=== PATIENT | male | born 1955 | race Caucasian/White ===

== ENCOUNTER 2023-03-29 07:45 | Outpatient (OUT) | payer OTHER, SELFPAY ==
--- NOTE | 2023-03-29 07:59 | XR_ITS ---
The [address] [address] Patient Name: RACHID MANNING MRN: [id number] date: 1955 Sex: M Assigned Patient Location: [facility] Current Patient Location: Accession/Order Number: [id number] Exam Date: 03/29/2023 08:00 Report Date: 03/30/2023 15:00 At the request of: BC BASSETT Procedure: XR pelvis 1-2V PELVIS; 03/29/2023 8:00 AM EST Clinical History:Closed Fracture Of Right Inferior Pubic Ramus S32.591A Comparison: Unfortunately, no prior study for comparison. . Bilateral THRs. Various aspects appear reasonably well seated and aligned with respect to each other as examined in single frontal plane only Neurosurgical hardware at L5 and S1. There is a hairline nondisplaced fracture of the right inferior pubic ramus. No apparent callus formation. At plain film, no distinct evidence of a second fracture of the pelvic ring. There is linear lucency extending through and osteophyte/heterotopic bone in the region of the left greater trochanter. The alignment at the symphysis unremarkable. The width of the symphysis is preserved. SI joints are patent and symmetric. Minimal degenerative irregularities on the left. XR/XR pelvis 1-2V IMPRESSION: 1. Hairline fracture right inferior pubic ramus. 2. Lucency extending through osteophyte/heterotopic bone in the region of left greater trochanter. Clinical correlation is needed. Is pain referrable to this region? Is there point tenderness in this region? Electronically authenticated by: FRANKIE VARGAS Date: 03/30/2023 15:00
== END 2023-03-29 07:46 | disposition home or self-care (01) ==
LOC: RAD 07:45
PROVIDERS: Visit Provider Orthopaedic Surgery
DX: S32.591A Other specified fracture of right pubis, initial encounter for closed fracture (principal)
CPT/HCPCS: 72170

== ENCOUNTER 2023-04-26 09:40 | Outpatient (OUT) | payer OTHER, SELFPAY ==
--- NOTE | 2023-04-26 | XR_ITS ---
The [address] [address] Patient Name: RACHID MANNING MRN: [id number] date: 1955 Sex: M Assigned Patient Location: [facility] Current Patient Location: [facility] Accession/Order Number: [id number] Exam Date: 04/26/2023 09:58 Report Date: 04/26/2023 14:48 At the request of: BC BASSETT Procedure: XR pelvis min 3V 3 frontal views of the pelvis INDICATION: Pain COMPARISON: None XR/XR pelvis min 3V IMPRESSION: No overt acute displaced pelvic bone fracture or dislocation identified on limited frontal views. Bilateral hip arthroplasties noted without overt complications. Mild to moderate degenerative changes of the pubis symphysis, bilateral sacroiliac joints and partially visualized lower lumbar spine. Soft tissues are grossly unremarkable. Electronically authenticated by: LENORE MATHIAS Date: 04/26/2023 14:48
--- OUTSIDE RECORDS SUMMARY | 2023-04-26 09:57 | XMS_ITS | CCD ---
Author Name Unknown Address [address] [place] [address] [address] [place] [address] Organization [facility] Care Team Providers Care Asset Coordinator Name Role Phone PRIYANK, DR RENAY Beal Attending Unavailable PRIYANK, DR RENAY Beal Admitting Unavailable PRIYANK, DR RENAY Beal Primary Care Unavailable PRIYANK, DR RENAY Beal Consulting Unavailable PRIYANK, DR RENAY Beal Admitting Unavailable PRIYANK, DR RENAY Beal Primary Care Unavailable PRIYANK, DR RENAY Beal Consulting Unavailable PRIYANK, DR RENAY Beal Attending Unavailable MD Renay Yost Primary Care Provider [phone] MD Cam Rea Attending Provider [phone] Cam Rea Attending Unavailable Cam Rea Admitting Unavailable Renay Yost Primary Care Unavailable MD Maxwell Ontiveros Attending Unavailable Lauri HDZ Attending Unavailable Lauri HDZ Attending Unavailable MD Maxwell Ontiveros Attending Unavailable MD Maxwell Ontiveros Admitting Unavailable MD Maxwell Ontiveros Attending Unavailable MD Maxwell Ontiveros Admitting Unavailable Brain Pack Attending Unavailable MD Maxwell Ontiveros Attending Unavailable MD Maxwell Ontiveros Attending Unavailable Allergies Allergy Classification Reported Allergen(s) Allergy Type Date of Onset Reaction(s) Facility (1 source) Sulfonamides (Antibiotic) Drug allergy (disorder) 0 [facility] Repository (2 sources) Sulfonamides (Antibiotic); Translations: [Sulfa (Sulfonamide Antibiotics)] Allergy to substance 2 [facility] (1 source) Sulfamethoxazole; Translations: [sulfamethoxazole ] Drug Allergy [facility] Repository Medications Current Medications Medication Drug Class(es) Dates Sig (Normalized) Sig (Original) aspirin 81 mg oral tablet (1 source) Platelet Aggregation Inhibitor, Nonsteroidal Anti-inflammatory Drug Start: 02-18-2022 take 81 mg by mouth once daily Aspirin Active 81 MG PO Daily February 18, 2022 12:00am atorvastatin 20 mg oral tablet (1 source) HMG-CoA Reductase Inhibitor Start: 02-18-2022 take 20 mg by mouth at bedtime Atorvastatin Active 20 MG PO Bedtime February 18, 2022 12:00am losartan potassium 100 mg oral tablet (1 source) Angiotensin 2 Receptor Diamond Start: 02-18-2022 take 100 mg by mouth once daily Losartan Active 100 MG PO Daily February 18, 2022 12:00am metFORMIN hydrochloride 500 mg oral tablet (1 source) Biguanide Start: 02-18-2022 take 500 mg by mouth twice daily Metformin Active 500 MG PO Twice daily February 18, 2022 12:00am omeprazole 20 mg delayed release oral capsule (1 source) Proton Pump Inhibitor Start: 02-18-2022 take 20 mg by mouth once daily Omeprazole Active 20 MG PO Daily February 18, 2022 12:00am SITagliptin 100 mg oral tablet (1 source) Dipeptidyl Peptidase 4 Inhibitor Start: 02-18-2022 take 1 tablet by mouth once daily Sitagliptin Phosphate (Januvia) 100 mg tablet Active 100 MG PO Daily February 18, 2022 12:00am terbinafine 250 mg oral tablet (1 source) Allylamine Antifungal Start: 02-18-2022 take 250 mg by mouth twice daily Terbinafine Hcl Active 250 MG PO Twice daily February 18, 2022 12:00am as dircted venlafaxine 25 mg oral tablet (1 source) Serotonin and Norepinephrine Reuptake Inhibitor Start: 02-18-2022 take 25 mg by mouth once daily Venlafaxine Active 25 MG PO Daily February 18, 2022 12:00am Problems Problem Classification Problem Date Documented Da te Episodic/Chronic Other screening for suspected conditions (not mental disorders or infectious disease) (1 source) Encounter for screening for malignant neoplasm of prostate; Translations: [ENC SCREEN MALIG NEOPLASM PROSTATE] Onset: 10-28-2021 Episodic Unclassified (1 source) Encounter for screening for malignant neoplasm of colon; Translations: [Encounter for screening for malignant neoplasm of colon] Onset: 02-20-2022 Results Test Name Value Interpretation Reference Range Facil ity Family Medicine Office/Clini c Noteon 03-31-2023 Family Medicine Office/Clinic Note HPI Staff Rachid is a 67 year old male presenting for full PE Health Maintenance: Colonoscopy: PSA: PSA Scrn Tot.: 0.2 ng/mL (12/30/22 16:13:00) Last Labs: 12/30/22 Last A1C: Hgb A1C %: 6.9 % High (12/28/22 17:49:00) Flu: UTD questions/concerns: can he get the terbenaifine back, you wanted to wait on his liver tests before refilling it History of Present Illness Rachid Mcnair is a 67-year-old male who presents today for a physical exam. The patient underwent a colonoscopy at [facility] in 02/2022. A single polyp was identified during the procedure. The patient was advised to schedule a follow-up in five years. He has a history of smoking, which began in 1975 and ended in 1991, totaling 16 years of smoking. However, the patient has been smoke-free since 1991. He has been fully vaccinated against shingles, having received both doses of the vaccine. He was previously prescribed terbinafine by Dr. Huntley for a condition affecting his toes. The patient has not taken the medication since his last visit and reports no deterioration in his nail health. The patient also mentions that he has not used Penlac.. Review of Systems PHQ Score Initial Depression Screen Score: 1 SCORE Physical Exam Vitals & Measurements T: 36.8 ?C(Oral) HR: 76(Peripheral) RR: 16 BP: 136/82 SpO2: 99% HT: 71 in HT: 180 cm WT: 78.2 kg WT: 172.04 lb BMI: 24.14 General: alert, no acute distress Cardiovascular: regular rate and rhythm, normal peripheral perfusion Respiratory: Lungs CTA, respirations non labored Extremities: no deformity, no trauma Neurological: oriented x 4, LOC appropriate for age, CN II-XII intact, motor strength equal & normal bilaterally, speech normal Assessment/Plan 1. Physical exam (Z00.00: Encounter for general adult medical examination without abnormal findings) Anticipatory guidance given. Discussed diet and exercise. Discussed immunizations. Discussed the patient's basic lab work. 2. GERD (gastroesophageal reflux disease) (K21.9: Gastro-esophageal reflux disease without esophagitis) Well controlled with medication. We will continue to follow and refill medication as needed. 3. HTN (I10: Essential (primary) hypertension) Patient's blood pressure is well controlled today. No concerns. Continue medications before. 4. Type 2 diabetes mellitus without complication, without long-term current use of insulin (E11.9: Type 2 diabetes mellitus without complications) Patient's last A1c was within normal limits. Continue medication as before. We will increase metformin as needed 5. Jessica onychomycosis (B37.2: Candidiasis of skin and nail) We will continue terbinafine and we will do Penlac. Patient will follow up as needed. 6. Body mass index (BMI) of 24.0-24.9 in adult (Z68.24: Body mass index [BMI] 24.0-24.9, adult) BMI education given. 7. Former smoker (Z87.891: Personal history of nicotine dependence) Encouraged the patient not to smoke. We will look at aortic aneurysm screen at next visit. Discussed with the patient in detail. 8. BMI 36.0-36.9,adult (Z68.36: Body mass index [BMI] 36.0-36.9, adult) 9. Class 1 obesity due to excess calories in adult (E66.09: Other obesity due to excess calories) Portions of this record may have been created with voice recognition artificial intelligence software, specifically [employer], [employer] and or [employer]. Substitutions may have occurred due to the inherent limitations of voice recognition and artificial intelligence software. Documentation services were performed after patient or guardian consented to allow [employer] to record this visit. EMRE exchange specialist and provider reviewed before signing. EMRE: Sarah Dwyer. Follow-up No qualifying data available Problem List/Past Medical History Ongoing Body mass index (BMI) of 24.0-24.9 in adult Jessica onychomycosis Cholesterol Former smoker GERD (gastroesophageal reflux disease) HTN Physical exam Prostate cancer screening Type 2 diabetes mellitus without complication, without long-term current use of insulin Historical No qualifying data Procedure/Surgical History Arthroplasty of the hip (02/08/2018), rt shoulder scope ext debridement, sad, pt distal clavulectomy (10/06/2016), left shoulder manipulation under anesthesia, left shoulder arthroscopy with subacromial decompression, partial distal clavulectomy with extensive glenohumeral debridement, mini-open rotator cuff repair (04/28/2013), elbow, lower back surgery, right hip surgery, spinal neck surgery. Medications aspirin 81 mg oral capsule, 81 mg, Oral, Daily, 1 refills atorvastatin 20 mg Tab, 20 mg= 1 tab(s), Oral, Daily, 1 refills Januvia 100 mg Tab, 100 mg= 1 tab(s), Oral, Daily, 1 refills losartan 100 mg Tab, 100 mg= 1 tab(s), Oral, Daily, 1 refills metformin 500 mg Tab, 500 mg= 1 tab(s), Oral, BID, 1 refills Misc DME Prescription, See Instructions, 3 refills Misc DME Prescript (more content not included)... Normal [facility] Comment on above: Result Comment: Elec tronically Signed By: Maxwell Ontiveros MD\.br\Date and Time Signed: 03/31/23 17:18 EST\.br\Electronically Co-Signed By: Rachel Martinez\.br\Date and Time Co-Signed: 03/30/23 11:30 EST Ambulatory Visit Summaryon 1 05-30-2022 Ambulatory Visit Summary RACHID MCNAIR :1955 Visit Date:03/29/2023 Ambulatory Visit Instructions Your Diagnosis Physical exam GERD (gastroesophageal reflux disease) HTN Type 2 diabetes mellitus without complication, without long-term current use of insulin Jessica onychomycosis Body mass index (BMI) of 24.0-24.9 in adult Former smoker Your Care Team Attending Physician - Maxwell Ontiveros MD Primary Care Physician - Maxwell Ontiveros MD This Is Your Medications List ciclopirox topical (Penlac Nail Lacquer 8% topical solution) terbinafine (terbinafine 250 mg Tab) Contact prescribing physician if questions or concerns Misc Prescription (Misc DME Prescription) Misc Prescription (Misc DME Prescription) Misc Prescription (Misc DME Prescription) aspirin (aspirin 81 mg oral capsule) atorvastatin (atorvastatin 20 mg Tab) losartan (losartan 100 mg Tab) metformin (metformin 500 mg Tab) omeprazole (omeprazole 20 mg Cap-DR) sitagliptin (Januvia 100 mg Tab) venlafaxine (venlafaxine 25 mg Tab) Procedures Performed Arthroplasty of the hip (02/08/2018), rt shoulder scope ext debridement, sad, pt distal clavulectomy (10/06/2016), left shoulder manipulation under anesthesia, left shoulder arthroscopy with subacromial decompression, partial distal clavulectomy with extensive glenohumeral debridement, mini-open rotator cuff repair (04/28/2013), elbow, lower back surgery, right hip surgery, spinal neck surgery. Discharge Vitals Temperature (Oral) 36.8 ?C Heart Rate (Peripheral) 76 Respiratory Rate 16 Blood Pressure 136/82 Height 180 cm Height 71 in Weight 78.2 kg Weight 172.04 lb BMI 24.14 What to do next Scheduled Follow-Up Appointments Wednesday 9:30 AM EDT With: Where: [facility] [place] Normal [address] [place], [place] [id number]- \.br\ Medications\.br\ What How Much When Why Instructions\.br \ New ciclopirox topical (Penlac Nail Lacquer 8% topical solution) 1 Application Topical Every day Physical exam GERD (gastroesophagea l reflux disease) HTN Type 2 diabetes mellitus without complication, without long-term current use of insulin Jessica onychomycosis Pickup at [facility]pharmacy #[id number]\.br\ Changed terbinafine (terbinafine 250 mg Tab) 1 Tablets By Mouth 2 times a day use for one week and take 3 weeks off Pickup at [facility]\.br\ Unchanged aspirin (aspirin 81 mg oral capsule) 81 Milligram By Mouth Every day Contact prescribing physician if questions or concerns \.br\ Unchanged atorvastatin (atorvastatin 20 mg Tab) 1 Tablets By Mouth Every day Contact prescribing physician if questions or concerns \.br\ Unchanged losartan (losartan 100 mg Tab) 1 Tablets By Mouth Every day Contact prescribing physician if questions or concerns \.br\ Unchanged metformin (metformin 500 mg Tab) 1 Tablets By Mouth 2 times a day Contact prescribing physician if questions or concerns \.br\ Unchanged Misc Prescription (Misc DME Prescription) See instructions microlet lancets Use to test blood sugars once a day Dx E11.9 Contact prescribing physician if questions or concerns \.br\ Unchanged Misc Prescription (Misc DME Prescription) See instructions Contour next test strips Test blood sugars once a day Dx E11.9 Contact prescribing physician if questions or concerns \.br\ Unchanged Misc Prescription (Misc DME Prescription) See instructions control solution for contour next glucometer Dx E11.9 Use as directed for control check Contact prescribing physician if questions or concerns \.br\ Unchanged omeprazole (omeprazole 20 mg Cap-DR) 1 Capsules By Mouth Every day Contact prescribing physician if questions or concerns \.br\ Unchanged sitagliptin (Januvia 100 mg Tab) 1 Tablets By Mouth Every day Contact prescribing physician if questions or concerns \.br\ Unchanged venlafaxine (venlafaxine 25 mg Tab) 1 Tablets By Mouth Every day Contact prescribing physician if questions or concerns \.br\ Pharmacy Information\.br\ [facility]: [address] [place], [place] [id number] [phone]\.br\ [id number]: [address], [place] [id number] [phone]\.br\ Allergies\.br\ sulfamethoxazole \.br\ Problems\.br\ Ongoing - Any problem that you are currently receiving treatment for.\.br\ Body mass index (BMI) of 24.0-24.9 in adult\.br\ Jessica onychomycosis\.b r\ Cholesterol\.br\ Former smoker\.br\ GERD (gastroesophagea l reflux disease)\.br\ HTN\.br\ Physical exam\.br\ Prostate cancer screening\.br\ Type 2 diabetes mellitus without complication, without long-term current use of insulin\.br\ Patient Survey\.br\ You may receive a survey via text or e-mail asking about your office visit. Please share your experience with us by completing your survey. We appreciate your feedback and thank you for choosing us for your care.\.br\ \.br\ [facility] CT Pelvis w/o Contraston CT Pelvis w/o Contrast Exam Date/Time: 03/09/2023 17:14 EST Reason for Exam: inferior pubic rami fracture and superior;Other (please specify) Report IMPRESSION: NONDISPLACED ACUTE RIGHT SUPERIOR AND INFERIOR PUBIC RAMI FRACTURES. CLINICAL HISTORY: inferior pubic rami fracture and superior. Pain after recent injury. Abnormal radiographs. COMPARISON: Pelvis and right hip radiographs from earlier 03/09/2023. TECHNIQUE: Spiral unenhanced images were obtained of the pelvis without contrast. All CT scans at this facility use dose modulation, iterative reconstruction, and/or weight based dosing when appropriate to reduce radiation dose to as low as reasonably achievable. FINDINGS: A nondisplaced oblique fracture of the mid right inferior pubic ramus noted on the recent radiograph is confirmed. A nondisplaced fracture of the lateral aspect of the right superior pubic ramus is present, which does significantly not extend into the right acetabulum or right acetabular prosthetic implant. There is no other fracture, dislocation, pelvic diastases, organized hematoma, or other acute findings identified elsewhere. Bilateral total hip arthroplasties are otherwise unremarkable. Mild to moderate calcific plaquing of a normal caliber distal abdominal aorta and branch vessels are present. Postoperative changes from previous lumbosacral fusion/laminectomy are otherwise unremarkable. Mild sigmoid diverticulosis is present without diverticulitis. The urinary bladder is unremarkable. Ordering Provider: Adrienne Jenkins FINAL REPORT Dictated: 03/09/2023 6:17 pm Hank Fournier MD Signed (Electronic Signature): 03/09/2023 6:17 pm Signed by: Hank Fournier MD Transcribed by: ALENA Technologist: KIMBERLEY Technical Comments Rectal Contrast Given? No Oral contrast amount in ml's: 0 Normal [facility] Consent for Treatmenton 02-11 Consent for Treatment [id number] .[id number] Normal [facility] Discharge Instructionson Discharge Instructions [id number] 1.00TIFF Normal [facility] ED Clinical Summaryon 2022 ED Clinical Summary [address] [address] ED Clinical Summary Person Information [facility]: [facility] Age[facility] 67 Years : 1955 Sex: Male Language: Chinese PCP: Maxwell Ontiveros MD Marital Status: Visit Id: Visit Reason: Back pain; Hip pain-swelling; Fall; LOW BACK PAIN Speciality: Acuity: 3 Enc Type: Emergency Med Service: Emergency Arrival: 03/09/2023 13:29:02 Discharge: 03/09/2023 18:34:22 LOS: 000 05:05 Checkin: 03/09/2023 13:29:02 Checkout: 03/09/2023 18:34:22 Dispo Type: Home (Routine DC) EVENTS: Event Name Event Status Request Date/Time Start Date/Time Complete Date/Time Arrive Complete 03/09/2023 13:29:02 03/09/2023 13:29:02 03/09/2023 13:29:02 Document Home Meds Request 03/09/2023 13:29:02 Triage Complete 03/09/2023 13:29:02 03/09/2023 13:44:37 03/09/2023 13:44:37 Workers Comp Request 03/09/2023 13:44:39 Bed Assign Complete 03/09/2023 13:45:06 03/09/2023 13:45:06 03/09/2023 13:45:06 Dr Exam Complete 03/09/2023 13:45:06 03/09/2023 13:45:58 03/09/2023 13:45:58 RN Exam Complete 03/09/2023 13:45:06 03/09/2023 13:58:07 03/09/2023 13:58:07 Registration Complete 03/09/2023 13:45:58 03/09/2023 14:01:47 03/09/2023 14:01:47 Dr Exam Complete 03/09/2023 13:50:04 03/09/2023 13:50:04 03/09/2023 13:50:04 Trauma II Request 03/09/2023 13:57:37 Reg Complete Request 03/09/2023 14:01:47 Reg Bed Request Complete 03/09/2023 14:01:47 03/09/2023 14:01:47 03/09/2023 14:01:47 X-Ray Complete 03/09/2023 14:15:52 03/09/2023 14:23:15 03/09/2023 14:39:34 Wet Read Request 03/09/2023 14:39:34 Discharge Complete 03/09/2023 15:52:26 03/09/2023 18:34:28 03/09/2023 18:34:28 CT Complete 03/09/2023 16:43:14 03/09/2023 17:07:00 03/09/2023 17:14:04 Meds Admin Complete 03/09/2023 17:21:43 03/09/2023 17:26:52 Meds Admin Complete 03/09/2023 18:19:29 03/09/2023 18:23:20 Transfer Complete 03/09/2023 18:34:28 03/09/2023 18:34:28 03/09/2023 18:34:28 ADDRESS: [address] [place] [id number] PHYS DOC NOTES: Addendum by Adrienne Jenkins PA-C on March 09, 2023 18:25:08 EST MEDICAL INFORMATION: Prescriptions Given: Medications to Continue with No Changes Other Medications aspirin (aspirin 81 mg oral capsule) 81 Milligram By Mouth every day. Refills: 1. atorvastatin (atorvastatin 20 mg Tab) 1 Tablets By Mouth every day. Refills: 1. losartan (losartan 100 mg Tab) 1 Tablets By Mouth every day. Refills: 1. metformin (metformin 500 mg Tab) 1 Tablets By Mouth 2 times a day. Refills: 1. Misc Prescription ([facility] DME Prescription) microlet lancets Use to test blood sugars once a day Dx E11.9. Refills: 3. Misc Prescription ([facility] Prescription) Contour next test strips Test blood sugars once a day Dx E11.9. Refills: 3. [facility] Prescription ([facility] Prescription) control solution for contour next glucometer Dx E11.9 Use as directed for control check. Refills: 3. omeprazole (omeprazole 20 mg Cap-DR) 1 Capsules By Mouth every day. Refills: 1. sitagliptin (Januvia 100 mg Tab) 1 Tablets By Mouth every day. Refills: 1. terbinafine (terbinafine 250 mg Tab) 1 Tablets By Mouth 2 times a day. use for one week and take 3 weeks off. venlafaxine (venlafaxine 25 mg Tab) 1 Tablets By Mouth every day. Refills: 1. PATIENT EDUCATION INFORMATION: Instructions: Simple Pelvic Fracture, Adult Follow up: With: Address: When: Occupational Health: [facility] [place] [phone] Within 2 to 4 days Comments: Call today to schedule your follow up DIAGNOSIS: 1:Accidental fall; 2:Inferior pubic ramus fracture; 3:Fracture of superior rim of right pubis, initial encounter for closed fracture Normal [facility] ED Note-Physicianon 03-09-20 ED Note-Physician Basic Information Time Seen: Adrienne Jenkins PA-C 03/09/2023 13:45 Chief Complaint Pt missed a step and fell off the back of a truck at work, approx. 4ft. Landed on his back on concrete, denies head strike or LOC, but is on aspirin. C/o low back pain and pain to R hip, which he had a replacement on. History of Present Illness 67-year-old male presents for an accidental fall complaining of right buttock pain. 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 Denies hitting his head. He has been ambulating, but states that he has groin pain. He did not take anything for pain. Denies BUE/BLE swelling, temperature or sensation changes. Review of Systems Review of systems negative unless otherwise stated in HPI Physical Exam Vitals & Measurements T: 36.5 ?C(Oral) HR: 89(Monitored) RR: 18 BP: 135/80 SpO2: 96% HT: 180 cm WT: 79.9 kg BMI: 24.66 GENERAL: ALERT, NO ACUTE DISTRESS, talking in full complete sentences SKIN: WARM, DRY, INTACT; NO CYANOSIS, NO RASH HEAD: NORMOCEPHALIC, ATRAUMATIC ENT: EYE: PERRL, EOMI, NORMAL CONJUNCTIVA NOSE: NARES PATENT MOUTH: ORAL MUCOSA MOIST THROAT: NO STRIDOR NECK: SUPPLE, TRACHEA MIDLINE, FROM RESPIRATORY: NON-LABORED RESPIRATIONS EXTREMITIES: FROM X 4 with mild pain with right hip flexion and states that the pain is mostly in his buttock area on the right, NORMAL STRENGTH, CAPILLARY REFILL INTACT NEUROLOGICAL: A&OX3 SPINE: NO VERTEBRAL TENDERNESS, NO STEP OFFS, NO MUSCLE SPASM PSYCHIATRIC: COOPERATIVE, APPROPRIATE MOOD AND AFFECT Medical Decision Making Prelim x-ray reviewed with Dr. Pack and shows an inferior pubic rami fracture. Fracture care initiated in ER. Neurovascular intact. I have offered a couple times to medicate him for pain and he declines. Case discussed with Dr. Lockhart and will add on a CT pelvis and he is to use a walker with weightbearing as tolerated. Patient does not need to wait in the ER for results of the CT and can review this with [facility] as this does not change treatment. He is to follow-up with [facility]. Afebrile, not tachycardic, tolerating p.o. and hemodynamically stable to be discharged home. Answered all questions. Patient in agreement with treatment. Assessment/Plan 1. Accidental fall (W19.XXXA: Unspecified fall, initial encounter) 2. Inferior pubic ramus fracture (S32.599A: Other specified fracture of unspecified pubis, initial encounter for closed fracture) 3. Fracture of superior rim of right pubis, initial encounter for closed fracture (S32.511A: Fracture of superior rim of right pubis, initial encounter for closed fracture) Orders: CT Pelvis w/o Contrast XR Hip 2-3 Views Right + Pelvis Disposition Plan Patient Discharge Condition Stable Discharge Disposition Home Discharge Prescription List Prescriptions No active prescription medications Follow-up With When Contact Information Occupational Health: [facility] – [place] [phone] Within 2 to 4 days Additional Instructions: Call today to schedule your follow up Patient Education Simple Pelvic Fracture, Adult Attestation This visit was performed by both the physician and an APC. I performed all aspects of the MDM as documented. Problem List/Past Medical History Ongoing Cholesterol GERD (gastroesophageal reflux disease) HTN Prostate cancer screening Type 2 diabetes mellitus without complication, without long-term current use of insulin Historical No qualifying data Procedure/Surgical History Arthroplasty of the hip (02/08/2018), rt shoulder scope ext debridement, sad, pt distal clavulectomy (10/06/2016), left shoulder manipulation under anesthesia, left shoulder arthroscopy with subacromial decompression, partial distal clavulectomy with extensive glenohumeral debridement, mini-open rotator cuff repair (04/28/2013), elbow, lower back surgery, right hip surgery, spinal neck surgery. Medications Inpatient No active inpatient medications Home aspirin 81 mg oral capsule, 81 mg, Oral, Daily, 1 refills atorvastatin 20 mg Tab, 20 mg= 1 tab(s), Oral, Daily, 1 refills Januvia 100 mg Tab, 100 mg= 1 tab(s), Oral, Daily, 1 refills losartan 100 mg Tab, 100 mg= 1 tab(s), Oral, Daily, 1 refills metformin 500 mg Tab, 500 mg= 1 tab(s), Oral, BID, 1 refills Misc DME Prescription, See Instructions, 3 refills Misc DME Prescription, See Instructions, 3 refills Misc DME Prescription, See Instructions, 3 refills omeprazole 20 mg Cap-DR, 20 mg= 1 cap(s), Oral, Daily, 1 refills terbinafine 250 mg Tab, 250 mg= 1 tab(s), Oral, BID venlafaxine 25 mg Tab, 25 mg= 1 tab(s), Oral, Daily, 1 refills Allergies sulfamethoxazole Social History Alcohol - Medium Risk, 04/24/2013 Current, Beer, 1-2 times per week, 01/12/2018 Current, Beer, 3-5 times per week, Previous treatment: None. Alcohol use interferes with work or home: No. Drinks more than intended: No. Others hurt b (more content not included)... Normal [facility] Comment on above: Result Comment: Elec tronically Signed By: Adrienne Jenkins PA-C\.br\Date and Time Signed: 03/09/23 18:25 EST\.br\Electronically Co-Signed By: Adrienne Jenkins PA-C\.br\Date and Time Co-Signed: 03/09/23 18:35 EST\.br\Electronically Co-Signed By: Brain Pack DO\.br\Date and Time Co-Signed: 03/09/23 20:43 EST ED Patient Education Noteon 03-09-2023 ED Patient Education Note Simple Pelvic Fracture, Adult A pelvic fracture is a break in one of the bones in the pelvis. The pelvic bones include the bones that you sit on and the bones that make up the lower part of your spine. A pelvic fracture is called simple if: ? There is only one break. ? The broken bone is stable and is not moving out of place. ? The bone does not jenkins the skin. A pelvic fracture may occur along with injuries to nerves, blood vessels, soft tissues, the urinary tract, and abdominal organs. What are the causes? Common causes of this type of fracture include: ? A fall. ? A motor vehicle collision. ? Force or pressure that hits the pelvis. What increases the risk? You are more likely to get this injury if you: ? Play high-impact sports, such as football or hockey. ? Have thinning or weakening of your bones, such as from osteopenia or osteoporosis. ? Have cancer that has spread to the bone. ? Have a condition that is associated with falling, such as Parkinson's disease or a seizure disorder. ? Have had a stroke. ? Smoke. What are the signs or symptoms? Signs and symptoms may include: ? Tenderness, swelling, or bruising in the affected area. ? Pain when moving the hip. ? Pain when walking or standing. How is this diagnosed? This condition is diagnosed with a physical exam, X-ray, or CT scan. You may also have blood or urine tests: ? To rule out damage to other organs, such as the urethra. ? To check for internal bleeding in the pelvic area. How is this treated? The goal of treatment is to get the bone to heal in its original position. Treatment includes: ? Using crutches, a walker, or a wheelchair until the bone heals. ? Medicines to treat pain. ? Medicines to prevent blood clots from forming in your legs. ? Physical therapy. Follow these instructions at home: Medicines ? Take yran-xcp-ttnkujz and prescription medicines only as told by your health care provider. ? Ask your health care provider if the medicine prescribed to you requires you to avoid driving or using machinery. Managing pain, stiffness, and swelling ? If directed, put ice on the injured area. To do this: ? Put ice in a plastic bag. ? Place a towel between your skin and the bag. ? Leave the ice on for 20 minutes, 2?3 times a day. ? Remove the ice if your skin turns bright red. This is very important. If you cannot feel pain, heat, or cold, you have a greater risk of damage to the area. ? Move your toes, ankles, knees, and hips often to reduce stiffness and swelling. Activity ? Follow your health care provider's instructions about putting weight on your legs. ? Avoid strenuous activities for as long as directed by your health care provider. ? Return to your normal activities as told by your health care provider. Ask your health care provider what activities are safe for you. ? Use items to help you with your activities, such as: ? A long-handled shoehorn to help you put your shoes on. ? Elastic shoelaces that do not need to be retied. ? A director medical science or grabber to pick items up off the floor or from a shelf. General instructions ? Do not drive or use machinery until your health care provider tells you it is safe. ? Use a wheelchair or other assistive devices as directed by your health care provider. When you are ready to walk, start by using crutches or a walker to help support your body weight. ? Have someone help you at home as you recover. ? Wear compression stockings as told by your health care provider. ? Do not use any products that contain nicotine or tobacco. These products include cigarettes, chewing tobacco, and vaping devices, such as e-cigarettes. If you need help quitting, ask your health care provider. ? If you have an underlying condition that caused your pelvic fracture, work with your health care provider to manage your condition. ? Keep all follow-up visits. This is important. Contact a health care provider if: ? Your pain gets worse. ? Your pain is not relieved with medicines. ? You have difficulty or increased pain with walking. Get help right away if: ? You feel light-headed or faint. ? You develop chest pain. ? You develop shortness of breath. ? You have a fever. ? You have blood in your urine or your stools. ? You have bleeding in your vagina. ? You have difficulty or pain with urination or with passing stool. ? You have new or increased swelling in one of your legs. ? You have numbness in your legs or groin area. These symptoms may be an emergency. Get help right away. Call 911. ? Do not wait to see if the symptoms will go away. ? Do not drive yourself to the hospital. Summary ? A pelvic fracture is a break in one of the bones in the pelvis. These are the bones that you sit on and the bones that make up the lower part of your spine. ? A pelvic fracture is call (more content not included)... Normal [facility] ED Patient Summaryon 023 ED Patient Summary [address] [address] Patient Discharge Instructions Person Information Name: RACHID MCNAIR Age: 67 Years Arrival Date: 03/09/2023 13:29:02 Discharge Diagnosis: 1:Accidental fall; 2:Inferior pubic ramus fracture; 3:Fracture of superior rim of right pubis, initial encounter for closed fracture Primary Care Physician: Weston PARKER, Maxwell Borden Provider Information Primary Provider: Brain Pack DO [facility] Home Health:None The exam and treatment you received in the Emergency Department were for an urgent problem and are not intended as complete care. It is important that you follow up with a doctor, nurse practitioner, or physician?s student assistant for ongoing care. If your symptoms become worse or you do not improve as expected and you are unable to reach your usual health care provider, you should return to the Emergency Department. We are available 24 hours a day. RACHID MCNAIR has been given the following list of patient education materials, prescriptions and follow-up instructions: Follow-up Instructions: With: Address: When: Occupational Health: [facility] – [place], [place] [phone] Within 2 to 4 days Comments: Call today to schedule your follow up In the event that this physician does not participate in your insurance network, please consult with your insurance company to find a nearby participating provider. Patient Education Materials: Simple Pelvic Fracture, Adult A MESSAGE TO ALL PATIENTS REGARDING OPIOIDS PRESCRIPTION OPIOIDS: WHAT YOU NEED TO KNOW Prescription opioids can be used to help relieve ywsgeeox-lv-nquffy pain and are often prescribed following a surgery or injury, or for certain health conditions. These medications can be an important part of the treatment but also come with serious risks. It is important to work with your healthcare provider to make sure you are getting the safest, most effective care. WHAT ARE THE RISKS AND SIDE EFFECTS OF OPIOID USE? Prescription opioids carry serious risks of addiction and overdose, especially with prolonged use. An opioid overdose, often marked by slowed breathing, can cause sudden . The use of prescription opioids can have a number of side effects as well, even when taken as directed: ? Tolerance?meaning you might need to take more of the medication for the same pain relief ? Physical dependence?meaning you have symptoms of withdrawal when a medication is stopped ? Increased sensitivity to pain ? Constipation ? Nausea, vomiting, and dry mouth ? Sleepiness and dizziness ? Confusion ? Depression ? Low levels of testosterone that can result in lower sex drive, energy, and strength ? Itching and sweating RISKS ARE GREATER WITH: ? History of drug misuse, substance use disorder, or overdose ? Mental health conditions (such as depression or anxiety) ? Sleep apnea ? Older age (65 years and older) ? Avoid alcohol while taking prescription opioids. Also, unless specifically advised by your health care provider, medications to avoid include: ? Benzodiazepines (such as Xanax or Valium) ? Muscle relaxants (such as Soma or Flexeril) ? Hypnotics (such as Ambien or Lunesta) ? Other prescription opioids KNOW YOUR OPTIONS Talk to your health care provider about ways to manage your pain that don?t involve prescription opioids. Some of these options may actually work better and have fewer risks and side effects. Options may include: ? Pain relievers such as acetaminophen, ibuprofen, and naproxen ? Some medication that are also used for depression or seizures ? Physical therapy and exercise ? Cognitive behavioral therapy, a psychological, goal-directed approach, in which patients learn how to modify physical, behavioral, and emotional triggers of pain and stress. IF YOU ARE PRESCRIBED OPIOIDS FOR PAIN: ? Never take opioids in greater amounts or more often than prescribed. ? Follow up with your primary health care provider. o Work together to create a plan on how to manage your pain. o Talk about ways to help manage your pain that don?t involve prescription opioids. o Talk about any and all concerns and side effects. ? Help prevent misuse and abuse o Never sell or share prescription opioids. o Never use another person?s prescription opioids. ? Store prescription opioids in a secure place and out of reach of others (this may include visitors, children, friends, and family). ? Safely dispose of unused prescription opioids: Find your community drug take-back program or your pharmacy mail-back program, or flush them down the toilet, following guidance from the Food and Drug Administration (www.fda.gov/Drugs/Re sourcesForYou). ? Visit www.cdc.gov/drugoverd ose to learn about the risks of opioids abuse and overdose. ? If you believe you may be struggling with addiction, tell your health car (more content not included)... Normal [facility] ED Traumaon 03-09-2023 ED Trauma [id number]# 1.00TIFF Normal [facility] Workers Comp Formson 023 Workers Comp Forms [id number]# 1.00TIFF Normal [facility] XR Hip 2-3 Views Right + Pel vison 03-09-2023 XR Hip 2-3 Views Right + Pelvis Exam Date/Time: 03/09/2023 14:39 EST Reason for Exam: Fall Report IMPRESSION: Nondisplaced fracture involving the right inferior pubic ramus, and probably also the right superior pubic ramus. EXAMINATION/TECHNIQUE : XR Hip 2-3 Views Right + Pelvis HISTORY: Right hip pain. History of prior hip replacement bilaterally. COMPARISON: 02/08/2018. RESULT: Nondisplaced fracture involving the right inferior pubic ramus, and probably also the right superior pubic ramus. Otherwise bony pelvis appears grossly intact. Bilateral hip arthroplasties, grossly unchanged. No periprosthetic fracture. Postsurgical and degenerative changes of the lower lumbar spine. SI joints intact with degenerative changes. Pubic symphysis is intact. Enthesophytes at the iliac crests. No other significant abnormality. Ordering Provider: Adrienne Jenkins FINAL REPORT Dictated: 03/09/2023 3:47 pm Kobe Hernandez MD. Signed (Electronic Signature): 03/09/2023 3:47 pm Signed by: Kobe Hernandez MD Transcribed by: ALENA Technologist: AMBER Technical Comments Radiation Dose: Ka,r in mGy = 0 DAP = 0 Normal [facility] Consultation Noteon 01-07-20 Consultation Note [id number] .00CD:127 Normal [facility] Formson 12-31-2022 Forms [id number]. 00CD:127 Normal [facility] PSA Screen, Totalon 01-01-20 Prostate specific Ag [Mass/Vol] 0.2 ng/mL Normal 0.1-3.5 [facility] Comment on above: Result Comment: The concentration of PSA determined by different manufacturers can vary due to differences in assay methods and reagent specificity. Values obtained from different assay methods cannot be used interchangeably. The methodology used for this result was chemiluminescence using [employer]'s Access [employer] PSA reagent. Performed By: #### 1 [id number] ####[facility] [address] [place] [address] Auto Diffon 12-29-2022 Basophils/100 WBC (Bld) 0.9 % Normal 0.0-2.0 [facility] Comment on above: Order Comment: Order Added by Discern Expert. Performed By: #### 1 4411124, 7252383, [id number], 0560448, 3273232, 7710395 ####[address] [place] [address] Basophils/Leukocyte s Auto (Bld) [Pure # fraction] 0.1 E9/L Normal 0.0-0.2 [facility] Comment on above: Order Comment: Order Added by Discern Expert. Performed By: #### 1 6285682, 2033448, 619764962, 5439741, 9883904, 5088681 ####[facility] [address] [place] [address] Eosinophils/100 WBC (Bld) 2.8 % Normal 0.0-8.0 [facility] Comment on above: Order Comment: Order Added by Discern Expert. Performed By: #### 1 5005841, 1661894, 079459211, 0025752, 8843726, 7469217 ####[address] [place] [address] Eosinophils/Leukocy uri Auto (Bld) [Pure # fraction] 0.2 E9/L Normal 0.0-0.5 [facility] Comment on above: Order Comment: Order Added by Discern Expert. Performed By: #### 1 2705893, 6189241, 102333983, 2994811, 4369111, 7112746 ####[address] [address] Lymphocytes/100 WBC (Bld) 31.2 % Normal 14.0-50.0 [facility] Comment on above: Order Comment: Order Added by Discern Expert. Performed By: #### 1 0768368, 0705069, 783280770, 3620985, 9554483, 2022193 ####[address] [address] Lymphocytes/Leukocy uri Auto (Bld) [Pure # fraction] 2.2 E9/L Normal 1.0-4.0 [facility] Comment on above: Order Comment: Order Added by Discern Expert. Performed By: #### 1 8229624, 3841833, 849760544, 7413950, 7141329, 0329504 ####[address] [address] Monocytes/100 WBC (Bld) 9.4 % Normal 4.0-14.0 [facility] Comment on above: Order Comment: Order Added by Discern Expert. Performed By: #### 1 2948701, 8660702, 692226248, 4546372, 4164851, 6404538 ####[address] [address] Monocytes/Leukocyte s Auto (Bld) [Pure # fraction] 0.7 E9/L Normal 0.2-1.0 [facility] Comment on above: Order Comment: Order Added by Discern Expert. Performed By: #### 1 7336937, 1391698, 216957652, 2903685, 5839321, 9325845 ####[address] [address] Neutrophils/100 WBC (Bld) 55.7 % Normal 36.0-75.0 [facility] Comment on above: Order Comment: Order Added by Discern Expert. Performed By: #### 1 3530209, 4464556, 392496108, 1686397, 7405927, 9806412 ####[address] [place] [address] Neutrophils/Leukocy uri Auto (Bld) [Pure # fraction] 4.0 E9/L Normal 2.0-7.5 [facility] Comment on above: Order Comment: Order Added by Discern Expert. Performed By: #### 1 8563784, 5035050, 756479193, 3792654, 2451973, 7018535 ####[address] [address] CBC w/ Auto Diffon 3 Erythrocyte distribution width (RBC) [Ratio] 14.6 % High 10.9-14.2 [facility] Comment on above: Performed By: #### 1 1889292, 9372208, 111962687, 2673735, 1486212, 5467582 ####[address] [address] Hematocrit (Bld) [Volume fraction] 42.5 % Normal 37.7-49.0 [facility] Comment on above: Performed By: #### 1 5926272, 6439356, 981260303, 7736285, 2588564, 6231099 ####[address] [address] Hemoglobin (Bld) [Mass/Vol] 14.3 g/dL Normal 13.5-17.5 [facility] Comment on above: Performed By: #### 1 2184879, 1287675, 813961968, 8432744, 0022962, 7647526 ####[address] [address] MCH (RBC) [Entitic mass] 30.0 pg Normal 27.0-34.0 [facility] Comment on above: Performed By: #### 1 9856526, 8456403, 312977825, 0770370, 3263147, 0207261 ####[address] [address] MCHC (RBC) [Mass/Vol] 33.8 g/dL Normal 31.4-36.0 [facility] Comment on above: Performed By: #### 1 1211945, 6156445, 840372311, 5278958, 8342050, 3033849 ####[address] [place] [address] MCV (RBC) [Entitic vol] 88.9 fL Normal 80.0-100.0 [facility] Comment on above: Performed By: #### 1 9339021, 7824208, 667051352, 7029789, 9347256, 5114921 ####[address] [address] Platelet mean volume (Bld) [Entitic vol] 8.6 fL Normal 6.4-10.8 [facility] Comment on above: Performed By: #### 1 8218046, 8986655, 040454633, 5689248, 5773369, 1854205 ####[address] [address] Platelets (Bld) [#/Vol] 266.0 E9/L Normal 150.0-500.0 [facility] Comment on above: Performed By: #### 1 4067251, 3034729, 091007403, 8103657, 9474444, 7222371 ####[address] [address] RBC (Bld) [#/Vol] 4.8 E12/L Normal 4.3-5.9 [facility] Comment on above: Performed By: #### 1 8518108, 6985121, 050824176, 8743502, 0131886, 7057333 ####[address] [place] [address] WBC corrected for nucl RBC Auto (Bld) [#/Vol] 7.2 E9/L Normal 4.0-11.0 [facility] Comment on above: Performed By: #### 1 2030194, 3020673, 791556902, 5316026, 3032434, 8667019 ####[address] [address] CMPon 12-29-2022 Albumin [Mass/Vol] 4.4 g/dL Normal 3.3-5.0 [facility] Comment on above: Performed By: #### 1 4063659, 8646305, 796468805, 2766886, 3267308, 9590785 ####[facility] [address] [place] [address] Albumin/Globulin (S) [Mass conc ratio] 1.6 Normal 1.1-2.2 [facility] Comment on above: Performed By: #### 1 6422347, 0956605, 706390607, 5713727, 5871610, 4690373 ####[address] [place] [address] ALP [Catalytic activity/Vol] 51 Int._Unit/L Normal 21-98 [facility] Comment on above: Performed By: #### 1 6234664, 5826865, 195582281, 6730494, 0051264, 2556164 ####[address] [place] [address] ALT No additional P-5'-P [Catalytic activity/Vol] 25 Int._Unit/L Normal 6-46 [facility] Comment on above: Performed By: #### 1 5216921, 1735955, 953696016, 2254392, 6804516, 5864290 ####[address] [place] [address] Anion gap [Moles/Vol] 11 mmol/L Normal 6-16 [facility] Comment on above: Performed By: #### 1 3525740, 6069363, 111093262, 7067107, 0571342, 9849239 ####[facility] [address] [place] [address] AST [Catalytic activity/Vol] 24 Int._Unit/L Normal 5-43 [facility] Comment on above: Performed By: #### 1 8919043, 1181769, 087984587, 5560735, 4595177, 0525571 ####[address] [place] [address] Bilirubin [Mass/Vol] 0.5 mg/dL Normal 0.0-1.1 [facility] Comment on above: Performed By: #### 1 2460686, 7483942, 155382561, 7038032, 1727777, 8830175 ####[facility] [address] [place] [address] Calcium [Mass/Vol] 9.0 mg/dL Normal 8.9-11.1 [facility] Comment on above: Performed By: #### 1 4632397, 2772327, 144633098, 0515572, 2417174, 6693568 ####[facility] [address] [place] [address] Chloride [Moles/Vol] 105 mmol/L Normal 101-111 [facility] Comment on above: Performed By: #### 1 2357527, 1248630, 845041264, 3732358, 1505997, 1790674 ####[facility] [address] [place] [address] CO2 [Moles/Vol] 26 mmol/L Normal 21-31 [facility] Comment on above: Performed By: #### 1 9260256, 8388573, 720268378, 9489053, 1423351, 7788765 ####[facility] [address] [place] [address] Creatinine [Mass/Vol] 1.0 mg/dL Normal 0.5-1.3 [facility] Comment on above: Performed By: #### 1 5364108, 8296402, 591995895, 5698667, 9770035, 3252187 ####[facility] [address] [place] [address] Globulin (S) [Mass/Vol] 2.7 g/dL Normal 1.4-4.0 [facility] Comment on above: Performed By: #### 1 2450220, 6283114, 456179957, 1906398, 8671102, 8660662 ####[facility] [address] [place] [address] Glucose [Mass/Vol] 140 mg/dL Normal 55-199 [facility] Comment on above: Result Comment: If t his glucose result represents a fasting glucose, interpretation should refer to the following reference range: 55-99 mg/dL Performed By: #### 1 6207161, 7096996, 711210500, 2207761, 9722714, 4116253 ####[facility] [address] [place] [address] Potassium [Moles/Vol] 3.7 mmol/L Normal 3.5-5.3 [facility] Comment on above: Performed By: #### 1 7335333, 0517599, 690201334, 1549645, 0935040, 5951509 ####[facility] [address] [place] [address] Protein [Mass/Vol] 7.1 g/dL Normal 6.0-7.8 [facility] Comment on above: Performed By: #### 1 7085956, 6341857, 647224741, 1738477, 0835359, 6435727 ####[facility] [address] [place] [address] Sodium [Moles/Vol] 138 mmol/L Normal 135-145 [facility] Comment on above: Performed By: #### 1 3227980, 0443243, 088150038, 1511619, 5397102, 3923571 ####[facility] [address] [place] [address] Urea nitrogen [Mass/Vol] 12 mg/dL Normal 5-21 [facility] Comment on above: Performed By: #### 1 5076382, 3047993, 114820891, 9180297, 0334152, 2717319 ####[facility] [address] [place] [address] Urea nitrogen/Creatinine [Mass ratio] 12 No Units Normal 10-20 [facility] Comment on above: Performed By: #### 1 5687288, 1546971, 546692151, 4100573, 7609069, 5787484 ####[facility] [address] [place] [address] Consent for Flu Vaccineon Consent for Flu Vaccine [id number]. 00CD:127 Normal [facility] BvaN2znc 12-29-2022 HbA1c (Bld) [Mass fraction] 6.9 % High <=5.9 [facility] Comment on above: Performed By: #### 1 3478854, 2434454, 767150750, 9057862, 4279309, 1141444 ####[facility] [address] [place] [address] Lipid Panelon 12-29-2022 Cholesterol [Mass/Vol] 148 mg/dL Normal 120-200 [facility] Comment on above: Performed By: #### 1 2042041, 1024566, 108401825, 6420131, 2707286, 1284710 ####[facility] [address] [place] [address] Cholesterol in HDL [Mass/Vol] 51 mg/dL Invalid Interpretation Code [facility] Comment on above: Result Comment: HDL > or equal to 60 mg/dL: Low cardiovascular risk HDL < 40 mg/dL : High cardiovascular risk Performed By: #### 1 8339214, 3962432, 955506549, 3297891, 9529011, 7382913 ####[facility] [address] [place] [address] Cholesterol in LDL [Mass/Vol] 83 mg/dL Normal <=129 [facility] Comment on above: Performed By: #### 1 2003971, 0357835, 894577845, 9582339, 4422242, 1403848 ####[facility] [address] [place] [address] Cholesterol in VLDL [Mass/Vol] 21 mg/dL Normal 7-40 [facility] Comment on above: Performed By: #### 1 3991591, 5087600, 166253705, 1620000, 6563175, 0898718 ####[facility] [address] [place] [address] Triglyceride [Mass/Vol] 103 mg/dL Normal <=149 [facility] Comment on above: Performed By: #### 1 [id number], [id number], [id number], [id number] ####[facility] [address] [place] [address]92 U Microalbon 12-29-2022 Albumin DL <= 20 mg/L (U) [Mass/Vol] 4.4 microgram/mL Normal 0.0-19.0 [facility] Comment on above: Performed By: #### 1 [id number], [id number] ####[facility] [address] [place] [address] U Protein/Creat Ratioon 12-11 Albumin Elph (U) [Mass fraction] <6.0 Invalid Interpretation Code [facility] Comment on above: Result Comment: The reference range and other method performance specifications have not been established for this test; results should be integrated into the clinical context for interpretation. Performed By: #### 1 [id number], [id number] ####[address] [address] Creatinine (U) [Mass/Vol] 34.4 mg/dL Invalid Interpretation Code [facility] Comment on above: Result Comment: The reference range and other method performance specifications have not been established for this test; results should be integrated into the clinical context for interpretation. Performed By: #### 1 [id number], [id number] ####[facility] [address] [place] [address]275 U Prot/Creat Ratio [facility] Invalid Interpretation Code .00-200.00 [facility] Comment on above: Performed By: #### 1 [id number], [id number] ####[address] [place] [address] eGFRon 12-29-2022 GFR/1.73 sq M.predicted among non-blacks MDRD (S/P/Bld) [Vol rate/Area] 84 mL/min/1.73 m2 Normal >=59 [facility] Comment on above: Order Comment: Order added by Discern Expert. Result Comment: Countersinker laura kidney disease could be indicated at eGFR's of less than 60 mL/min/1.73m2. Kidney failure is indicated at less than 15 mL/min/1.73m2. Performed By: #### 1 [id number], [id number] ####[facility] [address] [place] [address] Ambulatory Visit Summaryon 0 12-28-2022 Ambulatory Visit Summary RACHID MCNAIR :1955 Visit Date:12/28/2022 Ambulatory Visit Instructions Your Diagnosis Type 2 diabetes mellitus without complication, without long-term current use of insulin HTN GERD (gastroesophageal reflux disease) Prostate cancer screening BMI 24.0-24.9, adult Your Care Team Attending Physician - Maxwell Ontiveros MD Primary Care Physician - Maxwell Ontiveros MD This Is Your Medications List aspirin (aspirin 81 mg oral capsule) atorvastatin (atorvastatin 20 mg Tab) losartan (losartan 100 mg Tab) metformin (metformin 500 mg Tab) omeprazole (omeprazole 20 mg Cap-DR) sitagliptin (Januvia 100 mg Tab) venlafaxine (venlafaxine 25 mg Tab) Contact prescribing physician if questions or concerns Misc Prescription (Misc DME Prescription) Misc Prescription (Misc DME Prescription) Misc Prescription (Misc DME Prescription) terbinafine (terbinafine 250 mg Tab) [Image Removed: STOP]Stop taking these medications chromium picolinate (chromium picolinate 800 mcg oral tablet) Procedures Performed Arthroplasty of the hip (02/08/2018), rt shoulder scope ext debridement, sad, pt distal clavulectomy (10/06/2016), left shoulder manipulation under anesthesia, left shoulder arthroscopy with subacromial decompression, partial distal clavulectomy with extensive glenohumeral debridement, mini-open rotator cuff repair (04/28/2013), elbow, lower back surgery, right hip surgery, spinal neck surgery. Discharge Vitals Temperature (Oral) 36.8 ?C Heart Rate (Peripheral) 70 Respiratory Rate 14 Blood Pressure 132/80 Height 180 cm Height 71 in Weight 79.3 kg Weight 174.46 lb BMI 24.48 What to do next Scheduled Follow-Up Appointments Wednesday 5:40 PM EST With: Weston PARKER, Maxwell Borden Where: [facility] Invalid Interpretation Code [facility] Office/Clini c Noteon 12-28-2022 [facility] Office/Clinic Note HPI Staff establish care would like wellness PE and needs a1c before he can get his januvia refilled Establish Care: History: DM, HTN, GERD,Hypercholesterol emia Last provider: Priyank Any recent labs: 10/25/21 Health Maintenance UTD: Colonoscopy: 02/20/22 PSA: 0.3 10/25/21 covid: UTD flu: will take today Acute: Current issues/complaints: needs his januvia and metformin refilled but needs A1C before to keep bill down on meds has a wellness/biometric form to fill out History of Present Illness - Here to establish care - Pt has not had his A1c checked in a while - He states FS BS are 150 - Bps are well - No other issues. - Needs labs done. Review of Systems PHQ Score Initial Depression Screen Score: 0 Physical Exam Vitals & Measurements T: 36.8 ?C(Oral) HR: 70(Peripheral) RR: 14 BP: 132/80 SpO2: 95% HT: 71 in HT: 180 cm WT: 79.3 kg WT: 174.46 lb BMI: 24.48 General: alert, no acute distress ENMT: oral mucosa moist, Cardiovascular: regular rate and rhythm, normal peripheral perfusion Respiratory: Lungs CTA, respirations non labored Extremities: no deformity, no trauma Neurological: oriented x 4, LOC appropriate for age, CN II-XII intact, motor strength equal & normal bilaterally, speech normal Abdomen: Soft, Nontender, Non-distended, + BS Assessment/Plan 1. Type 2 diabetes mellitus without complication, without long-term current use of insulin (E11.9: Type 2 diabetes mellitus without complications) - At goal last check - Will order labs - Follow up in 3 months - Adjust meds as needed Ordered: CBC w/ Auto Diff Comprehensive Metabolic Panel HgbA1c Lipid Panel Microalbumin Level Urine PSA Screen, Total U Protein/Creat Ratio 2. HTN (I10: Essential (primary) hypertension) - At goal. - Will refill meds Ordered: CBC w/ Auto Diff Comprehensive Metabolic Panel HgbA1c Lipid Panel Microalbumin Level Urine PSA Screen, Total U Protein/Creat Ratio 3. GERD (gastroesophageal reflux disease) (K21.9: Gastro-esophageal reflux disease without esophagitis) - Continue PPI Ordered: CBC w/ Auto Diff Comprehensive Metabolic Panel HgbA1c Lipid Panel Microalbumin Level Urine PSA Screen, Total U Protein/Creat Ratio 4. Prostate cancer screening (Z12.5: Encounter for screening for malignant neoplasm of prostate) - Labs ordered Ordered: PSA Screen, Total 5. BMI 24.0-24.9, adult (Z68.24: Body mass index [BMI] 24.0-24.9, adult) - Education added to the portal Ordered: CBC w/ Auto Diff Comprehensive Metabolic Panel HgbA1c Lipid Panel Microalbumin Level Urine PSA Screen, Total U Protein/Creat Ratio Orders: aspirin, 81 mg, Oral, Daily, # 90 cap(s), Refills(s) 1, Pharmacy: [facility] 180, cm, 12/28/22 16:56:00 EDT, Height/Length Dosing, 79.3, kg, 12/28/22 16:56:00 EDT, Weight Dosing atorvastatin, 20 mg = 1 tab(s), Oral, Daily, # 90 tab(s), Refills(s) 1, Pharmacy: [facility] ([facility] 180, cm, 12/28/22 16:56:00 EDT, Height/Length Dosing, 79.3, kg, 12/28/22 16:56:00 EDT, Weight Dosing losartan, 100 mg = 1 tab(s), Oral, Daily, # 90 tab(s), Refills(s) 1, Pharmacy: [facility] ([facility]), 180, cm, 12/28/22 16:56:00 EDT, Height/Length Dosing, 79.3, kg, 12/28/22 16:56:00 EDT, Weight Dosing metformin, 500 mg = 1 tab(s), Oral, BID, # 180 tab(s), Refills(s) 1, Pharmacy: [facility] ([facility]), 180, cm, 12/28/22 16:56:00 EDT, Height/Length Dosing, 79.3, kg, 12/28/22 16:56:00 EDT, Weight Dosing omeprazole, 20 mg = 1 cap(s), Oral, Daily, # 90 cap(s), Refills(s) 1, Pharmacy: [facility] ([facility]), 180, cm, 12/28/22 16:56:00 EDT, Height/Length Dosing, 79.3, kg, 12/28/22 16:56:00 EDT, Weight Dosing sitagliptin, 100 mg = 1 tab(s), Oral, Daily, # 90 tab(s), Refills(s) 1, Pharmacy: [facility] ([facility]), 180, cm, 12/28/22 16:56:00 EDT, Height/Length Dosing, 79.3, kg, 12/28/22 16:56:00 EDT, Weight Dosing venlafaxine, 25 mg = 1 tab(s), Oral, Daily, # 90 tab(s), Refills(s) 1, Pharmacy: [facility] ([facility]), 180, cm, 12/28/22 16:56:00 EDT, Height/Length Dosing, 79.3, kg, 12/28/22 16:56:00 EDT, Weight Dosing Follow-up No qualifying data available Patient Education BMI for Adults Hypertension, Adult BMI for Adults Problem List/Past Medical History Ongoing Cholesterol GERD (gastroesophageal reflux disease) HTN Prostate cancer screening Type 2 diabetes mellitus without complication, without long-term current use of insulin Historical No qualifying data Procedure/Surgical History Arthroplasty of the hip (02/08/2018), rt shoulder scope ext debridement, sad, pt distal clavulectomy (10/06/2016), left shoulder manipulation under anesthesia, left shoulder arthroscopy with subacromial decompression, partial distal clavulectomy with extensive glenohumeral debridement, mini-open rotator cuff repair ( (more content not included)... Normal [facility] Comment on above: Result Comment: Elec tronically Signed By: Weston PARKER, Maxwell Mcgee.br\Date and Time Signed: 12/28/22 17:33 EDT Patient Educationon 12-29-19 23 Patient Education BMI for Adults What is BMI? Body mass index (BMI) is a number that is calculated from a person's weight and height. BMI can help estimate how much of a person's weight is composed of fat. BMI does not measure body fat directly. Rather, it is an alternative to procedures that directly measure body fat, which can be difficult and expensive. BMI can help identify people who may be at higher risk for certain medical problems. What are BMI measurements used for? BMI is used as a screening tool to identify possible weight problems. It helps determine whether a person is obese, overweight, a healthy weight, or underweight. BMI is useful for: ? Identifying a weight problem that may be related to a medical condition or may increase the risk for medical problems. ? Promoting changes, such as changes in diet and exercise, to help reach a healthy weight. BMI screening can be repeated to see if these changes are working. How is BMI calculated? BMI involves measuring your weight in relation to your height. Both height and weight are measured, and the BMI is calculated from those numbers. This can be done either in [place] ([place] or metric measurements. Note that charts and online BMI calculators are available to help you find your BMI quickly and easily without having to do these calculations yourself. To calculate your BMI in Chinese ([place] measurements: 1. Measure your weight in pounds (lb). 2. Multiply the number of pounds by 703. ? For example, for a person who weighs 180 lb, multiply that number by 703, which equals 126,540. 3. Measure your height in inches. Then multiply that number by itself to get a measurement called inches squared. ? For example, for a person who is 70 inches tall, the inches squared measurement is 70 inches x 70 inches, which equals 4,900 inches squared. 4. Divide the total from step 2 (number of lb x 703) by the total from step 3 (inches squared): 126,540 ? 4,900 = 25.8. This is your BMI. To calculate your BMI in metric measurements: 1. Measure your weight in kilograms (kg). 2. Measure your height in meters (m). Then multiply that number by itself to get a measurement called meters squared. ? For example, for a person who is 1.75 m tall, the meters squared measurement is 1.75 m x 1.75 m, which is equal to 3.1 meters squared. 3. Divide the number of kilograms (your weight) by the meters squared number. In this example: 70 ? 3.1 = 22.6. This is your BMI. What do the results mean? BMI charts are used to identify whether you are underweight, normal weight, overweight, or obese. The following guidelines will be used: ? Underweight: BMI less than 18.5. ? Normal weight: BMI between 18.5 and 24.9. ? Overweight: BMI between 25 and 29.9. ? Obese: BMI of 30 or above. Keep these notes in mind: ? Weight includes both fat and muscle, so someone with a muscular build, such as an athlete, may have a BMI that is higher than 24.9. In cases like these, BMI is not an accurate measure of body fat. ? To determine if excess body fat is the cause of a BMI of 25 or higher, further assessments may need to be done by a health care provider. ? BMI is usually interpreted in the same way for men and women. Where to find more information For more information about BMI, including tools to quickly calculate your BMI, go to these websites: ? Centers for Disease Control and Prevention: www.cdc.gov ? [place] [employer]: www.heart.org ? National Heart, Lung, and Blood [place]: www.nhlbi.nih.gov Summary ? Body mass index (BMI) is a number that is calculated from a person's weight and height. ? BMI may help estimate how much of a person's weight is composed of fat. BMI can help identify those who may be at higher risk for certain medical problems. ? BMI can be measured using Chinese measurements or metric measurements. ? BMI charts are used to identify whether you are underweight, normal weight, overweight, or obese. This information is not intended to replace advice given to you by your health care provider. Make sure you discuss any questions you have with your health care provider. Document Revised: 12/20/2019 Document Reviewed: 10/27/2019 [employer] Patient Education ? 2022 [employer] Cardiovascular Hypertension, Adult High blood pressure (hypertension) is when the force of blood pumping through the arteries is too strong. The arteries are the blood vessels that carry blood from the heart throughout the body. Hypertension forces the heart to work harder to pump blood and may cause arteries to become narrow or stiff. Untreated or uncontrolled hypertension can lead to a heart attack, heart failure, a stroke, kidney disease, and other problems. A blood pressure reading consists of a higher number over a lower number. Ideally, your blood pressure should be below 120/80. The first ( top ) number is called the systolic pressure. It is a measure of the pressure in your arteries as yo (more content not included)... Normal [facility] Registrationon 11-23-2022 Registration [id number]# 1.00CD:127 [facility] Consent for Treatmenton 11-10 Consent for Treatment [id number]# 1.00CD:127 [facility] Consenton 10-21-2022 Consent [id number]#1 .00CD:127 [facility] Registrationon 10-21-2022 Registration [id number]#1 .00CD:127 [facility] Glucose Glucometer (BldC) [M ass/Vol]Ordered By: Cam Rea on 02-20-2022 Glucose [Mass/Vol] 130 mg/dL [facility] Comment on above: Random Glucose Refer ence Range is dependent on time and content of last meal. Glucose of more than 200 mg/dL in a nonstressed, ambulatory subject supports the diagnosis of Diabetes Mellitus. Glucose Poct Glucometerson 1 04-22-2021 Glucose [Mass/Vol] 130 mg/dL Normal [facility] Comment on above: Result Comment: [employer] om Glucose Reference Range is dependent on time and content of last meal. Glucose of more than 200 mg/dL in a nonstressed, ambulatory subject supports the diagnosis of Diabetes Mellitus. PERFORMED BY: [facility] [address] [place] [address] PATHOLOGIST REPLENISHMENT SPECIALIST MATHEUS TAVERA M.D. Performed By: #### G LUANGELITA #### Point of Care testing , [facility] 02-20-2022 L - -------- Specimen: [id number] Received: 02/20/22 Status: CHRISTIANO Flores Num: [id number] Spec Type: Surgical Subm Dr: Cam Rea MD Tissues: A Colon - Polyp (DESCENDING POLYP) Procedures: HE/Karla Champion/Moon L4 -------- Age/ Patient Sex Location Account Attending Physician -------- Rachid Mcnair/M [id number] Cam Rea MD -------- SPEC NUM: [id number] RECD: 02/20/22 STATUS: CHRISTIANO FLORES NUM: [id number] NIGHAT: 02/20/22 [facility] DR: Cam Rea MD ENTERED: 02/20/[address] [facility] DR: SPEC TYPE: Surgical DEPT: S ORDERED: HE/2, Gross/Micro L4 ORDERED: HE/2, Gross/Micro L4 Pathological Diagnosis Descending colon, polyp, polypectomy: Fragments of tubular adenoma. No high-grade dysplasia seen. Clinical Information Descending colon polyp Gross Description Received in formalin labeled with the patient's name, number and descending colon polyp are four fragments of soft hayes tissue averaging 0.3 cm. Entirely submitted in one cassette labeled A1. Microscopic Description Two glass slides with H E stained material have been examined. The microscopic findings support the above pathologic diagnosis. CPT Codes 62384 -------- -------- Specimen: [id number] Received: 02/20/22 Status: CHRISTIANO Floers Num: [id number] Spec Type: Surgical Subm Dr: Cam Rea MD Tissues: A Colon - Polyp (DESCENDING POLYP) Procedures: HE/2, Gross/Micro L4 -------- Patient: Rachid Mcnair [id number] (Continued) -------- Signed (signature on file) Keerthi Finch MD (Michelle) 02/23/[address] [facility] CBC AUTO DIFFon 10-25-2021 BASO # 0.0 103/ul Normal 0.0-0.1 [facility] Comment on above: Performed By: #### C BC #### [facility] [address] [place] [address] Dr. Varghese ePrez Basophils/100 WBC (Bld) 0.6 % Normal 0.2-2.0 [facility] Comment on above: Performed By: #### C BC #### [facility] [address] [place] [address] Dr. Varghese Perez EO # 0.3 103/ul Normal 0.0-0.7 [facility] Comment on above: Performed By: #### C BC #### [facility] [address] [place] [address] Dr. Varghese Perez Eosinophils/100 WBC (Bld) 3.9 % Normal 0.9-7.0 [facility] Comment on above: Performed By: #### C BC #### [facility] [address] [place] [address] Dr. Varghese Perez Erythrocyte distribution width (RBC) [Ratio] 13.1 % Normal 11.0-15.0 [facility] Comment on above: Performed By: #### C BC #### [facility] [address] [place] [address] Dr. Varghese Perez Hematocrit (Bld) [Volume fraction] 42.4 % Normal 42.0-54.0 [facility] Comment on above: Performed By: #### C BC #### [facility] [address] [place] [address] Dr. Varghese Perez Hemoglobin (Bld) [Mass/Vol] 14.5 g/dL Normal 14.0-18.0 [facility] Comment on above: Performed By: #### C BC #### [facility] [address] [place] [address] Dr. Varghese Perez IG # 0.02 10e3/ul Normal 0.00-0.03 [facility] Comment on above: Performed By: #### C BC #### [facility] [address] [place] [address] Dr. Varghese Perez IG % 0.3 % Normal 0.0-0.5 [facility] Comment on above: Performed By: #### C BC #### [facility] [address] [place] [address] Dr. Varghese Perez LYMPH # 1.8 103/ul Normal 1.2-3.8 [facility] Comment on above: Performed By: #### C BC #### [facility] [address] [place] [address] Dr. Varghese Perez Lymphocytes/100 WBC (Bld) 28.4 % Normal 20.5-60.0 [facility] Comment on above: Performed By: #### C BC #### [facility] [address] [place] [address] Dr. Varghese Perez MANUAL DIFF REQ NO Normal [facility] Comment on above: Performed By: #### C BC #### [facility] [address] [place] [address] Dr. Varghese Perez MCH (RBC) [Entitic mass] 29.5 pg Normal 25.9-34.0 [facility] Comment on above: Performed By: #### C BC #### [facility] [address] [place] [address] Dr. Varghese Perez MCHC (RBC) [Mass/Vol] 34.2 g/dL Normal 29.9-35.2 [facility] Comment on above: Performed By: #### C BC #### [facility] [address] [address] [address] Varghese Perez MCV (RBC) [Entitic vol] 86.4 fL Normal 80.0-94.0 [facility] Comment on above: Performed By: #### C BC #### [facility] [address] [address] [address] Varghese Perez MONO # 0.6 103/ul Normal 0.3-0.8 [facility] Comment on above: Performed By: #### C BC #### [facility] [address] [address] [address] Varghese Perez Monocytes/100 WBC (Bld) 9.6 % Normal 1.7-12.0 [facility] Comment on above: Performed By: #### C BC #### [facility] [address] [place] [address] Dr. Varghese Perez NEUT # 3.7 103/ul Normal 1.4-6.5 [facility] Comment on above: Performed By: #### C BC #### [facility] [address] [place] [address] Dr. Varghese Perez Neutrophils/100 WBC (Bld) 57.2 % Normal 43.0-75.0 [facility] Comment on above: Performed By: #### C BC #### [facility] [address] [place] [address] Dr. Varghese Perez Platelet mean volume (Bld) [Entitic vol] 9.4 fL Critically low 9.5-13.5 [facility] Comment on above: Performed By: #### C BC #### [facility] [address] [place] [address] Dr. Varghese Perez PLT 256 103/ul Normal 150-450 [facility] Comment on above: Performed By: #### C BC #### [facility] [address] [place] [address] Dr. Varghese Perez RBC 4.91 106/ul Normal 4.70-6.10 [facility] Comment on above: Performed By: #### C BC #### [facility] [address] [address] [address] Varghese Perez WBC 6.5 103/ul Normal 4.0-11.0 [facility] Comment on above: Performed By: #### C BC #### [facility] [address] [address] [address] Varghese Perez GLYCOHEMOGLOBIN A1Con 2021 ADA RECOMMENDATION SEE BELOW Normal [facility] Comment on above: Result Comment: ADA RECOMMENDED LIMIT 4.0 - 6.0 ADA THERAPEUTIC TARGET < 7.0 ACTION SUGGESTED > 7.0 Performed By: #### A 1C #### [facility] [address] [address] [address] Varghese Perez Glucose [Mass/Vol] 117 mg/dL Normal [facility] Comment on above: Performed By: #### A 1C #### [facility] [address] [place] [address] Dr. Varghese Perez HbA1c (Bld) [Mass fraction] 5.7 % Normal 4.5-6.2 [facility] Comment on above: Performed By: #### A 1C #### [facility] [address] [place] [address] Dr. Varghese Perez LIPID PROFILEon 10-25-2021 CHOL-HDL RATIO NORM SEE BELOW Normal [facility] Comment on above: Result Comment: 3.3 - 4.4 LOW RISK 4.4 - 7.1 AVERAGE RISK 7.1 - 11.0 MODERATE RISK >11.0 HIGH RISK Performed By: #### C MP, LIPID, TSH #### [facility] [address] [place] [address] Dr. Varghese Perez Cholesterol [Mass/Vol] 170 mg/dL Normal <=200 [facility] Comment on above: Performed By: #### C MP, LIPID, TSH #### [facility] [address] [address] [address] Varghese Perez Cholesterol in HDL [Mass/Vol] 52 mg/dL Normal 40-60 [facility] Comment on above: Performed By: #### C MP, LIPID, TSH #### [facility] [address] [address] [address] Varghese Perez Cholesterol in LDL [Mass/Vol] 107.4 mg/dL Normal [facility] Comment on above: Performed By: #### C MP, LIPID, TSH #### [facility] [address] [address] [address] Varghese Perez Cholesterol.total/C holesterol in HDL [Mass ratio] 3.3 {ratio} Normal [facility] Comment on above: Performed By: #### C MP, LIPID, TSH #### [facility] [address] [place] [address] Dr. Varghese Perez HDL NORMAL > or = 60 mg/dl - LO W CARDIOVASCULAR RISK <40 mg/dl - HIGH CARDIOVASCULAR RISK Normal [facility] Comment on above: Performed By: #### C MP, LIPID, TSH #### [facility] [address] [place] [address] Dr. Varghese Perez LDL CALC NORMAL SEE BELOW Normal [facility] Comment on above: Result Comment: <100 mg/dl OPTIMAL 100 - 129 mg/dl NEAR OR ABOVE OPTIMAL 130 - 159 mg/dl BORDERLINE HIGH 160 - 189 mg/dl HIGH >190 mg/dl VERY HIGH Performed By: #### C MP, LIPID, TSH #### [facility] [address] [address] [address] Varghese Perez Triglyceride [Mass/Vol] 53 mg/dL Normal <=150 [facility] Comment on above: Performed By: #### C MP, LIPID, TSH #### [facility] [address] [address] [address] Varghese Perez VLDL CALC 10.6 mg/dL Normal [facility] Comment on above: Performed By: #### C MP, LIPID, TSH #### [facility] [address] [address] [address] Varghese Perez PROF 14(COMP METB)on 022 Albumin [Mass/Vol] 3.9 g/dL Normal 3.4-5.0 [facility] Comment on above: Performed By: #### C MP, LIPID, TSH #### [facility] [address] [address] [address] Varghese Perez Albumin/Globulin [Mass ratio] 1.2 {ratio} Normal [facility] Comment on above: Performed By: #### C MP, LIPID, TSH #### [facility] [address] [address] [address] Varghese Perez ALP [Catalytic activity/Vol] 50 U/L Normal 46-116 [facility] Comment on above: Performed By: #### C MP, LIPID, TSH #### [facility] [address] [address] [address] Varghese Perez ALT [Catalytic activity/Vol] 30 U/L Normal 16-63 [facility] Comment on above: Performed By: #### C MP, LIPID, TSH #### [facility] [address] [address] [address] Varghese Perez Anion gap [Moles/Vol] 9.8 mmol/L Normal [facility] Comment on above: Performed By: #### C MP, LIPID, TSH #### [facility] [address] [address] [address] Varghese Perez AST [Catalytic activity/Vol] 16 U/L Normal 15-37 [facility] Comment on above: Performed By: #### C MP, LIPID, TSH #### [facility] [address] [address] [address] Varghese Perez Bilirubin [Mass/Vol] 0.7 mg/dL Normal 0.2-1.0 [facility] Comment on above: Performed By: #### C MP, LIPID, TSH #### [facility] [address] [place] [address] Dr. Varghese Perez Calcium [Mass/Vol] 9.0 mg/dL Normal 8.5-10.1 [facility] Comment on above: Performed By: #### C MP, LIPID, TSH #### [facility] [address] [address] [address] Varghese Perez Chloride [Moles/Vol] 107 mmol/L Normal 98-107 [facility] Comment on above: Performed By: #### C MP, LIPID, TSH #### [facility] [address] [address] [address] Varghese Perez CO2 [Moles/Vol] 29.6 mmol/L Normal 21.0-32.0 [facility] Comment on above: Performed By: #### C MP, LIPID, TSH #### [facility] [address] [address] [address] Varghese Perez Creatinine [Mass/Vol] 0.97 mg/dL Normal 0.70-1.30 [facility] Comment on above: Performed By: #### C MP, LIPID, TSH #### [facility] [address] [address] [address] Varghese Perez EGFR-AF [place]ER >60 Normal >=60 [facility] Comment on above: Performed By: #### C MP, LIPID, TSH #### [facility] [address] [address] [address] Varghese Perez EGFR-NON AF [place] >60 Normal >=60 [facility] Comment on above: Performed By: #### C MP, LIPID, TSH #### [facility] [address] [address] [address] Varghese Perez Globulin (S) [Mass/Vol] 3.2 g/dL Normal [facility] Comment on above: Performed By: #### C MP, LIPID, TSH #### [facility] [address] [place] [address] Dr. Varghese Perez Glucose [Mass/Vol] 134 mg/dL Critically high 74-106 [facility] Comment on above: Performed By: #### C MP, LIPID, TSH #### [facility] [address] [address] [address] Varghese Perez Potassium [Moles/Vol] 4.4 mmol/L Normal 3.5-5.1 [facility] Comment on above: Performed By: #### C MP, LIPID, TSH #### [facility] [address] [address] [address] Varghese Perez Protein [Mass/Vol] 7.1 g/dL Normal 6.4-8.2 [facility] Comment on above: Performed By: #### C MP, LIPID, TSH #### [facility] [address] [address] [address] Varghese Perez Sodium [Moles/Vol] 142 mmol/L Normal 136-145 [facility] Comment on above: Performed By: #### C MP, LIPID, TSH #### [facility] [address] [address] [address] Varghese Perez Urea nitrogen [Mass/Vol] 12.0 mg/dL Normal 7.0-18.0 [facility] Comment on above: Performed By: #### C MP, LIPID, TSH #### [facility] [address] [address] [address] Varghese Perez Urea nitrogen/Creatinine [Mass ratio] 12.4 mg/mg Normal [facility] Comment on above: Performed By: #### C MP, LIPID, TSH #### [facility] [address] [address] [address] [facility] 1.433 uIU/mL Normal 0.358-3.740 [facility] Comment on above: Performed By: #### C MP, LIPID, TSH #### [facility] [address] [address] [address] Varghese Perez [facility] Surgical Pathology Depar tmenton 08-06-2021 [facility] Surgical Pathology Department Name RACHID MCNAIR Pathologist: GUMARO PATEL DMD Date of Procedure: 08/06/2021 Date Received: 08/08/2021 Date Reported 08/11/2021 Submitting Physician: EMELY FU DDS Location: [facility] Copy To/Referring/Attendin g: EMELY FU DDS Other External # FINAL DIAGNOSIS A. LEFT LOWER LIP, EXCISION: -- TRAUMATIC FIBROMA ICD-10/CPT: D10.0/86456 Electronically Signed Out By GUMARO PATEL DMD/TAMIR By the signature on this report, the individual or group listed as making the Final Interpretation/Diagno sis certifies that they have reviewed this case. Microscopic Description: The nodule consists of a proliferation of densely collagenous fibrovascular tissue with sparse chronic inflammation. This is overlaid by thinly keratinized stratified squamous epithelium undergoing the usual pattern of maturation. Clinical History: The lesion was excised from the left lower lip where it measures 0.3 x 0.3 cm, is pink, and has been present for an unknown duration. Clinical impression: Fibroma. Specimens Submitted As: A: LOWER LEFT LIP Gross Description: Received in formalin, labeled with the patient's name and hospital number and lower left lip , is an unoriented, ellipisoid segment of mucosa with submucosal tissue measuring 0.8 x 0.4 x 0.3 cm. On the mucosa surface is an ovoid, white, elevated area measuring 0.4 x 0.4 cm which extends within < 0.1 cm to both lateral margins. The deep and lateral margins are inked blue. The specimen is sectioned and entirely submitted in 2 cassettes. [facility] Summary of Cassettes: Specimen Label Site A 1 tips 2 body of ellipse [facility]/08/08/2021 [facility] Department of Pathology [address] [place] [address] Normal [facility] Comment on above: Performed By: #### U [facility] #### [facility] Surgical Pathology Department [address] [place] [address] CBC AUTO DIFFon 03-08-2021 BASO # 0.0 103/ul Normal 0.0-0.1 [facility] Comment on above: Performed By: #### C BC #### [facility] [address] [place] [address] Dr. Varghese Perez Basophils/100 WBC (Bld) 0.5 % Normal 0.2-2.0 [facility] Comment on above: Performed By: #### C BC #### [facility] [address] [place] [address] Dr. Varghese Perez EO # 0.3 103/ul Normal 0.0-0.7 [facility] Comment on above: Performed By: #### C BC #### [facility] [address] [place] [address] Dr. Varghese Perez Eosinophils/100 WBC (Bld) 4.7 % Normal 0.9-7.0 [facility] Comment on above: Performed By: #### C BC #### [facility] [address] [place] [address] Dr. Varghese Perez Erythrocyte distribution width (RBC) [Ratio] 13.2 % Normal 11.0-15.0 [facility] Comment on above: Performed By: #### C BC #### [facility] [address] [place] [address] Dr. Varghese Perez Hematocrit (Bld) [Volume fraction] 42.7 % Normal 42.0-54.0 [facility] Comment on above: Performed By: #### C BC #### [facility] [address] [place] [address] Dr. Varghese Perez Hemoglobin (Bld) [Mass/Vol] 14.5 g/dL Normal 14.0-18.0 [facility] Comment on above: Performed By: #### C BC #### [facility] [address] [place] [address] Dr. Varghese Perez IG # 0.02 10e3/ul Normal 0.00-0.03 [facility] Comment on above: Performed By: #### C BC #### [facility] [address] [place] [address] Dr. Varghese Perez IG % 0.3 % Normal 0.0-0.5 [facility] Comment on above: Performed By: #### C BC #### [facility] [address] [place] [address] Dr. Varghese Perez LYMPH # 1.7 103/ul Normal 1.2-3.8 [facility] Comment on above: Performed By: #### C BC #### [facility] [address] [place] [address] Dr. Varghese Perez Lymphocytes/100 WBC (Bld) 28.8 % Normal 20.5-60.0 [facility] Comment on above: Performed By: #### C BC #### [facility] [address] [place] [address] Dr. Varghese Perez MANUAL DIFF REQ NO Normal [facility] Comment on above: Performed By: #### C BC #### [facility] [address] [place] [address] Dr. Varghese Perez MCH (RBC) [Entitic mass] 29.6 pg Normal 25.9-34.0 [facility] Comment on above: Performed By: #### C BC #### [facility] [address] [place] [address] Dr. Varghese Perez MCHC (RBC) [Mass/Vol] 34.0 g/dL Normal 29.9-35.2 [facility] Comment on above: Performed By: #### C BC #### [facility] [address] [place] [address] Dr. Varghese Perez MCV (RBC) [Entitic vol] 87.1 fL Normal 80.0-94.0 [facility] Comment on above: Performed By: #### C BC #### [facility] [address] [place] [address] Dr. Varghese Perez MONO # 0.6 103/ul Normal 0.3-0.8 [facility] Comment on above: Performed By: #### C BC #### [facility] [address] [place] [address] Dr. Varghese Perez Monocytes/100 WBC (Bld) 9.7 % Normal 1.7-12.0 [facility] Comment on above: Performed By: #### C BC #### [facility] [address] [place] [address] Dr. Varghese Perez NEUT # 3.4 103/ul Normal 1.4-6.5 [facility] Comment on above: Performed By: #### C BC #### [facility] [address] [place] [address] Dr. Varghese Perez Neutrophils/100 WBC (Bld) 56.0 % Normal 43.0-75.0 [facility] Comment on above: Performed By: #### C BC #### [facility] [address] [place] [address] Dr. Varghese Perez Platelet mean volume (Bld) [Entitic vol] 9.9 fL Normal 9.5-13.5 [facility] Comment on above: Performed By: #### C BC #### [facility] [address] [place] [address] Dr. Varghese Perez PLT 217 103/ul Normal 150-450 [facility] Comment on above: Performed By: #### C BC #### [facility] [address] [place] [address] Dr. Varghese Perez RBC 4.90 106/ul Normal 4.70-6.10 [facility] Comment on above: Performed By: #### C BC #### [facility] [address] [address] [address] Varghese Perez WBC 6.0 103/ul Normal 4.0-11.0 [facility] Comment on above: Performed By: #### C BC #### [facility] [address] [address] [address] Varghese Perez GLYCOHEMOGLOBIN A1Con 2020 ADA RECOMMENDATION ADA THERAPEUTIC TARGET 6.0 - 7.0 ACTION SUGGESTED > 7.0 Normal [facility] Comment on above: Performed By: #### C MP, LIPID #### [facility] [address] [place] [address] Dr. Varghese Perez Glucose [Mass/Vol] 137 mg/dL Normal [facility] Comment on above: Performed By: #### C MP, LIPID #### [facility] [address] [place] [address] Dr. Varghese Perez HbA1c (Bld) [Mass fraction] 6.4 % Critically high <=6.0 [facility] Comment on above: Performed By: #### C MP, LIPID #### [facility] [address] [place] [address] Dr. Varghese Perez LIPID PROFILEon 03-08-2021 CHOL-HDL RATIO NORM SEE BELOW Normal [facility] Comment on above: Result Comment: 3.3 - 4.4 LOW RISK 4.4 - 7.1 AVERAGE RISK 7.1 - 11.0 MODERATE RISK >11.0 HIGH RISK Performed By: #### C MP, LIPID #### [facility] [address] [place] [address] Dr. Varghese Perez Cholesterol [Mass/Vol] 147 mg/dL Normal <=200 [facility] Comment on above: Performed By: #### C MP, LIPID #### [facility] [address] [address] [address] Varghese Perez Cholesterol in HDL [Mass/Vol] 50 mg/dL Normal [facility] Comment on above: Performed By: #### C MP, LIPID #### [facility] [address] [address] [address] Varghese Perez Cholesterol in LDL [Mass/Vol] 82.4 mg/dL Normal [facility] Comment on above: Performed By: #### C MP, LIPID #### [facility] [address] [address] [address] Varghese Perez Cholesterol.total/C holesterol in HDL [Mass ratio] 2.9 {ratio} Normal [facility] Comment on above: Performed By: #### C MP, LIPID #### [facility] [address] [address] [address] Varghese Perez HDL NORMAL > or = 60 mg/dl - LO W CARDIOVASCULAR RISK <40 mg/dl - HIGH CARDIOVASCULAR RISK Normal [facility] Comment on above: Performed By: #### C MP, LIPID #### [facility] [address] [place] [address] Dr. Varghese Perez LDL CALC NORMAL SEE BELOW Normal [facility] Comment on above: Result Comment: <100 mg/dl OPTIMAL 100 - 129 mg/dl NEAR OR ABOVE OPTIMAL 130 - 159 mg/dl BORDERLINE HIGH 160 - 189 mg/dl HIGH >190 mg/dl VERY HIGH Performed By: #### C MP, LIPID #### [facility] [address] [address] [address] Varghese Perez Triglyceride [Mass/Vol] 73 mg/dL Normal <=150 [facility] Comment on above: Performed By: #### C MP, LIPID #### [facility] [address] [address] [address] Varghese Perez VLDL CALC 14.6 mg/dL Normal [facility] Comment on above: Performed By: #### C MP, LIPID #### [facility] [address] [address] [address] Varghese Perez PROF 14(COMP METB)on 11-27-2 021 Albumin [Mass/Vol] 3.7 g/dL Normal 3.5-5.0 [facility] Comment on above: Performed By: #### C MP, LIPID #### [facility] [address] [address] [address] Varghese Perez Albumin/Globulin [Mass ratio] 1.1 {ratio} Normal [facility] Comment on above: Performed By: #### C MP, LIPID #### [facility] [address] [address] [address] Varghese Perez ALP [Catalytic activity/Vol] 54 U/L Normal 38-126 [facility] Comment on above: Performed By: #### C MP, LIPID #### [facility] [address] [place] [address] Dr. Varghese Perez ALT [Catalytic activity/Vol] 29 U/L Normal 21-72 [facility] Comment on above: Performed By: #### C MP, LIPID #### [facility] [address] [place] [address] Dr. Varghese Perez Anion gap [Moles/Vol] 10.5 mmol/L Normal [facility] Comment on above: Performed By: #### C MP, LIPID #### [facility] [address] [place] [address] Dr. Varghese Perez AST [Catalytic activity/Vol] 15 U/L Critically low 17-59 [facility] Comment on above: Performed By: #### C MP, LIPID #### [facility] [address] [place] [address] Dr. Varghese Perez Bilirubin [Mass/Vol] 0.5 mg/dL Normal 0.2-1.3 [facility] Comment on above: Performed By: #### C MP, LIPID #### [facility] [address] [address] [address] Varghese Perez Calcium [Mass/Vol] 8.9 mg/dL Normal 8.4-10.2 [facility] Comment on above: Performed By: #### C MP, LIPID #### [facility] [address] [place] [address] Dr. Varghese Perez Chloride [Moles/Vol] 106 mmol/L Normal 98-107 [facility] Comment on above: Performed By: #### C MP, LIPID #### [facility] [address] [place] [address] Dr. Varghese Perez CO2 [Moles/Vol] 29.0 mmol/L Normal 22.0-30.0 [facility] Comment on above: Performed By: #### C MP, LIPID #### [facility] [address] [place] [address] Dr. Varghese Perez Creatinine [Mass/Vol] 0.86 mg/dL Normal 0.66-1.25 [facility] Comment on above: Performed By: #### C MP, LIPID #### [facility] [address] [place] [address] Dr. Varghese Perez EGFR-AF [place]ER >60 Normal >=60 [facility] Comment on above: Performed By: #### C MP, LIPID #### [facility] [address] [place] [address] Dr. Varghese Perez EGFR-NON AF [place]ER >60 Normal >=60 [facility] Comment on above: Performed By: #### C MP, LIPID #### [facility] [address] [place] [address] Dr. Varghese Perez Globulin (S) [Mass/Vol] 3.3 g/dL Normal [facility] Comment on above: Performed By: #### C MP, LIPID #### [facility] [address] [place] [address] Dr. Varghese Perez Glucose [Mass/Vol] 127 mg/dL Critically high 74-106 [facility] Comment on above: Performed By: #### C MP, LIPID #### [facility] [address] [place] [address] Dr. Varghese Perez Potassium [Moles/Vol] 4.2 mmol/L Normal 3.4-5.0 [facility] Comment on above: Performed By: #### C MP, LIPID #### [facility] [address] [place] [address] Dr. Varghese Perez Protein [Mass/Vol] 7.0 g/dL Normal 6.1-8.2 [facility] Comment on above: Performed By: #### C MP, LIPID #### [facility] [address] [address] [address] Varghese Perez Sodium [Moles/Vol] 142 mmol/L Normal 137-145 [facility] Comment on above: Performed By: #### C MP, LIPID #### [facility] [address] [address] [address] Varghese Perez Urea nitrogen [Mass/Vol] 9.0 mg/dL Normal 9.0-20.0 [facility] Comment on above: Performed By: #### C MP, LIPID #### [facility] [address] [address] [address] Varghese Perez Urea nitrogen/Creatinine [Mass ratio] 10.5 mg/mg Normal [facility] Comment on above: Performed By: #### C MP, LIPID #### [facility] [address] [address] [address] Varghese Perez Vital Signs Date Time Vital Sign Value Performing Clinician Faci lity 02-20-2022 08:48-0500 Diastolic blood pressure 95 mm[Hg] MD Renay Yost Work Phone: [facility] 02-20-2022 08:48-0500 Heart rate 57 /min MD Renay Yost Work Phone: [facility] 02-20-2022 08:48-0500 Respiratory rate 18 /min MD Renay Yost Work Phone: [facility] 02-20-2022 08:48-0500 SaO2% (BldA) [Mass fraction] 97 % MD Renay Yost Work Phone: [facility] 02-20-2022 08:48-0500 Systolic blood pressure 154 mm[Hg] MD Renay Yost Work Phone: [facility] 02-20-2022 07:18-0500 Body height 180.34 cm MD Renay Yost Work Phone: [facility] 02-20-2022 07:18-0500 Body temperature 98 [degF] MD Renay Yost Work Phone: [facility] 02-20-2022 07:18-0500 Body weight 77.11 kg MD Renay Yost Work Phone: [facility] Encounters Encounter Date Encounter Type Care Provider Facility Start: 10-12-2023 ambulatory MD Maxwell Ontiveros [facility] ity:[facility] Start: 03-29-2023 End: 03-30-2023 ambulatory MD Maxwell Ontiveros Facility:[facility] Start: 03-09-2023 End: 03-09-2023 Emergency department patient visit [facility] Facility:[facility] [place] Start: 12-30-2022 End: 12-31-2022 ambulatory MD Maxwell Ontiveros Facility:[facility] [place] Start: 12-28-2022 End: 12-29-2022 ambulatory MD Maxwell Ontiveros Facility:[facility] [place] Start: 12-28-2022 End: 12-29-2022 ambulatory MD Maxwell Ontiveros Facility:[facility] Start: 11-19-2022 End: 11-20-2022 ambulatory Lauri HDZ [facility] Start: 10-21-2022 End: 10-22-2022 ambulatory Lauri HDZ [facility] Start: 07-01-2022 ambulatory MD Maxwell Ontiveros Facility :[facility] Start: 02-20-2022 End: 02-20-2022 ambulatory Cam Rea Facility:[facility] Start: 02-20-2022 End: 02-20-2022 Admission to same day surgery center MD Renay Yost Work Phone: [facility] Start: 02-20-2022 End: 02-20-2022 ambulatory MD Renay Yost Work Phone: [facility] Work Phone: Start: 10-28-2021 Encounter for genera l adult medical examination without abnormal findings DR RENAY YOST [facility] Start: 10-25-2021 End: 10-26-[address] RENAY YOST Facility: Start: 10-25-2021 End: 10-26-2021 Encounter for general adult medical examination without abnormal findings DR RENAY YOST Facility:[facility] Start: 03-08-2021 End: 03-09-[address] RENAY YOST Facility:[facility] Procedures Date Procedure Procedure Detail Performing Clinician Start: 02-20-2022 Screening colonoscopy Lindsey Yost Work Phone: Start: 10-25-[address] RENAY OCAMPO Comment on above: Performed By: #### P SASC #### [facility] [address] [address] [address] Varghese Perez Start: 03-08-[address] RENAY OCAMPO Comment on above: Performed By: #### P SASC #### [facility] [address] [address] [address] Varghese Perez Plan of Treatment Date Care Activity Detail Author Start: 02-20-2022 [facility] Patient Education Colon Polyps [facility] Work Phone: Immunizations Immunization Date Immunization Notes Care Provider Fa cility 04-14-2021 COVID-19 mRNA Bivale nt Booster (Moderna) MD Renay Yost Work Phone: [facility] 07-23-2020 COVID-19 mRNA-1273 (Moderna) MD Renay Yost Work Phone: [facility] 06-20-2020 COVID-19 mRNA-1273 (Moderna) MD Renay Yost Work Phone: [facility] Payers Date Payer Category Payer Worker's Compensation [id number] 2021 Self-pay 2018 Private Health Insurance [id number] 1957 Unknown [id number] 1957 Unknown [id number] 1957 Unknown [id number] 1957 Unknown [id number] 1957 Unknown [id number] 2.16.8 [id number] 1955 Unknown [id number] 2.16.8 [id number] 1955 Unknown [id number] 2.16.8 [id number] 1955 Unknown [id number] 2.16.8 [id number] 1955 Unknown [id number] 2.16.8 [id number] 1955 Unknown [id number] 2.16.8 [id number] Unknown [id number] 2.16.8 [id number] Social History Date Type Detail Facility [facility]: [facility] Start: 1955 Sex Assigned At Male F [facility] Goals Date Patient Goal Desired Activity /State Procedure note 02-20-2022 Note Date & Type Note Facility 02-20-2022 Procedure note [facility] Evaluation note Note Date & Type Note Facility Evaluation note No assessment information availa [facility] Work Phone: History and physical note Note Date & Type Note Facility History and physical note Note Date/Time February 20, 2022 7:57am [facility] [address] [place] [address] Gastroenterology H&P Signed Patient: Rachid Mcnair MR#: [id number] : 1955 Acct:[id number] Age/Sex: 66 / M Adm Date: 2 Loc: Room: Type: [facility] Attending Dr: Cam Rea MD Copies to: MD Renay Camacho MD~ Date of Service: 02/20/2022 HISTORY & PHYSICAL: Patient's history with special attention to the cardiovascular, pulmonary systems and the current problem was reviewed with the patient immediately prior to the procedure. Present medications and doses reviewed in the EMR. Allergies and pertinent laboratory tests were also reviewedat this time in the EMR. The physical examination, as below, was then performed. Indication, assessment and HPI: 66-year-old male presents for average risk screening colonoscopy Family history of GI malignancy? No PHYSICAL EXAMINATION Mouth and Pharynx : Moist mucus membranes, normal dentition Cardiac: Regular rate, regular rhythm Pulmonary: Clear to auscultation bilaterally, no wheezing Neurological: Alert and oriented x3, no focal deficits noted Abdomen: Abdomen soft, non-tender REVIEW OF SYSTEMS Constitutional: Denies malaise, fevers Cardiovascular: Denies chest pain, palpitations Respiratory: Denies shortness of breath, wheezing Gastrointestinal: Per HPI Genitourinary: Denies dysuria, polyuria Musculoskeletal: Denies joint swelling, joint stiffness Neurological: Denies numbness, tingling Integumentary: Denies rashes, skin lesions Endocrine: Denies fatigue, weight loss Written informed consent obtained from the patient. Risks (including but not limited to perforation, infection, bloating, bleeding, need for emergent surgeryand loss of life), benefits and alternatives explained and questions answered. The patient verbalized understanding. Based on history patient is an appropriate candidate for the procedure. Cam Rea MD Documented By: Cam Rea MD 02/20/22756 Signed By: <Electronically signed by Cam Rea MD> 02/20/22756 [facility] Work Phone: Hospital Discharge instructions Note Date & Type Note Facility Hospital Discharge instructions Additional Instructions DISCHARGE INSTRUCTIONS FOR COLONOSCOPY WHAT TO EXPECT: - You may feel full, gassy or cramping after your procedure. In some cases, this may be from a few hours to a day. Walking may help relieve the discomfort. - If you have polyp(s) removed you may note some minor bloody discharge after your first bowel movements. - You should begin to recover from anesthesia within 1 hour of the procedure, however may feel groggy for the next 24 hours. DO's AND DON'Ts: - Call your doctor right away if you have a hard abdomen, severe pain, are passing lots of bright red blood or clots. - Call your doctor if you develop any rashes, hives or difficulty breathing. - Let your doctor know if you have not had a bowel movement by 3 days after your procedure. - If you take 81 mg aspirin for your heart it is safe to resume this medication. - If you take other blood thinner medications your doctor will instruct you when these can safely be resumed. - Do NOT drive for 24 hours. - Do NOT operate machinery such as power tools, lawn mowers, snow blowers, sewing machines, etc. for 24 hours. - Avoid alcoholic beverages and drugs for allergies, nerves, or sleep. - Do NOT stay alone. Do NOT leave your child unattended. - Do NOT make important personal or business decisions or sign any legal documents. - Eat solid foods and drink liquids in smaller amounts than usual until normal appetite returns. If you should experience an upset stomach, liquids high in sugar content (soda, Kushal-Aid, non-acid juices) are recommended. - You can resume normal activities tomorrow. FOLLOW UP & RECOMMENDATIONS: - Follow-up with Dr. Rea as needed - Notify the doctor if you have any problems. - Follow up with PCP. - Office number [phone]. [facility] Work Phone: Summary Purpose Family History No Family History Records Found Relationship Condition Age at Onset Recorded Date/T césar father Malignant neoplasm of lung Unknown Advance Directives No Advanced Directives Records Found Advance Directive Response Recorded Date/ Time Advance Directives No February 17, 2022 2:15pm Chief Complaint and Reason for Visit Chief Complaint Screening Additional Source Comments (unrecognized sect ion and content) No Status Records FoundNo Status Records FoundNo Status Records FoundNo Status Records Found INFORMATION SOURCE (unrecogn ized section and content) DATE CREATED AUTHOR 08/11/2021 [facility] DATE CREATED AUTHOR AUTHOR'S ORGANIZ ATION 10/30/2021 [facility] DATE CREATED AUTHOR AUTHOR'S ORGANIZ ATION 02/27/2022 [facility] DATE CREATED AUTHOR AUTHOR'S ORGANIZ ATION 04/01/2023 [facility] Care Teams (unrecognized sec tion and content) Team Status: Inactive Member Role Status Dates Renay Yost MD Primary Care Provider Active Cam Rea MD Attending Provider Active Team Status: Active Member Role Status Dates Renay Yost MD Primary Care Provider Active FOR RECORDS PERTAINING TO PATIENTS WHO ARE OR HAVE BEEN ENROLLED IN A CHEMICAL DEPENDENCY/SUBSTANCEABUSE PROGRAM, SOME INFORMATION MAY BE OMITTED. This clinical summary was aggregated from multiple sources. Caution should be exercised in using it in the provision of clinical care. This summary normalizes information from multiple sources, and as a consequence, information in this document may materially change the coding, format and clinical context of patient data. In addition, data may be omitted in some cases. CLINICAL DECISIONS SHOULD BE BASED ON THE PRIMARY CLINICAL RECORDS. [employer] provides no warranty or guarantee of the accuracy or completeness of information in this document.
== END 2023-04-26 09:41 | disposition home or self-care (01) ==
LOC: RAD 09:41
PROVIDERS: Visit Provider Orthopaedic Surgery
DX: S32.511D Fracture of superior rim of right pubis, subsequent encounter for fracture with routine healing (principal)
CPT/HCPCS: 72190

== ENCOUNTER 2023-05-24 09:22 | Outpatient (OUT) | payer OTHER, SELFPAY ==
--- NOTE | 2023-05-24 | XR_ITS ---
[address] [address] Patient Name: RACHID MANNING MRN: [id number] date: 1955 Sex: M Assigned Patient Location: RAD Current Patient Location: [facility] Accession/Order Number: [id number] Exam Date: 05/24/2023 09:30 Report Date: 05/24/2023 10:15 At the request of: BC BASSETT Procedure: XR pelvis 1-2V EXAMINATION: XR pelvis 1-2V HISTORY: PELVIS PAIN COMPARISON: 03/29/2023 FINDINGS: BOWEL GAS PATTERN: No abnormal dilation or deviation. CALCIFICATIONS: None significant. OTHER: Bilateral total hip arthroplasty. Lumbosacral fusion XR/XR pelvis 1-2V IMPRESSION: No acute abnormality Electronically authenticated by: CONY MUNIZ Date: 05/24/2023 10:15
--- OUTSIDE RECORDS SUMMARY | 2023-05-24 09:24 | XMS_ITS | CCD ---
Author Name Unknown Address [address] [place] [address] [address] [place] [address] Organization [facility] Care Team Providers Care Pest Control Service Technician Name Role Phone PRIYANK, DR RENAY Beal Attending Unavailable PRIYANK, DR RENAY Beal Admitting Unavailable PRIYANK, DR RENAY Beal Primary Care Unavailable PRIYANK, DR RENAY Beal Consulting Unavailable PRIYANK, DR RENAY Beal Admitting Unavailable PRIYANK, DR RENAY Beal Primary Care Unavailable PRIYANK, DR RENAY Beal Consulting Unavailable PRIYANK, DR RENAY Beal Attending Unavailable MD Renay Yost Primary Care Provider [phone] MD Cam Rea Attending Provider Cam Rea Attending Unavailable Cam Rea Admitting [...] source) Sulfonamides (Antibiotic) Drug allergy (disorder) 0 [facility] Repository (2 sources) Sulfonamides (Antibiotic); Translations: [Sulfa (Sulfonamide Antibiotics)] Allergy to substance 2 [facility] (1 source) Sulfamethoxazole; Translations: [sulfamethoxazole ] Drug Allergy [facility] Repository Medications Current Medications Medication Drug Class(es) [...] exam. The patient underwent a colonoscopy at [facility] in 02/2022. A single polyp was [...] with voice recognition artificial intelligence software, specifically [employer], [employer] and or Drive.SG. Substitutions may have occurred due to the inherent limitations of voice recognition and artificial intelligence software. Documentation services were performed after patient or guardian consented to allow WhoisEDI to record this visit. EMRE education specialist and provider reviewed before signing. EMRE: [...] DME Prescript (more content not included)... Normal [facility] Comment on above: Result Comment: Elec tronically [...] Appointments Wednesday 9:30 AM EDT With: Where: [facility] [place] Normal [address] [place], [place] [id number]- \.br\ Medications\.br\ What How Much When Why Instructions\.br \ New ciclopirox topical (Penlac Nail Lacquer 8% topical solution) 1 Application Topical Every day Physical exam GERD (gastroesophagea l reflux disease) HTN Type 2 diabetes mellitus without complication, without long-term current use of insulin Jessica onychomycosis Pickup at [facility]/pharmacy #[id number]\.br\ Changed terbinafine (terbinafine 250 mg Tab) 1 [...] Delivery: [address] [place], [place] [id number] [phone]\.br\ [id number]: [address], [place] [id number] [phone]\.br\ Allergies\.br\ sulfamethoxazole \.br\ Problems\.br\ Ongoing - Any [...] for choosing us for your care.\.br\ \.br\ [facility] CT Pelvis w/o Contraston CT Pelvis w/o [...] Oral contrast amount in ml's: 0 Normal [facility] Consent for Treatmenton 02-11 Consent for Treatment [id number]#1 .00TIFF Normal [facility] Discharge Instructionson Discharge Instructions [id number]# 1.00TIFF Normal [facility] ED Clinical Summaryon 2022 ED Clinical Summary [address] [address] ED Clinical Summary Person [facility] Age[facility] 67 Years : 1955 Sex: Male Language: Stateless PCP: Maxwell Ontiveros MD Marital Status: Visit [...] 03/09/2023 18:34:28 03/09/2023 18:34:28 03/09/2023 18:34:28 ADDRESS: [address] [place] [phone] PHYS DOC NOTES: Addendum by Adrienne Jenkins [...] times a day. Refills: 1. Misc Prescription ([facility] Prescription) microlet lancets Use to test blood sugars once a day Dx E11.9. Refills: 3. Misc Prescription ([facility] Prescription) Contour next test strips Test blood sugars once a day Dx E11.9. Refills: 3. [facility] Pres[facility] ([facility] Prescription) control solution for contour next [...] Follow up: With: Address: When: [place] [facility] [phone] Within 2 to 4 days Comments: Call today to schedule your follow up DIAGNOSIS: 1:Accidental fall; 2:Inferior pubic ramus fracture; 3:Fracture of superior rim of right pubis, initial encounter for closed fracture Normal [facility] ED Note-Physicianon 03-09-20 ED Note-Physician Basic Information [...] of right buttock pain. He works for [employer] and states that he was on a [...] the CT and can review this with [facility] as this does not change treatment. He is to follow-up with [facility]. Afebrile, not tachycardic, tolerating p.o. and hemodynamically [...] Follow-up With When Contact Information [place] [facility] [phone] Within 2 to 4 days Additional Instructions: [...] hurt b (more content not included)... Normal [facility] Comment on above: Result Comment: Elec tronically [...] these instructions at home: Medicines ? Take bweu-owm-kiqadiw and prescription medicines only as told by [...] not need to be retied. ? A barrel burner or grabber to pick items up off [...] is call (more content not included)... Normal [facility] ED Patient Summaryon 023 ED Patient Summary [address] [address] Patient Discharge Instructions Person Information Name: RACHID MCNAIR Age: 67 Years Arrival Date: 03/09/2023 13:29:02 Discharge Diagnosis: 1:Accidental fall; 2:Inferior pubic ramus fracture; 3:Fracture of superior rim of right pubis, initial encounter for closed fracture Primary Care Physician: Weston PARKER, Maxwell Borden Provider Information Primary Provider: Brain Pack DO Advanced Incising Machine Operator:None The exam and treatment you received in the Emergency Department were for an urgent problem and are not intended as complete care. It is important that you follow up with a doctor, nurse practitioner, or physician?s physician office assistant for ongoing care. If your symptoms [...] Follow-up Instructions: With: Address: When: [place] [facility] [phone] Within 2 to 4 days Comments: Call [...] opioids can be used to help relieve fcchlcmj-sk-ajzhix pain and are often prescribed following a [...] health car (more content not included)... Normal [facility] ED Traumaon 03-09-2023 ED Trauma [id number]# 1.00TIFF Normal [facility] Workers Comp Formson 023 Workers Comp Forms [id number]# 1.00TIFF Normal [facility] XR Hip 2-3 Views Right + Pel [...] (Electronic Signature): 03/09/2023 3:47 pm Signed by: oKbe Hernandez MD Transcribed by: ALENA Technologist: AMBER Technical Comments Radiation Dose: Ka,r in mGy = 0 DAP = 0 Normal [facility] Consultation Noteon 01-07-20 Consultation Note [id number]#1 .00CD:127 Normal [facility] Formson 12-31-2022 Forms [id number]#1. 00CD:127 Normal [facility] PSA Screen, Totalon 01-01-20 Prostate specific Ag [Mass/Vol] 0.2 ng/mL Normal 0.1-3.5 [facility] Comment on above: Result Comment: The concentration of PSA determined by different manufacturers can vary due to differences in assay methods and reagent specificity. Values obtained from different assay methods cannot be used interchangeably. The methodology used for this result was chemiluminescence using [employer]'s Access Hybritech PSA reagent. Performed By: #### 1 [id number] ####[facility] [address] [place] [address] Auto Diffon 12-29-2022 Basophils/100 WBC (Bld) 0.9 % Normal 0.0-2.0 [facility] Comment on above: Order Comment: Order Added by Discern Expert. Performed By: #### 1 6026794, 5120387, 268922978, 6511303, 3781598, 2899644 ####[address] [place] [address] Basophils/Leukocyte s Auto (Bld) [Pure # fraction] 0.1 E9/L Normal 0.0-0.2 [facility] Comment on above: Order Comment: Order Added by Discern Expert. Performed By: #### 1 4012501, 5263137, 339320768, 1848286, 8719024, 0446659 ####[facility] [address] [place] [address] Eosinophils/100 WBC (Bld) 2.8 % Normal 0.0-8.0 [facility] Comment on above: Order Comment: Order Added by Discern Expert. Performed By: #### 1 2758743, 8369271, 368610438, 6859706, 9716307, 1744297 ####[address] [place] [address] Eosinophils/Leukocy uri Auto (Bld) [Pure # fraction] 0.2 E9/L Normal 0.0-0.5 [facility] Comment on above: Order Comment: Order Added by Discern Expert. Performed By: #### 1 2946238, 3973612, 902287645, 6717969, 9084189, 9945100 ####[address] [address] Lymphocytes/100 WBC (Bld) 31.2 % Normal 14.0-50.0 [facility] Comment on above: Order Comment: Order Added by Discern Expert. Performed By: #### 1 4202672, 6995956, 258008998, 1686741, 1751162, 4215020 ####[address] [address] Lymphocytes/Leukocy uri Auto (Bld) [Pure # fraction] 2.2 E9/L Normal 1.0-4.0 [facility] Comment on above: Order Comment: Order Added by Discern Expert. Performed By: #### 1 0027125, 9891996, 198556192, 4882851, 9141974, 7448618 ####[address] [address] Monocytes/100 WBC (Bld) 9.4 % Normal 4.0-14.0 [facility] Comment on above: Order Comment: Order Added by Discern Expert. Performed By: #### 1 2781305, 1560677, 361542515, 6025087, 5653292, 5883766 ####[address] [address] Monocytes/Leukocyte s Auto (Bld) [Pure # fraction] 0.7 E9/L Normal 0.2-1.0 [facility] Comment on above: Order Comment: Order Added by Discern Expert. Performed By: #### 1 4113471, 5181461, 839008186, 3318865, 4668898, 8116216 ####[address] [address] Neutrophils/100 WBC (Bld) 55.7 % Normal 36.0-75.0 [facility] Comment on above: Order Comment: Order Added by Discern Expert. Performed By: #### 1 3997051, 6040802, 634331247, 9954742, 1947633, 7199710 ####[address] [place] [address] Neutrophils/Leukocy uri Auto (Bld) [Pure # fraction] 4.0 E9/L Normal 2.0-7.5 [facility] Comment on above: Order Comment: Order Added by Discern Expert. Performed By: #### 1 0347639, 3929382, 155645828, 5139157, 5010675, 5708891 ####[address] [address] CBC w/ Auto Diffon 3 Erythrocyte distribution width (RBC) [Ratio] 14.6 % High 10.9-14.2 [facility] Comment on above: Performed By: #### 1 4236348, 1307410, 135059292, 8626460, 0315109, 6385764 ####[address] [address] Hematocrit (Bld) [Volume fraction] 42.5 % Normal 37.7-49.0 [facility] Comment on above: Performed By: #### 1 4862401, 9029153, 371754908, 9543311, 6214142, 0747212 ####[address] [address] Hemoglobin (Bld) [Mass/Vol] 14.3 g/dL Normal 13.5-17.5 [facility] Comment on above: Performed By: #### 1 9089465, 6476527, 292143257, 5032433, 5127739, 4689451 ####[address] [address] MCH (RBC) [Entitic mass] 30.0 pg Normal 27.0-34.0 [facility] Comment on above: Performed By: #### 1 0531089, 0053530, 010876232, 2303545, 3288250, 8270230 ####[address] [address] MCHC (RBC) [Mass/Vol] 33.8 g/dL Normal 31.4-36.0 [facility] Comment on above: Performed By: #### 1 1786335, 3898653, 340097191, 7588251, 2418067, 0577531 ####[address] [place] [address] MCV (RBC) [Entitic vol] 88.9 fL Normal 80.0-100.0 [facility] Comment on above: Performed By: #### 1 0633177, 1794992, 071512004, 8593530, 3496761, 9201149 ####[address] [address] Platelet mean volume (Bld) [Entitic vol] 8.6 fL Normal 6.4-10.8 [facility] Comment on above: Performed By: #### 1 7772908, 8452555, 088282288, 2374024, 8915012, 0937074 ####[address] [address] Platelets (Bld) [#/Vol] 266.0 E9/L Normal 150.0-500.0 [facility] Comment on above: Performed By: #### 1 6127805, 6607791, 707566873, 9085537, 3533297, 7835657 ####[address] [address] RBC (Bld) [#/Vol] 4.8 E12/L Normal 4.3-5.9 [facility] Comment on above: Performed By: #### 1 6551061, 2078238, 974330858, 3249330, 9008515, 5122326 ####[address] [place] [address] WBC corrected for nucl RBC Auto (Bld) [#/Vol] 7.2 E9/L Normal 4.0-11.0 [facility] Comment on above: Performed By: #### 1 6834616, 3827822, 504539013, 7743460, 0367078, 6328200 ####[address] [address] CMPon 12-29-2022 Albumin [Mass/Vol] 4.4 g/dL Normal 3.3-5.0 [facility] Comment on above: Performed By: #### 1 7841545, 4383734, 341040038, 8071981, 6102050, 8481249 ####[facility] [address] [place] [address] Albumin/Globulin (S) [Mass conc ratio] 1.6 Normal 1.1-2.2 [facility] Comment on above: Performed By: #### 1 1992111, 8423225, 534338710, 0033810, 4398643, 0509089 ####[address] [place] [address] ALP [Catalytic activity/Vol] 51 Int._Unit/L Normal 21-98 [facility] Comment on above: Performed By: #### 1 7112197, 6266237, 820784918, 0394530, 3971798, 4594083 ####[address] [place] [address] ALT No additional P-5'-P [Catalytic activity/Vol] 25 Int._Unit/L Normal 6-46 [facility] Comment on above: Performed By: #### 1 4731289, 8351032, 829657978, 9822633, 4057378, 7727041 ####[address] [place] [address] Anion gap [Moles/Vol] 11 mmol/L Normal 6-16 [facility] Comment on above: Performed By: #### 1 3831970, 2371596, 800177514, 6630039, 0147914, 1422610 ####[facility] [address] [place] [address] AST [Catalytic activity/Vol] 24 Int._Unit/L Normal 5-43 [facility] Comment on above: Performed By: #### 1 4832327, 0270864, 061573625, 4290119, 0613952, 3916657 ####[address] [place] [address] Bilirubin [Mass/Vol] 0.5 mg/dL Normal 0.0-1.1 [facility] Comment on above: Performed By: #### 1 1767612, 5899428, 471462583, 6229399, 8484099, 4980227 ####[facility] [address] [place] [address] Calcium [Mass/Vol] 9.0 mg/dL Normal 8.9-11.1 [facility] Comment on above: Performed By: #### 1 4985626, 4842216, 330027919, 7259798, 7040997, 9309660 ####[facility] [address] [place] [address] Chloride [Moles/Vol] 105 mmol/L Normal 101-111 [facility] Comment on above: Performed By: #### 1 1449241, 7221799, 443266041, 7256451, 8665593, 9528548 ####[facility] [address] [place] [address] CO2 [Moles/Vol] 26 mmol/L Normal 21-31 [facility] Comment on above: Performed By: #### 1 2977336, 2392822, 140639316, 0289610, 5301331, 9497910 ####[facility] [address] [place] [address] Creatinine [Mass/Vol] 1.0 mg/dL Normal 0.5-1.3 [facility] Comment on above: Performed By: #### 1 3514452, 5013264, 973371107, 5299989, 5738670, 1954854 ####[facility] [address] [place] [address] Globulin (S) [Mass/Vol] 2.7 g/dL Normal 1.4-4.0 [facility] Comment on above: Performed By: #### 1 5920087, 9549985, 812068799, 2534002, 2480922, 2303313 ####[facility] [address] [place] [address] Glucose [Mass/Vol] 140 mg/dL Normal 55-199 [facility] Comment on above: Result Comment: If t his glucose result represents a fasting glucose, interpretation should refer to the following reference range: 55-99 mg/dL Performed By: #### 1 5703493, 3436255, 928314676, 7656618, 3851932, 1206916 ####[facility] [address] [place] [address] Potassium [Moles/Vol] 3.7 mmol/L Normal 3.5-5.3 [facility] Comment on above: Performed By: #### 1 6711982, 1975490, 702357428, 3629221, 9439980, 5160889 ####[facility] [address] [place] [address] Protein [Mass/Vol] 7.1 g/dL Normal 6.0-7.8 [facility] Comment on above: Performed By: #### 1 2625492, 0899801, 176023452, 7187849, 1114716, 7189695 ####[facility] [address] [place] [address] Sodium [Moles/Vol] 138 mmol/L Normal 135-145 [facility] Comment on above: Performed By: #### 1 3113175, 0775848, 243639068, 3864104, 0937138, 0090219 ####[facility] [address] [place] [address] Urea nitrogen [Mass/Vol] 12 mg/dL Normal 5-21 [facility] Comment on above: Performed By: #### 1 6182839, 6925350, 956123208, 8195579, 5741130, 3702085 ####[facility] [address] [place] [address] Urea nitrogen/Creatinine [Mass ratio] 12 No Units Normal 10-20 [facility] Comment on above: Performed By: #### 1 5366338, 3887819, 807818189, 2327983, 0854406, 6656095 ####[facility] [address] [place] [address] Consent for Flu Vaccineon Consent for Flu Vaccine [id number]#1. 00CD:127 Normal [facility] PxuE3xte 12-29-2022 HbA1c (Bld) [Mass fraction] 6.9 % High <=5.9 [facility] Comment on above: Performed By: #### 1 5150295, 6025252, 819744471, 1629155, 6868913, 7726036 ####[facility] [address] [place] [address] Lipid Panelon 12-29-2022 Cholesterol [Mass/Vol] 148 mg/dL Normal 120-200 [facility] Comment on above: Performed By: #### 1 8536211, 0639949, 225053589, 5548322, 4831918, 9473512 ####[facility] [address] [place] [address] Cholesterol in HDL [Mass/Vol] 51 mg/dL Invalid Interpretation Code [facility] Comment on above: Result Comment: HDL > or equal to 60 mg/dL: Low cardiovascular risk HDL < 40 mg/dL : High cardiovascular risk Performed By: #### 1 9656474, 3934177, 111230953, 6423834, 8185390, 1948284 ####[facility] [address] [place] [address] Cholesterol in LDL [Mass/Vol] 83 mg/dL Normal <=129 [facility] Comment on above: Performed By: #### 1 1403041, 3610966, 959148191, 9313782, 1922136, 1845527 ####[facility] [address] [place] [address] Cholesterol in VLDL [Mass/Vol] 21 mg/dL Normal 7-40 [facility] Comment on above: Performed By: #### 1 3419133, 4446669, 656552895, 1992908, 2341960, 6804756 ####[facility] [address] [place] [address] Triglyceride [Mass/Vol] 103 mg/dL Normal <=149 [facility] Comment on above: Performed By: #### 1 0432668, 5744980, 697866207, 1858296, 2608852, 7425859 ####[facility] [address] [place] [address] U Microalbon 12-29-2022 Albumin DL <= 20 mg/L (U) [Mass/Vol] 4.4 microgram/mL Normal 0.0-19.0 [facility] Comment on above: Performed By: #### 1 8760722, 7763804383 ####[facility] [address] [place] [address] U Protein/Creat Ratioon 12-11 Albumin Elph (U) [Mass fraction] <6.0 Invalid Interpretation Code [facility] Comment on above: Result Comment: The reference range and other method performance specifications have not been established for this test; results should be integrated into the clinical context for interpretation. Performed By: #### 1 9253134, 9415589001 ####[address] [address] Creatinine (U) [Mass/Vol] 34.4 mg/dL Invalid Interpretation Code [facility] Comment on above: Result Comment: The reference range and other method performance specifications have not been established for this test; results should be integrated into the clinical context for interpretation. Performed By: #### 1 3456432, 6847208356 ####[facility] [address] [place] [address] U Prot/Creat Ratio [facility] Invalid Interpretation Code .00-200.00 [facility] Comment on above: Performed By: #### 1 0547343, 9333849197 ####[address] [place] [address] eGFRon 12-29-2022 GFR/1.73 sq M.predicted among non-blacks MDRD (S/P/Bld) [Vol rate/Area] 84 mL/min/1.73 m2 Normal >=59 [facility] Comment on above: Order Comment: Order added by Discern Expert. Result Comment: [employer] laura kidney disease could be indicated at eGFR's of less than 60 mL/min/1.73m2. Kidney failure is indicated at less than 15 mL/min/1.73m2. Performed By: #### 1 6737466, 5625077, 893907282, 7584173, 7554348, 1236556 ####[facility] [address] [place] [address] Ambulatory Visit Summaryon 0 12-28-2022 Ambulatory Visit [...] EST With: Weston PARKER, Maxwell Borden Where: [facility] Invalid Interpretation Code HTN [facility] Office/Clini c Noteon 12-28-2022 [facility] Office/Clinic Note HPI Staff establish care would [...] cap(s), Refills(s) 1, [facility] 180, cm, 12/28/22 16:56:00 EDT, Height/Length Dosing, 79.3, kg, 12/28/22 16:56:00 EDT, Weight Dosing atorvastatin, 20 mg = 1 tab(s), Oral, Daily, # 90 tab(s), Refills(s) 1, Pharmacy: [facility] 180, cm, 12/28/22 16:56:00 EDT, [...] tab(s), Refills(s) 1, Pharmacy: [facility] 180, cm, 12/28/22 16:56:00 EDT, [...] repair ( (more content not included)... Normal [facility] Comment on above: Result Comment: Elec tronically [...] numbers. This can be done either in Stateless ([place] or metric measurements. Note that charts and online BMI calculators are available to help you find your BMI quickly and easily without having to do these calculations yourself. To calculate your BMI in Stateless ([place] measurements: 1. Measure your weight in [...] for Disease Control and Prevention: www.cdc.gov ? [place] [employer]: www.heart.org ? National Heart, Lung, and Blood [place]: www.nhlbi.nih.gov Summary ? Body mass index (BMI) is a number that is calculated from a person's weight and height. ? BMI may help estimate how much of a person's weight is composed of fat. BMI can help identify those who may be at higher risk for certain medical problems. ? BMI can be measured using Stateless measurements or metric measurements. ? BMI charts are used to identify whether you are underweight, normal weight, overweight, or obese. This information is not intended to replace advice given to you by your health care provider. Make sure you discuss any questions you have with your health care provider. Document Revised: 12/20/2019 Document Reviewed: 10/27/2019 [employer] Patient Education ? 2022 [employer] Cardiovascular Hypertension, Adult High blood pressure [...] as yo (more content not included)... Normal [facility] Registrationon 11-23-2022 Registration [id number]# 1.00CD:127 [facility] Consent for Treatmenton 11-10 Consent for Treatment [id number]# 1.00CD:127 [facility] Consenton 10-21-2022 Consent [id number]#1 .00CD:127 [facility] Registrationon 10-21-2022 Registration [id number]#1 .00CD:127 [facility] Glucose Glucometer (BldC) [M ass/Vol]Ordered By: Cam Rea on 02-20-2022 Glucose [Mass/Vol] 130 mg/dL [facility] Comment on above: Random Glucose Refer ence Range is dependent on time and content of last meal. Glucose of more than 200 mg/dL in a nonstressed, ambulatory subject supports the diagnosis of Diabetes Mellitus. Glucose Poct Glucometerson 1 04-22-2021 Glucose [Mass/Vol] 130 mg/dL Normal [facility] Comment on above: Result Comment: [place] om Glucose Reference Range is dependent on time and content of last meal. Glucose of more than 200 mg/dL in a nonstressed, ambulatory subject supports the diagnosis of Diabetes Mellitus. PERFORMED BY: [facility] [address] [place] [address] PATHOLOGIST DIRECTOR OF LEADERSHIP DEVELOPMENT MATHEUS TAVERA M.D. Performed By: #### G LUANGELITA #### Point of Care testing , [facility] 02-20-2022 L - -------- Specimen: [id number] Received: 02/20/22 Status: CHRISTIANO Flores Num: [id number] Spec Type: Surgical Subm Dr: Cam Rea MD Tissues: A Colon - Polyp (DESCENDING POLYP) Procedures: HE/Karla Champion/Moon L4 -------- Age/ Patient Sex Location Account Attending Physician -------- Rachid Mcnair/M [id number] Cam Rea MD -------- SPEC NUM: [id number] RECD: 02/20/22 STATUS: CHRISTIANO FLORES NUM: [id number] NIGHAT: 02/20/[address] [facility] [address]: Cam Rea MD ENTERED: 02/20/[address] [facility] DR: SPEC TYPE: Surgical DEPT: S ORDERED: [...] support the above pathologic diagnosis. CPT Codes 02379 -------- -------- Specimen: [id number] Received: 02/20/22 Status: CHRISTIANO Flores Num: [id number] Spec Type: Surgical Subm Dr: Cam Rea MD Tissues: A Colon - Polyp (DESCENDING POLYP) Procedures: HE/2, Gross/Micro L4 -------- Patient: Rachid Mcnair [id number] (Continued) -------- Signed (signature on file) Keerthi Finch MD (Michelle) 02/23/[address] [facility] CBC AUTO DIFFon 10-25-2021 BASO # 0.0 103/ul Normal 0.0-0.1 [facility] Comment on above: Performed By: #### C BC #### [facility] [address] [place] [address] Dr. Varghese Perez Basophils/100 WBC (Bld) 0.6 % Normal 0.2-2.0 [facility] Comment on above: Performed By: #### C BC #### [facility] [address] [place] [address] Dr. Varghese Perez EO # 0.3 103/ul Normal 0.0-0.7 [facility] Comment on above: Performed By: #### C BC #### [facility] [address] [place] [address] Dr. Varghese Perez Eosinophils/100 WBC (Bld) 3.9 % Normal 0.9-7.0 [facility] Comment on above: Performed By: #### C BC #### [facility] [address] [place] [address] Dr. Varghese Perez Erythrocyte distribution width (RBC) [Ratio] 13.1 % Normal 11.0-15.0 [facility] Comment on above: Performed By: #### C BC #### [facility] [address] [place] [address] Dr. Varghese Perez Hematocrit (Bld) [Volume fraction] 42.4 % Normal 42.0-54.0 [facility] Comment on above: Performed By: #### C BC #### [facility] [address] [place] [address] Dr. Varghese Perez Hemoglobin (Bld) [Mass/Vol] 14.5 g/dL Normal 14.0-18.0 [facility] Comment on above: Performed By: #### C BC #### [facility] [address] [place] [address] Dr. Varghese Perez IG # 0.02 10e3/ul Normal 0.00-0.03 [facility] Comment on above: Performed By: #### C BC #### [facility] [address] [place] [address] Dr. Varghese Perez IG % 0.3 % Normal 0.0-0.5 [facility] Comment on above: Performed By: #### C BC #### [facility] [address] [place] [address] Dr. Varghese Perez LYMPH # 1.8 103/ul Normal 1.2-3.8 [facility] Comment on above: Performed By: #### C BC #### [facility] [address] [place] [address] Dr. Varghese Perez Lymphocytes/100 WBC (Bld) 28.4 % Normal 20.5-60.0 [facility] Comment on above: Performed By: #### C BC #### [facility] [address] [place] [address] Dr. Varghese Perez MANUAL DIFF REQ NO Normal [facility] Comment on above: Performed By: #### C BC #### [facility] [address] [place] [address] Dr. Varghese Perez MCH (RBC) [Entitic mass] 29.5 pg Normal 25.9-34.0 [facility] Comment on above: Performed By: #### C BC #### [facility] [address] [place] [address] Dr. Varghese Perez MCHC (RBC) [Mass/Vol] 34.2 g/dL Normal 29.9-35.2 [facility] Comment on above: Performed By: #### C BC #### [facility] [address] [address] [address] Varghese Perez MCV (RBC) [Entitic vol] 86.4 fL Normal 80.0-94.0 [facility] Comment on above: Performed By: #### C BC #### [facility] [address] [address] [address] Varghese Perez MONO # 0.6 103/ul Normal 0.3-0.8 [facility] Comment on above: Performed By: #### C BC #### [facility] [address] [address] [address] Varghese Perez Monocytes/100 WBC (Bld) 9.6 % Normal 1.7-12.0 [facility] Comment on above: Performed By: #### C BC #### [facility] [address] [place] [address] Dr. Varghese Perez NEUT # 3.7 103/ul Normal 1.4-6.5 [facility] Comment on above: Performed By: #### C BC #### [facility] [address] [place] [address] Dr. Varghese Perez Neutrophils/100 WBC (Bld) 57.2 % Normal 43.0-75.0 [facility] Comment on above: Performed By: #### C BC #### [facility] [address] [place] [address] Dr. Varghese Perez Platelet mean volume (Bld) [Entitic vol] 9.4 fL Critically low 9.5-13.5 [facility] Comment on above: Performed By: #### C BC #### [facility] [address] [place] [address] Dr. Varghese Perez PLT 256 103/ul Normal 150-450 [facility] Comment on above: Performed By: #### C BC #### [facility] [address] [place] [address] Dr. Varghese Perez RBC 4.91 106/ul Normal 4.70-6.10 [facility] Comment on above: Performed By: #### C BC #### [facility] [address] [address] [address] Varghese Perez WBC 6.5 103/ul Normal 4.0-11.0 [facility] Comment on above: Performed By: #### C BC #### [facility] [address] [address] [address] Varghese Perez GLYCOHEMOGLOBIN A1Con 2021 ADA RECOMMENDATION SEE BELOW Normal [facility] Comment on above: Result Comment: ADA RECOMMENDED LIMIT 4.0 - 6.0 ADA THERAPEUTIC TARGET < 7.0 ACTION SUGGESTED > 7.0 Performed By: #### A 1C #### [facility] [address] [address] [address] Varghese Perez Glucose [Mass/Vol] 117 mg/dL Normal [facility] Comment on above: Performed By: #### A 1C #### [facility] [address] [place] [address] Dr. Varghese Perez HbA1c (Bld) [Mass fraction] 5.7 % Normal 4.5-6.2 [facility] Comment on above: Performed By: #### A 1C #### [facility] [address] [place] [address] Dr. Varghese Perez LIPID PROFILEon 10-25-2021 CHOL-HDL RATIO NORM SEE BELOW Normal [facility] Comment on above: Result Comment: 3.3 - 4.4 LOW RISK 4.4 - 7.1 AVERAGE RISK 7.1 - 11.0 MODERATE RISK >11.0 HIGH RISK Performed By: #### C MP, LIPID, TSH #### [facility] [address] [place] [address] Dr. Varghese Perez Cholesterol [Mass/Vol] 170 mg/dL Normal <=200 [facility] Comment on above: Performed By: #### C MP, LIPID, TSH #### [facility] [address] [address] [address] Varghese Perez Cholesterol in HDL [Mass/Vol] 52 mg/dL Normal 40-60 [facility] Comment on above: Performed By: #### C MP, LIPID, TSH #### [facility] [address] [address] [address] Varghese Perez Cholesterol in LDL [Mass/Vol] 107.4 mg/dL Normal [facility] Comment on above: Performed By: #### C MP, LIPID, TSH #### [facility] [address] [address] [address] Varghese Perez Cholesterol.total/C holesterol in HDL [Mass ratio] 3.3 {ratio} Normal [facility] Comment on above: Performed By: #### C MP, LIPID, TSH #### [facility] [address] [place] [address] Dr. Varghese Perez HDL NORMAL > or = 60 mg/dl - LO W CARDIOVASCULAR RISK <40 mg/dl - HIGH CARDIOVASCULAR RISK Normal [facility] Comment on above: Performed By: #### C MP, LIPID, TSH #### [facility] [address] [place] [address] Dr. Varghese Perez LDL CALC NORMAL SEE BELOW Normal [facility] Comment on above: Result Comment: <100 mg/dl OPTIMAL 100 - 129 mg/dl NEAR OR ABOVE OPTIMAL 130 - 159 mg/dl BORDERLINE HIGH 160 - 189 mg/dl HIGH >190 mg/dl VERY HIGH Performed By: #### C MP, LIPID, TSH #### [facility] [address] [address] [address] Varghese Perez Triglyceride [Mass/Vol] 53 mg/dL Normal <=150 [facility] Comment on above: Performed By: #### C MP, LIPID, TSH #### [facility] [address] [address] [address] Varghese Perez VLDL CALC 10.6 mg/dL Normal [facility] Comment on above: Performed By: #### C MP, LIPID, TSH #### [facility] [address] [address] [address] Varghese Perez PROF 14(COMP METB)on 022 Albumin [Mass/Vol] 3.9 g/dL Normal 3.4-5.0 [facility] Comment on above: Performed By: #### C MP, LIPID, TSH #### [facility] [address] [address] [address] Varghese Perez Albumin/Globulin [Mass ratio] 1.2 {ratio} Normal [facility] Comment on above: Performed By: #### C MP, LIPID, TSH #### [facility] [address] [address] [address] Varghese Perez ALP [Catalytic activity/Vol] 50 U/L Normal 46-116 [facility] Comment on above: Performed By: #### C MP, LIPID, TSH #### [facility] [address] [address] [address] Varghese Perez ALT [Catalytic activity/Vol] 30 U/L Normal 16-63 [facility] Comment on above: Performed By: #### C MP, LIPID, TSH #### [facility] [address] [address] [address] Varghese Perez Anion gap [Moles/Vol] 9.8 mmol/L Normal [facility] Comment on above: Performed By: #### C MP, LIPID, TSH #### [facility] [address] [address] [address] Varghese Preez AST [Catalytic activity/Vol] 16 U/L Normal 15-37 [facility] Comment on above: Performed By: #### C MP, LIPID, TSH #### [facility] [address] [address] [address] Varghese Perez Bilirubin [Mass/Vol] 0.7 mg/dL Normal 0.2-1.0 [facility] Comment on above: Performed By: #### C MP, LIPID, TSH #### [facility] [address] [place] [address] Dr. Varghese Perez Calcium [Mass/Vol] 9.0 mg/dL Normal 8.5-10.1 [facility] Comment on above: Performed By: #### C MP, LIPID, TSH #### [facility] [address] [address] [address] Varghese Perez Chloride [Moles/Vol] 107 mmol/L Normal 98-107 [facility] Comment on above: Performed By: #### C MP, LIPID, TSH #### [facility] [address] [address] [address] Varghese Perez CO2 [Moles/Vol] 29.6 mmol/L Normal 21.0-32.0 [facility] Comment on above: Performed By: #### C MP, LIPID, TSH #### [facility] [address] [address] [address] Varghese Perez Creatinine [Mass/Vol] 0.97 mg/dL Normal 0.70-1.30 [facility] Comment on above: Performed By: #### C MP, LIPID, TSH #### [facility] [address] [address] [address] Varghese Perez EGFR-AF BELGIAN >60 Normal >=60 [facility] Comment on above: Performed By: #### C MP, LIPID, TSH #### [facility] [address] [address] [address] Varghese Perez EGFR-NON AF BELGIAN >60 Normal >=60 [facility] Comment on above: Performed By: #### C MP, LIPID, TSH #### [facility] [address] [address] [address] Varghese Perez Globulin (S) [Mass/Vol] 3.2 g/dL Normal [facility] Comment on above: Performed By: #### C MP, LIPID, TSH #### [facility] [address] [place] [address] Dr. Varghese Perez Glucose [Mass/Vol] 134 mg/dL Critically high 74-106 [facility] Comment on above: Performed By: #### C MP, LIPID, TSH #### [facility] [address] [address] [address] Varghese Perez Potassium [Moles/Vol] 4.4 mmol/L Normal 3.5-5.1 [facility] Comment on above: Performed By: #### C MP, LIPID, TSH #### [facility] [address] [address] [address] Varghese Perez Protein [Mass/Vol] 7.1 g/dL Normal 6.4-8.2 [facility] Comment on above: Performed By: #### C MP, LIPID, TSH #### [facility] [address] [address] [address] Varghese Perez Sodium [Moles/Vol] 142 mmol/L Normal 136-145 [facility] Comment on above: Performed By: #### C MP, LIPID, TSH #### [facility] [address] [address] [address] Varghese Perez Urea nitrogen [Mass/Vol] 12.0 mg/dL Normal 7.0-18.0 [facility] Comment on above: Performed By: #### C MP, LIPID, TSH #### [facility] [address] [address] [address] Varghese Perez Urea nitrogen/Creatinine [Mass ratio] 12.4 mg/mg Normal [facility] Comment on above: Performed By: #### C MP, LIPID, TSH #### [facility] [address] [address] [address] [facility] 1.433 uIU/mL Normal 0.358-3.740 [facility] Comment on above: Performed By: #### C MP, LIPID, TSH #### [facility] [address] [address] [address] Varghese Perez [facility] Surgical Pathology Depar tmenton 08-06-2021 [facility] Surgical Pathology Department Name RACHID MCNAIR Pathologist: GUMARO PATEL DMD Date of Procedure: 08/06/2021 Date Received: 08/08/2021 Date Reported 08/11/2021 Submitting Physician: EMELY FU DDS Location: [facility] Copy To/Referring/Attendin g: EMELY FU DDS Other External # FINAL DIAGNOSIS A. LEFT LOWER LIP, EXCISION: -- TRAUMATIC FIBROMA ICD-10/CPT: D10.0/57912 Electronically Signed Out By GUMARO PATEL DMD/TAMIR [...] A 1 tips 2 body of ellipse [facility]/08/08/2021 [facility] Department of Pathology [address] [place] [address] Normal [facility] Comment on above: Performed By: #### U [facility] #### [facility] Surgical Pathology Department [address] [place] [address] CBC AUTO DIFFon 03-08-2021 BASO # 0.0 103/ul Normal 0.0-0.1 [facility] Comment on above: Performed By: #### C BC #### [facility] [address] [place] [address] Dr. Varghese Perez Basophils/100 WBC (Bld) 0.5 % Normal 0.2-2.0 [facility] Comment on above: Performed By: #### C BC #### [facility] [address] [place] [address] Dr. Varghese Perez EO # 0.3 103/ul Normal 0.0-0.7 [facility] Comment on above: Performed By: #### C BC #### [facility] [address] [place] [address] Dr. Varghese Perez Eosinophils/100 WBC (Bld) 4.7 % Normal 0.9-7.0 [facility] Comment on above: Performed By: #### C BC #### [facility] [address] [place] [address] Dr. Varghese Perez Erythrocyte distribution width (RBC) [Ratio] 13.2 % Normal 11.0-15.0 [facility] Comment on above: Performed By: #### C BC #### [facility] [address] [place] [address] Dr. Varghese Perez Hematocrit (Bld) [Volume fraction] 42.7 % Normal 42.0-54.0 [facility] Comment on above: Performed By: #### C BC #### [facility] [address] [place] [address] Dr. Varghese Perez Hemoglobin (Bld) [Mass/Vol] 14.5 g/dL Normal 14.0-18.0 [facility] Comment on above: Performed By: #### C BC #### [facility] [address] [place] [address] Dr. Varghese Perez IG # 0.02 10e3/ul Normal 0.00-0.03 [facility] Comment on above: Performed By: #### C BC #### [facility] [address] [place] [address] Dr. Varghese Perez IG % 0.3 % Normal 0.0-0.5 [facility] Comment on above: Performed By: #### C BC #### [facility] [address] [place] [address] Dr. Varghese Perez LYMPH # 1.7 103/ul Normal 1.2-3.8 [facility] Comment on above: Performed By: #### C BC #### [facility] [address] [place] [address] Dr. Varghese Perez Lymphocytes/100 WBC (Bld) 28.8 % Normal 20.5-60.0 [facility] Comment on above: Performed By: #### C BC #### [facility] [address] [place] [address] Dr. Varghese Perez MANUAL DIFF REQ NO Normal [facility] Comment on above: Performed By: #### C BC #### [facility] [address] [place] [address] Dr. Varghese Perez MCH (RBC) [Entitic mass] 29.6 pg Normal 25.9-34.0 [facility] Comment on above: Performed By: #### C BC #### [facility] [address] [place] [address] Dr. Varghese Perez MCHC (RBC) [Mass/Vol] 34.0 g/dL Normal 29.9-35.2 [facility] Comment on above: Performed By: #### C BC #### [facility] [address] [place] [address] Dr. Varghese Perez MCV (RBC) [Entitic vol] 87.1 fL Normal 80.0-94.0 [facility] Comment on above: Performed By: #### C BC #### [facility] [address] [place] [address] Dr. Varghese Perez MONO # 0.6 103/ul Normal 0.3-0.8 [facility] Comment on above: Performed By: #### C BC #### [facility] [address] [place] [address] Dr. Varghese Perez Monocytes/100 WBC (Bld) 9.7 % Normal 1.7-12.0 [facility] Comment on above: Performed By: #### C BC #### [facility] [address] [place] [address] Dr. Varghese Perez NEUT # 3.4 103/ul Normal 1.4-6.5 [facility] Comment on above: Performed By: #### C BC #### [facility] [address] [place] [address] Dr. Varghese Perez Neutrophils/100 WBC (Bld) 56.0 % Normal 43.0-75.0 [facility] Comment on above: Performed By: #### C BC #### [facility] [address] [place] [address] Dr. Varghese Perez Platelet mean volume (Bld) [Entitic vol] 9.9 fL Normal 9.5-13.5 [facility] Comment on above: Performed By: #### C BC #### [facility] [address] [place] [address] Dr. Varghese Perez PLT 217 103/ul Normal 150-450 [facility] Comment on above: Performed By: #### C BC #### [facility] [address] [place] [address] Dr. Varghese Perez RBC 4.90 106/ul Normal 4.70-6.10 [facility] Comment on above: Performed By: #### C BC #### [facility] [address] [address] [address] Varghese Perez WBC 6.0 103/ul Normal 4.0-11.0 [facility] Comment on above: Performed By: #### C BC #### [facility] [address] [address] [address] Varghese Perez GLYCOHEMOGLOBIN A1Con 2020 ADA RECOMMENDATION ADA THERAPEUTIC TARGET 6.0 - 7.0 ACTION SUGGESTED > 7.0 Normal [facility] Comment on above: Performed By: #### C MP, LIPID #### [facility] [address] [place] [address] Dr. Varghese Perez Glucose [Mass/Vol] 137 mg/dL Normal [facility] Comment on above: Performed By: #### C MP, LIPID #### [facility] [address] [place] [address] Dr. Varghese Perez HbA1c (Bld) [Mass fraction] 6.4 % Critically high <=6.0 [facility] Comment on above: Performed By: #### C MP, LIPID #### [facility] [address] [place] [address] Dr. Varghese Perez LIPID PROFILEon 03-08-2021 CHOL-HDL RATIO NORM SEE BELOW Normal [facility] Comment on above: Result Comment: 3.3 - 4.4 LOW RISK 4.4 - 7.1 AVERAGE RISK 7.1 - 11.0 MODERATE RISK >11.0 HIGH RISK Performed By: #### C MP, LIPID #### [facility] [address] [place] [address] Dr. Varghese Perez Cholesterol [Mass/Vol] 147 mg/dL Normal <=200 [facility] Comment on above: Performed By: #### C MP, LIPID #### [facility] [address] [address] [address] Varghese Perez Cholesterol in HDL [Mass/Vol] 50 mg/dL Normal [facility] Comment on above: Performed By: #### C MP, LIPID #### [facility] [address] [address] [address] Varghese Perez Cholesterol in LDL [Mass/Vol] 82.4 mg/dL Normal [facility] Comment on above: Performed By: #### C MP, LIPID #### [facility] [address] [address] [address] Varghese Perez Cholesterol.total/C holesterol in HDL [Mass ratio] 2.9 {ratio} Normal [facility] Comment on above: Performed By: #### C MP, LIPID #### [facility] [address] [address] [address] Varghese Perez HDL NORMAL > or = 60 mg/dl - LO W CARDIOVASCULAR RISK <40 mg/dl - HIGH CARDIOVASCULAR RISK Normal [facility] Comment on above: Performed By: #### C MP, LIPID #### [facility] [address] [place] [address] Dr. Varghese Perez LDL CALC NORMAL SEE BELOW Normal [facility] Comment on above: Result Comment: <100 mg/dl OPTIMAL 100 - 129 mg/dl NEAR OR ABOVE OPTIMAL 130 - 159 mg/dl BORDERLINE HIGH 160 - 189 mg/dl HIGH >190 mg/dl VERY HIGH Performed By: #### C MP, LIPID #### [facility] [address] [address] [address] Varghese Perez Triglyceride [Mass/Vol] 73 mg/dL Normal <=150 [facility] Comment on above: Performed By: #### C MP, LIPID #### [facility] [address] [address] [address] Varghese Perez VLDL CALC 14.6 mg/dL Normal [facility] Comment on above: Performed By: #### C MP, LIPID #### [facility] [address] [address] [address] Varghese Perez PROF 14(COMP METB)on 11-27-2 021 Albumin [Mass/Vol] 3.7 g/dL Normal 3.5-5.0 [facility] Comment on above: Performed By: #### C MP, LIPID #### [facility] [address] [address] [address] Varghese Perez Albumin/Globulin [Mass ratio] 1.1 {ratio} Normal [facility] Comment on above: Performed By: #### C MP, LIPID #### [facility] [address] [address] [address] Varghese Perez ALP [Catalytic activity/Vol] 54 U/L Normal 38-126 [facility] Comment on above: Performed By: #### C MP, LIPID #### [facility] [address] [place] [address] Dr. Varghese Perez ALT [Catalytic activity/Vol] 29 U/L Normal 21-72 [facility] Comment on above: Performed By: #### C MP, LIPID #### [facility] [address] [place] [address] Dr. Varghese Perez Anion gap [Moles/Vol] 10.5 mmol/L Normal [facility] Comment on above: Performed By: #### C MP, LIPID #### [facility] [address] [place] [address] Dr. Varghese Perez AST [Catalytic activity/Vol] 15 U/L Critically low 17-59 [facility] Comment on above: Performed By: #### C MP, LIPID #### [facility] [address] [place] [address] Dr. Varghese Perez Bilirubin [Mass/Vol] 0.5 mg/dL Normal 0.2-1.3 [facility] Comment on above: Performed By: #### C MP, LIPID #### [facility] [address] [address] [address] Varghese Perez Calcium [Mass/Vol] 8.9 mg/dL Normal 8.4-10.2 [facility] Comment on above: Performed By: #### C MP, LIPID #### [facility] [address] [place] [address] Dr. Varghese Perez Chloride [Moles/Vol] 106 mmol/L Normal 98-107 [facility] Comment on above: Performed By: #### C MP, LIPID #### [facility] [address] [place] [address] Dr. Varghese Perez CO2 [Moles/Vol] 29.0 mmol/L Normal 22.0-30.0 [facility] Comment on above: Performed By: #### C MP, LIPID #### [facility] [address] [place] [address] Dr. Varghese Perez Creatinine [Mass/Vol] 0.86 mg/dL Normal 0.66-1.25 [facility] Comment on above: Performed By: #### C MP, LIPID #### [facility] [address] [place] [address] Dr. Varghese Perez EGFR-AF BELGIAN >60 Normal >=60 [facility] Comment on above: Performed By: #### C MP, LIPID #### [facility] Laboratory [address] [place] [address] Dr. Varghese Perez EGFR-NON AF BELGIAN >60 Normal >=60 [facility] Comment on above: Performed By: #### C MP, LIPID #### [facility] [address] [place] [address] Dr. Varghese Perez Globulin (S) [Mass/Vol] 3.3 g/dL Normal [facility] Comment on above: Performed By: #### C MP, LIPID #### [facility] [address] [place] [address] Dr. Varghese Perez Glucose [Mass/Vol] 127 mg/dL Critically high 74-106 [facility] Comment on above: Performed By: #### C MP, LIPID #### [facility] [address] [place] [address] Dr. Varghese Perez Potassium [Moles/Vol] 4.2 mmol/L Normal 3.4-5.0 [facility] Comment on above: Performed By: #### C MP, LIPID #### [facility] [address] [place] [address] Dr. Varghese Perez Protein [Mass/Vol] 7.0 g/dL Normal 6.1-8.2 [facility] Comment on above: Performed By: #### C MP, LIPID #### [facility] [address] [address] [address] Varghese Perez Sodium [Moles/Vol] 142 mmol/L Normal 137-145 [facility] Comment on above: Performed By: #### C MP, LIPID #### [facility] [address] [address] [address] Varghese Perez Urea nitrogen [Mass/Vol] 9.0 mg/dL Normal 9.0-20.0 [facility] Comment on above: Performed By: #### C MP, LIPID #### [facility] [address] [address] [address] Varghese Perez Urea nitrogen/Creatinine [Mass ratio] 10.5 mg/mg Normal [facility] Comment on above: Performed By: #### C MP, LIPID #### [facility] [address] [address] [address] Varghese Perez Vital Signs Date Time Vital Sign Value Performing Clinician Faci lity 02-20-2022 08:48-0500 Diastolic blood pressure 95 mm[Hg] MD Renay Yost Work Phone: [facility] 02-20-2022 08:48-0500 Heart rate 57 /min MD Renay Yost Work Phone: [facility] 02-20-2022 08:48-0500 Respiratory rate 18 /min MD Renay Yost Work Phone: [facility] 02-20-2022 08:48-0500 SaO2% (BldA) [Mass fraction] 97 % MD Renay Yost Work Phone: [facility] 02-20-2022 08:48-0500 Systolic blood pressure 154 mm[Hg] MD Renay Yost Work Phone: [facility] 02-20-2022 07:18-0500 Body height 180.34 cm MD Renay Yost Work Phone: [facility] 02-20-2022 07:18-0500 Body temperature 98 [degF] MD Renay Yost Work Phone: [facility] 02-20-2022 07:18-0500 Body weight 77.11 kg MD Renay Yost Work Phone: [facility] Encounters Encounter Date Encounter Type Care Provider Facility Start: 10-12-2023 ambulatory MD Maxwell Ontiveros [facility] ity:[facility] Start: 03-29-2023 End: 03-30-2023 ambulatory MD Maxwell Ontiveros Facility:[facility] Start: 03-09-2023 End: 03-09-2023 Emergency department patient visit [facility] [place] [place]: 12-30-2022 End: 12-31-2022 ambulatory MD Maxwell Ontiveros [place] Start: 12-28-2022 End: 12-29-2022 ambulatory MD Maxwell Ontiveros [place] Start: 12-28-2022 End: 12-29-2022 ambulatory MD Maxwell Ontiveros Facility:[facility] Start: 11-19-2022 End: 11-20-2022 ambulatory Lauri HDZ [facility] Start: 10-21-2022 End: 10-22-2022 ambulatory Lauri HDZ [facility] Start: 07-01-2022 ambulatory MD [facility]os [facility] Start: 02-20-2022 End: 02-20-2022 ambulatory Cam Rea Facility:[facility] Start: 02-20-2022 End: 02-20-2022 Admission to same day surgery center MD Renay Yost Work Phone: [facility] Start: 02-20-2022 End: 02-20-2022 ambulatory MD Renay Yost Work Phone: [facility] Work Phone: Start: 10-28-2021 Encounter for genera l adult medical examination without abnormal findings DR RENAY YOST [facility] Start: 10-25-2021 End: 10-26-[address] [...] above: Performed By: #### P SASC #### [facility] [address] [address] [address] Varghese Perez Start: 03-08-[address] RENAY OCAMPO Comment on above: Performed By: #### P SASC #### [facility] [address] [address] [address] Varghees Perez Plan of Treatment Date Care Activity Detail Author Start: 02-20-2022 [facility] Patient Education Colon Polyps [facility] Work Phone: Immunizations Immunization Date Immunization Notes Care Provider Fa cility 04-14-2021 COVID-19 mRNA Bivale nt Booster (Moderna) MD Renay Yost Work Phone: [facility] 07-23-2020 COVID-19 mRNA-1273 (Moderna) MD Renay Yost Work Phone: [facility] 06-20-2020 COVID-19 mRNA-1273 (Moderna) MD Renay Yost Work Phone: [facility] Payers Date Payer Category Payer Worker's Compensation [id number] 2021 Self-pay 2018 Private Health Insurance [id number] 1957 Unknown [id number] 1955 Unknown [id number] 2.16.84 [id number] 1957 Unknown [id number] 2.16.84 [id number] 1957 Unknown [id number] 2.16.8 [id number] 1957 Unknown [id number] 2.16.8 [id number] 1957 Unknown [id number] 2.16.8 [id number] 1957 Unknown [id number] 2.16.8 [id number] 1957 Unknown [id number] 2.16.8 [id number] 1957 Unknown [id number] 2.16.8 [id number] 1957 Unknown [id number] 2.16.8 [id number] Unknown [id number] 2.16.8 [id number] Social History Date Type Detail Facility Start: [facility] Start: 1955 Sex Assigned At Male [facility] Goals Date Patient Goal Desired Activity /State Procedure note 02-20-2022 Note Date & Type Note Facility 02-20-2022 Procedure note [facility] Evaluation note Note Date & Type Note Facility Evaluation note No assessment information availa [facility] Work Phone: History and physical note Note Date & Type Note Facility History and physical note Note Date/Time February 20, 2022 7:57am [facility] [address] [place] [address] Gastroenterology H&P Signed Patient: Rachid Mcnair MR#: [id number] : 1955 Acct:[id number] Age/Sex: 66 / M Adm Date: 2 Loc: Room: Type: [facility] Attending Dr: Cam Rea MD Copies to: [...] <Electronically signed by Cam Rea MD> 02/20/22756 [facility] Work Phone: Hospital Discharge instructions Note [...] Follow up with PCP. - Office number [phone]. [facility] Work Phone: Summary Purpose Family History No [...] section and content) DATE CREATED AUTHOR 08/11/2021 [facility] DATE CREATED AUTHOR AUTHOR'S ORGANIZ ATION 10/30/2021 [facility] DATE CREATED AUTHOR AUTHOR'S ORGANIZ ATION 02/27/2022 [facility] DATE CREATED AUTHOR AUTHOR'S ORGANIZ ATION 04/01/2023 [facility] Care Teams (unrecognized sec tion and [...] BE BASED ON THE PRIMARY CLINICAL RECORDS. [employer] provides no warranty or guarantee of the accuracy or completeness of information in this document.
== END 2023-05-24 09:23 | disposition home or self-care (01) ==
LOC: RAD 09:22
PROVIDERS: Visit Provider Orthopaedic Surgery
DX: S32.511D Fracture of superior rim of right pubis, subsequent encounter for fracture with routine healing (principal)
CPT/HCPCS: 72170

== ENCOUNTER 2023-07-26 08:04 | Outpatient (OUT) | payer OTHER, SELFPAY ==
--- NOTE | 2023-07-26 | XR_ITS ---
The [address] [address] Patient Name: RACHID MANNING MRN: [id number] date: 1955 Sex: M Assigned Patient Location: Current Patient Location: Accession/Order Number: [id number] Exam Date: 07/26/2023 08:05 Report Date: 07/26/2023 10:18 At the request of: BC BASSETT Procedure: XR pelvis 1-2V EXAMINATION: XR pelvis 1-2V HISTORY: PELVIS PAIN COMPARISON: 05/24/2023 FINDINGS: BOWEL GAS PATTERN: Stable healing fracture right inferior pubic ramus with bone formation and periosteal reaction. Bilateral hip arthroplasty. Lumbosacral fusion hardware. CALCIFICATIONS: None significant. OTHER: Vascular calcifications XR/XR pelvis 1-2V IMPRESSION: Stable healing fracture right inferior pubic ramus Electronically authenticated by: CONY MUNIZ Date: 07/26/2023 10:18
--- OUTSIDE RECORDS SUMMARY | 2023-07-26 08:24 | XMS_ITS | CCD ---
Author Organization [facility] Care Team Providers Care Stonemason Name Role Phone DR RENAY YOST Attending Unavailable PRIYANK, DR RENAY Beal Admitting Unavailable PRIYANK, DR RENAY Beal Primary Care Unavailable PRIYANK, DR RENAY Beal Consulting Unavailable PRIYANK, DR RENAY Beal Admitting Unavailable PRIYANK, DR RENAY Beal Primary Care Unavailable PRIYANK, DR RENAY Beal Consulting Unavailable PRIYANK, DR RENAY Beal Attending Unavailable MD eRnay Yost Primary Care Provider MD Cam Rea Attending Provider [phone] Cam Rea Attending Unavailable Cam Rea Admitting Unavailable Renay Yost Primary Care Unavailable MD Maxwell Ontiveros Attending Unavailable Lauri HDZ Attending Unavailable Lauri HDZ Attending Unavailable MD Maxwell Ontiveros. Attending Unavailable MD Maxwell Ontiveros. Admitting Unavailable MD Maxwell Ontiveros. Attending Unavailable MD Maxwell Ontiveros Admitting Unavailable Brain Pack Attending Unavailable MD Maxwell Ontiveros Attending Unavailable MD Maxwell Ontiveros Attending Unavailable Allergies Allergy Classification Reported Allergen(s) Allergy Type Date of Onset Reaction(s) Facility (1 source) Sulfonamides (Antibiotic) Drug allergy (disorder) 0 [facility] Repository (2 sources) Sulfonamides (Antibiotic); Translations: [Sulfa (Sulfonamide Antibiotics)] Allergy to substance 2 [facility] (1 source) Sulfamethoxazole; Translations: [sulfamethoxazole ] Drug Allergy [facility] Repository Medications Current Medications Medication Drug [...] exam. The patient underwent a colonoscopy at [facility] in 02/2022. A single polyp was [...] with voice recognition artificial intelligence software, specifically [employer], [employer] and or [employer]. Substitutions may have occurred due to the inherent limitations of voice recognition and artificial intelligence software. Documentation services were performed after patient or guardian consented to allow [employer] to record this visit. EMRE holistic specialist and provider reviewed before signing. EMRE: [...] DME Prescript (more content not included)... Normal [facility] Comment on above: Result Comment: Elec [...] Appointments Wednesday 9:30 AM EDT With: Where: [place] [phone] [place] [phone] \.br\ Medications\.br\ What How Much When Why Instructions\.br \ New ciclopirox topical ([place] Nail Lacquer 8% topical solution) 1 Application Topical Every day Physical exam GERD (gastroesophagea l reflux disease) HTN Type 2 diabetes mellitus without complication, without long-term current use of insulin Jessica onychomycosis Pickup at [facility]pharmacy #5770\.br\ Changed terbinafine (terbinafine 250 mg Tab) 1 Tablets By Mouth 2 times a day use for one week and take 3 weeks off Pickup at [facility] Home Delivery\.br\ Unchanged aspirin (aspirin 81 mg [...] [facility]: [address] [facility] [address] [place], [place] [id number] [phone]\.br\ [id number]: [address] [place], [place] [id number] [phone]\.br\ Allergies\.br\ sulfamethoxazole \.br\ Problems\.br\ Ongoing - Any [...] for choosing us for your care.\.br\ \.br\ [facility] CT Pelvis w/o Contraston CT Pelvis [...] Oral contrast amount in ml's: 0 Normal [facility] Consent for Treatmenton 02-11 Consent for Treatment [id number]#1 .00TIFF Normal [facility] Discharge Instructionson Discharge Instructions [id number]# 1.00TIFF Normal [facility] ED Clinical Summaryon 2022 ED Clinical Summary [place] [id number] ED Clinical Summary Person Information Name: RACHID MCNAIR/[facility] Age: 67 Years : 1955 Sex: Male Language: Haitian PCP: Maxwell Ontiveros MD Marital Status: Visit [...] 03/09/2023 18:34:28 03/09/2023 18:34:28 03/09/2023 18:34:28 ADDRESS: [address] [place] [id number] [facility] DOC NOTES: Addendum by Adrienne Jenkins PA-C [...] times a day. Refills: 1. Misc Prescription ([facility] Prescription) microlet lancets Use to test blood sugars once a day Dx E11.9. Refills: 3. Misc Prescription ([facility] Prescription) Contour next test strips Test blood sugars once a day Dx E11.9. Refills: 3. Misc Prescription ([facility] Prescription) control solution for contour next [...] Follow up: With: Address: When: Occupational Health: [facility] [phone] Within 2 to 4 days Comments: Call today to schedule your follow up DIAGNOSIS: 1:Accidental fall; 2:Inferior pubic ramus fracture; 3:Fracture of superior rim of right pubis, initial encounter for closed fracture Normal [facility] ED Note-Physicianon 03-09-20 ED Note-Physician Basic [...] of right buttock pain. He works for [employer] and states that he was on a [...] the CT and can review this with [facility] as this does not change treatment. He is to follow-up with [facility]. Afebrile, not tachycardic, tolerating p.o. and [...] Follow-up With When Contact Information Occupational Health: [facility] [phone] Within 2 to 4 days Additional Instructions: [...] hurt b (more content not included)... Normal [facility] Comment on above: Result Comment: Elec [...] these instructions at home: Medicines ? Take qcyx-vaj-ehhmqft and prescription medicines only as told by [...] not need to be retied. ? A sludge control attendant or grabber to pick items up off [...] is call (more content not included)... Normal [facility] ED Patient Summaryon 11-28-2 023 ED Patient Summary [address] [address] Patient Discharge Instructions Person Information Name: RACHID MCNAIR Age: 67 Years Arrival Date: 03/09/2023 13:29:02 Discharge Diagnosis: 1:Accidental fall; 2:Inferior pubic ramus fracture; 3:Fracture of superior rim of right pubis, initial encounter for closed fracture Primary Care Physician: Weston PARKER, Maxwell Borden Provider Information Primary Provider: Brain Pack DO Advanced Artificial Breast Fabricator:None The exam and treatment you received in the Emergency Department were for an urgent problem and are not intended as complete care. It is important that you follow up with a doctor, nurse practitioner, or physician?s teachers assistant for ongoing care. If your symptoms [...] Follow-up Instructions: With: Address: When: Occupational Health: [facility] [phone] Within 2 to 4 days Comments: Call [...] opioids can be used to help relieve udvjulwj-ha-yymdaw pain and are often prescribed following a [...] health car (more content not included)... Normal [facility] ED Traumaon 03-09-2023 ED Trauma [id number]# 1.00TIFF Normal [facility] Workers Comp [employer]son 023 Workers Comp Forms [id number]# 1.00TIFF Normal [facility] XR Hip 2-3 Views Right + [...] REPORT Dictated: 03/09/2023 3:47 pm Kobe Hernandez MD Signed (Electronic Signature): 03/09/2023 3:47 pm Signed by: Kobe Hernandez MD Transcribed by: ALENA Technologist: AMBER Technical Comments Radiation Dose: Ka,r in mGy = 0 DAP = 0 Normal [facility] Consultation Noteon 01-07-20 Consultation Note [id number]#1 .00CD:127 Normal [facility] Formson 12-31-2022 Forms [id number]#1. 00CD:127 Normal [facility] PSA Screen, Totalon 01-01-20 Prostate specific Ag [Mass/Vol] 0.2 ng/mL Normal 0.1-3.5 [facility] Comment on above: Result Comment: The concentration of PSA determined by different manufacturers can vary due to differences in assay methods and reagent specificity. Values obtained from different assay methods cannot be used interchangeably. The methodology used for this result was chemiluminescence using [employer]'s Access Hybritech PSA reagent. Performed By: #### 1 [id number] ####[place] [address] [place] [address] Auto Diffon 12-29-2022 Basophils/100 WBC (Bld) 0.9 % Normal 0.0-2.0 [facility] Comment on above: Order Comment: Order Added by Discern Expert. Performed By: #### 1 9324870, 4966764, 428824465, 7125538, 7791048, 1854866 ####[address] [address] Basophils/Leukocyte s Auto (Bld) [Pure # fraction] 0.1 E9/L Normal 0.0-0.2 [facility] Comment on above: Order Comment: Order Added by Discern Expert. Performed By: #### 1 5745316, 3531721, 945643912, 2935246, 4760740, 9451908 ####[address] [address] Eosinophils/100 WBC (Bld) 2.8 % Normal 0.0-8.0 [facility] Comment on above: Order Comment: Order Added by Discern Expert. Performed By: #### 1 9532156, 0304448, 689232616, 9921413, 0034894, 4387230 ####[place] [address] [place] [address] Eosinophils/Leukocy uri Auto (Bld) [Pure # fraction] 0.2 E9/L Normal 0.0-0.5 [facility] Comment on above: Order Comment: Order Added by Discern Expert. Performed By: #### 1 6661594, 1808827, 038366634, 2492794, 6663694, 6395749 ####[address] [address] Lymphocytes/100 WBC (Bld) 31.2 % Normal 14.0-50.0 [facility] Comment on above: Order Comment: Order Added by Discern Expert. Performed By: #### 1 5344031, 5974520, 054102377, 4834241, 5274239, 2625602 ####[place] [address] [place] [address] Lymphocytes/Leukocy uri Auto (Bld) [Pure # fraction] 2.2 E9/L Normal 1.0-4.0 [facility] Comment on above: Order Comment: Order Added by Discern Expert. Performed By: #### 1 5807415, 7575786, 662893395, 5391051, 0120022, 7292221 ####[address] [address] Monocytes/100 WBC (Bld) 9.4 % Normal 4.0-14.0 [facility] Comment on above: Order Comment: Order Added by Discern Expert. Performed By: #### 1 6595055, 8079949, 729153180, 9426864, 6771657, 0570929 ####[address] [address] Monocytes/Leukocyte s Auto (Bld) [Pure # fraction] 0.7 E9/L Normal 0.2-1.0 [facility] Comment on above: Order Comment: Order Added by Discern Expert. Performed By: #### 1 5948680, 8061874, 482305393, 2134942, 8808795, 6081114 ####[facility] [address] [place] [address] Neutrophils/100 WBC (Bld) 55.7 % Normal 36.0-75.0 [facility] Comment on above: Order Comment: Order Added by Discern Expert. Performed By: #### 1 6376010, 2247857, 619559995, 3320195, 1635914, 9428077 ####[place] [address] [place] [address] Neutrophils/Leukocy uri Auto (Bld) [Pure # fraction] 4.0 E9/L Normal 2.0-7.5 [facility] Comment on above: Order Comment: Order Added by Discern Expert. Performed By: #### 1 7088887, 7983710, 011411429, 4010874, 9121400, 4110622 ####[place] [address] [place] [address] CBC w/ Auto Diffon 3 Erythrocyte distribution width (RBC) [Ratio] 14.6 % High 10.9-14.2 [facility] Comment on above: Performed By: #### 1 1012676, 6242818, 825205361, 3826067, 8695460, 6518442 ####[place] [address] [place] [address] Hematocrit (Bld) [Volume fraction] 42.5 % Normal 37.7-49.0 [facility] Comment on above: Performed By: #### 1 8324352, 2055290, 849232007, 6470365, 4003537, 8551706 ####[address] [address] Hemoglobin (Bld) [Mass/Vol] 14.3 g/dL Normal 13.5-17.5 [facility] Comment on above: Performed By: #### 1 7721956, 9033600, 637120371, 7373926, 9001154, 2253135 ####[place] [address] [place] [address] MCH (RBC) [Entitic mass] 30.0 pg Normal 27.0-34.0 [facility] Comment on above: Performed By: #### 1 0288987, 5705604, 681957165, 6140806, 9468518, 0138412 ####[place] [place] [address] MCHC (RBC) [Mass/Vol] 33.8 g/dL Normal 31.4-36.0 [facility] Comment on above: Performed By: #### 1 7378430, 7157653, 893975203, 3699128, 1024634, 7008921 ####[facility] [address] [place] [address] MCV (RBC) [Entitic vol] 88.9 fL Normal 80.0-100.0 [facility] Comment on above: Performed By: #### 1 5425128, 8973811, 139775850, 3494366, 3721330, 5193470 ####[facility] [address] [place] [address] Platelet mean volume (Bld) [Entitic vol] 8.6 fL Normal 6.4-10.8 [facility] Comment on above: Performed By: #### 1 5803583, 8476715, 496582297, 9067583, 5771242, 3878184 ####[place] [address] [place] [address] Platelets (Bld) [#/Vol] 266.0 E9/L Normal 150.0-500.0 [facility] Comment on above: Performed By: #### 1 5741551, 0189120, 128601053, 4229181, 4467090, 7343510 ####[address] [address] RBC (Bld) [#/Vol] 4.8 E12/L Normal 4.3-5.9 [facility] Comment on above: Performed By: #### 1 0905465, 9761843, 336194401, 7758031, 8246197, 8581945 ####[address] [address] WBC corrected for nucl RBC Auto (Bld) [#/Vol] 7.2 E9/L Normal 4.0-11.0 [facility] Comment on above: Performed By: #### 1 4113472, 9367322, 420316387, 1851739, 9285314, 3006811 ####[place] [address] [place] [address] CMPon 12-29-2022 Albumin [Mass/Vol] 4.4 g/dL Normal 3.3-5.0 [facility] Comment on above: Performed By: #### 1 6190165, 7537172, 112915986, 7656168, 0768721, 2181426 ####[facility] [address] [place] [address] Albumin/Globulin (S) [Mass conc ratio] 1.6 Normal 1.1-2.2 [facility] Comment on above: Performed By: #### 1 1832586, 9489272, 365475010, 4682129, 1497038, 8039792 ####[facility] [address] [place] [address] ALP [Catalytic activity/Vol] 51 Int._Unit/L Normal 21-98 [facility] Comment on above: Performed By: #### 1 7958219, 7828250, 717341857, 5322288, 6935261, 0616957 ####[facility] [address] [place] [address] ALT No additional P-5'-P [Catalytic activity/Vol] 25 Int._Unit/L Normal 6-46 [facility] Comment on above: Performed By: #### 1 3838913, 8220911, 284731163, 0311734, 8829974, 2004969 ####[facility] [address] [place] [address] Anion gap [Moles/Vol] 11 mmol/L Normal 6-16 [facility] Comment on above: Performed By: #### 1 5047942, 2062867, 104445417, 7750029, 0457973, 4293813 ####[facility] [address] [place] [address] AST [Catalytic activity/Vol] 24 Int._Unit/L Normal 5-43 [facility] Comment on above: Performed By: #### 1 9061513, 8537815, 613936002, 4637992, 0504704, 1117746 ####[facility] [address] [place] [address] Bilirubin [Mass/Vol] 0.5 mg/dL Normal 0.0-1.1 [facility] Comment on above: Performed By: #### 1 2524615, 4684777, 766105331, 0827887, 3550340, 8916651 ####[facility] [address] [place] [address] Calcium [Mass/Vol] 9.0 mg/dL Normal 8.9-11.1 [facility] Comment on above: Performed By: #### 1 2349710, 1958294, 720888659, 3740192, 3852468, 0601802 ####[facility] [address] [place] [address] Chloride [Moles/Vol] 105 mmol/L Normal 101-111 [facility] Comment on above: Performed By: #### 1 8391572, 0520904, 266227566, 0841210, 3558759, 1682598 ####[facility] [address] [place] [address] CO2 [Moles/Vol] 26 mmol/L Normal 21-31 [facility] Comment on above: Performed By: #### 1 5115885, 3130924, 539194132, 6833767, 4132686, 4689000 ####[facility] [address] [place] [address] Creatinine [Mass/Vol] 1.0 mg/dL Normal 0.5-1.3 [facility] Comment on above: Performed By: #### 1 5518597, 5835916, 013278918, 7254851, 4659887, 0209599 ####[facility] [address] [place] [address] Globulin (S) [Mass/Vol] 2.7 g/dL Normal 1.4-4.0 [facility] Comment on above: Performed By: #### 1 9481909, 2442142, 158301086, 0095155, 4259182, 4831108 ####[facility] [address] [place] [address] Glucose [Mass/Vol] 140 mg/dL Normal 55-199 [facility] Comment on above: Result Comment: If t his glucose result represents a fasting glucose, interpretation should refer to the following reference range: 55-99 mg/dL Performed By: #### 1 9292515, 4672826, 606667294, 5632108, 4572114, 7364975 ####[facility] [address] [place] [address] Potassium [Moles/Vol] 3.7 mmol/L Normal 3.5-5.3 [facility] Comment on above: Performed By: #### 1 2269880, 9951111, 772404612, 0314402, 5243206, 5218555 ####[facility] [address] [place] [address] Protein [Mass/Vol] 7.1 g/dL Normal 6.0-7.8 [facility] Comment on above: Performed By: #### 1 2078963, 5642986, 908113999, 0987586, 3928720, 7841856 ####[facility] [address] [place] [address] Sodium [Moles/Vol] 138 mmol/L Normal 135-145 [facility] Comment on above: Performed By: #### 1 1351978, 4502798, 318578467, 9753921, 1103217, 5444961 ####[facility] [address] [place] [address] Urea nitrogen [Mass/Vol] 12 mg/dL Normal 5-21 [facility] Comment on above: Performed By: #### 1 2623224, 5996153, 147485059, 5674780, 5582168, 8175524 ####[facility] [address] [place] [address] Urea nitrogen/Creatinine [Mass ratio] 12 No Units Normal 10-20 [facility] Comment on above: Performed By: #### 1 3169827, 3065880, 609983845, 2690214, 7100569, 5357613 ####[facility] [address] [place] [address] Consent for Flu Vaccineon Consent for Flu Vaccine [id number]#1. 00CD:127 Normal [facility] YqyG1imy 12-29-2022 HbA1c (Bld) [Mass fraction] 6.9 % High <=5.9 [facility] Comment on above: Performed By: #### 1 8464468, 0393882, 752026696, 3133403, 6735348, 0116268 ####[facility] [address] [place] [place] [address] Lipid Panelon 12-29-2022 Cholesterol [Mass/Vol] 148 mg/dL Normal 120-200 [facility] Comment on above: Performed By: #### 1 7731953, 2731534, 869333173, 4582870, 1549437, 4929734 ####[facility] [address] [place] [address] Cholesterol in HDL [Mass/Vol] 51 mg/dL Invalid Interpretation Code [facility] Comment on above: Result Comment: HDL > or equal to 60 mg/dL: Low cardiovascular risk HDL < 40 mg/dL : High cardiovascular risk Performed By: #### 1 8589698, 3270218, 382406921, 1176561, 2937812, 1438410 ####[facility] [address] [place] [address] Cholesterol in LDL [Mass/Vol] 83 mg/dL Normal <=129 [facility] Comment on above: Performed By: #### 1 1633409, 3719500, 854605567, 1674840, 5716895, 5566536 ####[facility] [address] [place] [address] Cholesterol in VLDL [Mass/Vol] 21 mg/dL Normal 7-40 [facility] Comment on above: Performed By: #### 1 2376486, 3675807, 588433532, 2067517, 6989917, 6529728 ####[facility] [address] [place] [address] Triglyceride [Mass/Vol] 103 mg/dL Normal <=149 [facility] Comment on above: Performed By: #### 1 3116696, 0619095, 199171549, 2535940, 6857173, 7818776 ####[facility] [address] [place] [address] U Microalbon 12-29-2022 Albumin DL <= 20 mg/L (U) [Mass/Vol] 4.4 microgram/mL Normal 0.0-19.0 [facility] Comment on above: Performed By: #### 1 2003960, 1727726563 ####[facility] [address] [place] [address] U Protein/Creat Ratioon 12-11 Albumin Elph (U) [Mass fraction] <6.0 Invalid Interpretation Code [facility] Comment on above: Result Comment: The reference range and other method performance specifications have not been established for this test; results should be integrated into the clinical context for interpretation. Performed By: #### 1 3248751, [id number] ####[facility] [address] [place] [address] Creatinine (U) [Mass/Vol] 34.4 mg/dL Invalid Interpretation Code [facility] Comment on above: Result Comment: The reference range and other method performance specifications have not been established for this test; results should be integrated into the clinical context for interpretation. Performed By: #### 1 5946043, [id number] ####[address] [address] U Prot/Creat Ratio [facility] Invalid Interpretation Code .00-200.00 [facility] Comment on above: Performed By: #### 1 3678824, [id number] ####[facility] [address] [place] [address] eGFRon 12-29-2022 GFR/1.73 sq M.predicted among non-blacks MDRD (S/P/Bld) [Vol rate/Area] 84 mL/min/1.73 m2 Normal >=59 [facility] Comment on above: Order Comment: Order added by Discern Expert. Result Comment: Wood Boat Builder Supervisor laura kidney disease could be indicated at eGFR's of less than 60 mL/min/1.73m2. Kidney failure is indicated at less than 15 mL/min/1.73m2. Performed By: #### 1 1613011, 4223931, 668818397, 4390728, 8471796, 1781366 ####[facility] [address] [place] [address] Ambulatory Visit Summaryon 0 12-28-2022 Ambulatory Visit [...] EST With: Weston PARKER, Maxwell Borden Where: [facility] Invalid Interpretation Code HTN [facility] Office/Clini c Noteon 12-28-2022 [facility] Office/Clinic Note HPI Staff establish care would [...] cap(s), Refills(s) 1, Pharmacy: [facility] 180, cm, 12/28/22 16:56:00 EDT, Height/Length Dosing, 79.3, kg, 12/28/22 16:56:00 EDT, Weight Dosing atorvastatin, 20 mg = 1 tab(s), Oral, Daily, # 90 tab(s), Refills(s) 1, Pharmacy: [facility]), 180, cm, 12/28/22 16:56:00 EDT, Height/Length Dosing, 79.3, kg, 12/28/22 16:56:00 EDT, Weight Dosing losartan, 100 mg = 1 tab(s), Oral, Daily, # 90 tab(s), Refills(s) 1, Pharmacy: [facility]), 180, cm, 12/28/22 16:56:00 EDT, Height/Length Dosing, 79.3, kg, 12/28/22 16:56:00 EDT, Weight Dosing metformin, 500 mg = 1 tab(s), Oral, BID, # 180 tab(s), Refills(s) 1, Pharmacy: [facility] 180, cm, 12/28/22 16:56:00 EDT, [...] tab(s), Refills(s) 1, [facility] 180, cm, 12/28/22 16:56:00 EDT, Height/Length Dosing, 79.3, kg, 12/28/22 16:56:00 EDT, Weight Dosing venlafaxine, 25 mg = 1 tab(s), Oral, Daily, # 90 tab(s), Refills(s) 1, [facility] 180, cm, 12/28/22 16:56:00 EDT, [...] repair ( (more content not included)... Normal [facility] Comment on above: Result Comment: Elec [...] numbers. This can be done either in Haitian ([place] or metric measurements. Note that charts and online BMI calculators are available to help you find your BMI quickly and easily without having to do these calculations yourself. To calculate your BMI in Haitian ([place] measurements: 1. Measure your weight in [...] for Disease Control and Prevention: www.cdc.gov ? [place] Heart [employer]: www.heart.org ? National Heart, Lung, and Blood [place]: www.nhlbi.nih.gov Summary ? Body mass index (BMI) is a number that is calculated from a person's weight and height. ? BMI may help estimate how much of a person's weight is composed of fat. BMI can help identify those who may be at higher risk for certain medical problems. ? BMI can be measured using Haitian measurements or metric measurements. ? BMI charts are used to identify whether you are underweight, normal weight, overweight, or obese. This information is not intended to replace advice given to you by your health care provider. Make sure you discuss any questions you have with your health care provider. Document Revised: 12/20/2019 Document Reviewed: 10/27/2019 [employer] Patient Education ? 2022 [employer] Cardiovascular Hypertension, Adult High blood pressure [...] as yo (more content not included)... Normal [facility] Registrationon 11-23-2022 Registration [id number]# 1.00CD:127 Normal [facility] Consent for Treatmenton 11-10 Consent for Treatment [id number]# 1.00CD:127 [facility] Consenton 10-21-2022 Consent [id number]#1 .00CD:127 [facility] Registrationon 10-21-2022 Registration [id number] 3 [id number] [facility] Glucose Glucometer (BldC) [M ass/Vol]Ordered By: Cam Rea on 02-20-2022 Glucose [Mass/Vol] 130 mg/dL [facility] [place] Comment on above: Random Glucose Refer ence Range is dependent on time and content of last meal. Glucose of more than 200 mg/dL in a nonstressed, ambulatory subject supports the diagnosis of Diabetes Mellitus. Glucose Poct Glucometerson 1 04-22-2021 Glucose [Mass/Vol] 130 mg/dL Normal [facility] [place] Comment on above: Result Comment: [facility] Glucose Reference Range is dependent on time and content of last meal. Glucose of more than 200 mg/dL in a nonstressed, ambulatory subject supports the diagnosis of Diabetes Mellitus. PERFORMED BY: [facility] [address] [place] [address] PATHOLOGIST COPIER TECHNICIAN MATHEUS TAVERA M.D. Performed By: #### G BRONWYN #### Point of Care testing , [facility] 02-20-2022 L - -------- Specimen: [id number] Received: 02/20/22 Status: CHRISTIANO Sandra Num: [id number] Spec Type: Surgical Subm Dr: Cam Rea MD Tissues: A Colon - Polyp (DESCENDING POLYP) Procedures: HE/2, Gross/Micro L4 -------- Age/ Patient Sex Location Account Attending Physician -------- Rachid Mcnair/Lindsey [id number] Cam Rea MD -------- SPEC NUM: [id number] RECD: 02/20/22 STATUS: CHRISTIANO SANDRA NUM: [id number] NIGHAT: 02/20/22 [facility] DR: Cam Rea MD ENTERED: 02/20/22 [facility] DR: SPEC TYPE: Surgical DEPT: S ORDERED: [...] support the above pathologic diagnosis. CPT Codes 19185 -------- -------- Specimen: [id number] Received: 02/20/22 Status: CHRISTIANO Flores Num: [id number] Spec Type: Surgical Subm Dr: Cam Rea MD Tissues: A Colon - Polyp (DESCENDING POLYP) Procedures: HE/2, Gross/Micro L4 -------- Patient: Rachid nowak [id number] (Continued) -------- Signed (signature on file) Keerthi Finch MD (Michelle) 02/23/22 1529 Normal [facility] CBC AUTO DIFFon 10-25-2021 BASO # 0.0 103/ul Normal 0.0-0.1 [facility] Comment on above: Performed By: #### C BC #### [facility] [address] [place] [address] Dr. Varghese Perez Basophils/100 WBC (Bld) 0.6 % Normal 0.2-2.0 [facility] Comment on above: Performed By: #### C BC #### [facility] [address] [place] [address] Dr. Varghese Perez EO # 0.3 103/ul Normal 0.0-0.7 [facility] Comment on above: Performed By: #### C BC #### [facility] [address] [place] [address] Dr. Varghese Perez Eosinophils/100 WBC (Bld) 3.9 % Normal 0.9-7.0 [facility] Comment on above: Performed By: #### C BC #### [facility] [address] [place] [address] Dr. Varghese Perez Erythrocyte distribution width (RBC) [Ratio] 13.1 % Normal 11.0-15.0 [facility] Comment on above: Performed By: #### C BC #### [facility] [address] [place] [address] Dr. Varghese Perez Hematocrit (Bld) [Volume fraction] 42.4 % Normal 42.0-54.0 [facility] Comment on above: Performed By: #### C BC #### [facility] [address] [place] [address] Dr. Varghese Perez Hemoglobin (Bld) [Mass/Vol] 14.5 g/dL Normal 14.0-18.0 [facility] Comment on above: Performed By: #### C BC #### [facility] [address] [place] [address] Dr. Varghese Perez IG # 0.02 10e3/ul Normal 0.00-0.03 [facility] Comment on above: Performed By: #### C BC #### [facility] [address] [place] [address] Dr. Varghese Perez IG % 0.3 % Normal 0.0-0.5 [facility] Comment on above: Performed By: #### C BC #### [facility] [address] [place] [address] Dr. Varghese Perez LYMPH # 1.8 103/ul Normal 1.2-3.8 [facility] Comment on above: Performed By: #### C BC #### [facility] [address] [place] [address] Dr. Varghese Perez Lymphocytes/100 WBC (Bld) 28.4 % Normal 20.5-60.0 [facility] Comment on above: Performed By: #### C BC #### [facility] [address] [place] [address] Dr. Varghese Perez MANUAL DIFF REQ NO Normal [facility] Comment on above: Performed By: #### C BC #### [facility] [address] [place] [address] Dr. Varghese Perez MCH (RBC) [Entitic mass] 29.5 pg Normal 25.9-34.0 [facility] Comment on above: Performed By: #### C BC #### [facility] [address] [place] [address] Dr. Varghese Perez MCHC (RBC) [Mass/Vol] 34.2 g/dL Normal 29.9-35.2 [facility] Comment on above: Performed By: #### C BC #### [facility] [address] [place] [address] Dr. Varghese Perez MCV (RBC) [Entitic vol] 86.4 fL Normal 80.0-94.0 [facility] Comment on above: Performed By: #### C BC #### [facility] [address] [place] [address] Dr. Varghese Perez MONO # 0.6 103/ul Normal 0.3-0.8 [facility] Comment on above: Performed By: #### C BC #### [facility] [address] [place] [address] Dr. Varghese Perez Monocytes/100 WBC (Bld) 9.6 % Normal 1.7-12.0 [facility] Comment on above: Performed By: #### C BC #### [facility] [address] [place] [address] Dr. Varghese Perez NEUT # 3.7 103/ul Normal 1.4-6.5 [facility] Comment on above: Performed By: #### C BC #### [facility] [address] [place] [address] Dr. Varghese Perez Neutrophils/100 WBC (Bld) 57.2 % Normal 43.0-75.0 [facility] Comment on above: Performed By: #### C BC #### [facility] [address] [place] [address] Dr. Varghese Perez Platelet mean volume (Bld) [Entitic vol] 9.4 fL Critically low 9.5-13.5 [facility] Comment on above: Performed By: #### C BC #### [facility] [address] [place] [address] Dr. Varghese Perez PLT 256 103/ul Normal 150-450 [facility] Comment on above: Performed By: #### C BC #### [facility] [address] [place] [address] Dr. Varghese Perez RBC 4.91 106/ul Normal 4.70-6.10 [facility] Comment on above: Performed By: #### C BC #### [facility] [address] [place] [address] Dr. Varghese Perez WBC 6.5 103/ul Normal 4.0-11.0 [facility] Comment on above: Performed By: #### C BC #### [facility] [address] [place] [address] Dr. Varghese Perez GLYCOHEMOGLOBIN A1Con 2021 ADA RECOMMENDATION SEE BELOW Normal [facility] Comment on above: Result Comment: ADA RECOMMENDED LIMIT 4.0 - 6.0 ADA THERAPEUTIC TARGET < 7.0 ACTION SUGGESTED > 7.0 Performed By: #### A 1C #### [facility] [address] [place] [address] Dr. Varghese Perez Glucose [Mass/Vol] 117 mg/dL Normal [facility] Comment on above: Performed By: #### A 1C #### [facility] [address] [place] [address] Dr. Varghese Perez HbA1c (Bld) [Mass fraction] 5.7 % Normal 4.5-6.2 [facility] Comment on above: Performed By: #### A 1C #### [facility] [address] [place] [address] Dr. Varghese Perez LIPID PROFILEon 10-25-2021 CHOL-HDL RATIO NORM SEE BELOW Normal [facility] Comment on above: Result Comment: 3.3 - 4.4 LOW RISK 4.4 - 7.1 AVERAGE RISK 7.1 - 11.0 MODERATE RISK >11.0 HIGH RISK Performed By: #### C MP, LIPID, TSH #### [facility] [address] [place] [address] Dr. Varghese Perez Cholesterol [Mass/Vol] 170 mg/dL Normal <=200 [facility] Comment on above: Performed By: #### C MP, LIPID, TSH #### [facility] [address] [place] [address] Dr. Varghese Perez Cholesterol in HDL [Mass/Vol] 52 mg/dL Normal 40-60 [facility] Comment on above: Performed By: #### C MP, LIPID, TSH #### [facility] [address] [place] [address] Dr. Varghese Perez Cholesterol in LDL [Mass/Vol] 107.4 mg/dL Normal [facility] Comment on above: Performed By: #### C MP, LIPID, TSH #### [facility] [address] [address] [address] Varghese Perez Cholesterol.total/C holesterol in HDL [Mass ratio] 3.3 {ratio} Normal [facility] Comment on above: Performed By: #### C MP, LIPID, TSH #### [facility] [address] [address] [address] Varghese Perez HDL NORMAL > or = 60 mg/dl - LO W CARDIOVASCULAR RISK <40 mg/dl - HIGH CARDIOVASCULAR RISK Normal [facility] Comment on above: Performed By: #### C MP, LIPID, TSH #### [facility] [address] [address] [address] Varghese Perez LDL CALC NORMAL SEE BELOW Normal [facility] Comment on above: Result Comment: <100 mg/dl OPTIMAL 100 - 129 mg/dl NEAR OR ABOVE OPTIMAL 130 - 159 mg/dl BORDERLINE HIGH 160 - 189 mg/dl HIGH >190 mg/dl VERY HIGH Performed By: #### C MP, LIPID, TSH #### [facility] [address] [address] [address] Varghese Perez Triglyceride [Mass/Vol] 53 mg/dL Normal <=150 [facility] Comment on above: Performed By: #### C MP, LIPID, TSH #### [facility] [address] [address] [address] Varghese Perez VLDL CALC 10.6 mg/dL Normal [facility] Comment on above: Performed By: #### C MP, LIPID, TSH #### [facility] [address] [address] [address] Varghese Perez PROF 14(COMP METB)on 022 Albumin [Mass/Vol] 3.9 g/dL Normal 3.4-5.0 [facility] Comment on above: Performed By: #### C MP, LIPID, TSH #### [facility] [address] [address] [address] Varghese Perez Albumin/Globulin [Mass ratio] 1.2 {ratio} Normal [facility] Comment on above: Performed By: #### C MP, LIPID, TSH #### [facility] [address] [address] [address] Varghese Perez ALP [Catalytic activity/Vol] 50 U/L Normal 46-116 [facility] Comment on above: Performed By: #### C MP, LIPID, TSH #### [facility] [address] [address] [address] Varghese Perez ALT [Catalytic activity/Vol] 30 U/L Normal 16-63 [facility] Comment on above: Performed By: #### C MP, LIPID, TSH #### [facility] [address] [address] [address] Varghese Perez Anion gap [Moles/Vol] 9.8 mmol/L Normal [facility] Comment on above: Performed By: #### C MP, LIPID, TSH #### [facility] [address] [address] [address] Varghese Perez AST [Catalytic activity/Vol] 16 U/L Normal 15-37 [facility] Comment on above: Performed By: #### C MP, LIPID, TSH #### [facility] [address] [address] [address] Varghese Perez Bilirubin [Mass/Vol] 0.7 mg/dL Normal 0.2-1.0 [facility] Comment on above: Performed By: #### C MP, LIPID, TSH #### [facility] [address] [address] [address] Varghese Perez Calcium [Mass/Vol] 9.0 mg/dL Normal 8.5-10.1 [facility] Comment on above: Performed By: #### C MP, LIPID, TSH #### [facility] [address] [address] [address] Varghese Perez Chloride [Moles/Vol] 107 mmol/L Normal 98-107 [facility] Comment on above: Performed By: #### C MP, LIPID, TSH #### [facility] [address] [address] [address] Varghese Perze CO2 [Moles/Vol] 29.6 mmol/L Normal 21.0-32.0 [facility] Comment on above: Performed By: #### C MP, LIPID, TSH #### [facility] [address] [place] [address] Dr. Varghese Perez Creatinine [Mass/Vol] 0.97 mg/dL Normal 0.70-1.30 [facility] Comment on above: Performed By: #### C MP, LIPID, TSH #### [facility] [address] [place] [address] Dr. Varghese Perez EGFR-AF KOSOVAN >60 Normal >=60 [facility] Comment on above: Performed By: #### C MP, LIPID, TSH #### [facility] [address] [place] [address] Dr. Varghese Perez EGFR-NON AF KOSOVAN >60 Normal >=60 [facility] Comment on above: Performed By: #### C MP, LIPID, TSH #### [facility] [address] [place] [address] Dr. Varghese Perez Globulin (S) [Mass/Vol] 3.2 g/dL Normal [facility] Comment on above: Performed By: #### C MP, LIPID, TSH #### [facility] [address] [place] [address] Dr. Varghese Perez Glucose [Mass/Vol] 134 mg/dL Critically high 74-106 [facility] Comment on above: Performed By: #### C MP, LIPID, TSH #### [facility] [address] [place] [address] Dr. Varghese Perez Potassium [Moles/Vol] 4.4 mmol/L Normal 3.5-5.1 [facility] Comment on above: Performed By: #### C MP, LIPID, TSH #### [facility] [address] [place] [address] Dr. Varghese Perez Protein [Mass/Vol] 7.1 g/dL Normal 6.4-8.2 [facility] Comment on above: Performed By: #### C MP, LIPID, TSH #### [facility] [address] [place] [address] Dr. Varghese Perez Sodium [Moles/Vol] 142 mmol/L Normal 136-145 [facility] Comment on above: Performed By: #### C MP, LIPID, TSH #### [facility] [address] [address] [address] Varghese Perez Urea nitrogen [Mass/Vol] 12.0 mg/dL Normal 7.0-18.0 [facility] Comment on above: Performed By: #### C MP, LIPID, TSH #### [facility] [address] [place], [place] [address] Dr. Varghese Perez Urea nitrogen/Creatinine [Mass ratio] 12.4 mg/mg Normal [facility] Comment on above: Performed By: #### C MP, LIPID, TSH #### [facility] [address] [address] [address] Varghese Perez TSHon 10-25-2021 TSH 1.433 uIU/mL Normal 0.358-3.740 [facility] Comment on above: Performed By: #### C MP, LIPID, TSH #### [facility] [address] [address] [address] Varghese Perez [facility] Surgical Pathology Depar tmenton 08-06-[address] [facility] Surgical Pathology Department Name RACHID MCNAIR Pathologist: GUMARO PATEL DMD Date of Procedure: 08/06/2021 Date Received: 08/08/2021 Date Reported 08/11/2021 Submitting Physician: EMELY FU DDS Location: [facility] Copy To/Referring/Attendin g: EMELY FU DDS Other External # FINAL DIAGNOSIS A. LEFT LOWER LIP, EXCISION: -- TRAUMATIC FIBROMA ICD-10/CPT: D10.0/95750 Electronically Signed Out By GUMARO PATEL DMD/TAMIR [...] A 1 tips 2 body of ellipse [facility]/08/08/2021 [facility] Department of Pathology [address] [place] [address] Normal [facility] Comment on above: Performed By: #### U [facility] #### [facility] Surgical Pathology Department [address] [place] [address] CBC AUTO DIFFon 03-08-2021 BASO # 0.0 103/ul Normal 0.0-0.1 [facility] Comment on above: Performed By: #### C BC #### [facility] [address] [place] [address] Dr. Varghese Perez Basophils/100 WBC (Bld) 0.5 % Normal 0.2-2.0 [facility] Comment on above: Performed By: #### C BC #### [facility] [address] [place] [address] Dr. Varghese Perez EO # 0.3 103/ul Normal 0.0-0.7 [facility] Comment on above: Performed By: #### C BC #### [facility] [address] [place] [address] Dr. Varghese Perez Eosinophils/100 WBC (Bld) 4.7 % Normal 0.9-7.0 [facility] Comment on above: Performed By: #### C BC #### [facility] [address] [place] [address] Dr. Varghese Perez Erythrocyte distribution width (RBC) [Ratio] 13.2 % Normal 11.0-15.0 [facility] Comment on above: Performed By: #### C BC #### [facility] [address] [place] [address] Dr. Varghese Perez Hematocrit (Bld) [Volume fraction] 42.7 % Normal 42.0-54.0 [facility] Comment on above: Performed By: #### C BC #### [facility] [address] [place] [address] Dr. Varghese Perez Hemoglobin (Bld) [Mass/Vol] 14.5 g/dL Normal 14.0-18.0 [facility] Comment on above: Performed By: #### C BC #### [facility] [address] [place] [address] Dr. Varghese Perez IG # 0.02 10e3/ul Normal 0.00-0.03 [facility] Comment on above: Performed By: #### C BC #### [facility] [address] [place] [address] Dr. Varghese Perez IG % 0.3 % Normal 0.0-0.5 [facility] Comment on above: Performed By: #### C BC #### [facility] [address] [place] [address] Dr. Varghese Perez LYMPH # 1.7 103/ul Normal 1.2-3.8 [facility] Comment on above: Performed By: #### C BC #### [facility] [address] [place] [address] Dr. Varghese Perez Lymphocytes/100 WBC (Bld) 28.8 % Normal 20.5-60.0 [facility] Comment on above: Performed By: #### C BC #### [facility] [address] [place] [address] Dr. Varghese Perez MANUAL DIFF REQ NO Normal [facility] Comment on above: Performed By: #### C BC #### [facility] [address] [place] [address] Dr. Varghese Perez MCH (RBC) [Entitic mass] 29.6 pg Normal 25.9-34.0 [facility] Comment on above: Performed By: #### C BC #### [facility] [address] [address] [address] Varghese Perez MCHC (RBC) [Mass/Vol] 34.0 g/dL Normal 29.9-35.2 [facility] Comment on above: Performed By: #### C BC #### [facility] [address] [address] [address] Varghese Perez MCV (RBC) [Entitic vol] 87.1 fL Normal 80.0-94.0 [facility] Comment on above: Performed By: #### C BC #### [facility] [address] [address] [address] Varghese Perez MONO # 0.6 103/ul Normal 0.3-0.8 [facility] Comment on above: Performed By: #### C BC #### [facility] [address] [place] [address] Dr. Varghese Perez Monocytes/100 WBC (Bld) 9.7 % Normal 1.7-12.0 [facility] Comment on above: Performed By: #### C BC #### [facility] [address] [place] [address] Dr. Varghese Perez NEUT # 3.4 103/ul Normal 1.4-6.5 [facility] Comment on above: Performed By: #### C BC #### [facility] [address] [place] [address] Dr. Varghese Perez Neutrophils/100 WBC (Bld) 56.0 % Normal 43.0-75.0 The [facility] Comment on above: Performed By: #### C BC #### [facility] [address] [place] [address] Dr. Varghese Perez Platelet mean volume (Bld) [Entitic vol] 9.9 fL Normal 9.5-13.5 [facility] Comment on above: Performed By: #### C BC #### [facility] [address] [place] [address] Dr. Varghese Perez PLT 217 103/ul Normal 150-450 [facility] Comment on above: Performed By: #### C BC #### [facility] [address] [place] [address] Dr. Varghese Perez RBC 4.90 106/ul Normal 4.70-6.10 [facility] Comment on above: Performed By: #### C BC #### [facility] [address] [address] [address] Varghese Perez WBC 6.0 103/ul Normal 4.0-11.0 [facility] Comment on above: Performed By: #### C BC #### [facility] [address] [address] [address] Varghese Perez GLYCOHEMOGLOBIN A1Con 2020 ADA RECOMMENDATION ADA THERAPEUTIC TARGET 6.0 - 7.0 ACTION SUGGESTED > 7.0 Normal [facility] Comment on above: Performed By: #### C MP, LIPID #### [facility] [address] [place] [address] Dr. Varghese Perez Glucose [Mass/Vol] 137 mg/dL Normal [facility] Comment on above: Performed By: #### C MP, LIPID #### [facility] [address] [place] [address] Dr. Varghese Perez HbA1c (Bld) [Mass fraction] 6.4 % Critically high <=6.0 [facility] Comment on above: Performed By: #### C MP, LIPID #### [facility] [address] [place] [address] Dr. Varghese Perez LIPID PROFILEon 03-08-2021 CHOL-HDL RATIO NORM SEE BELOW Normal [facility] Comment on above: Result Comment: 3.3 - 4.4 LOW RISK 4.4 - 7.1 AVERAGE RISK 7.1 - 11.0 MODERATE RISK >11.0 HIGH RISK Performed By: #### C MP, LIPID #### [facility] [address] [place] [address] Dr. Varghese Perez Cholesterol [Mass/Vol] 147 mg/dL Normal <=200 [facility] Comment on above: Performed By: #### C MP, LIPID #### [facility] [address] [place] [address] Dr. Varghese Perez Cholesterol in HDL [Mass/Vol] 50 mg/dL Normal [facility] Comment on above: Performed By: #### C MP, LIPID #### [facility] [address] [place], [place] [address] Dr. Varghese Perez Cholesterol in LDL [Mass/Vol] 82.4 mg/dL Normal [facility] Comment on above: Performed By: #### C MP, LIPID #### [facility] [id number] Varghese Perez Cholesterol.total/C holesterol in HDL [Mass ratio] 2.9 {ratio} Normal [facility] Comment on above: Performed By: #### C MP, LIPID #### [facility] [address] [address] [address] Varghese Perez HDL NORMAL > or = 60 mg/dl - LO W CARDIOVASCULAR RISK <40 mg/dl - HIGH CARDIOVASCULAR RISK Normal [facility] Comment on above: Performed By: #### C MP, LIPID #### [facility] [facility] [address] [address] [address] Varghese Perez LDL CALC NORMAL SEE BELOW Normal [facility] Comment on above: Result Comment: <100 mg/dl OPTIMAL 100 - 129 mg/dl NEAR OR ABOVE OPTIMAL 130 - 159 mg/dl BORDERLINE HIGH 160 - 189 mg/dl HIGH >190 mg/dl VERY HIGH Performed By: #### C MP, LIPID #### [facility] [address] [address] [address] Varghese Perez Triglyceride [Mass/Vol] 73 mg/dL Normal <=150 [facility] Comment on above: Performed By: #### C MP, LIPID #### [facility] [address] [address] [address] Varghese Perez VLDL CALC 14.6 mg/dL Normal [facility] Comment on above: Performed By: #### C MP, LIPID #### [facility] [address] [address] [address] Varghese Perez PROF 14(COMP METB)on 021 Albumin [Mass/Vol] 3.7 g/dL Normal 3.5-5.0 [facility] Comment on above: Performed By: #### C MP, LIPID #### [facility] [address] [address] [address] Varghese Perez Albumin/Globulin [Mass ratio] 1.1 {ratio} Normal [facility] Comment on above: Performed By: #### C MP, LIPID #### [facility] [address] [address] [address] Varghese Perez ALP [Catalytic activity/Vol] 54 U/L Normal 38-126 [facility] Comment on above: Performed By: #### C MP, LIPID #### [facility] [address] [address] [address] Varghese Perez ALT [Catalytic activity/Vol] 29 U/L Normal 21-72 [facility] Comment on above: Performed By: #### C MP, LIPID #### [facility] [address] [place] [address] Dr. Varghese Perez Anion gap [Moles/Vol] 10.5 mmol/L Normal [facility] Comment on above: Performed By: #### C MP, LIPID #### [facility] [address] [address] [address] Varghese Perez AST [Catalytic activity/Vol] 15 U/L Critically low 17-59 [facility] Comment on above: Performed By: #### C MP, LIPID #### [facility] [address] [address] [address] Varghese Perez Bilirubin [Mass/Vol] 0.5 mg/dL Normal 0.2-1.3 [facility] Comment on above: Performed By: #### C MP, LIPID #### [facility] [address] [address] [address] Varghese Perez Calcium [Mass/Vol] 8.9 mg/dL Normal 8.4-10.2 [facility] Comment on above: Performed By: #### C MP, LIPID #### [facility] [address] [address] [address] Varghese ePrez Chloride [Moles/Vol] 106 mmol/L Normal 98-107 [facility] Comment on above: Performed By: #### C MP, LIPID #### [facility] [address] [address] [address] Varghese Perez CO2 [Moles/Vol] 29.0 mmol/L Normal 22.0-30.0 [facility] Comment on above: Performed By: #### C MP, LIPID #### [facility] [address] [place] [address] Dr. Varghese Perez Creatinine [Mass/Vol] 0.86 mg/dL Normal 0.66-1.25 [facility] Comment on above: Performed By: #### C MP, LIPID #### [facility] [address] [place] [address] Dr. Varghese Perez EGFR-AF KOSOVAN >60 Normal >=60 [facility] Comment on above: Performed By: #### C MP, LIPID #### [facility] [address] [place] [address] Dr. Varghese Perez EGFR-NON AF KOSOVAN >60 Normal >=60 [facility] Comment on above: Performed By: #### C MP, LIPID #### [facility] [address] [place] [address] Dr. Varghese Perez Globulin (S) [Mass/Vol] 3.3 g/dL Normal [facility] Comment on above: Performed By: #### C MP, LIPID #### [facility] [address] [place] [address] Dr. Varghese Perez Glucose [Mass/Vol] 127 mg/dL Critically high 74-106 [facility] Comment on above: Performed By: #### C MP, LIPID #### [facility] [address] [place] [address] Dr. Varghese Perez Potassium [Moles/Vol] 4.2 mmol/L Normal 3.4-5.0 [facility] Comment on above: Performed By: #### C MP, LIPID #### [facility] [address] [place] [address] Dr. Varghese Perez Protein [Mass/Vol] 7.0 g/dL Normal 6.1-8.2 [facility] Comment on above: Performed By: #### C MP, LIPID #### [facility] [address] [place], [place] [address] Dr. Varghese Perez Sodium [Moles/Vol] 142 mmol/L Normal 137-145 [facility] Comment on above: Performed By: #### C MP, LIPID #### [facility] [address] [address] [address] Varghese Perez Urea nitrogen [Mass/Vol] 9.0 mg/dL Normal 9.0-20.0 [facility] Comment on above: Performed By: #### C MP, LIPID #### [facility] [address] [address] [address] Varghese Perez Urea nitrogen/Creatinine [Mass ratio] 10.5 mg/mg Normal [facility] Comment on above: Performed By: #### C MP, LIPID #### [facility] [address] [address] [address] Varghese Perez Vital Signs Date Time Vital Sign Value Performing Clinician Corbyi josey 02-20-2022 08:48-0500 Diastolic blood pressure 95 mm[Hg] MD Renay Yost Work Phone: [facility] 02-20-2022 08:48-0500 Heart rate 57 /min MD Renay Yost Work Phone: [facility] 02-20-2022 08:48-0500 Respiratory rate 18 /min MD Renay Yost Work Phone: [facility] 02-20-2022 08:48-0500 SaO2% (BldA) [Mass fraction] 97 % MD Renay Yost Work Phone: [facility] 02-20-2022 08:48-0500 Systolic blood pressure 154 mm[Hg] MD Renay Yost Work Phone: [facility] 02-20-2022 07:18-0500 Body height 180.34 cm MD Renay Yost Work Phone: [facility] 02-20-2022 07:18-0500 Body temperature 98 [degF] MD Renay Yost Work Phone: [facility] 02-20-2022 07:18-0500 Body weight 77.11 kg MD Renay Yost Work Phone: [facility] Encounters Encounter Date Encounter Type Care Provider Facility Start: 10-12-2023 ambulatory MD Maxwell Ontiveros [facility] ity:[facility] Start: 03-29-2023 End: 03-30-2023 ambulatory MD Maxwell Ontiveros Facility:[facility] Start: 03-09-2023 End: 03-09-2023 Emergency department patient visit Brain PortilloLarisa Pack [facility] Start: 12-30-2022 End: 12-31-2022 ambulatory MD Maxwell Ontiveros Facility[facility] Start: 12-28-2022 End: 12-29-2022 ambulatory MD Maxwell Ontiveros Facility:[facility] Start: 12-28-2022 End: 12-29-2022 ambulatory MD Maxwell Ontiveros Facility:[facility] Start: 11-19-2022 End: 11-20-2022 ambulatory Lauri OTIS [facility] Start: 10-21-2022 End: 10-22-2022 ambulatory Lauri OTIS [facility] Start: 07-01-2022 ambulatory MD Maxwell Ontiveros Facility :[facility] Start: 02-20-2022 End: 02-20-2022 ambulatory Cam Rea Facility:[facility] Start: 02-20-2022 End: 02-20-2022 Admission to same day surgery center MD Renay Yost Work Phone: [facility] Start: 02-20-2022 End: 02-20-2022 ambulatory MD Renay Yost Work Phone: [facility] Work Phone: Start: 10-28-2021 Encounter for genera l adult medical examination without abnormal findings DR RENAY YOST [facility] Start: 10-25-2021 End: 10-26-[address] RENAY YOST Facility:[facility] Start: 10-25-2021 End: 10-26-2021 Encounter for general adult medical examination without abnormal findings DR RENAY YOST Facility:[facility] Start: 03-08-2021 End: 03-09-[address] RENAY YOST Facility:[facility] Procedures Date Procedure Procedure Detail Performing Clinician Start: 02-20-2022 Screening colonoscopy Lindsey Yost Work Phone: Start: 10-25-[address] RENAY OCAMPO Comment on above: Performed By: #### P SASC #### [facility] [address] [address] [address] Varghese Perez Start: 03-08-[address] RENAY OCAMPO Comment on above: Performed By: #### P SASC #### [facility] [address] [address] [address] Varghese Perez Plan of Treatment Date Care Activity Detail Author Start: 02-20-2022 [facility] Patient Education Colon Polyps [facility] Work Phone: Immunizations Immunization Date Immunization Notes Care Provider Fa cility 04-14-2021 COVID-19 mRNA Bivale nt Booster (Moderna) MD Renay Yost Work Phone: [facility] 07-23-2020 COVID-19 mRNA-1273 (Moderna) MD Renay Yost Work Phone: [facility] 06-20-2020 COVID-19 mRNA-1273 (Moderna) MD Renay Yost Work Phone: [facility] Payers Date Payer Category Payer Worker's Compensation [id number] 2021 Self-pay 2018 Private Health Insurance [id number] 1957 Unknown [id number] 1957 Unknown [id number] 2.16.84 [id number] 1957 Unknown [id number] 2.16.84 [id number] 1957 Unknown [id number] 2.16.8 [id number] 1957 Unknown [id number] 2.16.8 [id number] 1957 Unknown [id number] 2.16.8 [id number] 1957 Unknown [id number] 2.16.8 [id number] 1957 Unknown [id number] 2.16.8 [id number] 1957 Unknown [id number] 2.16.8 [id number] 1957 Unknown [id number] 2.16.8 [id number] Unknown [id number] 2.16.8 [id number] Social History Date Type Detail Facility Start: [facility] Start: 1955 Sex Assigned At Male F [facility] Goals Date Patient Goal Desired Activity /State Procedure note 02-20-2022 Note Date & Type Note Facility 02-20-2022 Procedure note [facility] Evaluation note Note Date & Type Note Facility Evaluation note No assessment information availa [facility] Work Phone: History and physical note Note Date & Type Note Facility History and physical note Note Date/Time February 20, 2022 7:57am [facility] [address] [place] [address] Gastroenterology H&P Signed Patient: Rachid Mcnair MR#: [id number] : 1955 Acct:[id number] Age/Sex: 66 / M Adm Date: 2 Loc: Room: Type: [facility] Attending Dr: Cam Rea MD [...] <Electronically signed by Cam Rea MD> 02/20/22756 [facility] Work Phone: Hospital Discharge instructions Note Date [...] Follow up with PCP. - Office number [phone]. [facility] Work Phone: Summary Purpose Family History No Family History Records Found Relationship Condition Age at Onset Recorded Date/T céasr father Malignant neoplasm of lung Unknown Advance [...] section and content) DATE CREATED AUTHOR 08/11/2021 [facility] [place] DATE CREATED AUTHOR AUTHOR'S ORGANIZ ATION 10/30/2021 Narayan sarah DATE CREATED AUTHOR AUTHOR'S ORGANIZ ATION 02/27/2022 [facility] DATE CREATED AUTHOR AUTHOR'S ORGANIZ ATION 04/01/2023 [facility] Care Teams (unrecognized sec tion and content) [...] BE BASED ON THE PRIMARY CLINICAL RECORDS. [facility]. provides no warranty or guarantee of the accuracy or completeness of information in this document.
== END 2023-07-26 08:05 | disposition home or self-care (01) ==
PROVIDERS: Visit Provider Orthopaedic Surgery
DX: S32.511D Fracture of superior rim of right pubis, subsequent encounter for fracture with routine healing (principal)
CPT/HCPCS: 72170

== ENCOUNTER 2024-12-23 09:13 | Outpatient (OUT) | payer OTHER, SELFPAY ==
--- OUTSIDE RECORDS SUMMARY | 2024-10-18 05:45 | XMS_ITS ---
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--ok per nurse- was seeing Dr Ontiveros/ Dr Yost previously, Said he had an A1C a couple months ago that was high, he was off one of his meds but he is back on it now and his numbers have been good, Last labs were through [facility]- record request sent over, Seeing physician through [facility] for carpal tunnel surgery in January Medications Medication SIG (Take, Route, Frequency, Duration) Notes Start Date End Date Status Venlafaxine HCl 25 MG 1 tablet with food Orally once daily 10/18/2024 Active Omeprazole 20 MG 1 capsule 1/2 to 1 h our before morning meal Orally Once a day 10/18/2024 Active Metoprolol Succinate 50 MG 1 capsule Ora lly Once a day 10/18/2024 Active metFORMIN HCl 500 MG 2 tablet with a ashlyn l Orally twice daily 10/18/2024 Active Losartan Potassium 100 MG 1 tablet Orall y Once a day 10/18/2024 Active Atorvastatin Calcium 20 MG 1 tablet Oral ly Once a day 10/18/2024 Active Aspirin Adult Low Dose 81 MG 1 tablet Or ally Once a day Active hydroCHLOROthiazide 12.5 MG 1 tablet in the morning Orally Once a day 10/18/2024 Active Januvia 100 MG 1 tablet Orally Once a day 10/18/2024 Active Social History Tobacco Use: Social History Observation Description Date Details (start date - stop date) Former Smoker 10/11/1975 - 10/11/1991 Tobacco Control (Standard) Question Answer Notes Tobacco use: Former smoker When did you start smoking? 10/11/1975 When did you stop smoking? 10/11/1991 How long has it been since y ou last smoked? Greater than 10 years Additional Findings: Tobacco non-user Ex-heavy c igarette smoker (20-30/day) AUDIT-C (Standard) Question Answer Notes Did you have a drink contain ing alcohol in the past year? Yes How often did you have a dri nk containing alcohol in the past year? Monthly or less (1 point) How many drinks did you have on a typical day when you were drinking in the past year? 3 or 4 drinks (1 point) How often did you have six o r more drinks on one occasion in the past year? 2 to 3 times per week (3 points) Points 5 Interpretation Positive Problems Problem Type SNOMED Code ICD Code Onset Dates Problem Status W/U Status Risk Notes Problem Carpal tunnel syndrome (02332571) Carpal tunnel syndrome (G56.00) Active confirmed Problem Hypertension (83987697) Hypertension (I10) Active confirmed Problem Hypercholesterolemia (17264549) Hypercholesterolemia (E78.00) Active confirmed Problem Gastroesophageal reflux disease (322776354) GERD (gastroesophageal reflux disease) (K21.9) Active confirmed Problem Type 2 diabetes mellitus (99402748) Type 2 diabetes mellitus (E11.9) Active confirmed Vital Signs Blood pressure systolic 116 mm Hg 10/19/19 25 Blood pressure diastolic 70 mm Hg 025 Height 71 in 10/18/2024 Weight 165.8 lbs 10/18/2024 BMI 23.12 kg/m2 10/18/2024 Encounters Encounter Location Date Provider Diagnosis [facility] [address] [place] [address] 10/18/2024 Joshua Hoy Hypertension I10 ; G ERD (gastroesophageal reflux disease) K21.9 ; Type 2 diabetes mellitus E11.9 ; Hypercholesterolemia E78.00 and Carpal tunnel syndrome G56.00 Assessments Encounter Date Diagnosis (ICD Code) Assessment Notes Treatment Notes Treatment Clinical Notes Section Notes 10/18/2024 Hypertension (ICD-10 - I10) 10/18/2024 GERD (gastroesophage al reflux disease) (ICD-10 - K21.9) 10/18/2024 Type 2 diabetes hayde itus (ICD-10 - E11.9) 10/18/2024 Hypercholesterolemia (ICD-10 - E78.00) 10/18/2024 Carpal tunnel syndro me (ICD-10 - G56.00) Plan Of Treatment Next Appt Details Provider Name:Joshua Lindsey Maycol, 10:00:00 AM, [address] [place], [address], Progress Notes * Genaro MANNINGDOB:[birth year] (68 yo M)Acc No.[id number]:10/18/2024 New Patient Patient: Genaro FORD Provider: Sivakumar Severino ([facility]), :1955 A ge:68 Y S ex:Male Date:10/18/2024 Address:[address] [place], [place] [id number] Check In:09:33 AM ESTCheck O ut:10:22 AM EST Subjective: * Chief Complaints: * N P to est--ok per nurse- was seeing Dr Ontiveros/ Dr Yost previouslySaid he had an A1C a couple months ago that was high, he was off one of his meds but he is back on it now and his numbers have been goodLast labs were through [facility]- record request sent overSeeing physician through [facility] for [facility] in January * HPI: D epression Screening: PHQ-2 (2015 Edition) L ittle interest or pleasure in doing things??Not at all F eeling down, depressed, or hopeless? N ot at all T otal Score 0 DM - off januvia - was up to 250 - on it - 130's - will check jose a1c HTN - stqabel on meds GERD - stable on meds Depression - rev eiweed meds. * ROS: E ENT: hearing changes d enies. v isual changes d enies.?non-healing mouth sores d enies. s wollen glands or neck lumps d enies. h oarseness d enies. s ore throat d enies. d ifficulty swallowing d enies. n ose bleeds d enies. n sukhjinder congestion d enies. e ar ache d enies. e ar discharge?denies. r inging in ears d enies. l ight sensitivity d enies. e ye pain d enies. b lurring d enies. e ye irritation d enies. d ouble vision d enies.?vision loss d enies. G eneral/Constitutional: Sweats: D enies. F atigue d enies. S leep problems d enies. A norexia d enies. M alaise d enies. W eight loss d enies.?Fatigue or Weakness d enies. F ever or Chills d enies. C ardiovascular: Shortness of Breath w/lying flat d enies. L ightheadedness/dizziness d enies. C hest tightness/ heavy pressure d enies. S welling of legs, ankles, or feet d enies. W aking up with shortness of breath d enies. C hest pain denies. P alpitations d enies. W eight gain d enies. R espiratory: Chronic or frequent cough d enies. C oughing up blood?denies. D ifficulty breathing d enies. P roductive cough d enies. S noring?denies. S hortness of breath that awakens from sleep (PND) d enies. C hest pain d enies. S putum production d enies. W heezing d enies. M usculoskeletal: Joint pain d enies. J oint Fluid d enies. B ack pain d enies. K nee pain d enies. N benita pain d enies. J oint Stiffness d enies. M uscle cramps d enies. W eakness of muscles d enies. A rthritis d enies. M uscle aches d enies. P ain in shoulder(s) d enies. S wollen joints d enies. * Active Problem List I10 Hypertension Modified On:10/18/2024 Status:confirmed K21.9 GERD (gastroesophage al reflux disease) Modified On:10/18/2024 Status:confirmed E11.9 Type 2 diabetes hayde itus Modified On:10/18/2024 Status:confirmed E78.00 Hypercholesterolemia Modified On:10/18/2024 Status:confirmed G56.00 Carpal tunnel syndro me Modified On:10/18/2024 Status:confirmed E78.1 Hypertriglyceridemia Modified On:10/20/2024 Status:confirmed * Medical History: * Surgical History: B ack Surgery Cataract Extraction Bilateral Hip Replacement Rotator Cuff repair- Bilateral * Hospitalization/Major Diagno stic Procedure: s ee above * Family History: F ather: , Lung Cancer, diagnosed with Other malignant neoplasm of unspecified site.?Mother: , diagnosed with Unspecified essential hypertension. B rother(s): alive. Daughter(s): alive, Addiction. P aternaasim Grandfather: , diagnosed with Diabetes mellitus without mention of complication, type II or unspecified type, not stated as uncontrolled. P aternal Grandmother: , diagnosed with Diabetes mellitus without mention of complication, type II or unspecified type, not stated as uncontrolled. M ategiovani Grandfather: , Heart attack, diagnosed with Unspecified essential hypertension. M aternal Grandmother: , Stroke.?1 brother(s) - healthy. 1 daughter(s) - healthy. . * Social History: T obacco Use: T obacco Control (Standard) T obacco use: F ormer smoker W hen did you start smoking? 0 10/11/1975 W hen did you stop smoking? 0 10/11/1991 H ow long has it been since you last smoked??Greater than 10 years A dditional Findings: Tobacco non-user E x-heavy cigarette smoker (20-30/day) D rug/Alcohol: A KRISHNA-C (Standard) D id you have a drink containing alcohol in the past year? Y es H ow often did you have a drink containing alcohol in the past year? M onthly or less (1 point) H ow many drinks did you have on a typical day when you were drinking in the past year? 3 or 4 drinks (1 point) H ow often did you have six or more drinks on one occasion in the past year? 2 to 3 times per week (3 points) P oints 5 I nterpretation P ositive * Medications: T akingAspirin Adult Low Dose(Aspirin) 81 MG Tablet Delayed Release 1 tablet Orally Once a day Atorvastatin Calcium 20 MG Tablet 1 tablet Orally Once a day hydroCHLOROthiazide 12.5 MG Tablet 1 tablet in the morning Orally Once a day Januvia(SITagliptin Phosphate) 100 MG Tablet 1 tablet Orally Once a day Losartan Potassium 100 MG Tablet 1 tablet Orally Once a day metFORMIN HCl 500 MG Tablet 2 tablet with a meal Orally twice daily Metoprolol Succinate 50 MG Capsule ER 24 Hour Sprinkle 1 capsule Orally Once a day Omeprazole 20 MG Capsule Delayed Release 1 capsule 1/2 to 1 hour before morning meal Orally Once a day Venlafaxine HCl 25 MG Tablet 1 tablet with food Orally once daily Medication List reviewed and reconciled with the patientTaking Aspirin Adult Low Dose(Aspirin) 81 MG Tablet Delayed Release 1 tablet Orally Once a day Taking Atorvastatin Calcium 20 MG Tablet 1 tablet Orally Once a day Taking hydroCHLOROthiazide 12.5 MG Tablet 1 tablet in the morning Orally Once a day Taking Januvia(SITagliptin Phosphate) 100 MG Tablet 1 tablet Orally Once a day Taking Losartan Potassium 100 MG Tablet 1 tablet Orally Once a day Taking metFORMIN HCl 500 MG Tablet 2 tablet with a meal Orally twice daily Taking Metoprolol Succinate 50 MG Capsule ER 24 Hour Sprinkle 1 capsule Orally Once a day Taking Omeprazole 20 MG Capsule Delayed Release 1 capsule 1/2 to 1 hour before morning meal Orally Once a day Taking Venlafaxine HCl 25 MG Tablet 1 tablet with food Orally once daily Medication List reviewed and reconciled with the patient * Allergies: S ulfa Antibiotics: hives - Allergyno[Allergies Verified] Objective: * Vitals: W t:165.8lbs, Ht: 71 in, BP:116/70mm Hg, BMI:23.12Index, Ht-cm: 180.34 cm, Wt-k.21 kg. * Examination: P hysical Exam: GENERAL: w ell developed, well nourished, in no acute distress. HEAD: n ormocephalic/atraumatic. EYES: p upils equal, round and reactive to light, conjunctivae and sclerae normal. EARS: n o deformity or lesion of external ear, canals and TM appear normal bilaterally, TM's intact, not inflamed with normal light reflex, hearing grossly normal to conversational speech. NOSE: n o deformity, discharge, inflammation, or lesions.? MOUTH: m ucous membranes moist, normal oropharynx and posterior pharynx without lesions or exudates, tongue normal, dentition normal. NECK: n benita supple, no masses or palpable cervical nodes, trachea midline, thyroid without nodules, masses, tenderness, or enlargement. CHEST: n o chest wall deformity, no chest wall tenderness.? LUNGS: n ormal respiratory effort and clear to auscultation, no wheezes, rales, or rhonchi, good air exchange. CARDIO: r egular rate and rhythm, normal S1 and S2, nor murmur, rub, or gallop. PULSES: n ormal capillary refill. ABDOMEN: s oft, non-distended, non-tender, no masses. MUSCULOSKELETAL: n o deformity or scoliosis noted, normal range of motion, joints normal, no erythema, edema, effusion, or ecchymosis. EXTREMITY: n o clubbing, cyanosis, edema, or deformity with normal ROM in both upper and lower bilateral extremities. NEUROLOGIC: g rossly normal. SKIN: n o rashes, ulcerations, or suspicious lesions. LYMPH NODES: n o cervical adenopathy, nodes normal. MENTAL STATUS: a lert and oriented x3, normal mood and affect. Assessment: * Assessment: 1. H ypertension - I10 (Primary) 2 . G ERD (gastroesophageal reflux disease) - K21.9 3 . T ype 2 diabetes mellitus - E11.9 4 . H ypercholesterolemia - E78.00 5 . C arpal tunnel syndrome - G56.00 Plan: * Treatment: * Procedure Codes: * * Sign off status: Completed Visit Status: C HK (Check Out) true * Provider: Sivakumar Severino ([facility])MD Date: 10/18/2024 Generated for Lisai kamille/Davian/eTransmitting on: 12/23/2024 09:14 AM EDT History and Physical Notes * HPI (History of Present Illness) Category Sub-Category Detail Notes Category Not es Depression Screening PHQ-2 (2015 Edition) Little interest or pleasure in doing things?: Not at all DM - off januvia - was up to 250 - on it - 130's - will check jose a1c HTN - stqabel on meds GERD - stable on meds Depression - rev eiweed meds Feeling down, depressed, or hopeless?: N ot at all Total Score: 0 Examination Category Sub-Category Detail Notes Category Not es Physical Exam GENERAL: well developed, well nourished, in no acute distress HEAD: normocephalic/atraum atic EYES: pupils equal, round and reactive to light, conjunctivae and sclerae normal EARS: no deformity or lesi on of external ear, canals and TM appear normal bilaterally, TM's intact, not inflamed with normal light reflex, hearing grossly normal to conversational speech NOSE: no deformity, discha rge, inflammation, or lesions MOUTH: mucous membranes lily st, normal oropharynx and posterior pharynx without lesions or exudates, tongue normal, dentition normal NECK: neck supple, no mass es or palpable cervical nodes, trachea midline, thyroid without nodules, masses, tenderness, or enlargement CHEST: no chest wall deform ity, no chest wall tenderness LUNGS: normal respiratory e ffort and clear to auscultation, no wheezes, rales, or rhonchi, good air exchange CARDIO: regular rate and rhy thm, normal S1 and S2, nor murmur, rub, or gallop PULSES: normal capillary ref ill ABDOMEN: soft, non-distended, non-tender, no masses RECTAL: MUSCULOSKELETAL: no deformity or scol iosis noted, normal range of motion, joints normal, no erythema, edema, effusion, or ecchymosis EXTREMITY: no clubbing, cyanosi s, edema, or deformity with normal ROM in both upper and lower bilateral extremities NEUROLOGIC: grossly normal SKIN: no rashes, ulceratio ns, or suspicious lesions LYMPH NODES: no cervical adenopat hy, nodes normal MENTAL STATUS: alert and oriented x 3, normal mood and affect
--- OUTSIDE RECORDS SUMMARY | 2024-10-19 16:10 | XMS_ITS ---
Author Organization [facility] in [place] Address [address] [place] [address] Care Team Providers Care Therapy Teacher Name Role Phone Joshua Severino Primary Care Provider REASON FOR VISIT lab results Problems Problem Type SNOMED Code ICD Code Onset Dates Problem Status W/U Status Risk Notes Problem Hypertriglyceridemia (605878842) Hypertriglyceridemia (E78.1) Active confirmed Encounters Encounter Location Date Provider Diagnosis [facility] [address] [place] [address] 10/19/2024 Joshua Severino Type 2 diabetes hayde itus E11.9 and Hypercholesterolemia E78.00 Assessments Encounter Date Diagnosis (ICD Code) Assessment Notes Treatment Notes Treatment Clinical Notes Section Notes 10/19/2024 Type 2 diabetes hayde itus (ICD-10 - E11.9) 10/19/2024 Hypercholesterolemia (ICD-10 - E78.00) Plan Of Treatment Pending Test Test Name Order Date GLYCOHEMOGLOBIN A1C 10/19/2024 LIPID PROFILE 10/19/2024 Next Appt Details Provider Name:Joshua Severino, 10:00:00 AM, [address] [place], [address], Progress Notes * Genaro MANNINGDOB:[birth year] (68 yo M)Acc No.[id number]:10/19/2024 Patient: Lonnie YONG Genaro :1955 A ge:68 Y S ex:Male Address:[address] [place] [address], [id number] Subjective: * Chief Complaints: * L ab results * Medical History: * Surgical History: * Hospitalization/Major Diagno stic Procedure: * Medications: Objective: * Vitals: * Physical Examination: Assessment: * Assessment: 1. T ype 2 diabetes mellitus - E11.9 (Primary) 2 . H ypercholesterolemia - E78.00 Plan: * Treatment: 2. H ypercholesterolemia L AB: GLYCOHEMOGLOBIN A1C L AB: LIPID PROFILE * Procedure Codes: * true * Date: Generated for Kalia simental/Davian/eTransmitting on: 0 12/23/2024 09:15 AM EDT
--- OUTSIDE RECORDS SUMMARY | 2024-12-22 14:03 | XMS_ITS | CCD ---
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 Name Role Phone DR SAI YOST Attending Unavailable MARLENE, DR SAI Beal Admitting Unavailable MARLENE, DR SAI Beal Primary Care Unavailable MARLENE, DR SAI Beal Consulting Unavailable MARLENE, DR SAI Beal Admitting Unavailable MARLENE, DR SAI Beal Primary Care Unavailable MARLENE, DR SAI Beal Consulting Unavailable MARLENE, DR SAI Beal Attending Unavailable MD Sai Yost Primary Care Provider MD Cam Rea Attending Provider Cam Rea Attending Unavailable Cam Rea Admitting Unavailable Sai Yost Primary Care Unavailable Maxwell Ontiveros MD Primary Care Provider Maxwell Ontiveros MD Primary Care Provider ZOHREH OLIVER Referring Unavailable ZOHREH OLIVER Attending Unavailable JIGNA BARROSO Attending Unavailable INGA MOORE Referring Unavailable JIGNA BARROSO Attending Unavailable Lauri HDZ Attending Unavailable Chema Cho Attending Unavailable Sai Yost MD Primary Care Provider Lauri Qureshi MD Unavailable Maxwell Ontiveros MD Unavailable Unavailable Primary Care Provider UnavailCHRIS Parker Referring Unavailable SANDY BHATT Referring Unavail able SAI YOST Primary Care Unavailable Maxwell Ontiveros. Attending Unavailable Nevaeh Agosto MD Primary Care Provider NORBERT FRENCH Admitting Unavailable NORBERT FRENCH Attending Unavailable NEVAEH AGOSTO Primary Care Unavailable SAI YOST Primary Care Unavailable SANDY BHATTENE Attending Unavail able LATIA CHAVIS Referring Unavailable HOJeannette, NEVAEH M Primary Care Unavailable YOST, SAI EDWARD Primary Care Unavailable TOMAZIC, SANDY GOETZ Referring Unavail able LATIA CHAVIS Attending Unavailable YOST, SAI EDWARD Primary Care Unavailable TOMAZIC, SANDY GOETZ Referring Unavail able NORBERT FRENCH Attending Unavailable YOST, SAI EDFISCHER Primary Care Unavailable LATIA CHAVIS Referring Unavailable RACH NINO Attending Unavailable HOY, NEVAEH M Primary Care Unavailable YOST, SAI EDWARD Primary Care Unavailable SELF Referring Unavailable YOST, SAI EDWARD Primary Care Unavailable SELF Referring Unavailable TOMAZIC, SANDY GOETZ Attending Unavail able TOMAZIC, SANDY GOETZ Referring Unavail able YOST, SAI EDWARD Primary Care Unavailable Kirnus, Chris D Attending Unavailable Kirnus, Chris D Admitting Unavailable Chema Cho Attending Unavailable NONE, XXXX Referring Unavailable Kirnus, Chris D Attending Unavailable Kirnus, Chris D Admitting Unavailable Kirnus, Chris D Admitting Unavailable Kirnus, Chris D Attending Unavailable MD Maxwell Ontiveros Referring Unavailable NONE, XXXX Referring Unavailable Kirnus, Chris D Attending Unavailable Kirnus, Chris D Admitting Unavailable MD Aneesh Haq Consulting Unavailable Kirnus, Chris D Admitting Unavailable Kirnus, Chris D Attending Unavailable Kirnus, Chris D Referring Unavailable Aneesh Haq Consulting Unavailable Aneesh Haq Consulting Unavailable Kirnus, Chris D Admitting Unavailable Kirnus, Chris D Consulting Unavailable Kirnus, Chris D Attending Unavailable Kirnus, Chris D Referring Unavailable Kirnus, Chris D Consulting Unavailable Kirnus, Chris D Consulting Unavailable Kirnus, Chris D Admitting Unavailable Kirnus, Chris D Attending Unavailable MD Maxwell Ontiveros Admitting Unavailable MD Maxwell Ontiveros Attending Unavailable MD Maxwell Ontiveros Attending Unavailable Anderson Madera Admitting Unavailable Anderson Madera Attending Unavailable NONE, XXXX Referring Unavailable Anderson Madera Admitting Unavailable Anderson Madera Attending Unavailable NONE, XXXX Referring Unavailable Maxwell Ontiveros Attending Unavailable Allergies Allergy Classification Reported Allergen(s) Allergy Type Date of Onset Reaction(s) Facility (1 source) Sulfonamides (Antibiotic) Drug allergy (disorder) 0 [facility] (20 sources) Sulfonamides (Antibiotic); Translations: [Sulfa (Sulfonamide Antibiotics)] Allergy to substance 2 Rash, Hives [facility] (6 sources) Sulfonamides (Antibiotic) Propensity to adverse reactions 3 [facility] (6 sources) Sulfamethoxazole; Translations: [sulfamethoxazole ] Drug Allergy [facility] Repository Medications Current Medications Medication Drug Class(es) Dates Sig (Normalized) Sig (Original) acetaminophen 325 mg / oxyCODONE hydrochloride 5 mg oral tablet (17 sources) Opioid Agonist Start: 10-12-2011 take 1 tablet by mouth every four hours as needed oxyCODONE-acetami nophen 5-325 mg tablet Indications: Osteoarthrosis, unspecified whether generalized or localized, pelvic region and thigh , Status post THR (total hip replacement) Take 1 tablet by mouth every 4 hours as needed. 60 tablet 0 10/12/2011 Active aspirin 81 mg oral tablet (7 sources) Platelet Aggregation Inhibitor, Nonsteroidal Anti-inflammatory Drug Start: 02-18-2022 take 81 mg by mouth once daily Aspirin Active 81 MG PO Daily February 18, 2022 12:00am take 1 tablet by mouth in the mo rning aspirin 81 MG EC tablet Take 81 mg by mouth in the morning. Active atorvastatin 20 mg oral tablet (7 sources) HMG-CoA Reductase Inhibitor Start: 02-18-2022 take 20 mg by mouth at bedtime Atorvastatin Active 20 MG PO Bedtime February 18, 2022 12:00am Blood Glucose Calibration (Contour Next Control) Normal solution (6 sources) Start: 09-19-2022 Blood Glucose Calibration (Contour Next Control) Normal solution 09/19/2022 Active citalopram 20 mg oral tablet (17 sources) Serotonin Reuptake Inhibitor take 1 tablet by mouth once daily citalopram 20 mg tablet Take 20 mg by mouth once daily. Active docusate sodium 100 mg oral capsule (17 sources) Start: 10-03-2011 take 1 capsule by mouth twice daily docusate sodium 100 mg capsule Take 1 capsule by mouth twice daily. 0 10/03/2011 Active 0.4 ml enoxaparin sodium 100 mg/ml prefilled syringe (17 sources) Low Molecular Weight Heparin Start: 10-03-2011 inject 0.4 mL by subcutaneous injection once daily enoxaparin 40 mg/0.4 mL Syrg Inject 0.4 mL subcutaneously once daily. 11 Syringe 0 10/03/2011 Active ketorolac tromethamine 5 mg/ml ophthalmic solution (3 sources) Nonsteroidal Anti-inflammatory Drug, Cyclooxygenase Inhibitor Start: 03-13-2024 End: 04-12-2024 take 1 drop(s) into the eye(s) in the morning ketorolac (Acular) 0.5 % ophthalmic solution Indications: Age-related nuclear cataract of both eyes Administer 1 drop into affected eye(s) in the morning and 1 drop before bedtime. 5 mL 1 03/13/2024 04/12/2024 Active LORazepam 1 mg oral tablet (1 source) Benzodiazepine Start: 07-13-2024 End: 07-16-2024 LORazepam (ATIVAN) 1 mg tablet Indications: Anxiety due to invasive procedure Take 1 tablet by mouth two times a day as needed for anxiety for up to 2 doses. Take 1 tablet 1-2 hours before the procedure. May take the 2nd tablet at the time of the procedure if needed. Must have a van driver to the procedure if taking. 2 tablet 07/13/2024 07/16/2024 Active losartan potassium 100 mg oral tablet (7 sources) Angiotensin 2 Receptor Diamond Start: 11-15-2023 take 1 tablet by mouth once daily losartan (Cozaar) 100 MG tablet Take 100 mg by mouth Daily 11/15/2023 Active Start: 02-18-2022 take 100 mg by mouth once samantha y Losartan Active 100 MG PO Daily February 18, 2022 12:00am metFORMIN hydrochloride 500 mg oral tablet (20 sources) Biguanide Start: 02-18-2022 take 500 mg by mouth twice daily Metformin Active 500 MG PO Twice daily February 18, 2022 12:00am metFORMIN (Gluco phage) 500 MG tablet every 12 (twelve) hours. Active 5 ml metoprolol tartrate 1 mg/ml injection (2 sources) beta-Adrenergic Diamond Start: 06-23-2024 metopr olol tartrate (Lopressor) injection 5 mg Start: 06-23-2024 metoprolol tar trate (Lopressor) tablet 100 mg nitroglycerin 0.4 mg/actuat mucosal spray (1 source) Nitrate Vasodilator Start: 06-23-2024 nitroglycerin (NitrolinguaL) 400 mcg/spray spray 2 spray ofloxacin 3 mg/ml ophthalmic solution (1 source) Quinolone Antimicrobial Start: 03-13-2024 End: 03-14-2024 take 1 drop(s) into the eye(s) five times daily ofloxacin (Ocuflox) 0.3 % ophthalmic solution Indications: Age-related nuclear cataract of both eyes Administer 1 drop into affected eye(s) 5 (five) times a day for 1 day Starting 1 day before surgery, continue after surgery as directed 5 mL 1 03/13/2024 03/14/2024 Active omeprazole 20 mg delayed release oral capsule (20 sources) Proton Pump Inhibitor Start: 02-18-2022 take 20 mg by mouth once daily Omeprazole Active 20 MG PO Daily February 18, 2022 12:00am pravastatin sodium 20 mg oral tablet (17 sources) HMG-CoA Reductase Inhibitor take 1 tablet by mouth once daily pravastatin 20 mg tablet Take 20 mg by mouth once daily. Active prednisoLONE acetate 10 mg/ml ophthalmic suspension (1 source) Corticosteroid Start: 03-13-2024 End: 03-27-2024 prednisoLONE acetate (Pred-Forte) 1 % ophthalmic suspension Indications: Age-related nuclear cataract of both eyes Administer 1 drop into affected eye(s) in the morning and 1 drop at noon and 1 drop in the evening and 1 drop before bedtime. Do all this for 14 days. 5 mL 1 03/13/2024 03/27/2024 Active SITagliptin 100 mg oral tablet (7 sources) Dipeptidyl Peptidase 4 Inhibitor Start: 02-18-2022 take 1 tablet by mouth once daily Sitagliptin Phosphate (Januvia) 100 mg tablet Active 100 MG PO Daily February 18, 2022 12:00am terbinafine 250 mg oral tablet (4 sources) Allylamine Antifungal Start: 02-18-2022 take 250 mg by mouth twice daily Terbinafine Hcl Active 250 MG PO Twice daily February 18, 2022 12:00am as dircted take 1 tablet by mouth once samantha y terbinafine (LamISIL) 250 MG tablet Take 250 mg by mouth Daily Active valsartan 160 mg oral tablet (17 sources) Angiotensin 2 Receptor Diamond take 1 tablet by mouth once daily valsartan (DIOVAN) 160 mg tablet Take 160 mg by mouth once daily. Active venlafaxine 25 mg oral tablet (7 sources) Serotonin and Norepinephrine Reuptake Inhibitor Start: take 1 tablet by mouth once daily venlafaxine (Effexor) 25 MG tablet Take 25 mg by mouth Daily 11/15/2023 Active Start: 02-18-2022 take 25 mg by mouth once daily Venlafaxine Active 25 MG PO Daily February 18, 2022 12:00am Completed/Discontinued Medications Medication Drug Class(es) Dates Sig (Normalized) Sig (Original) amoxicillin 500 mg oral capsule (19 sources) Penicillin-class Antibacterial Start: 04-14-2022 End: 12-30-2023 take 4 capsules by mouth every hour amoxicillin (Amoxil) 500 MG capsule TAKE 4 CAPSULES BY MOUTH 1 HOUR PRIOR TO DENTAL TREATMENT 04/14/2022 12/30/2023 Discontinued Start: 12-07-2011 Amoxicillin 50 0 mg tablet Indications: Hip pain Take four (4) capsules one (1) hour before Dental surgery 12 tablet 0 12/07/2011 Active iohexol (OMNIPaque) 350 mg iodine/mL solution 85 mL (1 source) Start: 06-27-2024 End: 06-27-2024 85 mL, intravenous, Once in imaging, Starting on Wed06/27/24 at 0844, For 1 dose Problems Active Problems Problem Classification Problem Date Documented Date Episodic/Chronic Anxiety disorders (1 source) Anticipatory anxiety; Translations: [Anxiety disorder, unspecified] 07-13-2024 Chronic Cataract (6 sources) Bilateral age-related nuclear cataracts; Translations: [Age-related nuclear cataract, bilateral] Onset: 03-13-2024 Resolved: 04-04-2024 03-13-2024 Chronic Essential hypertension (4 sources) Essential hypertension; Translations: [Essential (primary) hypertension] Onset: 06-27-2024 06-27-2024 Chronic Nonspecific chest pain (4 sources) Chest pain; Translations: [Chest pain, unspecified] Onset: 06-27-2024 06-27-2024 Episodic Other connective tissue disease (9 sources) Atrophy of muscle of bilateral hands; Translations: [Muscle wasting and atrophy, not elsewhere classified, right hand] 06-13-2024 Episodic Other connective tissue disease (4 sources) Triggering of digit; Translations: [Trigger finger, left ring finger] 10-04-2024 Episodic Other connective tissue disease (2 sources) Trigger finger, left middle finger; Translations: [Trigger middle finger of left hand] Onset: 10-04-2024 Episodic Other connective tissue disease (2 sources) Trigger finger, left ring finger; Translations: [Trigger ring finger of left hand] Onset: 10-04-2024 Episodic Other connective tissue disease (1 source) Muscle wasting and atrophy, not elsewhere classified, right hand; Translations: [Atrophy of muscle of both hands] Onset: 09-20-2024 Episodic Other connective tissue disease (1 source) Muscle wasting and atrophy, not elsewhere classified, left hand; Translations: [Atrophy of muscle of both hands] Onset: 09-20-2024 Episodic Other lower respiratory disease (3 sources) Dyspnea; Translations: [Shortness of breath] Onset: 06-27-2024 06-27-2024 Episodic Other lower respiratory disease (1 source) Shortness of breath; Translations: [Shortness of breath] Onset: 06-27-2024 Episodic Other nervous system disorders (8 sources) Bilateral carpal tunnel syndrome; Translations: [Carpal tunnel syndrome, bilateral upper limbs] 06-24-2024 Chronic Other nervous system disorders (1 source) Carpal tunnel syndrome of left wrist; Translations: [Carpal tunnel syndrome, left upper limb] 10-11-2024 Chronic Other nervous system disorders (3 sources) Carpal tunnel syndrome, bilateral upper limbs; Translations: [Carpal tunnel syndrome, bilateral upper limbs] Onset: 09-20-2024 Chronic Other nervous system disorders (1 source) Carpal tunnel syndrome, left upper limb; Translations: [Carpal tunnel syndrome on left] Onset: 10-11-2024 Chronic Other non-traumatic joint disorders (2 sources) Pain in left shoulder; Translations: [Pain in joint, shoulder region] 12-30-2023 Episodic Other screening for suspected conditions (not mental disorders or infectious disease) (1 source) Encounter for screening for malignant neoplasm of prostate; Translations: [ENC SCREEN MALIG NEOPLASM PROSTATE] Onset: 10-28-2021 Episodic Residual codes; unclassified (4 sources) Pain; Translations: [Pain, unspecified] 05-26-2024 Episodic Residual codes; unclassified (6 sources) History of surgical procedure on cervical spine; Translations: [Other specified postprocedural states] 06-29-2024 Episodic Spondylosis; intervertebral disc disorders; other back problems (8 sources) Cervical radiculopathy; Translations: [Radiculopathy, cervical region] Onset: 07-16-2024 06-24-2024 Episodic Unclassified (1 source) Encounter for screening for malignant neoplasm of colon; Translations: [Encounter for screening for malignant neoplasm of colon] Onset: 02-20-2022 Past or Other Problems Problem Classification Problem Date Documented Date Episodic/Chronic Other non-traumatic joint disorders (17 sources) Hip pain; Translations: [Pain in unspecified hip] Onset: 09-02-2011 09-02-2011 Episodic Residual codes; unclassified (1 source) Other specified postprocedural states; Translations: [Hx of cervical spine surgery] Onset: 06-29-2024 Episodic Residual codes; unclassified (1 source) Pain, unspecified; Translations: [Pain] Onset: 06-13-2024 Episodic Results Test Name Value Interpretation Reference Range Facility Provider Letteron 12-07-2024 Provider Letter Provider Letter December 07, 2024 RACHID MCNAIR [address] [place] [id number] : 1955 Dear Rachid, We have been trying to reach you with no success. It is important that you return our call regarding your upcoming appointment upon receiving this letter. Also, at the time of your call, please provide us with your current information. Thank you for your prompt attention to this matter. Sincerely, Family Medicine [address] [address] [facility] CNOVon 10-19-2024 CNOV Office Visit (SPSUCR ) RACHID MCNAIR ([id number]) 1955 M Date Time Provider Department 10/19/24 9:30 AM RACH NINO SPSUCR During your visit today, we recorded the following information about you: Pulse Respiration Blood pressure Weight 56/minute 16/minute 130/72 75 kg Rach Nino PA-C 10/19/2024 9:54 AM Signed SPINE SURGERY OUTPATIENT CONSULT This is an in-person visit. SERVICE DATE: 10/19/2024 PCP: Sai Yost MD REFERRING PROVIDER: Latia Chavis [facility] [address] Consult requested for an opinion regarding the evaluation and treatment of hand weakness. My final impression and recommendations will be communicated back to the requesting physician by way of the shared medical record or letter via US mail. SUBJECTIVE Rachid Mcnair is a 68 year old male CHIEF COMPLAINT: hand weakness, numbness, pain HISTORY OF PRESENT ILLNESS PRECIPITATING EVENT: None DURATION OF SYMPTOMS: Greater Than 1 Year Rachid Mcnair is a 68-year-old male with a history of cervical spine surgeries, presenting for evaluation of bilateral hand weakness and numbness. Rachid underwent his first cervical spine surgery in 1997 at the [facility] with Dr. Chema Bosch. A second surgery was performed in [address] Antony Gudino in [place]. He reports that his right thumb weakness and numbness began around 8900-1419, prior to the second surgery. Over the past 3-4 years, these symptoms have progressed to involve the index and middle fingers of the right hand. He describes these fingers as pretty much , with no strength but some sensation of pain. He does not endorse any shooting pain in the arm. In February, he began experiencing similar symptoms in the middle finger and ring finger of his left hand, which prevent him from making a fist. He describes the fingers as getting stuck, and popping. Rachid has scheduled carpal tunnel surgery, starting with the left hand, followed by the right hand 4-6 weeks later. A carpal tunnel injection in September provided no relief. He also reports a trigger finger on the right hand, which locks and clicks when tying shoes. PREVIOUS CONSERVATIVE TREATMENTS: Injections Scheduled for carpel tunnel release PREVIOUS SPINAL SURGERY: SURGERY #1: Cervical laminectomy 1997 SURGERY #2: C5-7 ACDF 2017 ACTIVE PROBLEM LIST Hip Pain PAST MEDICAL HISTORY Diagnosis Date Anxiety Diabetes mellitus type 2 in obese Dyslipidemia GERD (gastroesophageal reflux disease) HTN (hypertension) Osteoarthritis Tinnitus of both ears PAST SURGICAL HISTORY Procedure Laterality Date CERVICAL LAMINOPLASTY 1998 removal of bone spur EXCISION OLECRANON BURSA MRSA infection Rt. S JESSICA SPINE LUMB STRY insertion of two rods No family history on file. Social History Tobacco Use Smoking status: Former Smokeless tobacco: Never Substance Use Topics Alcohol use: Yes Comment: moderate Drug use: No ALLERGIES Allergen Reactions Sulfa (Sulfonamide * Rash MEDICATIONS: Amoxicillin 500 mg tablet Take four (4) capsules one (1) hour before Dental surgery oxyCODONE-acetaminophen 5-325 mg tablet Take 1 tablet by mouth every 4 hours as needed. enoxaparin 40 mg/0.4 mL Syrg Inject 0.4 mL subcutaneously once daily. docusate sodium 100 mg capsule Take 1 capsule by mouth twice daily. citalopram 20 mg tablet Take 20 mg by mouth once daily. pravastatin 20 mg tablet Take 20 mg by mouth once daily. valsartan (DIOVAN) 160 mg tablet Take 160 mg by mouth once daily. metFORMIN 500 mg tablet Take 500 mg by mouth twice daily with meals. omeprazole 20 mg capsule Take 20 mg by mouth once daily. REVIEW OF SYSTEMS: GENERAL: No weight loss or malaise MUSCULOSKELETAL: see HPI NEURO: No history of headaches, syncope, paralysis, seizures or tremors Patient Entered Questionnaires 10/15/2024 Spine Questions Pain Location: None, my primary complaint is not pain-related Symptoms from neck/cervical spine: Yes Employment Status: Retired Involved in law suit/legal claim: No 10/15/2024 Neck Questionnaires Benzel Modified BOGDAN Score 13 (Moderate Myelopathy Symptoms) PROMIS Score Percentiles 07/29/2024 09/28/2024 10/15/2024 Physical Health Physical Function Percentile 58 18* Sleep Percentile 92 Fatigue Percentile 62 10/15/2024 PROMIS SOCIAL ROLE SCORE Social Role Satisfaction Percentile 62 06/12/2024 09/28/2024 PROMIS Global Health Scale Physical Health Percentile 53 31 Mental Health Percentile 63 34 Patient-reported Percentiles provide an indication of how the patient's score ranks in relation to the general population. Higher percentile rankings indicate better function/quality of life. 50th percentile is the average of the general population and indicates half of respondents had a worse score. Descriptive Summary for PROMIS Physical Function T-score = (more content not included)... Normal [facility] CNPNon 10-09-2024 CNPN Telephone (LOORRM) DENNISRACHID VIZCARRA ([id number]) 1955 M Date Time Provider Department 10/09/24 NORBERT FRENCH During your visit today, we recorded the following information about you: Brii Sousa 10/09/2024 12:22 PM Signed ----- Message from Pepe Mitchell RN sent at 10/04/2024 9:47 AM EDT ----- Regarding: Surgery Please make a post operative appointment 10-14 days after surgery date with Latia Chavis PA-C. Please make a post operative appointment [address] surgery [address] Dr French. Where: Date: Procedure: Left carpal tunnel release, left long and ring trigger finger releases Code: [id number], [id number], [id number] Anesthesia: MAC Dx: G56.02, M65.332, M65.342 Implant to come out: Special request: Time: 1.5 hours Patient is requesting a surgery time in late January Patient is a known diabetic Brii Sousa 10/09/2024 12:59 PM Signed [facility] requesting a call back to schedule surgery. Left direct number to return call. Brii Sousa 10/11/2024 10:25 AM Signed Spoke with patient and scheduled surgery for 01/29/25. Scheduled pre/post op appointments. Gave patient direct number if needed . Allergies As of Date: 10/09/2024 Noted Allergy Reaction SULFA (SULFONAMIDE ANTIBIOTICS) 09/10/2011 2 - Rash Date Reviewed: 10/04/2024 Reviewed by: Pepe Jones RN - Fully Assessed Reason for Visit: Surgical Followup [104] Prescriptions as of 10/11/2024 - Amoxicillin 500 mg tablet Take four (4) capsules one (1) hour before Dental surgery - oxyCODONE-acetaminophen 5-325 mg tablet Take 1 tablet by mouth every 4 hours as needed. - enoxaparin 40 mg/0.4 mL Syrg Inject 0.4 mL subcutaneously once daily. - docusate sodium 100 mg capsule Take 1 capsule by mouth twice daily. - citalopram 20 mg tablet Take 20 mg by mouth once daily. - pravastatin 20 mg tablet Take 20 mg by mouth once daily. - valsartan (DIOVAN) 160 mg tablet Take 160 mg by mouth once daily. - metFORMIN 500 mg tablet Take 500 mg by mouth twice daily with meals. - omeprazole 20 mg capsule Take 20 mg by mouth once daily. Problem List As Of Date 10/09/2024 Noted Resolved Hip pain [M25.559] 09/02/2011 Encounter Status:Closed by BRII SOUSA on 10/09/24 [facility] CNOVon 10-04-2024 CNOV Office Visit (ORAVON ) RACHID CHRISTENSEN ([id number]) 1955 M Date Time Provider Department 10/04/24 8:45 AM NORBERT FRENCH During your visit today, we recorded the following information about you: Norbert French MD 10/04/2024 9:29 AM Signed The patient is sent for evaluation and an opinion regarding treatment by , who will receive a copy of this report by mail or through the shared medical record. CHIEF COMPLAINT: Rachid Mcnair is a 68-year-old male with a history of cervical spine surgery, presenting for evaluation of bilateral hand pain and numbness. HPI: PAIN EVALUATION 09/28/2024 1222 10/04/2024 0843 Pain Level: 4 3 Pain Location: Wrist-Left Finger Description: Aching;Cramping;Numbnes s Aching Duration Amount of Time: 60 -- Duration Units: Months Months Frequency: Continuous Intermittent Intervention/Comfort measure: -- Reposition;Relaxation Occupation: Retired Hand Dominance: right Bilateral Carpal Tunnel Syndrome: - EMG on 06/24 showed severe right median mononeuropathy and very severe left median neuropathy, likely carpal tunnel syndrome. - Ultrasound on 09/20 confirmed narrowing of the median nerve in both wrists, with mild ulnar neuritis in the left wrist. - Rachid reports constant numbness in the right index and long fingers for several years; describes them as . - Left hand numbness and pain in the long and ring fingers since March; unable to make a fist or hide buyer a golf club without severe pain. - Denies tingling in both hands. - Noted atrophy in the first dorsal interosseous and thenar muscles, worse on the right; began after neck surgery. - No previous carpal tunnel releases. - Concerns about the cumulative effects of anesthesia. Trigger Finger: - Left ring finger locks and causes severe pain; left long finger also affected but less severe. - No previous treatment for trigger fingers. Cervical Spine Surgery: - Two previous neck surgeries; first in [id number] by Chema Bosch, second in 2016. - Follow-up with spine surgery scheduled for October 19. ROS: REVIEW OF SYSTEMS: Constitutional: Fever/chills: No Cardiovascular: Chest Pain: No Respiratory: SOB: No Musculoskeletal: as noted in the HPI Neurologic: as noted in the HPI Endocrine: Diabetes: Yes Tobacco user? No SOCIAL HISTORY: Tobacco Use: Quit FAMILY HISTORY: No family history on file. PAST MEDICAL HISTORY Diagnosis Date Anxiety Diabetes mellitus type 2 in obese Dyslipidemia GERD (gastroesophageal reflux disease) HTN (hypertension) Osteoarthritis Tinnitus of both ears PAST SURGICAL HISTORY Procedure Laterality Date CERVICAL LAMINOPLASTY 1997 removal of bone spur EXCISION OLECRANON BURSA MRSA infection Rt. S JESSICA SPINE LUMB STRY insertion of two rods No family history on file. Social History Tobacco Use Smoking status: Former Smokeless tobacco: Never Substance Use Topics Alcohol use: Yes Comment: moderate Drug use: No ALLERGIES Allergen Reactions Sulfa (Sulfonamide * Rash Current Outpatient Medications Medication Sig Dispense Refill Amoxicillin 500 mg tablet Take four (4) capsules one (1) hour before Dental surgery 12 tablet 0 oxyCODONE-acetaminophen 5-325 mg tablet Take 1 tablet by mouth every 4 hours as needed. 60 tablet 0 enoxaparin 40 mg/0.4 mL Syrg Inject 0.4 mL subcutaneously once daily. 11 Syringe 0 docusate sodium 100 mg capsule Take 1 capsule by mouth twice daily. 0 citalopram 20 mg tablet Take 20 mg by mouth once daily. pravastatin 20 mg tablet Take 20 mg by mouth once daily. valsartan (DIOVAN) 160 mg tablet Take 160 mg by mouth once daily. metFORMIN 500 mg tablet Take 500 mg by mouth twice daily with meals. omeprazole 20 mg capsule Take 20 mg by mouth once daily. No current facility-administered medications for this visit. Physical Exam: Vitals: There were no vitals taken for this visit. Body Habitus: Well nourished and no acute distress Orientation: Normal, oriented to person, place and time Psych: Normal Skin: Color, texture, turgor normal. No rashes or lesions Sensation: Sensation to light touch is grossly normal bilaterally - Musculoskeletal: - Right Hand: - Severe first dorsal interosseous atrophy, severe thenar atrophy. - Sensation: Decreased sensation along the median nerve distribution. - Provocative test: No numbness or tingling elicited with manipulation. - Left Hand: - Severe first dorsal interosseous atrophy, severe thenar atrophy. - Sensation: Decreased sensation along the median nerve distribution. - Provocative test: No numbness or tingling elicited with manipulation. Both hands are examined. Decreased sensation in the median distribution bilaterally, maintained in the radial, ulnar and dorsal ulnar cutaneous. AIN, PIN, ulnar motor intact. To make full fist. Severe first dorsal interosseous (more content not included)... Normal [facility] Heart and Vascular Office/ inic Noteon 10-04-2024 Heart and Vascular Office/Clinic Note Heart and Vascular Office/Clinic Note Chief Complaint 2 month follow up History of Present Illness The patient is a 68-year-old male who was initially referred due to issues with chest pains. He had a cardiac workup and ended up having a CCTA on June 27, 2024 which showed evidence of mild diffuse coronary artery disease without significant stenosis, coronary calcium score of 360. Patient comes in for 2-month follow-up today. Reviewed prior coronary CTA, EKG stress test, echo. At last visit, I saw patient which time he was continued on current medications and asked to bring a blood pressure log with him to the office today. Patient reports that he has been doing well overall since last visit. He states that he has been compliant with all blood pressure medications including HCTZ, losartan metoprolol. He has been monitoring his blood pressure at home and has been usually getting in the 120s-130s/70-80s. Patient reports that his blood pressure has steadily been declining since last visit. 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 Patient reports that he has not having any chest pain at all. Patient states that the pain resolved spontaneously without exacerbation or associated symptoms such as dyspnea or palpitations. Coronary CTA conducted earlier confirmed no major coronary ischemia ischemia or abnormalities. Patient is not taking any antianginals at this time and is doing well from a chest pain perspective. Patient denies chest pain, shortness of breath, heart palpitations, dizziness/lightheadedne ss, and swelling in lower legs. REVIEWED PRIOR NOTE FROM 08/09/2024: Patient comes in for a 1 month follow-up today. Reviewed prior coronary CTA, EKG stress test, echo. At last visit, patient saw Dr. Garcia at which time HCTZ was increased to 25 mg daily to help with patient's blood pressure. Atorvastatin was also increased to 40 mg daily to help prevent any further coronary artery buildup. Patient reports that he has been doing well overall since last visit. He states that he has been compliant with all blood pressure medications including HCTZ, losartan metoprolol. He has been monitoring his blood pressure at home and has been usually getting in the 130s-140s/80s. His blood pressure today in the office is higher than his values at home at 150s/80s. Patient reports that he has not having any chest pain at all. Patient states that the pain resolved spontaneously without exacerbation or associated symptoms such as dyspnea or palpitations. Coronary CTA conducted earlier confirmed no major coronary insufficiencies or abnormalities. Patient is not taking any antianginals at this time and is doing well from a chest pain perspective. Patient denies chest pain, shortness of breath, heart palpitations, dizziness/lightheadedne ss, and swelling in lower legs. Review of Systems ROS - Provider Constitutional: no fever, no chills, no sweats, no weakness Respiratory: no shortness of breath, no cough Cardiovascular: no chest pain Neuro: no dizziness. no loss of consciousness Physical Exam Vitals & Measurements HR: 72(Peripheral) RR: 18 BP: 116/69 SpO2: 98% HT: 180 cm HT: 71 in WT: 78.6 kg WT: 173.283 lb BMI: 24.26 General: alert, no acute distress Cardiovascular: regular rate and rhythm, no murmur normal peripheral perfusion Respiratory: Lungs CTAB, respirations non labored Extremities: no edema left lower extremity. no edema right lower extremity Neurological: oriented x 4, LOC appropriate for age, speech normal Skin: Warm, dry, intact- no rash or concerning lesions Cardiac Diagnostics (06/09/2024 09:46 EST ECG Stress Exercise) CONCLUSIONS: 1. Uncomplicated exercise stress test, negative by clinical and electrocardiographic criteria. 2. Low tolerance for physical exertion, adequate workload. [1] (05/24/2024 11:24 EST Echo Transthoracic Complete) Interpretation Summary moderate left ventricular hypertrophy. Left ventricular systolic function is normal. Ejection Fraction = 55-60%. The left ventricular wall motion is normal. Diastolic dysfunction, Grade II (pseudonormalization pattern). There is no pericardial effusion. No significant valvular disease. Assessment/Plan 1. HTN (I10: Essential (primary) hypertension) Patient blood pressure is at goal in the office today. Patient is compliant with all medications for hypertension including HCTZ 25 mg daily, losartan 100 mg daily, metoprolol 50 mg ER daily. Patient reports that his blood pressures at home have been running better and he has been getting 120s-130s/80s at home. Patient is doing well and feeling well at this time. Continue current medications. 2. Nonocclusive coronary atherosclerosis of [place] coronary artery (I25.10: Atherosclerotic heart disease of [place] coronary artery without angina pectoris) Patient had coronary CTA in 06/2024 which revealed nonobstructive C (more content not included)... Normal [facility] Comment on above: Result Comment: Elec tronically Signed By: Santy WALKER, Anderson Cardenas\.fidel\Date and Time Signed: 10/04/24 14:56 EDT Jose Luis 09-25-2024 TAMIR Telephone (MeileleON) RACHID MCNAIR ([id number]) 1955 M Date Time Provider Department 09/25/24 LATIA CHAVIS During your visit today, we recorded the following information about you: Emily Sherman 09/25/2024 3:27 PM Signed Patient is calling in today to discuss the US that you order'd that he recently had done. He'd like to discuss what the next course of action is. Please call and advise Patient has been identified by name and birthdate. Duration of symptoms: N/A Person calling: self Call patient at: at home [phone] (home) [phone] (cell) Was an appointment scheduled: No Closing statement: Results or non-symptom based questions: Thank you for calling [facility], your call will be returned within the next business day. Latia Bills PA-C 09/26/2024 4:52 PM Signed Attempted to return patient's call, no answer left voicemail. US results do show significant findings that we would be able to recommend surgical intervention for so will have patient see Dr. French for surgical discussion. Latia Chavis PA-C Allergies As of Date: 09/25/2024 Noted Allergy Reaction SULFA (SULFONAMIDE ANTIBIOTICS) 09/10/2011 2 - Rash Date Reviewed: 08/02/2024 Reviewed by: Margaux Gaona OCCA - Fully Assessed Reason for Visit: Results [95] Prescriptions as of 09/26/2024 - Amoxicillin 500 mg tablet Take four (4) capsules one (1) hour before Dental surgery - oxyCODONE-acetaminophen 5-325 mg tablet Take 1 tablet by mouth every 4 hours as needed. - enoxaparin 40 mg/0.4 mL Syrg Inject 0.4 mL subcutaneously once daily. - docusate sodium 100 mg capsule Take 1 capsule by mouth twice daily. - citalopram 20 mg tablet Take 20 mg by mouth once daily. - pravastatin 20 mg tablet Take 20 mg by mouth once daily. - valsartan (DIOVAN) 160 mg tablet Take 160 mg by mouth once daily. - metFORMIN 500 mg tablet Take 500 mg by mouth twice daily with meals. - omeprazole 20 mg capsule Take 20 mg by mouth once daily. Problem List As Of Date 09/25/2024 Noted Resolved Hip pain [M25.559] 09/02/2011 Encounter Status:Closed by LATIA CHAVIS on 09/26/24 Normal [facility] No Panel Informationon 09-20 Radiology Study observation (narrative) [facility] US WRIST LTon 09-20-2024 US WRIST LT * * *Final Report* * * DATE OF EXAM: Sep 20 2024 10:09AM AFU 1135 - US WRIST LT / PROCEDURE REASON: multiple diagnoses * * * * Physician Interpretation * * * * MSK_US LEFT VOLAR WRIST ULTRASOUND: CLINICAL INFORMATION:Tingling and numbness with muscle atrophy of both hands. TECHNIQUE: Curran-scale real-time ultrasound of the volar wrist with power Doppler and dynamic evaluation was performed. Images were archived for documentation. COMPARISON: X-ray 06/13/2024 FINDINGS: MEDIAN NERVE: Mild enlargement with significant narrowing at the level of the carpal. The median nerve cross-sectional area is 0.16 cm2. GUYON'S CANAL: Mildly enlarged. No mass seen. CARPAL TUNNEL FLEXOR TENDONS: Tendons appear grossly intact without tenosynovitis. JOINT SPACES: Moderate synovitis of the radiocarpal joint.. IMPRESSION: Narrowing of the median nerve at the carpal tunnel. Mild ulnar nerve neuritis. Rig Manager: [facility] Transcribe Date/Time: Sep 20 2024 11:11A Dictated by : JIGNA DREW MD This examination was interpreted and the report reviewed and electronically signed by: JIGNA DREW MD on Sep 20 2024 12:32PM EST [id number] Normal [facility] US WRIST RTon 09-20-2024 US WRIST RT * * *Final Report* * * DATE OF EXAM: Sep 20 2024 9:45AM AFU 1136 - US WRIST RT / PROCEDURE REASON: multiple diagnoses * * * * Physician Interpretation * * * * MSK_US RIGHT VOLAR WRIST ULTRASOUND: CLINICAL INFORMATION:Numbness and tingling and muscle atrophy of both hands. TECHNIQUE: Curran-scale real-time ultrasound of the volar wrist with power Doppler and dynamic evaluation was performed. Images were archived for documentation. COMPARISON: X-ray 06/13/2024 FINDINGS: MEDIAN NERVE: There is significant narrowing of the median nerve at the level of the carpal tunnel. The median nerve cross-sectional area is 0.14 cm2. GUYON'S CANAL: No ultrasound findings of ulnar neuritis in the canal. No mass seen. CARPAL TUNNEL FLEXOR TENDONS: Tendons appear grossly intact without tenosynovitis. JOINT SPACES: Volar wrist joint spaces appear grossly maintained. IMPRESSION: Narrowing of the median nerve at the carpal tunnel. Rig Manager: [facility] Transcribe Date/Time: Sep 20 2024 11:03A Dictated by : JIGNA DREW MD This examination was interpreted and the report reviewed and electronically signed by: JIGNA DREW MD on Sep 20 2024 12:31PM EST [id number] Normal [facility] US Wrist - lefton 09-20-2024 IMPRESSION: Narrowing of the median nerve at the carpal tunnel. Mild ulnar nerve neuritis. Rig Manager: [facility] Transcribe Date/Time: Sep 20 2024 11:11A Dictated by : JIGNA DREW MD This examination was interpreted and the report reviewed and electronically signed by: JIGNA DREW MD on Sep 20 2024 12:32PM EST DIVISION OF RADIOLOGY * * *Final Report* * * DATE OF EXAM: Sep 20 2024 10:09AM AFU 1135 - US WRIST LT / PROCEDURE REASON: multiple diagnoses * * * * Physician Interpretation * * * * MSK_US LEFT VOLAR WRIST ULTRASOUND: CLINICAL INFORMATION:Tingling and numbness with muscle atrophy of both hands. TECHNIQUE: Curran-scale real-time ultrasound of the volar wrist with power Doppler and dynamic evaluation was performed. Images were archived for documentation. COMPARISON: X-ray 06/13/2024 FINDINGS: MEDIAN NERVE: Mild enlargement with significant narrowing at the level of the carpal. The median nerve cross-sectional area is 0.16 cm2. GUYON'S CANAL: Mildly enlarged. No mass seen. CARPAL TUNNEL FLEXOR TENDONS: Tendons appear grossly intact without tenosynovitis. JOINT SPACES: Moderate synovitis of the radiocarpal joint.. DIVISION OF RADIOLOGY Provider, [facility] - 09/20/2024 * * *Final Report* * * DATE OF EXAM: Sep 20 2024 10:09AM AFU 1135 - US WRIST LT / PROCEDURE REASON: multiple diagnoses * * * * Physician Interpretation * * * * MSK_US LEFT VOLAR WRIST ULTRASOUND: CLINICAL INFORMATION:Tingling and numbness with muscle atrophy of both hands. TECHNIQUE: Curran-scale real-time ultrasound of the volar wrist with power Doppler and dynamic evaluation was performed. Images were archived for documentation. COMPARISON: X-ray 06/13/2024 FINDINGS: MEDIAN NERVE: Mild enlargement with significant narrowing at the level of the carpal. The median nerve cross-sectional area is 0.16 cm2. GUYON'S CANAL: Mildly enlarged. No mass seen. CARPAL TUNNEL FLEXOR TENDONS: Tendons appear grossly intact without tenosynovitis. JOINT SPACES: Moderate synovitis of the radiocarpal joint.. IMPRESSION IMPRESSION: Narrowing of the median nerve at the carpal tunnel. Mild ulnar nerve neuritis. Rig Manager: ISIDRO Transcribe Date/Time: Sep 20 2024 11:11A Dictated by : JIGNA DREW MD This examination was interpreted and the report reviewed and electronically signed by: JIGNA DREW MD on Sep 20 2024 12:32PM EST [facility] Wrist - leftOrdered By: Ora degroot Provider on 09-20-2024 [facility] Wrist - righton IMPRESSION: Narrowing of the median nerve at the carpal tunnel. Rig Manager: [facility] Transcribe Date/Time: Sep 20 2024 11:03A Dictated by : JIGNA DREW MD This examination was interpreted and the report reviewed and electronically signed by: JIGNA DREW MD on Sep 20 2024 12:31PM EST DIVISION OF RADIOLOGY * * *Final Report* * * DATE OF EXAM: Sep 20 2024 9:45AM AFU 1136 - US WRIST RT / PROCEDURE REASON: multiple diagnoses * * * * Physician Interpretation * * * * MSK_US RIGHT VOLAR WRIST ULTRASOUND: CLINICAL INFORMATION:Numbness and tingling and muscle atrophy of both hands. TECHNIQUE: Curran-scale real-time ultrasound of the volar wrist with power Doppler and dynamic evaluation was performed. Images were archived for documentation. COMPARISON: X-ray 06/13/2024 FINDINGS: MEDIAN NERVE: There is significant narrowing of the median nerve at the level of the carpal tunnel. The median nerve cross-sectional area is 0.14 cm2. GUYON'S CANAL: No ultrasound findings of ulnar neuritis in the canal. No mass seen. CARPAL TUNNEL FLEXOR TENDONS: Tendons appear grossly intact without tenosynovitis. JOINT SPACES: Volar wrist joint spaces appear grossly maintained. DIVISION OF RADIOLOGY Provider, [facility] - 09/20/2024 * * *Final Report* * * DATE OF EXAM: Sep 20 2024 9:45AM AFU 1136 - US WRIST RT / PROCEDURE REASON: multiple diagnoses * * * * Physician Interpretation * * * * MSK_US RIGHT VOLAR WRIST ULTRASOUND: CLINICAL INFORMATION:Numbness and tingling and muscle atrophy of both hands. TECHNIQUE: Curran-scale real-time ultrasound of the volar wrist with power Doppler and dynamic evaluation was performed. Images were archived for documentation. COMPARISON: X-ray 06/13/2024 FINDINGS: MEDIAN NERVE: There is significant narrowing of the median nerve at the level of the carpal tunnel. The median nerve cross-sectional area is 0.14 cm2. GUYON'S CANAL: No ultrasound findings of ulnar neuritis in the canal. No mass seen. CARPAL TUNNEL FLEXOR TENDONS: Tendons appear grossly intact without tenosynovitis. JOINT SPACES: Volar wrist joint spaces appear grossly maintained. IMPRESSION IMPRESSION: Narrowing of the median nerve at the carpal tunnel. Rig Manager: [facility] Transcribe Date/Time: Sep 20 2024 11:03A Dictated by : JIGNA DREW MD This examination was interpreted and the report reviewed and electronically signed by: JIGNA DREW MD on Sep 20 2024 12:31PM EST [facility] [id number] 09-12-2024 HbA1c (Bld) [Mass fraction] 8.3 % High <=5.9 [facility] Comment on above: Performed By: #### [id number] #### [facility] [address] [place] [id number] Lipid Panelon 09-12-2024 Cholesterol [Mass/Vol] 154 mg/dL Normal 120-200 [facility] Comment on above: Performed By: #### [id number] #### [facility] [address] [place] [address] Cholesterol in HDL [Mass/Vol] 46 mg/dL Invalid Interpretation Code [facility] Comment on above: Result Comment: '>= 60 LOW RISK' '<= 40 HIGH RISK' Performed By: #### [id number] #### [facility] [address] [place] [address] Cholesterol in LDL [Mass/Vol] 84 mg/dL Normal <=129 [facility] Comment on above: Performed By: #### 2 [id number] #### [facility] [address] [place] [address] Cholesterol in VLDL [Mass/Vol] 62 mg/dL High 7-40 [facility] Comment on above: Performed By: #### [id number] #### [facility] [address] [place] [address] Triglyceride [Mass/Vol] 310 mg/dL High <=149 [facility] Comment on above: Performed By: #### 2 [id number] #### [facility] [address] [place] [address] PSA Totalon 09-12-2024 PSA Total 0.3 ng/mL Normal 0.1-3.5 [facility] Comment on above: Result Comment: The concentration of PSA determined by different manufacturers can vary due to differences in assay methods and reagent specificity. Values obtained from different assay methods cannot be used interchangeably. The methodology used for this result was chemiluminescence using [employer] Access Hybritech PSA reagent. Performed By: #### 1 [id number] #### [facility] [address] [place] [address] U MA/Cr Ratioon 09-12-2024 Microalb/Cr Ratio 28.9 mg/gm Cr Normal .0-30.0 [facility] Comment on above: Result Comment: 30-3 00 mg/g Cr indicates an increased risk for diabetic nephropathy. >300 mg/g Cr is consistent with clinical nephropathy. Performed By: #### 1 [id number] #### [facility] [address] [place] [address] U Creatinine 27.7 mg/dL Invalid Interpretation Code [facility] Comment on above: Performed By: #### 1 [id number] #### [facility] [address] [place] [address] U Microalb 0.8 mg/dL Normal 0.0-1.9 [facility] Comment on above: Performed By: #### 1 [id number] #### [facility] [address] [place] [address] Ambulatory Visit Summaryon 0 09-11-2024 Ambulatory Visit Summary Ambulatory Visit Summary RACHID MCNAIR :1955 Visit Date:09/11/2024 Ambulatory Visit Instructions Your Diagnosis Type 2 diabetes mellitus without complications Prostate cancer screening HTN GERD (gastroesophageal reflux disease) Body mass index (BMI) of 24.0-24.9 in adult Former smoker Your Care Team Attending Physician - Maxwell Ontiveros MD Primary Care Physician - Maxwell Ontiveros MD This Is Your Medications List metformin (metformin 500 mg Tab) sitagliptin (Januvia 100 mg Tab) Contact prescribing physician if questions or concerns Misc Prescription (Misc DME Prescription) Misc Prescription (Misc DME Prescription) Misc Prescription (Misc DME Prescription) aspirin (aspirin 81 mg oral capsule) atorvastatin (atorvastatin 40 mg Tab) hydrochlorothiazide (hydrochlorothiazide 25 mg Tab) losartan (losartan 100 mg Tab) metoprolol (Toprol XL 50 mg Tab-ER) omeprazole (omeprazole 20 mg Cap-DR) terbinafine (terbinafine 250 mg Tab) venlafaxine (venlafaxine 25 mg Tab) Procedures Performed Arthroplasty of the hip (02/08/2018), rt shoulder scope ext debridement, sad, pt distal clavulectomy (10/06/2016), left shoulder manipulation under anesthesia, left shoulder arthroscopy with subacromial decompression, partial distal clavulectomy with extensive glenohumeral debridement, mini-open rotator cuff repair (04/28/2013), Cataracts, elbow, lower back surgery, right hip surgery, spinal neck surgery. Discharge Vitals Temperature (Oral) 36.2 ???C Heart Rate (Peripheral) 108 Respiratory Rate 20 Blood Pressure 116/80 Height 180.0 cm Height 71 in Weight 79.7 kg Weight 175.708 lb BMI 24.6 What to do next Scheduled Follow-Up Appointments Wednesday 2:30 PM EDT With: Santy WALKER, Anderson Cardenas Where: [facility] You Need to Complete the Following HgbA1c, Blood, Routine collect, 09/11/24, Order for future visit, Lab Collect, Type 2 diabetes mellitus without complications Prostate cancer screening HTN GERD (gastroesophageal reflux disease) Body mass index (BMI) of 24.0-24.9 in adult Former smo... Lipid Panel, Blood, Routine collect, 09/11/24, Order for future visit, Lab Collect, Type 2 diabetes mellitus without complications Prostate cancer screening HTN GERD (gastroesophageal reflux disease) Body mass index (BMI) of 24.0-24.9 in adult Former smo... Microalbumin Level Urine, Urine, Routine collect, 09/11/24, Order for future visit, Nurse collect, Type 2 diabetes mellitus without complications Prostate cancer screening HTN GERD (gastroesophageal reflux disease) Body mass index (BMI) of 24.0-24.9 in adult Former s... PSA Screen, Total, Blood, Routine collect, 09/11/24, Order for future visit, Lab Collect, Type 2 diabetes mellitus without complications Prostate cancer screening HTN GERD (gastroesophageal reflux disease) Body mass index (BMI) of 24.0-24.9 in adult Former smo... Urine Microalbumin/Creatinine Ratio, Urine, Routine collect, 09/11/24, Order for future visit, Nurse collect, Type 2 diabetes mellitus without complications Prostate cancer screening HTN GERD (gastroesophageal reflux disease) Body mass index (BMI) of 24.0-24.9 in adult Former s... Medications What How Much When Why Instructions Changed metformin (metformin 500 mg Tab) 2 Tablets By Mouth 2 times a day Pickup at [facility] [id number] Unchanged sitagliptin (Januvia 100 mg Tab) See instructions TAKE 1 TABLET BY MOUTH DAILY Pickup at [facility] [id number] Unchanged aspirin (aspirin 81 mg oral capsule) 81 Milligram By Mouth Every day Contact prescribing physician if questions or concerns Unchanged atorvastatin (atorvastatin 40 mg Tab) 1 Tablets By Mouth Every day Contact prescribing physician if questions or concerns Unchanged hydrochlorothiazide (hydrochlorothiazide 25 mg Tab) 1 Tablets By Mouth Every day Contact prescribing physician if questions or concerns Unchanged losartan (losartan 100 mg Tab) 1 Tablets By Mouth Every day Contact prescribing physician if questions or concerns Unchanged metoprolol (Toprol XL 50 mg Tab-ER) 1 Tablets By Mouth Every day Chest pain, unspecified Essential (primary) hypertension Contact prescribing physician if questions or concerns Unchanged Misc Prescription (Misc DME Prescription) See instructions microlet lancets Use to test blood sugars once a day Dx E11.9 Contact prescribing physician if questions or concerns Unchanged Misc Prescription (Misc DME Prescription) See instructions Contour next test strips Test blood sugars once a day Dx E11.9 Contact prescribing physician if questions or concerns Unchanged Misc Prescription (Misc DME Prescription) See instructions control solution for contour next glucometer Dx E11.9 Use as directed for control check Contact prescribing physician if questions or concerns Unchanged omeprazole (omeprazole 20 mg Cap-DR) See instructions Take 1 cap (more content not included)... Normal [facility] Family Medicine Office/Clini c Noteon 09-11-2024 Family Medicine Office/Clinic Note Family Medicine Office/Clinic Note Chief Complaint The patient presents with concerns regarding high blood glucose levels due to running out of medication. HPI Staff Rachid is a 68 year old male presenting for 3 month follow up Patient is here for follow up on Diabetes. How often are you checking your blood sugars daily What are your average readings? mid 200's Paresthesias, Ulcerations or sores? no Lisinopril, aspirin, statin therapy? Yes Foot Exam: NA Eye Exam: Cataract in March Last A1c: Hgb A1C %: 6.4 % High (11/01/23 18:22:00) TroopSwap- been off for since mid July.. his job paid for it in the past now he has to pay for it and it was too expensive. Metformin needs refills, could like his PSA checked also History of Present Illness - The patient is a 68-year-old male presenting with concerns regarding diabetes management. - Notably, he ran out of TroopSwap in early to mid-July, experiencing elevated blood glucose readings between 240 and 260 mg/dL thereafter. - He maintains his metformin regimen and observes how a friend benefits from an increased dose. - While his last lab results in April were stable, the patient is curious and concerned about present changes in his condition. - With recent intermediate and reliance on Medicare, he is alert to possible shifts in medication costs. - Discussion about prostate cancer screenings, with an understanding that prostate cancer incidence increases with age. - Regular monitoring of blood glucose levels is indicated, especially given his recent medication adjustments. - Plans to conduct an A1c test to monitor diabetes management are in place. Review of Systems PHQ Score Initial Depression Screen Score: 0 SCORE Physical Exam Vitals & Measurements T: 36.2 ???C(Oral) HR: 108(Peripheral) RR: 20 BP: 116/80 SpO2: 100% HT: 180.0 cm HT: 71 in WT: 79.7 kg WT: 175.708 lb BMI: 24.6 General: alert, no acute distress ENMT: oral mucosa moist Cardiovascular: Regular rate and rhythm, normal peripheral perfusion Respiratory: Lungs clear to auscultation, respirations non labored Extremities: no deformity, no trauma Neurological: oriented x 4, level of consciousness appropriate for age, CN II-XII intact, motor strength equal & normal bilaterally, speech normal Abdomen: Soft, Non-tender, Non-distended, + Bowel sounds Assessment/Plan 1. Type 2 diabetes mellitus without complications (E11.9: Type 2 diabetes mellitus without complications) - Plan for A1c testing and monitor glucose levels post-medication gap. - Discussed modifying metformin dosage, considering increased requirements; adjust as needed. Ordered: HgbA1c Lipid Panel Microalbumin Level Urine PSA Screen, Total Urine Microalbumin/Creatinine Ratio 2. Prostate cancer screening (Z12.5: Encounter for screening for malignant neoplasm of prostate) - Screening strategies and PSA testing considered. Ordered: HgbA1c Lipid Panel Microalbumin Level Urine PSA Screen, Total Urine Microalbumin/Creatinine Ratio 3. HTN (I10: Essential (primary) hypertension) - Blood pressure monitored for stability during medication adjustment. Ordered: HgbA1c Lipid Panel Microalbumin Level Urine PSA Screen, Total Urine Microalbumin/Creatinine Ratio 4. GERD (gastroesophageal reflux disease) (K21.9: Gastro-esophageal reflux disease without esophagitis) - Continued symptom monitoring per previous guidance. Ordered: HgbA1c Lipid Panel Microalbumin Level Urine PSA Screen, Total Urine Microalbumin/Creatinine Ratio 5. Body mass index (BMI) of 24.0-24.9 in adult (Z68.23: Body mass index [BMI] 23.0-23.9, adult) - Emphasized maintaining a stable BMI with lifestyle interventions. Ordered: HgbA1c Lipid Panel Microalbumin Level Urine PSA Screen, Total Urine Microalbumin/Creatinine Ratio 6. Former smoker (Z87.891: Personal history of nicotine dependence) - Continued support for cessation efforts and health monitoring. Ordered: HgbA1c Lipid Panel Microalbumin Level Urine PSA Screen, Total Urine Microalbumin/Creatinine Ratio Orders: metformin, 1,000 mg = 2 tab(s), Oral, BID, # 360 tab(s), Refills(s) 3, Pharmacy: [facility] [id number], 180, cm, 09/11/24 17:23:00 EDT, Height/Length Dosing, 79.7, kg, 09/11/24 17:23:00 EDT, Weight Dosing sitagliptin, See Instructions, TAKE 1 TABLET BY MOUTH DAILY, # 90 tab(s), Refills(s) 3, Pharmacy: [facility] [id number], 180, cm, 09/11/24 17:23:00 EDT, Height/Length Dosing, 79.7, kg, 09/11/24 17:23:00 EDT, Weight Dosing - Hemoglobin A1c test: to be conducted during the visit. - 68-year-old male with a history of type 2 diabetes mellitus presenting with concerns about elevated glucose levels. - The patient's recent lapse in Januvia use coincides with marked hyperglycemia, necessitating close monitoring and follow-up. - His transition to Medicare impacts his management plan, focusing on medication accessibility and optimizing treatment yet ma (more content not included)... Normal [facility] Comment on above: Result Comment: Elec tronically Signed By: Weston PARKER, Maxwell Borden\.br\Date and Time Signed: 09/11/24 17:44 EDT Heart and Vascular Office/Cl chinmay Noteon 08-14-2024 Heart and Vascular Office/Clinic Note Heart and Vascular Office/Clinic Note Chief Complaint 1 month blood pressure check History of Present Illness The patient is a 68-year-old male who was initially referred due to issues with chest pains. He had a cardiac workup and ended up having a CCTA on June 27, 2024 which showed evidence of mild diffuse coronary artery disease without significant stenosis, coronary calcium score of 360. Patient comes in for a 1 month follow-up today. Reviewed prior coronary CTA, EKG stress test, echo. At last visit, patient saw Dr. Garcia at which time HCTZ was increased to 25 mg daily to help with patient's blood pressure. Atorvastatin was also increased to 40 mg daily to help prevent any further coronary artery buildup. Patient reports that he has been doing well overall since last visit. He states that he has been compliant with all blood pressure medications including HCTZ, losartan metoprolol. He has been monitoring his blood pressure at home and has been usually getting in the 130s-140s/80s. His blood pressure today in the office is higher than his values at home at 150s/80s. Patient reports that he has not having any chest pain at all. Patient states that the pain resolved spontaneously without exacerbation or associated symptoms such as dyspnea or palpitations. Coronary CTA conducted earlier confirmed no major coronary insufficiencies or abnormalities. Patient is not taking any antianginals at this time and is doing well from a chest pain perspective. Patient denies chest pain, shortness of breath, heart palpitations, dizziness/lightheadedne ss, and swelling in lower legs. Review of Systems ROS - Provider Constitutional: no fever, no chills, no sweats, no weakness Respiratory: no shortness of breath, no cough Cardiovascular: no chest pain Neuro: no dizziness. no loss of consciousness Physical Exam Vitals & Measurements HR: 66(Peripheral) RR: 18 BP: 157/86 SpO2: 98% HT: 180 cm HT: 71 in WT: 182.983 lb WT: 83.0 kg BMI: 25.62 General: alert, no acute distress Cardiovascular: regular rate and rhythm, no murmur normal peripheral perfusion Respiratory: Lungs CTAB, respirations non labored Extremities: no edema left lower extremity. no edema right lower extremity Neurological: oriented x 4, LOC appropriate for age, speech normal Skin: Warm, dry, intact- no rash or concerning lesions Cardiac Diagnostics (06/09/2024 09:46 EST ECG Stress Exercise) CONCLUSIONS: 1. Uncomplicated exercise stress test, negative by clinical and electrocardiographic criteria. 2. Low tolerance for physical exertion, adequate workload. [1] (05/24/2024 11:24 EST Echo Transthoracic Complete) Interpretation Summary moderate left ventricular hypertrophy. Left ventricular systolic function is normal. Ejection Fraction = 55-60%. The left ventricular wall motion is normal. Diastolic dysfunction, Grade II (pseudonormalization pattern). There is no pericardial effusion. No significant valvular disease. [2] Assessment/Plan 1. HTN (I10: Essential (primary) hypertension) Patient blood pressure elevated in the office today. Patient is compliant with all medications for hypertension including HCTZ 25 mg daily, losartan 100 mg daily, metoprolol 50 mg ER daily. Patient reports that his blood pressures at home have been running better than we have gotten the office today is usually in the 130s-140s/80s at home. Patient would prefer to stick with current dose of medications. Will have patient monitor blood pressure at least twice weekly at home and bring a log with him at next visit. Patient is agreeable to this plan. Continue with current medications. 2. Nonocclusive coronary atherosclerosis of [place] coronary artery (I25.10: Atherosclerotic heart disease of [place] coronary artery without angina pectoris) Patient had coronary CTA in 06/2024 which revealed nonobstructive CAD. Patient is compliant with aspirin 81 mg daily, atorvastatin 40 mg daily, metoprolol 50 mg ER daily to help with this condition. Patient is no longer having any chest discomfort and suggest he continue with current medications at this time.. Follow-up with me in 2 months or sooner if needed Portions of this record may have been created with voice recognition artificial intelligence software, specifically [employer], [employer] and or [employer]. Substitutions may have occurred due to the inherent limitations of voice recognition and artificial intelligence software. Follow-up No qualifying data available Problem List/Past Medical History Ongoing BMI 25.0-25.9,adult Body mass index (BMI) of 24.0-24.9 in adult Jessica onychomycosis Chest pain, unspecified Cholesterol Essential (primary) hypertension Former smoker Gastro-esophageal reflux disease without esophagitis GERD (gastroesophageal reflux disease) HTN Muscle wasting and atrophy, not elsewhere classified, unspecified hand Numbness of hand Overweight (BMI 25.0-29.9) Physical exam Pros (more content not included)... Normal [facility] Comment on above: Result Comment: Elec tronically Signed By: Santy WALKER, Anderson Cardenas\.fidel\Date and Time Signed: 08/14/24 08:55 EDT Jose Luis 08-09-2024 CNPN Telephone (RULTTB) RACHID CHRISTENSEN ([id number]) 1955 M Date Time Provider Department 08/09/24 CRYSTAL MATTHEWS RULTTB During your visit today, we recorded the following information about you: Pablo Oma 08/09/2024 10:32 AM Addendum Visit Type: ANY MSKx2 Visit Length: 90, 100 OR 120 MINUTES Order Name/Protocol: US WRIST RT+LT; VOLAR+CARPAL TUNNEL-EVAL FOR BILATERAL CTS Preferred Provider: N/A Comment: Please ask if the patient has ever had any prior surgery to their wrists. If so, upgrade the visit type to an MSK1x2 and notate the surgical hx in the Appointment Note. Location: Depending on the surgical hx, this patient can have this exam performed at any of our four locations. Slot held: N/A Oma Shah 08/09/2024 11:02 AM Signed PT scheduled for MSK US on 09/20/24 at 10:15 AM at [place] Allergies As of Date: 08/09/2024 Noted Allergy Reaction SULFA (SULFONAMIDE ANTIBIOTICS) 09/10/2011 2 - Rash Date Reviewed: 08/02/2024 Reviewed by: Margaux Gaona OCCA - Fully Assessed Reason for Visit: Appointment [186] Prescriptions as of 08/09/2024 - Amoxicillin 500 mg tablet Take four (4) capsules one (1) hour before Dental surgery - oxyCODONE-acetaminophen 5-325 mg tablet Take 1 tablet by mouth every 4 hours as needed. - enoxaparin 40 mg/0.4 mL Syrg Inject 0.4 mL subcutaneously once daily. - docusate sodium 100 mg capsule Take 1 capsule by mouth twice daily. - citalopram 20 mg tablet Take 20 mg by mouth once daily. - pravastatin 20 mg tablet Take 20 mg by mouth once daily. - valsartan (DIOVAN) 160 mg tablet Take 160 mg by mouth once daily. - metFORMIN 500 mg tablet Take 500 mg by mouth twice daily with meals. - omeprazole 20 mg capsule Take 20 mg by mouth once daily. Problem List As Of Date 08/09/2024 Noted Resolved Hip pain [M25.559] 09/02/2011 Encounter Status:Closed by OMA SHAH on 08/09/24 [facility] CNPNon 08-03-2024 CNPN Telephone (PAMAVN) RACHID MCNAIR ([id number]) 1955 M Date Time Provider Department 08/03/24 ALFREDO ALVES During your visit today, we recorded the following information about you: Leti Willingham, RN 08/03/2024 3:48 PM Signed Chart reviewed with Zaina Centeno. Consult was placed for spine surgery. After review of chart and imaging, patient should not be scheduled with pain management or spine medicine. Called and spoke to patient regarding appointment 08/23/[address] Alves. Informed patient that based on referral and imaging he is supposed to be scheduled with spine surgery. Gave phone number to patient to call and schedule with spine surgery. Patient voiced understanding and will call to schedule. Appointment with Dr. Alves cancelled. Allergies As of Date: 08/03/2024 Noted Allergy Reaction SULFA (SULFONAMIDE ANTIBIOTICS) 09/10/2011 2 - Rash Date Reviewed: 08/02/2024 Reviewed by: Margaux Gaona OCCA - Fully Assessed Reason for Visit: Appointment [186] Prescriptions as of 08/03/2024 - Amoxicillin 500 mg tablet Take four (4) capsules one (1) hour before Dental surgery - oxyCODONE-acetaminophen 5-325 mg tablet Take 1 tablet by mouth every 4 hours as needed. - enoxaparin 40 mg/0.4 mL Syrg Inject 0.4 mL subcutaneously once daily. - docusate sodium 100 mg capsule Take 1 capsule by mouth twice daily. - citalopram 20 mg tablet Take 20 mg by mouth once daily. - pravastatin 20 mg tablet Take 20 mg by mouth once daily. - valsartan (DIOVAN) 160 mg tablet Take 160 mg by mouth once daily. - metFORMIN 500 mg tablet Take 500 mg by mouth twice daily with meals. - omeprazole 20 mg capsule Take 20 mg by mouth once daily. Problem List As Of Date 08/03/2024 Noted Resolved Hip pain [M25.559] 09/02/2011 Encounter Status:Closed by LETI WILLINGHAM on 08/03/24 [facility] CNOVon 08-02-2024 CNOV Office Visit (ORAVON ) RACHID MCNAIR ([id number]) 1955 M Date Time Provider Department 08/02/24 1:30 PM LATIA CHAVIS During your visit today, we recorded the following information about you: Latia Chavis PA-C 08/03/2024 4:21 PM Signed August 02, 2024 The patient is sent for evaluation and an opinion regarding treatment by Sandy Bhatt, who will receive a copy of this report by mail or through the shared medical record. CHIEF COMPLAINT: Rachid Mcnair is a 68 year old male who presents today for new evaluation of bilateral hand numbness. HPI: PAIN EVALUATION 07/29/2024 1024 Pain Level: 4 Pain Location: Hand-Left Description: Aching Duration Units: Weeks Frequency: Continuous Occupation: Retired Hand Dominance: Right Background: Patient presents for evaluation of bilateral hand numbness and tingling as well as significant atrophy throughout both hands. Patient has followed with orthopedics and has had an EMG as well as an MRI of the cervical spine. In 2017 he had C-spine surgery at an outside facility, states he had improvement in the numbness and tingling initially after surgery and then symptoms progressed significantly over the last 9-10 years. He has constant numbness and tingling in the right thumb index and long finger and is dropping objects. Has noted muscle wasting and weakness of the hand. The left hand began having numbness and tingling and an ache present for the last 5 to 6 months. The EMG that was obtained demonstrated significant overlap between C7-T1 radiculopathy and median neuropathies at the wrist on the left but could not be localized on the right. He is here to discuss treatment options as well as consideration for possible surgery. He is diabetic. Previous treatment or work-up includes: C-spine surgery in 2017, EMG. ROS: REVIEW OF SYSTEMS: Constitutional: Fever/chills: No Cardiovascular: Chest Pain: No Respiratory: SOB: No Musculoskeletal: as noted in the HPI Neurologic: as noted in the HPI Endocrine: Diabetes: Yes, no A1c on file. Tobacco user? No SOCIAL HISTORY: Tobacco Use: Quit FAMILY HISTORY: No family history on file. PAST MEDICAL HISTORY Diagnosis Date Anxiety Diabetes mellitus type 2 in obese Dyslipidemia GERD (gastroesophageal reflux disease) HTN (hypertension) Osteoarthritis Tinnitus of both ears PAST SURGICAL HISTORY Procedure Laterality Date CERVICAL LAMINOPLASTY 1998 removal of bone spur EXCISION OLECRANON BURSA MRSA infection Rt. S JESSICA SPINE LUMB STRY insertion of two rods No family history on file. Social History Tobacco Use Smoking status: Former Smokeless tobacco: Never Substance Use Topics Alcohol use: Yes Comment: moderate Drug use: No ALLERGIES Allergen Reactions Sulfa (Sulfonamide * Rash Current Outpatient Medications Medication Sig Dispense Refill Amoxicillin 500 mg tablet Take four (4) capsules one (1) hour before Dental surgery 12 tablet 0 oxyCODONE-acetaminophen 5-325 mg tablet Take 1 tablet by mouth every 4 hours as needed. 60 tablet 0 enoxaparin 40 mg/0.4 mL Syrg Inject 0.4 mL subcutaneously once daily. 11 Syringe 0 docusate sodium 100 mg capsule Take 1 capsule by mouth twice daily. 0 citalopram 20 mg tablet Take 20 mg by mouth once daily. pravastatin 20 mg tablet Take 20 mg by mouth once daily. valsartan (DIOVAN) 160 mg tablet Take 160 mg by mouth once daily. metFORMIN 500 mg tablet Take 500 mg by mouth twice daily with meals. omeprazole 20 mg capsule Take 20 mg by mouth once daily. No current facility-administered medications for this visit. Physical Exam: Vitals: There were no vitals taken for this visit. Body Habitus: Well nourished and no acute distress Orientation: Normal, oriented to person, place and time Psych: Normal Skin: Color, texture, turgor normal. No rashes or lesions Sensation: Sensation to light touch is grossly normal bilaterally Bilateral hands On exam of the right hand skin is intact. Significant dorsal interossei noted and some thenar atrophy noted as well. Can flex and extend at the wrist without irritability. Sensation subjectively decreased to light touch in the median distribution and intact in the radial and ulnar nerve distributions. AIN, PIN and ulnar motor is intact. Can make a complete fist. Positive Tinel, positive Phalen's and positive Durkan's at the carpal tunnel. Negative Tinel at the cubital tunnel and negative elbow flexion test. Negative Spurling's. Radial pulse 2+ and brisk capillary refill present to all digits. On exam of the left hand skin is intact. Mild thenar atrophy and first dorsal interossei atrophy noted. APB strength is weak. Can flex and extend at the wrist without irritability. Sensation is intact to light touch in the median, radial and ulnar nerve distributions but subjectively d (more content not included)... Normal [facility] Jose Luis 07-20-2024 [facility] Telephone (ROCÍOORR) RACHID MCNAIR ([id number]) 1955 M Date Time Provider Department 07/20/24 SANDY BHATT During your visit today, we recorded the following information about you: Katie Amato LPN 07/20/2024 8:27 AM Signed Call placed to patient to schedule a virtual visit to discuss MRI results. May use an est slot. No answer. Left voicemail requesting a return call back. Allergies As of Date: 07/20/2024 Noted Allergy Reaction SULFA (SULFONAMIDE ANTIBIOTICS) 09/10/2011 2 - Rash Date Reviewed: 06/29/2024 Reviewed by: Katie Amato LPN - Fully Assessed Reason for Visit: Appointment [186] Prescriptions as of 07/20/2024 - Amoxicillin 500 mg tablet Take four (4) capsules one (1) hour before Dental surgery - oxyCODONE-acetaminophen 5-325 mg tablet Take 1 tablet by mouth every 4 hours as needed. - enoxaparin 40 mg/0.4 mL Syrg Inject 0.4 mL subcutaneously once daily. - docusate sodium 100 mg capsule Take 1 capsule by mouth twice daily. - citalopram 20 mg tablet Take 20 mg by mouth once daily. - pravastatin 20 mg tablet Take 20 mg by mouth once daily. - valsartan (DIOVAN) 160 mg tablet Take 160 mg by mouth once daily. - metFORMIN 500 mg tablet Take 500 mg by mouth twice daily with meals. - omeprazole 20 mg capsule Take 20 mg by mouth once daily. Problem List As Of Date 07/20/2024 Noted Resolved Hip pain [M25.559] 09/02/2011 Encounter Status:Closed by KATIE AMATO on 07/20/24 Normal [facility] MR Cervical spine WO contras ton 07-16-2024 IMPRESSION: Cervical spondylosis with postoperative changes at C5-C7. Cord signal abnormality with atrophy at C6 and C7 likely reflects a component of myelomalacia. Spinal canal and neural foraminal stenosis as described level by level the body the report. Anatomic Variant: None. Assume 7 cervical vertebrae with counting from the craniocervical junction. Rig Manager: ISIDRO Transcribe Date/Time: Jul 16 2024 2:53P Dictated by : JENNY GONZALEZ MD This examination was interpreted and the report reviewed and electronically signed by: JENNY GONZALEZ MD on Jul 16 2024 2:59PM EST [facility] * * *Final Report* * * DATE OF EXAM: Jul 16 2024 2:49PM [facility] [id number] - MRI CERVICAL SPINE WO IVCON / PROCEDURE REASON: Spinal stenosis of cervical region * * * * Physician Interpretation * * * * EXAMINATION: MRI CERVICAL SPINE WO IVCON CLINICAL HISTORY: Spinal stenosis of cervical region TECHNIQUE: Routine cervical spine MR protocol without gadolinium. MQ: [id number] COMPARISON: Radiograph cervical spine 06/29/2024. RESULT: Counting reference: Craniocervical junction. Anatomic Variants: None. Localizer images: No additional findings. Alignment: Relative straightening of the normal cervical lordosis. Craniocervical junction: Craniocervical junction is normal. Mucosal thickening in the sphenoid sinus. Flattening appearance of the pituitary gland reflecting partially empty sella configuration. 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 Bone marrow signal/fracture: Plate and screw fixation anteriorly at C5-C7 status post ACDF, as demonstrated by susceptibility artifact. No evidence of acute fracture. No marrow replacing process. Osseous fusion spanning C5-C7. Cervical soft tissues: The paraspinal soft tissues are within normal limits. C2-C3: Canal and foramina are patent. C3-C4: Disc osteophyte complex causing mild effacement of ventral CSF space. Facet and uncinate hypertrophy contribute to moderate right and moderate to severe left neural foraminal stenosis. C4-C5: Disc osteophyte complex causing moderate effacement of ventral CSF space. Facet and uncinate hypertrophy contribute to moderate right and moderate to severe left neural foraminal stenosis. C5-C6: Decompress spinal level. No residual high-grade spinal canal stenosis. Facet and uncinate hypertrophy contributes to moderate to severe right and mild left neural foraminal stenosis. C6-C7: Decompress spinal level. No residual high-grade spinal canal stenosis. Facet and uncinate hypertrophy contributes to at least moderate bilateral neural foraminal stenosis more pronounced on the right. C7-T1: Disc osteophyte complex causing ventral CSF effacement without cord contact or deformity. Facet and uncinate hypertrophy contributes to moderate right and mild left neural foraminal stenosis. [facility] Provider, [facility] - 07/16/2024 * * *Final Report* * * DATE OF EXAM: Jul 16 2024 2:49PM [facility] 0297 - MRI CERVICAL SPINE WO IVCON / PROCEDURE REASON: Spinal stenosis of cervical region * * * * Physician Interpretation * * * * EXAMINATION: MRI CERVICAL SPINE WO IVCON CLINICAL HISTORY: Spinal stenosis of cervical region TECHNIQUE: Routine cervical spine MR protocol without gadolinium. MQ: [id number] COMPARISON: Radiograph cervical spine 06/29/2024. RESULT: Counting reference: Craniocervical junction. Anatomic Variants: None. Localizer images: No additional findings. Alignment: Relative straightening of the normal cervical lordosis. Craniocervical junction: Craniocervical junction is normal. Mucosal thickening in the sphenoid sinus. Flattening appearance of the pituitary gland reflecting partially empty sella configuration. 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 Bone marrow signal/fracture: Plate and screw fixation anteriorly at C5-C7 status post ACDF, as demonstrated by susceptibility artifact. No evidence of acute fracture. No marrow replacing process. Osseous fusion spanning C5-C7. Cervical soft tissues: The paraspinal soft tissues are within normal limits. C2-C3: Canal and foramina are patent. C3-C4: Disc osteophyte complex causing mild effacement of ventral CSF space. Facet and uncinate hypertrophy contribute to moderate right and moderate to severe left neural foraminal stenosis. C4-C5: Disc osteophyte complex causing moderate effacement of ventral CSF space. Facet and uncinate hypertrophy contribute to moderate right and moderate to severe left neural foraminal stenosis. C5-C6: Decompress spinal level. No residual high-grade spinal canal stenosis. Facet and uncinate hypertrophy contributes to moderate to severe right and mild left neural foraminal stenosis. C6-C7: Decompress spinal level. No residual high-grade spinal canal stenosis. Facet and uncinate hypertrophy contributes to at least moderate bilateral neural foraminal stenosis more pronounced on the right. C7-T1: Disc osteophyte complex causing ventral CSF effacement without cord contact or deformity. Facet and uncinate hypertrophy contributes to moderate right and mild left neural foraminal stenosis. IMPRESSION IMPRESSION: Cervical spondylosis with postoperative changes at C5-C7. Cord signal abnormality with atrophy at C6 and C7 likely reflects a component of myelomalacia. Spinal canal and neural foraminal stenosis as described level by level the body the report. Anatomic Variant: None. Assume 7 cervical vertebrae with counting from the craniocervical junction. Rig Manager: ISIDRO Transcribe Date/Time: Jul 16 2024 2:53P Dictated by : JENNY GONZALEZ MD This examination was interpreted and the report reviewed and electronically signed by: JENNY GONZALEZ MD on Jul 16 2024 2:59PM EST [facility] Radiology Study observation (narrative) [facility] MR Cervical spine WO contras tOrdered By: [facility] Provider on 07-16-2024 [facility] MRI CERVICAL SPINE WO IVCONo n 07-16-2024 MRI CERVICAL SPINE WO IVCON * * *Final Report* * * DATE OF EXAM: Jul 16 2024 2:49PM [facility] 0297 - MRI CERVICAL SPINE WO IVCON / PROCEDURE REASON: Spinal stenosis of cervical region * * * * Physician Interpretation * * * * EXAMINATION: MRI CERVICAL SPINE WO IVCON CLINICAL HISTORY: Spinal stenosis of cervical region TECHNIQUE: Routine cervical spine MR protocol without gadolinium. MQ: [id number] COMPARISON: Radiograph cervical spine 06/29/2024. RESULT: Counting reference: Craniocervical junction. Anatomic Variants: None. Localizer images: No additional findings. Alignment: Relative straightening of the normal cervical lordosis. Craniocervical junction: Craniocervical junction is normal. Mucosal thickening in the sphenoid sinus. Flattening appearance of the pituitary gland reflecting partially empty sella configuration. 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 Bone marrow signal/fracture: Plate and screw fixation anteriorly at C5-C7 status post ACDF, as demonstrated by susceptibility artifact. No evidence of acute fracture. No marrow replacing process. Osseous fusion spanning C5-C7. Cervical soft tissues: The paraspinal soft tissues are within normal limits. C2-C3: Canal and foramina are patent. C3-C4: Disc osteophyte complex causing mild effacement of ventral CSF space. Facet and uncinate hypertrophy contribute to moderate right and moderate to severe left neural foraminal stenosis. C4-C5: Disc osteophyte complex causing moderate effacement of ventral CSF space. Facet and uncinate hypertrophy contribute to moderate right and moderate to severe left neural foraminal stenosis. C5-C6: Decompress spinal level. No residual high-grade spinal canal stenosis. Facet and uncinate hypertrophy contributes to moderate to severe right and mild left neural foraminal stenosis. C6-C7: Decompress spinal level. No residual high-grade spinal canal stenosis. Facet and uncinate hypertrophy contributes to at least moderate bilateral neural foraminal stenosis more pronounced on the right. C7-T1: Disc osteophyte complex causing ventral CSF effacement without cord contact or deformity. Facet and uncinate hypertrophy contributes to moderate right and mild left neural foraminal stenosis. IMPRESSION: Cervical spondylosis with postoperative changes at C5-C7. Cord signal abnormality with atrophy at C6 and C7 likely reflects a component of myelomalacia. Spinal canal and neural foraminal stenosis as described level by level the body the report. Anatomic Variant: None. Assume 7 cervical vertebrae with counting from the craniocervical junction. Rig Manager: PSCB Transcribe Date/Time: Jul 16 2024 2:53P Dictated by : JENNY GONZALEZ MD This examination was interpreted and the report reviewed and electronically signed by: JENNY GONZALEZ MD on Jul 16 2024 2:59PM EST [id number] 07-12-2024 [facility] Telephone ([facility]) KERRIRACHID ([id number]) 1955 M Date Time Provider Department 07/12/24 SANDY BHATT [facility] During your visit today, we recorded the following information about you: Francesca Orozco 07/12/2024 9:28 AM Signed Rachid is calling Sandy Bhatt MD today to request medication prior to having his MRI for claustrophobia. Patient askig for script to be sent to [facility] on file. Patient has been identified by name and birthdate. Duration of symptoms: N/A Person calling: self Call patient at: on cell [phone] (home) [phone] (cell) Was an appointment scheduled: No Closing statement: Results or non-symptom based questions: Thank you for calling [facility], your call will be returned within the next business day. Sandy Haro MD 07/13/2024 12:23 PM Signed The following approved medication requests have been transmitted electronically. Requested Prescriptions Signed Prescriptions Disp Refills LORazepam (ATIVAN) 1 mg tablet 2 tablet 0 Sig: Take 1 tablet by mouth two times a day as needed for anxiety for up to 2 doses. Take 1 tablet 1-2 hours before the procedure. May take the 2nd tablet at the time of the procedure if needed. Must have a van driver to the procedure if taking. Authorizing Provider: SANDY BHATT MD Morales, Desiree, LPN 07/13/2024 1:08 PM Signed Call placed to patient to notify the medication was sent to his pharmacy. He will need a van driver for the MRI due to the medication. Per patient he has a van driver already. 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 Take 1 tablet 1-2 hours before the procedure. May take the 2nd tablet at the time of the procedure if needed. Must have a van driver to the procedure if taking.Disp: 2 tabletRfl: 0 Prescriptions as of 07/13/2024 - LORazepam (ATIVAN) 1 mg tablet Take 1 tablet by mouth two times a day as needed for anxiety for up to 2 doses. Take 1 tablet 1-2 hours before the procedure. May take the 2nd tablet at the time of the procedure if needed. Must have a van driver to the procedure if taking. - Amoxicillin 500 mg tablet Take four (4) capsules one (1) hour before Dental surgery - oxyCODONE-acetaminophen 5-325 mg tablet Take 1 tablet by mouth every 4 hours as needed. - enoxaparin 40 mg/0.4 mL Syrg Inject 0.4 mL subcutaneously once daily. - docusate sodium 100 mg capsule Take 1 capsule by mouth twice daily. - citalopram 20 mg tablet Take 20 mg by mouth once daily. - pravastatin 20 mg tablet Take 20 mg by mouth once daily. - valsartan (DIOVAN) 160 mg tablet Take 160 mg by mouth once daily. - metFORMIN 500 mg tablet Take 500 mg by mouth twice daily with meals. - omeprazole 20 mg capsule Take 20 mg by mouth once daily. Problem List As Of Date 07/12/2024 Noted Resolved Hip pain [M25.559] 09/02/2011 Prescriptions ordered this encounter Disp Refills Start End LORAZEPAM 1 MG TABLET 2 ta* 0 07/13/2024 07/16/2024 Route: ORAL Sig: Take 1 tablet by mouth two times a day as needed for anxiety for up to 2 doses. Take 1 tablet 1-2 hours before the procedure. May take the 2nd tablet at the time of the procedure if needed. Must have a van driver to the procedure if taking. Encounter Status:Closed by KATIE AMATO on 07/13/24 Normal [facility] Heart and Vascular Office/Cl inic Noteon 07-06-2024 Heart and Vascular Office/Clinic Note Heart and Vascular Office/Clinic Note Chief Complaint F/U Testing History of Present Illness The patient is a 68-year-old male who was initially referred due to issues with chest pains. He had a cardiac workup, which is listed below. The patient ended up having a CCTA on June 27, 2024 which showed evidence of mild diffuse coronary artery disease without significant stenosis, coronary calcium score of 360. He presents today with no new symptoms. Reports no chest pain or shortness of breath. Review of Systems PHQ Score Initial Depression Screen Score: 0 SCORE ROS - Provider Constitutional: no fever, no chills, no fatigue Skin:no rash, no lesions ENMT: no ear pain, no sore throat, no congestion. Respiratory: no shortness of breath, no cough, no wheezing. Cardiovascular: no chest pain, no palpitations, no edema. Gastrointestinal: no nausea, no vomiting, no diarrhea, no GI bleeding. Genitourinary: no dysuria, no frequencyno hematuria Musculoskeletal: no back pain, no trauma. Neurologic: no headache, no dizziness, no numbness, no weakness. Psychiatric: no sleeping problems, no irritability, no mood swings/depression. Heme/Lymph: no bleeding tendency, no bruising tendency, no petechiae, Allergy/Immuno logic: no seasonal allergies, no food allergies, no recurrent infections Physical Exam Vitals & Measurements HR: 62(Peripheral) RR: 18 BP: 137/76 SpO2: 99% HT: 180 cm HT: 71 in WT: 79.6 kg WT: 175.488 lb BMI: 24.57 General: alert, no acute distress Neck: Supple, noJVD nocarotid bruit Cardiovascular: regular rate and rhythm, no murmur normal peripheral perfusion Respiratory: Lungs CTAB, respirations non labored Extremities: no edema left lower extremity. no edema right lower extremity Neurological: oriented x 4, LOC appropriate for age, speech normal Skin: Warm, dry, intact- no rash or concerning lesions Procedure (05/24/2024 11:24 EST Echo Transthoracic Complete) [facility] [address] [place] [address] Adult Echocardiogram Report Name: RACHID MCNAIR Study Date: 05/24/2024 10:49 AM BP: 151/103 mmHg Patient Location: [facility] Ambulatory(s) [facility] [place] HR: 91 : 1955 Gender: Male Height: 71 in Age: 68 yrs Ethnicity: T Weight: 170 lb Reason For Study: HTN, R07.9;Chest pain BSA: 2.0 m2 History: HTN, DM Ordering Physician: Chris Garcia Referring Physician: Chris Garcia Performed By: Elizabet Ruiz [facility] Interpretation Summary moderate left ventricular hypertrophy. Left ventricular systolic function is normal. Ejection Fraction = 55-60%. The left ventricular wall motion is normal. Diastolic dysfunction, Grade II (pseudonormalization pattern). There is no pericardial effusion. No significant valvular disease. [1] Assessment/Plan 1. CAD in [place] artery (I25.10: Atherosclerotic heart disease of [place] coronary artery without angina pectoris) Mild and nonobstructive. Given the fact that the patient has that, I would like to increase Lipitor to 40 mg. Continue low-dose aspirin 2. HTN (I10: Essential (primary) hypertension) Blood pressure is not at goal. I would like to increase HCTZ to 25 mg daily. Blood pressure recheck in 1 to 2 months. Follow-up No qualifying data available In 1 to 2 months, with DERRICK Esteban for blood pressure recheck Problem List/Past Medical History Ongoing BMI 25.0-25.9,adult Body mass index (BMI) of 24.0-24.9 in adult Jessica onychomycosis Chest pain, unspecified Cholesterol Essential (primary) hypertension Former smoker Gastro-esophageal reflux disease without esophagitis GERD (gastroesophageal reflux disease) HTN Muscle wasting and atrophy, not elsewhere classified, unspecified hand Numbness of hand Overweight (BMI 25.0-29.9) Physical exam Prostate cancer screening Screening for prostate cancer Type 2 diabetes mellitus without complications Historical No qualifying data Procedure/Surgical History Arthroplasty of the hip (02/08/2018), rt shoulder scope ext debridement, sad, pt distal clavulectomy (10/06/2016), left shoulder manipulation under anesthesia, left shoulder arthroscopy with subacromial decompression, partial distal clavulectomy with extensive glenohumeral debridement, mini-open rotator cuff repair (04/28/2013), Cataracts, elbow, lower back surgery, right hip surgery, spinal neck surgery. Medications aspirin 81 mg oral capsule, 81 mg, Oral, Daily, 1 refills atorvastatin 20 mg Tab, 20 mg= 1 tab(s), Oral, Daily, 4 refills hydrochlorothiazide 12.5 mg Cap, 12.5 mg= 1 cap(s), Oral, Daily, 6 refills Januvia 100 mg Tab, See Instructions losartan 100 mg Tab, 100 mg= 1 tab(s), Oral, Daily, 4 refills metformin 500 mg Tab, See Instructions Misc DME Prescription, See Instructions, 3 refills Misc DME Prescription, See Instructions, 3 refills Misc DME Prescription, See Instructions, 3 refills omeprazole 20 mg Cap-DR, See Instructions terbinafine (more content not included)... Normal [facility] Comment on above: Result Comment: Elec tronically Signed By: Radha PARKER, Chris Shaver\.fidel\Date and Time Signed: 07/06/24 10:55 EDT Ranjith 06-29-2024 [facility] Office Visit ([facility]OR[facility] ) RACHID MCNAIR ([id number]) 1955 Date Time Provider Department 06/29/24 10:00 AM SANDY BHATT [facility] During your visit today, we recorded the following information about you: Sandy Bhatt MD 06/29/2024 10:29 AM Signed Rachid Mcnair is a patient of Sai Yost MD. CHIEF COMPLAINT: Rachid is a 68-year-old male with a history of cervical surgery, presenting for evaluation of bilateral hand atrophy and syncope. HISTORY OF PRESENT ILLNESS: PAIN EVALUATION 06/25/20242029 Pain Level: 3 Pain Location: -- bilateral hands Description: Aching Duration Units: Months Frequency: Continuous Intervention/Comfort measure: Medication Comments: PT is here for EMG results. He reports he is taking Tylenol for pain control. Patient is a right-hand dominant, retired individual with a history of cervical surgery in August 2016 at [facility]. Presenting today with severe issues in both hands, including significant carpal tunnel syndrome and concerns about ongoing muscle loss. Patient was established with me on June 13, 2024. Noted to have syncope and atrophy in both hands. EMG on June 24, 2024, demonstrated a severe C7/8 T1 cervical spinal lesion with ongoing motor fiber loss, most prevalent in the distal hand. 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 Patient reports that issues began after cervical surgery in 2016. Despite working with an occupational therapist, muscle loss has continued. Patient has not experienced symptoms of carpal tunnel until about three months ago, shortly after retiring. - Noted atrophy in bilateral hands and episodes of syncope. - EMG on 06/24/2024 showed severe C7/8 T1 cervical spinal lesion with ongoing motor fiber loss, most prevalent in the distal hand. 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 - Cervical surgery performed in August 2016 at [facility] by Dr. Reyes. - Symptoms began post-surgery, including muscle loss. - Engaged in occupational therapy post-surgery. - No significant symptoms of carpal tunnel on the Left until approximately three months ago, coinciding with intermediate. - Describes self as thin and kind of weak. ROS Neurological: (+) right-hand weakness PHYSICAL EXAMINATION: WNWD NAD Tests (06/24/24) Electromyography: - Severe C7/8 T1 cervical spinal lesion with ongoing motor fiber loss, most prominent in the distal hand - Severe right median mononeuropathy - Very severe left median mononeuropathy LABS: No results found for: HBA1C Creatinine Date Value Ref Range Status 10/01/2011 1.08 0.70 - 1.40 mg/dL Final 09/24/2011 0.81 0.70 - 1.40 mg/dL Final CLINICAL IMPRESSION / ASSESSMENT: (M62.541, M62.542) Atrophy of muscle of both hands (primary encounter diagnosis) (G56.03) Carpal tunnel syndrome, bilateral (Z98.890) Hx of cervical spine surgery (M48.02) Spinal stenosis of cervical region RECOMMENDATION / PLAN: 1. Atrophy of muscle of both hands (M62.541) 2. Carpal tunnel syndrome, bilateral (G56.03) - EMG on 06/24/24 demonstrates C7/8 T1 cervical spinal lesion with ongoing motor fiber loss, most prevalent in the distal hand. 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 - Referred to hand surgeon, Dr. French, for evaluation and potential surgical intervention. - Advised patient that the severity of carpal tunnel syndrome likely necessitates surgery, but outcomes may be influenced by concurrent cervical spine issues. - Patient to schedule appointment with Dr. French. 3. Hx of cervical spine surgery (Z98.890) 4. Spinal stenosis of cervical region (M48.02) - History of cervical spine surgery in 08/2016 at [facility]. - EMG findings indicate severe C7/8 T1 cervical spinal lesion. - Referred to blasting entry specialist for further evaluation and management. - Advised patient to obtain surgical records from [facility] to assist spine surgeon in assessment. - Patient to schedule appointment with blasting entry specialist. - Obtain XR cervical spine today - Schedule MRI cervical spine Pertinent previous records and images reviewed. Verbal health education was given to patient. Patient verbalizes understanding and agrees with the treatment plan as detailed above. Sandy Bhatt MD [facility] Sports and Exercise Medicine Orthopaedic Medical Decision Making (MDM) Complexity of problems: Chronic condition with severe exacerbation and Illness posing threat to life or bodily function, Complexity of data: 2 unique tests ordered, Risk: Low risk of morbidity from testing/treatment, Level of MDM: Low (3) The patient consented to the use of [employer] software for draft documentation of the visit consistent with Alexandru (more content not included)... Normal [facility] XR CERV OTHER 4V AP/LAT/FLX/ EXTon 06-29-2024 IMPRESSION: Postsurgical changes without dynamic instability. Rig Manager: ISIDRO Transcribe Date/Time: Jun 29 2024 2:03P Dictated by : LEANN OCHOA, DO This examination was interpreted and the report reviewed and electronically signed by: ALLEY BENTON MD on Jun 29 2024 4:06PM [facility] DIVISION OF RADIOLOGY * * *Final Report* * * DATE OF EXAM: Jun 29 2024 11:05AM [id number] - XR CERVICAL 4V AP/LAT/FLX/EXT / PROCEDURE REASON: Hx of cervical spine surgery * * * * Physician Interpretation * * * * EXAMINATION / TECHNIQUE: XR CERVICAL 4V AP/LAT/FLX/EXT PATIENT/TECHNOLOGIST PROVIDED HISTORY: arm numbness/ hx of surgery CLINICAL INFORMATION ( PROVIDED BY ORDERING CLINICIAN) : Hx of cervical spine surgery COMPARISON: None RESULT: Counting reference: Craniocervical junction. Anatomic Variants: None. Status post anterior cervical discectomy and fusion C5-C7. Hardware is intact without evidence of loosening. Prevertebral soft tissues are maintained. Straightening of the normal cervical lordosis with mild anterolisthesis C3 on C4 and C4 on C5 which increases by 1 mm on flexion projections compared to neutral and extension radiographs. Atlantodental interval is maintained. Vertebral body heights are maintained. Multilevel uncovertebral and facet arthropathy. Small anterior endplate osteophytes C3 and C4. DIVISION OF RADIOLOGY Provider, [facility] - 06/29/2024 * * *Final Report* * * DATE OF EXAM: Jun 29 2024 11:05AM [id number] - XR CERVICAL 4V AP/LAT/FLX/EXT / PROCEDURE REASON: Hx of cervical spine surgery * * * * Physician Interpretation * * * * EXAMINATION / TECHNIQUE: XR CERVICAL 4V AP/LAT/FLX/EXT PATIENT/TECHNOLOGIST PROVIDED HISTORY: arm numbness/ hx of surgery CLINICAL INFORMATION ( PROVIDED BY ORDERING CLINICIAN) : Hx of cervical spine surgery COMPARISON: None RESULT: Counting reference: Craniocervical junction. Anatomic Variants: None. Status post anterior cervical discectomy and fusion C5-C7. Hardware is intact without evidence of loosening. Prevertebral soft tissues are maintained. Straightening of the normal cervical lordosis with mild anterolisthesis C3 on C4 and C4 on C5 which increases by 1 mm on flexion projections compared to neutral and extension radiographs. Atlantodental interval is maintained. Vertebral body heights are maintained. Multilevel uncovertebral and facet arthropathy. Small anterior endplate osteophytes C3 and C4. IMPRESSION IMPRESSION: Postsurgical changes without dynamic instability. Rig Manager: ISIDRO Transcribe Date/Time: Jun 29 2024 2:03P Dictated by : LEANN OCHOA DO This examination was interpreted and the report reviewed and electronically signed by: ALLEY BENTON MD on Jun 29 2024 4:06PM EST [facility] Radiology Study observation (narrative) [facility] XR CERV OTHER 4V AP/LAT/FLX/ EXTOrdered By: Ccf Provider on 06-29-2024 [facility] XR CERVICAL 4V AP/LAT/FLX/EX Ton 06-29-2024 XR CERVICAL 4V AP/LAT/FLX/EXT * * *Final Report* * * DATE OF EXAM: Jun 29 2024 11:05AM LZX 5310 - XR CERVICAL 4V AP/LAT/FLX/EXT / PROCEDURE REASON: Hx of cervical spine surgery * * * * Physician Interpretation * * * * EXAMINATION / TECHNIQUE: XR CERVICAL 4V AP/LAT/FLX/EXT PATIENT/TECHNOLOGIST PROVIDED HISTORY: arm numbness/ hx of surgery CLINICAL INFORMATION ( PROVIDED BY ORDERING CLINICIAN) : Hx of cervical spine surgery COMPARISON: None RESULT: Counting reference: Craniocervical junction. Anatomic Variants: None. Status post anterior cervical discectomy and fusion C5-C7. Hardware is intact without evidence of loosening. Prevertebral soft tissues are maintained. Straightening of the normal cervical lordosis with mild anterolisthesis C3 on C4 and C4 on C5 which increases by 1 mm on flexion projections compared to neutral and extension radiographs. Atlantodental interval is maintained. Vertebral body heights are maintained. Multilevel uncovertebral and facet arthropathy. Small anterior endplate osteophytes C3 and C4. IMPRESSION: Postsurgical changes without dynamic instability. Rig Manager: [facility] Transcribe Date/Time: Jun 29 2024 2:03P Dictated by : LEANN OCHOA DO This examination was interpreted and the report reviewed and electronically signed by: ALLEY BENTON MD on Jun 29 2024 4:06PM EST [id number] Normal [facility] CT ANGIO CORONARY ART WITH H EARTFLOW IF SCORE >30%on 06-27-2024 CT ANGIO CORONARY ART WITH HEARTFLOW IF SCORE >30% Interpreted By: Pepe Malave, ADDENDUM: NON-CARDIOVASCULAR FINDINGS INCLUDED LUNGS, AIRWAYS AND PLEURA Endotracheal / endobronchial lesion: Negative Nodule: Negative Airspace disease: Negative Pleural effusion: Negative Pneumothorax: Negative Other: No acute or contributory unanticipated findings INCLUDED NON-CARDIOVASCULAR JASE AND MEDIASTINUM Adenopathy: Negative Included esophagus: Unremarkable Other: No acute or contributory unanticipated findings INCLUDED BONES: No acute skeletal findings, noting less sensitivity and specificity without dedicated sagittal and coronal reformatted series. INCLUDED CHEST WALL No acute or contributory unanticipated findings INCLUDED UPPER ABDOMEN No acute or contributory unanticipated findings ------- NON-CARDIOVASCULAR IMPRESSION NO ACUTE OR CONTRIBUTORY UNEXPECTED FINDINGS OF THE INCLUDED NON-CARDIOVASCULAR STRUCTURES NOTE THIS ADDENDUM IS SOLELY FOR INTERPRETATION OF ANATOMY OUTSIDE THE CARDIOVASCULAR SYSTEM. INTERPRETATION OF AND REPORTING OF THE CARDIOVASCULAR STRUCTURES ARE THE SOLE RESPONSIBILITY OF THE GAS WELDER APPRENTICE SUBMITTING THE ORIGINAL REPORT (NOT THIS ADDENDUM) Signed by: Pepe Malave 06/27/2024 12:21 PM -------- ORIGINAL REPORT -------- Dictation workstation: [id number] Interpreted By: Zohreh Gipson, STUDY: CT ANGIO CORONARY ART WITH HEARTFLOW IF SCORE >30%; 06/27/2024 8:44 am INDICATION: Signs/Symptoms:HTN SOB CHEST PAIN. COMPARISON: None. ACCESSION NUMBER(S): [id number] ORDERING CLINICIAN: CHRIS GARCIA TECHNIQUE: Using multi-detector CT technology, Dejuan 64-slice scanner, axial, sequential imaging with retrospective gating was performed of the chest following the intravenous administration of contrast material. A low-osmolar contrast agent was used 75 ml of Omnipaque 350. Using prospective ECG gating, CT scan of the coronary arteries was performed without intravenous contrast. Coronary calcium scoring was performed according to the method of Agatston. The patient was premedicated with atenolol and 0.4 mg sublingual nitroglycerin per protocol for heart rate control and coronary dilation, respectively. For optimization of anatomic evaluation, multiplanar reconstruction, maximum intensity projections, and advanced 3-D off-line postprocessing were performed on a dedicated stand-alone workstation under the direct supervision of the interpreting physician. CT Dose-Length Product (DLP): 838 mGy/cm CT Dose Reduction Employed: Yes iterative reconstruction FINDINGS: The left main is normal sized vessel that bifurcates into the LAD and circumflex. Distal calcified plaque without significant stenosis. LEFT ANTERIOR DESCENDING ARTERY: The LAD is a normal size vessel that wraps around the apex. Proximal calcified plaque without significant stenosis. Mid vessel noncalcified plaque without significant stenosis. LAD gives rise to 2 acute diagonal branches. D1: Proximal noncalcified plaque without significant stenosis. D2: Small, normal. LEFT CIRCUMFLEX ARTERY: The LCfx is a normal size vessel, which is non-dominant. Proximal noncalcified plaque without significant stenosis. Mid vessel calcified plaque without significant stenosis. LCfx gives rise to 2 obtuse marginal branches. OM1 normal. OM2 proximal calcified plaque without significant stenosis. RIGHT CORONARY ARTERY: The RCA is a normal size vessel, which is dominant . It gives rise to a conus branch, chayo branch, and 2 acute marginal branches. In its distal segment it bifurcates into the PDA and PV branch. Proximal/mid calcified plaque without significant stenosis. Distal noncalcified plaque without significant stenosis. Right PDA normal. Right PLV small, noncalcified plaque without significant stenosis. Coronary artery calcium score 360, 75th percentile for age, gender, and race in asymptomatic patients. CARDIAC CHAMBERS: The cardiac chambers demonstrate normal atrioventricular and ventriculoarterial concordance, and systemic and pulmonary venous return. LEFT VENTRICLE: Normal size End diastolic volume 102 ml, 51 ml/m2 LEFT VENTRICLE MASS: 143 gm, 72 gm/m2 RIGHT VENTRICLE: Normal size End diastolic volume 165 ml, 83 ml/m2 LEFT ATRIUM: Normal size End systolic volume 66 ml, 33 ml/m2 RIGHT ATRIUM: Normal size End systolic volume 79 ml, 39 ml/m2 INTERATRIAL SEPTUM: Intact. AORTIC VALVE: The aortic valve is trileaflet in morphology. No calcifications. MITRAL VALVE: No thickening/calcificatio n. THORACIC AORTA: The visualized thoracic aorta is normal in course, caliber, and contour. There is no acute aortic pathology, such as dissection, intramural hematoma, or contained rupture. The aortic arch is not included on this examination. PERICARDIUM: There is no pericardial effusion of thickening. IMPRESSION: (more content not included)... [facility] CTA Heart and Coronary arter ies WO and W contrast Toan 06-27-2024 Addendum by Pepe Malave MD on 06/27/2024 12:21 PM EDT Interpreted By: Pepe Malave, ADDENDUM: NON-CARDIOVASCULAR FINDINGS INCLUDED LUNGS, AIRWAYS AND PLEURA Endotracheal / endobronchial lesion: Negative Nodule: Negative Airspace disease: Negative Pleural effusion: Negative Pneumothorax: Negative Other: No acute or contributory unanticipated findings INCLUDED NON-CARDIOVASCULAR JASE AND MEDIASTINUM Adenopathy: Negative Included esophagus: Unremarkable Other: No acute or contributory unanticipated findings INCLUDED BONES: No acute skeletal findings, noting less sensitivity and specificity without dedicated sagittal and coronal reformatted series. INCLUDED CHEST WALL No acute or contributory unanticipated findings INCLUDED UPPER ABDOMEN No acute or contributory unanticipated findings ------- NON-CARDIOVASCULAR IMPRESSION NO ACUTE OR CONTRIBUTORY UNEXPECTED FINDINGS OF THE INCLUDED NON-CARDIOVASCULAR STRUCTURES NOTE THIS ADDENDUM IS SOLELY FOR INTERPRETATION OF ANATOMY OUTSIDE THE CARDIOVASCULAR SYSTEM. INTERPRETATION OF AND REPORTING OF THE CARDIOVASCULAR STRUCTURES ARE THE SOLE RESPONSIBILITY OF THE GAS WELDER APPRENTICE SUBMITTING THE ORIGINAL REPORT (NOT THIS ADDENDUM) Signed by: Pepe Malave 06/27/2024 12:21 PM -------- ORIGINAL REPORT -------- Dictation workstation: [id number] [facility] Work Phone: 1. Mild diffuse coronary artery disease without significant stenosis. 2. Coronary artery calcium score 360, 75th percentile for age, gender, and race in asymptomatic patients. Reading Tax Consultant: Dr. Zohreh Gipson, Date: 06/27/2024 11:36 am Signed by: Zohreh Gipson 06/27/2024 11:38 AM Dictation workstation: [id number] Interpreted By: Zohreh Velasquez, STUDY: CT ANGIO CORONARY ART WITH HEARTFLOW IF SCORE >30%; 06/27/2024 8:44 am INDICATION: Signs/Symptoms:HTN SOB CHEST PAIN. COMPARISON: None. ACCESSION NUMBER(S): [id number] ORDERING CLINICIAN: CHRIS GARCIA TECHNIQUE: Using multi-detector CT technology, Dejuan 64-slice scanner, axial, sequential imaging with retrospective gating was performed of the chest following the intravenous administration of contrast material. A low-osmolar contrast agent was used 75 ml of Omnipaque 350. Using prospective ECG gating, CT scan of the coronary arteries was performed without intravenous contrast. Coronary calcium scoring was performed according to the method of Agatston. The patient was premedicated with atenolol and 0.4 mg sublingual nitroglycerin per protocol for heart rate control and coronary dilation, respectively. For optimization of anatomic evaluation, multiplanar reconstruction, maximum intensity projections, and advanced 3-D off-line postprocessing were performed on a dedicated stand-alone workstation under the direct supervision of the interpreting physician. CT Dose-Length Product (DLP): 838 mGy/cm CT Dose Reduction Employed: Yes iterative reconstruction FINDINGS: The left main is normal sized vessel that bifurcates into the LAD and circumflex. Distal calcified plaque without significant stenosis. LEFT ANTERIOR DESCENDING ARTERY: The LAD is a normal size vessel that wraps around the apex. Proximal calcified plaque without significant stenosis. Mid vessel noncalcified plaque without significant stenosis. LAD gives rise to 2 acute diagonal branches. D1: Proximal noncalcified plaque without significant stenosis. D2: Small, normal. LEFT CIRCUMFLEX ARTERY: The LCfx is a normal size vessel, which is non-dominant. Proximal noncalcified plaque without significant stenosis. Mid vessel calcified plaque without significant stenosis. LCfx gives rise to 2 obtuse marginal branches. OM1 normal. OM2 proximal calcified plaque without significant stenosis. RIGHT CORONARY ARTERY: The RCA is a normal size vessel, which is dominant . It gives rise to a conus branch, chayo branch, and 2 acute marginal branches. In its distal segment it bifurcates into the PDA and PV branch. Proximal/mid calcified plaque without significant stenosis. Distal noncalcified plaque without significant stenosis. Right PDA normal. Right PLV small, noncalcified plaque without significant stenosis. Coronary artery calcium score 360, 75th percentile for age, gender, and race in asymptomatic patients. CARDIAC CHAMBERS: The cardiac chambers demonstrate normal atrioventricular and ventriculoarterial concordance, and systemic and pulmonary venous return. LEFT VENTRICLE: Normal size End diastolic volume 102 ml, 51 ml/m2 LEFT VENTRICLE MASS: 143 gm, 72 gm/m2 RIGHT VENTRICLE: Normal size End diastolic volume 165 ml, 83 ml/m2 LEFT ATRIUM: Normal size End systolic volume 66 ml, 33 ml/m2 RIGHT ATRIUM: Normal size End systolic volume 79 ml, 39 ml/m2 INTERATRIAL SEPTUM: Intact. AORTIC VALVE: The aortic valve is trileaflet in morphology. No calcifications. MITRAL VALVE: No thickening/calcificatio n. THORACIC AORTA: The visualized thoracic aorta is normal in course, caliber, and contour. There is no acute aortic pathology, such as dissection, intramural hematoma, or contained rupture. The aortic arch is not included on this examination. PERICARDIUM: There is no pericardial effusion of thickening. [facility] Zohreh Gipson D O / Pepe Malave MD - 06/27/2024 Interpreted By: Zohreh Gipson, STUDY: CT ANGIO CORONARY ART WITH HEARTFLOW IF SCORE >30%; 06/27/2024 8:44 am INDICATION: Signs/Symptoms:HTN SOB CHEST PAIN. COMPARISON: None. ACCESSION NUMBER(S): [id number] ORDERING CLINICIAN: CHRIS GARCIA TECHNIQUE: Using multi-detector CT technology, Dejuan 64-slice scanner, axial, sequential imaging with retrospective gating was performed of the chest following the intravenous administration of contrast material. A low-osmolar contrast agent was used 75 ml of Omnipaque 350. Using prospective ECG gating, CT scan of the coronary arteries was performed without intravenous contrast. Coronary calcium scoring was performed according to the method of Agatston. The patient was premedicated with atenolol and 0.4 mg sublingual nitroglycerin per protocol for heart rate control and coronary dilation, respectively. For optimization of anatomic evaluation, multiplanar reconstruction, maximum intensity projections, and advanced 3-D off-line postprocessing were performed on a dedicated stand-alone workstation under the direct supervision of the interpreting physician. CT Dose-Length Product (DLP): 838 mGy/cm CT Dose Reduction Employed: Yes iterative reconstruction FINDINGS: The left main is normal sized vessel that bifurcates into the LAD and circumflex. Distal calcified plaque without significant stenosis. LEFT ANTERIOR DESCENDING ARTERY: The LAD is a normal size vessel that wraps around the apex. Proximal calcified plaque without significant stenosis. Mid vessel noncalcified plaque without significant stenosis. LAD gives rise to 2 acute diagonal branches. D1: Proximal noncalcified plaque without significant stenosis. D2: Small, normal. LEFT CIRCUMFLEX ARTERY: The LCfx is a normal size vessel, which is non-dominant. Proximal noncalcified plaque without significant stenosis. Mid vessel calcified plaque without significant stenosis. LCfx gives rise to 2 obtuse marginal branches. OM1 normal. OM2 proximal calcified plaque without significant stenosis. RIGHT CORONARY ARTERY: The RCA is a normal size vessel, which is dominant . It gives rise to a conus branch, chayo branch, and 2 acute marginal branches. In its distal segment it bifurcates into the PDA and PV branch. Proximal/mid calcified plaque without significant stenosis. Distal noncalcified plaque without significant stenosis. Right PDA normal. Right PLV small, noncalcified plaque without significant stenosis. Coronary artery calcium score 360, 75th percentile for age, gender, and race in asymptomatic patients. CARDIAC CHAMBERS: The cardiac chambers demonstrate normal atrioventricular and ventriculoarterial concordance, and systemic and pulmonary venous return. LEFT VENTRICLE: Normal size End diastolic volume 102 ml, 51 ml/m2 LEFT VENTRICLE MASS: 143 gm, 72 gm/m2 RIGHT VENTRICLE: Normal size End diastolic volume 165 ml, 83 ml/m2 LEFT ATRIUM: Normal size End systolic volume 66 ml, 33 ml/m2 RIGHT ATRIUM: Normal size End systolic volume 79 ml, 39 ml/m2 INTERATRIAL SEPTUM: Intact. AORTIC VALVE: The aortic valve is trileaflet in morphology. No calcifications. MITRAL VALVE: No thickening/calcificatio n. THORACIC AORTA: The visualized thoracic aorta is normal in course, caliber, and contour. There is no acute aortic pathology, such as dissection, intramural hematoma, or contained rupture. The aortic arch is not included on this examination. PERICARDIUM: There is no pericardial effusion of thickening. IMPRESSION: 1. Mild diffuse coronary artery disease without significant stenosis. 2. Coronary artery calcium score 360, 75th percentile for age, gender, and race in asymptomatic patients. Reading Tax Consultant: Dr. Zohreh Gipson, Date: 06/27/2024 11:36 am Signed by: Zohreh Gipson 06/27/2024 11:38 AM Dictation workstation: [id number] [facility] Work Phone: [facility] Work Phone: Radiology Study observation (narrative) [facility] Work Phone: EMG(NEURO/NI)on 06-24-2024 Results can be seen in attached scanned documents. If you are a patient reviewing this test result, call the doctor who ordered the test with any questions. [facility] Creatinineon 06-14-2024 Creatinine [Mass/Vol] 1.0 mg/dL Normal 0.5-1.3 [facility] Comment on above: Performed By: #### [id number] #### [facility] [address] [place] [address] eGFRon 06-14-2024 eGFR 83 mL/min/1.73 m2 Normal >=59 [facility] Comment on above: Performed By: #### 1 [id number] #### [facility] [address] [place] [address] CNOVon 06-13-2024 CNOV Office Visit (LOORRM ) DORIRACHID ARMIJO ([id number]) 1955 M Date Time Provider Department 06/13/24 10:20 AM SANDY BHATT During your visit today, we recorded the following information about you: Sandy Bhatt MD 06/13/2024 10:07 AM Signed Rachid Mcnair is a patient of Sai Yost MD. CHIEF COMPLAINT: Rachid Mcnair is a 68 year old male who presents today for new evaluation. HISTORY OF PRESENT ILLNESS: PAIN EVALUATION 06/12/2024 0953 Pain Level: 0 Pain Location: -- philomena hand Description: Sore weakness, to the right index and middle and thumb Duration Units: Years Frequency: Continuous Intervention/Comfort measure: Reposition Comments: Pt is here for bilateral pain and weakness x 12 years. He denies any injury. He reports he had cervical surgery 08/2016 by at [facility]. He reports weakness to the right hand which is worse than the left. He is right handed. He denies any pain today. He states he has difficulty doing normal ADL's. He says his right thumb, index and middle fingers are . He reports his symptoms to the left hand started 3 months ago. right-hand dominant. Work Related: No Occupation: retired Injury: No Mechanical Symptoms: No, patient denies locking, popping, or catching He localizes pain to the whole hand, R>L. Left just started Accident several years ago and tore , followed in [facility] He notes that this problem exhibits no specific aggravating factors. He notes that this problem exhibits no specific alleviating factors. associated symptoms of numbness in the fingers PREVIOUS TREATMENT HISTORY: Prior Surgery in location of pain: Yes: cervical surgery 08/2016 by at [facility] PHYSICAL EXAMINATION: BL HAND AND WRIST EXAM Inspection: significant atrophy of hands, R>L Range of Motion: Finger: normal ROM of all joints of all fingers of both hands Wrist Flexion: normal ROM when compared to the contralateral side Wrist Extension: normal ROM when compared to the contralateral side Wrist Ulnar deviation: normal ROM when compared to the contralateral side Wrist Radial Deviation: normal ROM when compared to the contralateral side Muscle Strength: Wrist extension (C6): 5/5 Wrist flexion (C7): 5/5 Finger abduction: 5/5 Neurologic: Dorsal thumb (radial nerve): Normal sensation to light touch Index finger (median nerve): Normal sensation to light touch 5th finger (ulnar nerve): Normal sensation to light touch Hitchhike sign (PIN): 5/5 Ok sign (AIN): 5/5 IMAGING: Final results and radiologist's interpretation, available in the [facility] health record. Images were reviewed with the patient/family members in the office today. My personal interpretation of the performed imaging: Scattered chronic degenerative changes LABS: No results found for: HBA1C Creatinine Date Value Ref Range Status 10/01/2011 1.08 0.70 - 1.40 mg/dL Final 09/24/2011 0.81 0.70 - 1.40 mg/dL Final CLINICAL IMPRESSION / ASSESSMENT: (M62.541, M62.542) Atrophy of muscle of both hands (primary encounter diagnosis) RECOMMENDATION / PLAN: Severe atrophy w/ h/o cervical surgery in October 2023 at [facility], records unavailable at this time Will obtain EMG Consider cervical XR or MRI Consider referral to hand vs spine Follow up: after EMG is complete to discuss results and next step in management Films prior to visit: No additional imaging warranted. Pertinent previous records and images reviewed. Verbal health education was given to patient. Patient verbalizes understanding and agrees with the treatment plan as detailed above. Sandy Bhatt MD [facility] Sports and Exercise Medicine Medical Decision Making Sandy Bhatt MD 06/13/2024 9:57 AM Signed Please note that you are responsible for making the follow-up appointment following your MRI. This appointment should be made at the same time you are scheduling your MRI so that you do not have to wait for a follow-up. Referring Provider: SELF [[id number]] Allergies As of Date: 06/13/2024 Noted Allergy Reaction SULFA (SULFONAMIDE ANTIBIOTICS) 09/10/2011 2 - Rash Date Reviewed: 06/13/2024 Reviewed by: Katie Amato LPN - Fully Assessed Reason for Visit: New [939151] Pain [78] New [293440] Pain [78] Primary Visit Diagnosis: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, M62.542] Order(s):EMG(NEURO/NI) [[id number]] Order #: [id number]: 1 FUTURE Prescriptions as of 06/13/2024 - Amoxicillin 500 mg tablet Take four (4) capsules one (1) hour before Dental surgery - oxyCODONE-acetaminophen 5-325 mg tablet Take 1 tablet by mouth every 4 hours as needed. - enoxaparin 40 mg/0.4 mL Syrg Inject 0.4 mL subcutaneously once daily. - docusate sodium 100 mg capsule Take 1 capsule by mouth twice daily. - citalopram 20 mg tablet Take 20 mg by mouth (more content not included)... Normal [facility] XR HAND 3V PA/LAT/OBL BILon 06-13-2024 XR HAND 3V PA/LAT/OBL PHILOMENA * * *Final Report* * * DATE OF EXAM: Jun 13 2024 9:28AM LZX 5556 - XR HAND 3V PA/LAT/OBL PHILOMENA / PROCEDURE REASON: Pain * * * * Physician Interpretation * * * * EXAMINATION / TECHNIQUE: XR HAND 3V PA/LAT/OBL PHILOMENA PATIENT/TECHNOLOGIST PROVIDED HISTORY: BILATERAL HAND PAIN, PAIN WORSE IN RIGHT HAND CLINICAL INFORMATION ( PROVIDED BY ORDERING CLINICIAN) : Pain COMPARISON: None RESULT: No acute fracture or dislocation. Severe bilateral triscaphe and moderate bilateral first CMC joint space narrowing. Mild scattered IP joint space narrowing. No erosions. Chondrocalcinosis of the TFCC bilaterally. 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 Rig Manager: PSC[facility] Transcribe Date/Time: Jun 13 2024 9:37A Dictated by : LEANN OCHOA DO This examination was interpreted and the report reviewed and electronically signed by: BAO GAMBINO MD on Jun 13 2024 3:05PM EST DIVISION OF RADIOLOGY * * *Final Report* * * DATE OF EXAM: Jun 13 2024 9:28AM LZX 5556 - XR HAND 3V PA/LAT/OBL PHILOMENA / PROCEDURE REASON: Pain * * * * Physician Interpretation * * * * EXAMINATION / TECHNIQUE: XR HAND 3V PA/LAT/OBL PHILOMENA PATIENT/TECHNOLOGIST PROVIDED HISTORY: BILATERAL HAND PAIN, PAIN WORSE IN RIGHT HAND CLINICAL INFORMATION ( PROVIDED BY ORDERING CLINICIAN) : Pain COMPARISON: None RESULT: No acute fracture or dislocation. Severe bilateral triscaphe and moderate bilateral first CMC joint space narrowing. Mild scattered IP joint space narrowing. No erosions. Chondrocalcinosis of the TFCC bilaterally. DIVISION OF RADIOLOGY Provider, [facility] - 06/13/2024 * * *Final Report* * * DATE OF EXAM: Jun 13 2024 9:28AM LZX 5556 - XR HAND 3V PA/LAT/OBL PHILOMENA / PROCEDURE REASON: Pain * * * * Physician Interpretation * * * * EXAMINATION / TECHNIQUE: XR HAND 3V PA/LAT/OBL PHILOMENA PATIENT/TECHNOLOGIST PROVIDED HISTORY: BILATERAL HAND PAIN, PAIN WORSE IN RIGHT HAND CLINICAL INFORMATION ( PROVIDED BY ORDERING CLINICIAN) : Pain COMPARISON: None RESULT: No acute fracture or dislocation. Severe bilateral triscaphe and moderate bilateral first CMC joint space narrowing. Mild scattered IP joint space narrowing. No erosions. Chondrocalcinosis of the TFCC bilaterally. 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 Rig Manager: ISIDRO Transcribe Date/Time: Jun 13 2024 9:37A Dictated by : LEANN OCHOA DO This examination was interpreted and the report reviewed and electronically signed by: BAO GAMBINO MD on Jun 13 2024 3:05PM EST [facility] Radiology Study observation (narrative) [facility] XR Hand - bilateral PA and L ateral and ObliqueOrdered By: Ccf Provider on 06-13-2024 [facility] Heart and Vascular Office/Cl inic Noteon 06-12-2024 Heart and Vascular Office/Clinic Note Heart and Vascular Office/Clinic Note Chief Complaint f/u testing History of Present Illness The patient is a 68-year-old male who was initially referred due to issues with chest discomfort for 3 to 4 weeks, described as achy and tight sensation in his left upper and lower chest areas associated with some shortness of breath. His cardiac workup included pretty unremarkable ECG. Following his initial appointment on May 11 2024, he had a transthoracic echocardiogram, as well as plain exercise stress test. Echocardiogram showed normal LVEF, grade 2 diastolic dysfunction. Stress test was just performed and showed fair tolerance to physical exercise, baseline hypertension with normal blood pressure response. ECG was quite unremarkable. He presents today with similar symptoms. Review of Systems PHQ Score Initial Depression Screen Score: 0 SCORE ROS - Provider Constitutional: no fever, no chills, no fatigue Skin:no rash, no lesions ENMT: no ear pain, no sore throat, no congestion. Respiratory: no shortness of breath, no cough, no wheezing. Cardiovascular: yes chest pain, no palpitations, no edema. Gastrointestinal: no nausea, no vomiting, no diarrhea, no GI bleeding. Genitourinary: no dysuria, no frequencyno hematuria Musculoskeletal: no back pain, no trauma. Neurologic: no headache, no dizziness, no numbness, no weakness. Psychiatric: no sleeping problems, no irritability, no mood swings/depression. Heme/Lymph: no bleeding tendency, no bruising tendency, no petechiae, Allergy/Immuno logic: no seasonal allergies, no food allergies, no recurrent infections Physical Exam Vitals & Measurements HR: 90(Peripheral) RR: 16 BP: 152/98 SpO2: 97% HT: 71 in HT: 180 cm WT: 80.0 kg WT: 176.37 lb BMI: 24.69 General: alert, no acute distress Neck: Supple, noJVD nocarotid bruit Cardiovascular: regular rate and rhythm, no murmur normal peripheral perfusion Respiratory: Lungs CTAB, respirations non labored Extremities: no edema left lower extremity. no edema right lower extremity Neurological: oriented x 4, LOC appropriate for age, speech normal Skin: Warm, dry, intact- no rash or concerning lesions Procedure (05/24/2024 11:24 EST Echo Transthoracic Complete) [place] [address] Adult Echocardiogram Report Name: RACHID MCNAIR Study Date: 05/24/2024 10:49 AM BP: 151/103 mmHg Patient Location: [facility] Ambulatory(s) [facility] [place] HR: 91 : 1955 Gender: Male Height: 71 in Age: 68 yrs Ethnicity: [facility] Weight: 170 lb Reason For Study: HTN, R07.9;Chest pain BSA: 2.0 m2 History: HTN, DM Ordering Physician: Chris Garcia Referring Physician: Chris Garcia Performed By: Elizabet Ruiz, [facility] Interpretation Summary moderate left ventricular hypertrophy. Left ventricular systolic function is normal. Ejection Fraction = 55-60%. The left ventricular wall motion is normal. Diastolic dysfunction, Grade II (pseudonormalization pattern). There is no pericardial effusion. No significant valvular disease. [1] Assessment/Plan 1. Chest pain, unspecified (R07.9: Chest pain, unspecified) Still, differential diagnosis between musculoskeletal and anginal. White treadmill score is 5, indicating low risk, however, the patient continues to have occasional symptoms therefore I would like to proceed with a CCTA to rule out obstructive CAD. 2. Essential (primary) hypertension (I10: Essential (primary) hypertension) Pressure is elevated. I would like to start the patient on Toprol-XL 50 mg daily, especially in the setting of diastolic dysfunction. Follow-up No qualifying data available After CCTA Problem List/Past Medical History Ongoing BMI 25.0-25.9,adult Body mass index (BMI) of 24.0-24.9 in adult Jessica onychomycosis Chest pain, unspecified Cholesterol Essential (primary) hypertension Former smoker Gastro-esophageal reflux disease without esophagitis GERD (gastroesophageal reflux disease) HTN Muscle wasting and atrophy, not elsewhere classified, unspecified hand Numbness of hand Overweight (BMI 25.0-29.9) Physical exam Prostate cancer screening Screening for prostate cancer Type 2 diabetes mellitus without complications Historical No qualifying data Procedure/Surgical History Arthroplasty of the hip (02/08/2018), rt shoulder scope ext debridement, sad, pt distal clavulectomy (10/06/2016), left shoulder manipulation under anesthesia, left shoulder arthroscopy with subacromial decompression, partial distal clavulectomy with extensive glenohumeral debridement, mini-open rotator cuff repair (04/28/2013), Cataracts, elbow, lower back surgery, right hip surgery, spinal neck surgery. Medications aspirin 81 mg oral capsule, 81 mg, Oral, Daily, 1 refills atorvastatin 20 mg Tab, 20 mg= 1 tab(s), Oral, Daily, 4 refills hydrochlorothiazide 12.5 mg Cap, 12.5 mg= 1 cap(s), Oral, Daily, 6 refills Januvia 100 mg Tab (more content not included)... Normal [facility] Comment on above: Result Comment: Elec tronically Signed By: Radha PARKER, Chris Shaver\.br\Date and Time Signed: 06/12/24 09:28 EST Heart and Vascular Office/ inic Noteon 05-11-2024 Heart and Vascular Office/Clinic Note Heart and Vascular Office/Clinic Note Chief Complaint New patient Chest Pain History of Present Illness The patient is a 68-year-old male who was referred due to issues with chest discomfort. This has been going on for 3-4 weeks, at least. He describes it as achy and tight sensation in his left upper and lower chest areas, associate with some shortness of breath. The discomfort is lasting for minutes, approximately 20-30, no association with physical exertion. Recent visit to the ER by recommendations of primary services, workup, which included ECG, serial cardiac biomarkers, BNP, was unremarkable. He is a type II diabetic for several years, history of hypertension. He reports no precautions CAD family history. Review of Systems PHQ Score Initial Depression Screen Score: 0 SCORE ROS - Provider Constitutional: no fever, no chills, no fatigue Skin:no rash, no lesions ENMT: no ear pain, no sore throat, no congestion. Respiratory: yes shortness of breath, no cough, no wheezing. Cardiovascular: yes chest pain, no palpitations, no edema. Gastrointestinal: no nausea, no vomiting, no diarrhea, no GI bleeding. Genitourinary: no dysuria, no frequencyno hematuria Musculoskeletal: no back pain, no trauma. Neurologic: no headache, no dizziness, no numbness, no weakness. Psychiatric: no sleeping problems, no irritability, no mood swings/depression. Heme/Lymph: no bleeding tendency, no bruising tendency, no petechiae, Allergy/Immuno logic: no seasonal allergies, no food allergies, no recurrent infections Physical Exam Vitals & Measurements HR: 96(Peripheral) RR: 18 BP: 170/90 SpO2: 97% HT: 71 in HT: 180 cm WT: 79.0 kg WT: 174.165 lb BMI: 24.38 General: alert, no acute distress Neck: Supple, noJVD nocarotid bruit Cardiovascular: regular rate and rhythm, no murmur normal peripheral perfusion Respiratory: Lungs CTAB, respirations non labored Extremities: no edema left lower extremity. no edema right lower extremity Neurological: oriented x 4, LOC appropriate for age, speech normal Skin: Warm, dry, intact- no rash or concerning lesions Assessment/Plan 1. Chest pain, unspecified (R07.9: Chest pain, unspecified) Chest pain in a patient with no known history of coronary artery disease. ECG demonstrated no ischemic changes. Serial cardiac enzymes were negative. I believe differential diagnosis is between musculoskeletal chest pain and atypical angina. I would like to order a cardiac workup which will include a transthoracic echocardiogram, and, if unremarkable, exercise stress test. 2. Essential (primary) hypertension (I10: Essential (primary) hypertension) Blood pressure is elevated. I will take a liberty to start HCTZ 12.5 mg daily. Orders: ECG 12 Lead Adult Follow-up No qualifying data available Problem List/Past Medical History Ongoing BMI 25.0-25.9,adult Body mass index (BMI) of 24.0-24.9 in adult Jessica onychomycosis Chest pain, unspecified Cholesterol Essential (primary) hypertension Former smoker Gastro-esophageal reflux disease without esophagitis GERD (gastroesophageal reflux disease) HTN Muscle wasting and atrophy, not elsewhere classified, unspecified hand Numbness of hand Overweight (BMI 25.0-29.9) Physical exam Prostate cancer screening Screening for prostate cancer Type 2 diabetes mellitus without complications Historical No qualifying data Procedure/Surgical History Arthroplasty of the hip (02/08/2018), rt shoulder scope ext debridement, sad, pt distal clavulectomy (10/06/2016), left shoulder manipulation under anesthesia, left shoulder arthroscopy with subacromial decompression, partial distal clavulectomy with extensive glenohumeral debridement, mini-open rotator cuff repair (04/28/2013), Cataracts, elbow, lower back surgery, right hip surgery, spinal neck surgery. Medications aspirin 81 mg oral capsule, 81 mg, Oral, Daily, 1 refills atorvastatin 20 mg Tab, 20 mg= 1 tab(s), Oral, Daily, 4 refills Januvia 100 mg Tab, See Instructions losartan 100 mg Tab, 100 mg= 1 tab(s), Oral, Daily, 4 refills metformin 500 mg Tab, See Instructions Misc DME Prescription, See Instructions, 3 refills Misc DME Prescription, See Instructions, 3 refills Misc DME Prescription, See Instructions, 3 refills omeprazole 20 mg Cap-DR, See Instructions terbinafine 250 mg Tab, See Instructions venlafaxine 25 mg Tab, 25 mg= 1 tab(s), Oral, Daily, 4 refills Allergies sulfamethoxazole Social History Alcohol - Medium Risk, 04/24/2013 Current. Beer. 1-2 times per week., 05/05/2024 Current, Beer, 3-5 times per week, Previous treatment: None. Alcohol use interferes with work or home: No. Drinks more than intended: No. Others hurt by drinking: No. Ready to change: No. Household alcohol concerns: No., 04/24/2013 Substance Abuse - Denies Substance Abuse, 04/24/2013 Never., 05/05/2024 Tobacco - Denies Tobacco Use, 04/24/2013 Former smoker, quit more than 30 days ago Tobacco Use:. N (more content not included)... Normal [facility] Comment on above: Result Comment: Elec tronically Signed By: Radha PARKER, Chris Coppola.fidel\Date and Time Signed: 05/11/24 09:25 EST ED Note-Physicianon 05-10-19 ED Note-Physician ED Note-Physician Basic Information Time Seen: Chema Cho DO 05/08/2024 10:56 Chief Complaint pt reports chest prssure and sob with exertion, states was seen by pcp today and told to come in, nimco any heart hx. History of Present Illness Patient is a 68 year old male with a PMH of hypertension, hyperlipidemia, and T2DM who presents to the ED today at the recommendation of his PCP following a visit this morning. Patient states that he has had some chest pain going on for the past few weeks. He describes the feeling as achy. He endorses some SOB as well. He denies any fevers, chills, headaches, vision changes, abdominal pain, and n/v/d. He reports that his pain has not got any worse or better since this started. Hew states the pain is roughly the same at rest and exertion. He denies any COPD or heart history. Patient states that his pain is a 7/10 a time of triage in the ED. patient states that this is in his left chest near his left shoulder does seem to be reproducible when he turns his head a certain direction or if he presses on the area. He denies any injury to the area. He states this has been very persistent for several weeks without any exertional component. Patient did have a stress test many years ago that was negative. No other aggravating or relieving factors no other associated symptoms no other prior treatments or complaints. Family: Reviewed and noncontributory Social: lives at home Review of systems negative unless otherwise specified in the HPI. Physical Exam Vitals & Measurements T: 36.5 ???C(Oral) HR: 68(Monitored) RR: 18 BP: 179/103 SpO2: 98% HT: 180 cm WT: 81.4 kg BMI: 25.12 General: alert, no acute distress Skin: warm, dry Head: no trauma, normocephalic Neck: Trachea midline, no adenopathy, no tenderness, thyroid not enlarged Eye: normal conjunctiva, sclera clear ENMT: oral mucosa moist, yes Cardiovascular: regular rate and rhythm, normal Respiratory: respirations non labored Chest wall: no deformity. Gastrointestinal: soft, non distended, no tenderness Back: No tenderness Extremities: no edema, no wound Neurological: awake, alert, oriented, speech normal Psychiatric: cooperative, affect appropriate for age Procedure Heart Score for Major Cardiac Event History: Example factors for history - pattern of chest pain, onset, duration, relation with exercise, stress or cold, localization, concominant symptoms. reaction to sublingual nitrates, [] Highly suspicious +2 [] Moderately suspicious +1 [x] Slightly suspicious 0 EKG: [] Significant ST-Depression +2 [] Non specific repolarization disturbance +1 [x] Normal 0 Age: [x] >= 65 +2 [] 45-65 + 1 [] <45 0 Risk Factors: (HLD, HTN, DM, Cigarette Smoking, Pos Family Hx, Obesity) [] >3 risk factors or hx of atheroslerotic disease + 2 [x] 1-2 risk factors + 1 [] No risk factors known 0 Troponin: [] >= 3X normal + 2 [] 1-3X normal + 1 [x] <= Normal 0 [x] 0-3 Points 0.9 - 1.7% risk of major adverse cardiac event in 6 weeks [] 4-6 Points 12-16.6% risk of major adverse cardiac event in 6 weeks [] 7-10 Points 50-65% risk of major adverse cardiac event in 6 weeks [] 0-3 Points with 2 sets of negative cardiac markers <1% risk of major adverse cardiac event in 30 days. Medical Decision Making Workup in the ER has been reviewed and noted. Workup here is essentially benign including cardiac enzymes which are negative. Chest x-ray is benign. Patient does have elevated blood pressure stating that he did take his blood pressure medicines earlier this morning. I do not think this is a cardiac type of pain given there is no exertional component this does seem somewhat reproducible, however given his age and risk factors we talked about being admitted versus going home. He would prefer to go home I do think this is reasonable we will set him up for cardiology follow-up in the outpatient setting he will be given referral with likely stress test needed in the outpatient setting as well. We also talked about return precautions and he is comfortable being discharged home at this time. I, Dr. Cho had a [id number] interaction with the patient. I personally performed a physical exam and medical decision making. I have verified the documentation by the student as accurately representing the information obtained. Assessment/Plan Chest pain (R07.9: Chest pain, unspecified) Orders: B-Type Natriuretic Peptide Basic Metabolic Panel CBC w/ Auto Diff ED Cardiac Monitoring eGFR Extra SST Tube Oxygen Saturation Oxygen Therapy PT & PTT Saline Lock Insert Troponin 0 Hr. Troponin 1 Hr. XR Chest Single View Disposition Plan Discharge Prescription List Prescriptions No active prescription medications Follow-up With When Contact Informatio (more content not included)... Normal [facility] Comment on above: Result Comment: Elec tronically Signed By: Chema Cho DO\.br\Date and Time Signed: 05/08/24 12:45 EST Ambulatory Visit Summaryon 0 05-08-2024 Ambulatory Visit Summary Ambulatory Visit Summary RACHID MCNAIR :1955 Visit Date:05/08/2024 Ambulatory Visit Instructions Your Care Team Attending Physician - Maxwell Ontiveros MD Primary Care Physician - Maxwell Ontiveros MD This Is Your Medications List Misc Prescription (Misc DME Prescription) Misc Prescription (Misc DME Prescription) Misc Prescription (Misc DME Prescription) aspirin (aspirin 81 mg oral capsule) atorvastatin (atorvastatin 20 mg Tab) losartan (losartan 100 mg Tab) metformin (metformin 500 mg Tab) omeprazole (omeprazole 20 mg Cap-DR) sitagliptin (Januvia 100 mg Tab) terbinafine (terbinafine 250 mg Tab) venlafaxine (venlafaxine 25 mg Tab) Procedures Performed Arthroplasty of the hip (02/08/2018), rt shoulder scope ext debridement, sad, pt distal clavulectomy (10/06/2016), left shoulder manipulation under anesthesia, left shoulder arthroscopy with subacromial decompression, partial distal clavulectomy with extensive glenohumeral debridement, mini-open rotator cuff repair (04/28/2013), Cataracts, elbow, lower back surgery, right hip surgery, spinal neck surgery. Discharge Vitals Temperature (Tympanic) 36.0 ???C Heart Rate (Peripheral) 88 Respiratory Rate 18 Blood Pressure 138/84 Height 180 cm Height 71 in Weight 81.4 kg Weight 179.456 lb BMI 25.12 Medications What How Much When Instructions Unchanged aspirin (aspirin 81 mg oral capsule) 81 Milligram By Mouth Every day Unchanged atorvastatin (atorvastatin 20 mg Tab) 1 Tablets By Mouth Every day Unchanged losartan (losartan 100 mg Tab) 1 Tablets By Mouth Every day Unchanged metformin (metformin 500 mg Tab) See instructions TAKE 1 TABLET BY MOUTH TWICE DAILY Unchanged Misc Prescription ([facility] Prescription) See instructions microlet lancets Use to test blood sugars once a day Dx E11.9 Unchanged Misc Prescription ([facility] Prescription) See instructions Contour next test strips Test blood sugars once a day Dx E11.9 [facility]) See instructions control solution for contour next glucometer Dx E11.9 Use as directed for control check Unchanged omeprazole (omeprazole 20 mg Cap-DR) See instructions Take 1 capsule by mouth once daily Unchanged sitagliptin (Januvia 100 mg Tab) See instructions TAKE 1 TABLET BY MOUTH DAILY Unchanged terbinafine (terbinafine 250 mg Tab) See instructions TAKE 1 TAB TWICE A DAY, USE FOR 1 WEEK THEN TAKE 3 WEEKS OFF Unchanged venlafaxine (venlafaxine 25 mg Tab) 1 Tablets By Mouth Every day Allergies sulfamethoxazole Problems Ongoing - Any problem that you are currently receiving treatment for. Body mass index (BMI) of 24.0-24.9 in adult Jessica onychomycosis Chest pain, unspecified Cholesterol Essential (primary) hypertension Former smoker Gastro-esophageal reflux disease without esophagitis GERD (gastroesophageal reflux disease) HTN Muscle wasting and atrophy, not elsewhere classified, unspecified hand Numbness of hand Physical exam Prostate cancer screening Screening for prostate cancer Type 2 diabetes mellitus without complication, without long-term current use of insulin Type 2 diabetes mellitus without complications Patient Survey You may receive a survey via text or e-mail asking about your office visit. Please share your experience with us by completing your survey. We appreciate your feedback and thank you for choosing us for your care. Normal [facility] BMPon 05-08-2024 Anion gap [Moles/Vol] 11 mmol/L Normal 6-16 [facility] Comment on above: Performed By: #### 2 [id number] #### [facility] [address] [place] [address] Calcium [Mass/Vol] 9.3 mg/dL Normal 8.9-11.1 [facility] Comment on above: Performed By: #### 2 [id number] #### [facility] [address] [place] [address] Chloride [Moles/Vol] 104 mmol/L Normal 101-111 [facility] Comment on above: Performed By: #### 2 [id number] #### [facility] [address] [place] [address] CO2 [Moles/Vol] 26 mmol/L Normal 21-31 [facility] Comment on above: Performed By: #### 2 [id number] #### [facility] [address] [place] [address] Creatinine [Mass/Vol] 1.0 mg/dL Normal 0.5-1.3 [facility] Comment on above: Performed By: #### 2 [id number] #### [facility] [address] [place] [address] Glucose [Mass/Vol] 140 mg/dL Normal 55-199 [facility] Comment on above: Performed By: #### 2 [id number] #### [facility] [address] [place] [address] Potassium [Moles/Vol] 4.2 mmol/L Normal 3.5-5.3 [facility] Comment on above: Performed By: #### 2 [id number] #### [facility] [address] [place] [address] Sodium [Moles/Vol] 137 mmol/L Normal 135-145 [facility] Comment on above: Performed By: #### 2 [id number] #### [facility] [address] [place] [address] Urea nitrogen [Mass/Vol] 13 mg/dL Normal 5-21 [facility] Comment on above: Performed By: #### 2 [id number] #### [facility] [address] [place] [address] Urea nitrogen/Creatinin e [Mass ratio] 13 No Units Normal 10-20 [facility] Comment on above: Performed By: #### 2 [id number] #### [facility] [address] [place] [address] BNPon 5 Natriuretic peptide B (Bld) [Mass/Vol] 10 pg/mL Normal 5-80 [facility] Comment on above: Performed By: #### 1 [id number] #### [facility] [address] [place] [address] CBC w/ Auto Diffon 5 Basophils/100 WBC (Bld) 1.0 % Normal 0.0-2.0 [facility] Comment on above: Performed By: #### 2 [id number] #### [facility] [address] [place] [address] Basophils/Leukocyt es Auto (Bld) [Pure # fraction] 0.1 E9/L Normal 0.0-0.2 [facility] Comment on above: Performed By: #### 2 [id number] #### [facility] [address] [place] [address] Eosinophils (Bld) [#/Vol] 0.2 E9/L Normal 0.0-0.5 [facility] Comment on above: Performed By: #### 2 [id number] #### [facility] [address] [place] [address] Eosinophils/100 WBC (Bld) 3.2 % Normal 0.0-8.0 [facility] Comment on above: Performed By: #### 2 [id number] #### [facility] [address] [place] [address] Erythrocyte distribution width (RBC) [Ratio] 13.5 % Normal 10.9-14.2 [facility] Comment on above: Performed By: #### 2 [id number] #### [facility] [address] [place] [address] Hematocrit (Bld) [Volume fraction] 40.5 % Normal 37.7-49.0 [facility] Comment on above: Performed By: #### 2 [id number] #### [facility] [address] [place] [address] Hemoglobin (Bld) [Mass/Vol] 14.5 g/dL Normal 13.5-17.5 [facility] Comment on above: Performed By: #### 2 [id number] #### [facility] [address] [place] [address] Lymphocytes (Bld) [#/Vol] 1.7 E9/L Normal 1.0-4.0 [facility] Comment on above: Performed By: #### 2 [id number] #### [facility] [address] [place] [address] Lymphocytes/100 WBC (Bld) 24.9 % Normal 14.0-50.0 [facility] Comment on above: Performed By: #### 2 [id number] #### [facility] [address] [place] [address] MCH (RBC) [Entitic mass] 31.1 pg Normal 27.0-34.0 [facility] Comment on above: Performed By: #### 2 [id number] #### [facility] [address] [place] [address] MCHC (RBC) [Mass/Vol] 35.7 g/dL Normal 31.4-36.0 [facility] Comment on above: Performed By: #### 2 [id number] #### [facility] [address] [place] [address] MCV (RBC) [Entitic vol] 87.3 fL Normal 80.0-100.0 [facility] Comment on above: Performed By: #### 2 [id number] #### [facility] [address] [place] [address] Monocytes (Bld) [#/Vol] 0.5 E9/L Normal 0.2-1.0 [facility] Comment on above: Performed By: #### 2 [id number] #### [facility] [address] [place] [address] Neutrophils (Bld) [#/Vol] 4.3 E9/L Normal 2.0-7.5 [facility] Comment on above: Performed By: #### 2 [id number] #### [facility] [address] [place] [address] Neutrophils/100 WBC (Bld) 63.8 % Normal 36.0-75.0 [facility] Comment on above: Performed By: #### 2 [id number] #### [facility] [address] [place] [address] Platelet 286.0 E9/L Normal 150.0-500.0 [facility] Comment on above: Performed By: #### 2 [id number] #### [facility] [address] [place] [address] Platelet mean volume (Bld) [Entitic vol] 7.4 fL Normal 6.4-10.8 [facility] Comment on above: Performed By: #### 2 [id number] #### [facility] [address] [place] [address] RBC (Bld) [#/Vol] 4.6 E12/L Normal 4.3-5.9 [facility] Comment on above: Performed By: #### 2 [id number] #### [facility] [address] [place] [address] WBC corrected for nucl RBC Auto (Bld) [#/Vol] 6.8 E9/L Normal 4.0-11.0 [facility] Comment on above: Performed By: #### 2 [id number] #### [facility] [address] [place] [address] ED Clinical Summaryon 2024 ED Clinical Summary ED Clinical Summary [address] [address] ED Clinical Summary Person Information Name: RACHID MCNAIR [place] Age: 68 Years : 1955 Sex: Male Language: Korean PCP: Maxwell Ontiveros MD Marital Status: Visit Id: Visit Reason: Shortness of breath; Chest pain; HEART PRESSURE Speciality: Acuity: 3 Enc Type: Emergency Med Service: Emergency Arrival: 05/08/2024 10:47:27 Discharge: 05/08/2024 12:55:56 LOS: 000 02:08 Checkin: 05/08/2024 10:47:27 Checkout: 05/08/2024 12:55:56 Dispo Type: Home (Routine DC) EVENTS: Event Name Event Status Request Date/Time Start Date/Time Complete Date/Time Arrive Complete 05/08/2024 10:47:27 05/08/2024 10:47:27 05/08/2024 10:47:27 Document Home Meds Request 05/08/2024 10:47:27 Triage Complete 05/08/2024 10:47:27 05/08/2024 10:53:06 05/08/2024 10:53:06 Bed Assign Complete 05/08/2024 10:50:48 05/08/2024 10:50:48 05/08/2024 10:50:48 Dr Exam Complete 05/08/2024 10:50:48 05/08/2024 10:56:28 05/08/2024 10:56:28 RN Exam Complete 05/08/2024 10:50:48 05/08/2024 11:03:21 05/08/2024 11:03:21 EKG Complete 05/08/2024 10:51:19 05/08/2024 10:56:32 Registration Complete 05/08/2024 10:56:28 05/08/2024 11:53:26 05/08/2024 11:53:26 Dr Exam Complete 05/08/2024 10:56:51 05/08/2024 10:56:51 05/08/2024 10:56:51 Pending Labs Complete 05/08/2024 10:59:19 05/08/2024 12:34:25 Lab Complete 05/08/2024 10:59:19 05/08/2024 11:52:45 Patient Care Request 05/08/2024 10:59:19 RT Request 05/08/2024 10:59:19 X-Ray Complete 05/08/2024 10:59:19 05/08/2024 11:21:48 05/08/2024 11:28:34 Pending Labs Complete 05/08/2024 11:13:50 05/08/2024 11:13:50 05/08/2024 11:38:23 Lab Complete 05/08/2024 11:13:50 05/08/2024 11:13:50 05/08/2024 11:38:23 Wet Read Complete 05/08/2024 11:28:34 05/08/2024 11:54:05 05/08/2024 11:54:05 Reg Complete Request 05/08/2024 11:53:26 Reg Bed Request Complete 05/08/2024 11:53:26 05/08/2024 11:53:26 05/08/2024 11:53:26 Pending Labs Complete 05/08/2024 12:19:39 05/08/2024 12:19:39 05/08/2024 12:19:40 Discharge Complete 05/08/2024 12:42:20 05/08/2024 12:56:05 05/08/2024 12:56:05 Transfer Complete 05/08/2024 12:56:05 05/08/2024 12:56:05 05/08/2024 12:56:05 ADDRESS: [address] [place] [phone] [facility] DOC NOTES: MEDICAL INFORMATION: Prescriptions Given: Medications to Continue with No Changes Other Medications aspirin (aspirin 81 mg oral capsule) 81 Milligram By Mouth every day. Refills: 1. atorvastatin (atorvastatin 20 mg Tab) 1 Tablets By Mouth every day. Refills: 4. losartan (losartan 100 mg Tab) 1 Tablets By Mouth every day. Refills: 4. metformin (metformin 500 mg Tab) TAKE 1 TABLET BY MOUTH TWICE DAILY. Refills: 3. Misc Prescription ([facility] Prescription) microlet lancets Use to test blood sugars once a day Dx E11.9. Refills: 3. Misc Prescription ([facility] D[facility] Prescription) Contour next test strips Test blood sugars once a day Dx E11.9. Refills: 3. Misc Prescription ([facility] Prescription) control solution for contour next glucometer Dx E11.9 Use as directed for control check. Refills: 3. omeprazole (omeprazole 20 mg Cap-DR) Take 1 capsule by mouth once daily. Refills: 0. sitagliptin (Januvia 100 mg Tab) TAKE 1 TABLET BY MOUTH DAILY. Refills: 3. terbinafine (terbinafine 250 mg Tab) TAKE 1 TAB TWICE A DAY, USE FOR 1 WEEK THEN TAKE 3 WEEKS OFF. Refills: 0. venlafaxine (venlafaxine 25 mg Tab) 1 Tablets By Mouth every day. Refills: 4. PATIENT EDUCATION INFORMATION: Instructions: Follow up: With: Address: When: Chris Garcia [address] [place], [place] [id number] [phone] Business (1) In 3 days 05/11/2024 With: Address: When: Maxwell Ontiveros In 3 days DIAGNOSIS: Chest pain Normal [facility] ED Patient Education Noteon 05-08-2024 ED Patient Education Note ED Patient Education Note Normal [facility] ED Patient Summaryon 025 ED Patient Summary ED Patient Summary [address] [address] Patient Discharge Instructions Person Information Name: RACHID MCNAIR Age: 68 Years Arrival Date: 05/08/2024 10:47:27 Discharge Diagnosis: Chest pain Primary Care Physician: Maxwell Ontiveros MD Provider Information Primary Provider: Chema Cho DO [employer] Movie [employer] Usher:None The exam and treatment you received in the Emergency Department were for an urgent problem and are not intended as complete care. It is important that you follow up with a doctor, nurse practitioner, or physician???s research lab assistant for ongoing care. If your symptoms become worse or you do not improve as expected and you are unable to reach your usual health care provider, you should return to the Emergency Department. We are available 24 hours a day. RACHID MCNAIR has been given the following list of patient education materials, prescriptions and follow-up instructions: Follow-up Instructions: With: Address: When: Chris Garcia [address] [place] [address] [phone] [employer] (1) In 3 days 05/11/2024 With: Address: When: Maxwell Ontiveros In 3 days In the event that this physician does not participate in your insurance network, please consult with your insurance company to find a nearby participating provider. Patient Education Materials: A MESSAGE TO ALL PATIENTS REGARDING OPIOIDS PRESCRIPTION OPIOIDS: WHAT YOU NEED TO KNOW Prescription opioids can be used to help relieve bdqljtrx-bh-jcbazl pain and are often prescribed following a [...] as well, even when taken as directed: ??? Tolerance???meaning you might need to take more of the medication for the same pain relief ??? Physical dependence???meaning you have symptoms of withdrawal when a medication is stopped ??? Increased sensitivity to pain ??? Constipation ??? Nausea, vomiting, and dry mouth ??? Sleepiness and dizziness ??? Confusion ??? Depression ??? Low levels of testosterone that can result in lower sex drive, energy, and strength ??? Itching and sweating RISKS ARE GREATER WITH: ??? History of drug misuse, substance use disorder, or overdose ??? Mental health conditions (such as depression or anxiety) ??? Sleep apnea ??? Older age (65 years and older) ??? Avoid alcohol while taking prescription opioids. Also, unless specifically advised by your health care provider, medications to avoid include: ??? Benzodiazepines (such as Xanax or Valium) ??? Muscle relaxants (such as Soma or Flexeril) ??? Hypnotics (such as Ambien or Lunesta) ??? Other prescription opioids KNOW YOUR OPTIONS Talk to your health care provider about ways to manage your pain that don???t involve prescription opioids. Some of these options may actually work better and have fewer risks and side effects. Options may include: ??? Pain relievers such as acetaminophen, ibuprofen, and naproxen ??? Some medication that are also used for depression or seizures ??? Physical therapy and exercise ??? Cognitive behavioral therapy, a psychological, goal-directed approach, in which patients learn how to modify physical, behavioral, and emotional triggers of pain and stress. IF YOU ARE PRESCRIBED OPIOIDS FOR PAIN: ??? Never take opioids in greater amounts or more often than prescribed. ??? Follow up with your primary health care provider. o Work together to create a plan on how to manage your pain. o Talk about ways to help manage your pain that don???t involve prescription opioids. o Talk about any and all concerns and side effects. ??? Help prevent misuse and abuse o Never sell or share prescription opioids. o Never use another person???s prescription opioids. ??? Store prescription opioids in a secure place and out of reach of others (this may include visitors, children, friends, and family). ??? Safely dispose of unused prescription opioids: Find your community drug take-back program or your pharmacy mail-back program, or flush them down the toilet, following guidance from the Food and Drug Administration (www.fda.gov/Drugs/Reso urcesForYou). ??? Visit www.cdc.gov/drugoverdos e to learn about the risks of opioids abuse and overdose. ??? If you believe you may be struggling with addiction, tell your health wound care specialist and ask for (more content not included)... Normal [facility] Family Medicine Office/Lucia barclay Noteon 05-08-2024 Family Medicine Office/Clinic Note Family Medicine Office/Clinic Note Chief Complaint 6m follow up Persistent chest pain and possible wrist nerve pain. HPI Staff 6m follow up Patient is here for follow up on Diabetes. How often are you checking your blood sugars? _yes? What are your average readings?_? 45 Are you compliant with your diet? yes? Do you exercise? yes? Are you compliant with your medications or having difficulty affording your medications? no? States when he is out of [facility] that he has at home, he does not want to continue due to cost. Do you have any of the following symptoms? Vision problems? no? Lightheadedness? no? Paresthesias, Ulcerations or sores? no? Hgb A1C %: 6.4 % High (11/01/23 18:22:00) Referred to Ortho at [facility] due to numbness of hand. Last seen by Ortho 12/30/23. States he was supposed to get referral to Neuro, but never heard anything. Has been having chest pain for the past couple weeks. PHQ9 14 History of Present Illness The patient is a 68-year-old male presenting with chest pain and possible thinar muscle wasting. The chest pain is described as persistent, achy, and constant, located on the left side of the chest, extending into the left shoulder. It started a few weeks ago and has not progressively worsened. The patient denies significant worsening of the pain and reports it is concerning due to its constancy. There is mild impact on breathing, and the patient acknowledges a history of smoking and diabetes, which contributes to his concern about cardiac issues. The patient has a history of occupational bilateral shoulder surgeries, with the left shoulder surgery related to a workman's compensation case in 2012. Subsequent neck surgery was performed by Dr. Berman in context of the patient's long-standing history of thinar muscle wasting, primarily affecting the right hand's thumb and two fingers. Prior occupational therapy at [place] was pursued but perceived as ineffective, and the etiology of the muscle wasting remains uncertain. The patient underwent an EMG study last summer by Dr. Elias Del Real, ordered by Dr. Moses Cho, but no follow-up was completed due to the patient's occupational obligations. The results are missing in the current conversation, and the patient is yet to see a neurologist as previously suggested. Neo has been managing essential hypertension and GERD effectively with current medication therapy. Blood pressure readings and acid reflux symptoms are reported stable, although occasional symptoms have been noted with alcohol consumption. - Discussed medication affordability, particularly for Cecilia, with options of Medicare coverage now available. - Counseling about the importance of medication adherence and monitoring A1c to manage diabetes. - Encouraged awareness of symptoms indicating possible cardiac pathology due to former smoking history and diabetes. Review of Systems PHQ Score Initial Depression Screen Score: 6 SCORE Detailed Depression Screen Score: 8 Total Depression Screen Score: 14 Physical Exam Vitals & Measurements T: 36.0 ???C(Tympanic) HR: 88(Peripheral) RR: 18 BP: 138/84 SpO2: 98% HT: 71 in HT: 180 cm WT: 81.4 kg WT: 179.456 lb BMI: 25.12 General: alert, no acute distress ENMT: oral mucosa moist Cardiovascular: Regular rate and rhythm, normal peripheral perfusion Respiratory: Lungs clear to auscultation, respirations non labored, slight achiness in the chest causing minor breathing issues Extremities: no deformity, no trauma, thinar wasting observed in the right hand Neurological: oriented x 4, level of consciousness appropriate for age, CN II-XII intact, motor strength equal & normal bilaterally, speech normal Abdomen: Soft, Non-tender, Non-distended, + Bowel sounds Assessment/Plan 1. Type 2 diabetes mellitus without complications (E11.9: Type 2 diabetes mellitus without complications) Continue current medication regimen with Januvia. Emphasis placed on Medicare's adjustment on medication pricing. Regular A1c monitoring to be performed, with a test ordered today for current evaluation. 2. Thenar muscle atrophy of right hand (M62.541: Muscle wasting and atrophy, not elsewhere classified, right hand) Previous EMG results are needed to accurately diagnose the cause of the muscle wasting. Referral back to [facility] is required. Patient advised that further testing or neurologist evaluation may be necessary. Ordered: [facility] External Ambulatory Referral 3. Gastro-esophageal reflux disease without esophagitis (K21.9: Gastro-esophageal reflux disease without esophagitis) Management remains effective. Advised moderation of alcohol consumption to prevent exacerbation of symptoms. 4. Chest pain, unspecified (R07.9: Chest pain, unspecified) Immediate evaluation in the ER for potential cardiac causes of chest pain is advised. Recommended diagnostic EKG and labs at a facility with on-site cardiology support due to the risk factors of diabetes and former smoking. (more content not included)... Normal [facility] Comment on above: Result Comment: Elec tronically Signed By: Weston PARKER, Maxwell Borden\.br\Date and Time Signed: 05/08/24 11:35 EST PT & PTTon 05-08-2024 aPTT Coag (PPP) [Time] 30.6 second(s) Normal 25.1-36.5 [facility] Comment on above: Result Comment: Para meter 15 days - 4 weeks 1 - 5 months 6 - 11 months 1 - 5 years 6 - 10 years 11 - 17 years PTT Mean: 35.4 (27.6-45.6) Mean: 33.5 (24.8-40.7) Mean: 32.4 (25.1-40.7) Mean: 31.6 (24.0-39.2) Mean: 31.6 (26.9-38.7) Mean: 31.0 (24.6-38.4) Pediatric Reference ranges were obtained from a study by Adi Martinez et al. prepared from 1437 samples obtained at 7 different centers using the same coagulation reagent and instrumentation as [facility]. Currently there are no coagulation studies available worldwide for children to 14 days, and no normal ranges. Heparin therapeutic range (represented by Anti-Factor Xa activity of 0.2 - 0.4 U/mL) corresponds to PTT of 56.6 - 109.0 sec. Performed By: #### 1 [id number] #### [facility] [address] [place] [address] INR Coag (PPP) [Relative time] 0.97 {INR} Invalid Interpretation Code [facility] Comment on above: Result Comment: INR results are specifically intended to assess patients stabilized on long-term Anticoagulation therapy suggested INR???s ???Less Intensive Anticoagulation??? 2.0 ??? 3.0 Conventional Range 3.0 ??? 4.5 Performed By: #### 1 [id number] #### [facility] [address] [facility] [place] [address] PT Coag (PPP) [Time] 10.9 second(s) Normal 9.4-12.5 [facility] Comment on above: Result Comment: 15 d ays - 4 weeks 1 - 5 months 6 -11 months 1- 5 years 6-10 years 11 -17 years Mean: 11.2 (9.5-12.6) Mean: 11.0 (9.7-12.8) Mean: 11.0 (9.8-13.0) Mean: 11.3 (9.9-13.4) Mean: 11.7 (10.0-14.6) Mean: 11.8 (10.0 - 14.1) Pediatric Reference ranges were obtained from a study by Adi Martinez et al. prepared from 1437 samples obtained at 7 different centers using the same coagulation reagent and instrumentation as [facility]. Currently there are no coagulation studies available worldwide for children to 14 days, and no normal ranges. Performed By: #### 1 [id number] #### [facility] [address] [place] [address] Pre-Arrival Noteon Pre-Arrival Note Pre-Arrival Note Pre-Arrival Summary Name: campbell, Current Date: 05/08/2024 10:50:04 EST Gender: Male Date of : Age: Pre-Arrival Type: EMS ETA: 05/08/2024 10:50:00 EST Primary Care Physician: Presenting Problem: cp,sob Pre-Arrival User: Chema Cho DO Referring Source: Location: [place] Completion Date/Time: 05/08/2024 10:21:00 [facility] Emergency Department Pre-Hospital Report Form Vital Signs: Pre-Hospital Report: Treatment in Route: Response to Treatment: Misc. Issues: Normal [facility] Troponin 0 Hr.on 05-08-2024 Troponin HS 4.30 pg/mL Low 15.90-38.40 [facility] Comment on above: Result Comment: The 95% CI (Confidence Interval) PPV (Positive Predictive Value) for myocardial infarction in females is 38 pg/mL, in males 51 pg/mL. The results should be used in conjunction with clinical conditions of myocardial infarction. (Access High Sensitivity Troponin I Instructions For Use, Miki [place], November 2017) Performed By: #### 1 [id number] #### [facility] [address] [place] [address] Troponin 1 Hr.on 05-08-2024 Troponin HS 4.10 pg/mL Low 15.90-38.40 [facility] Comment on above: Order Comment: Due a t 1158 Result Comment: The 95% CI (Confidence Interval) PPV (Positive Predictive Value) for myocardial infarction in females is 38 pg/mL, in males 51 pg/mL. The results should be used in conjunction with clinical conditions of myocardial infarction. (Access High Sensitivity Troponin I Instructions For Use, Miki [place], November 2017) Performed By: #### 1 [id number] #### [facility] [address] [place] [address] XR Chest Single Viewon 05-08 XR Chest Single View Exam Date/Time: 05/08/2024 11:28 EST Reason for Exam: Chest pain Report IMPRESSION: No acute findings by portable radiography, within limits of shallow inspiration. EXAMINATION/TECHNIQUE: XR Chest Single View HISTORY: Chest pain. COMPARISON: 11/22/2017. RESULT: Shallow inspiration. No distinct focal consolidation. No large pleural effusion. No pneumothorax. Stable cardiomediastinal silhouette. No acute osseous findings. Degenerative changes. Postsurgical changes lower cervical spine. Ordering Provider: Chema Cho FINAL REPORT Dictated: 05/08/2024 12:48 pm Kobe Hernandez MD Signed (Electronic Signature): 05/08/2024 12:48 pm Signed by: Kobe Hernandez MD Transcribed by: ALENA Technologist: VINCENT Technical Comments Radiation Dose: Ka,r in mGy = . DAP = . Normal [facility] eGFRon 05-08-2024 eGFR 83 mL/min/1.73 m2 Normal >=59 [facility] Comment on above: Performed By: #### 1 [id number] #### [facility] [address] [place] [address] US Eye+Orbit - bilateralon 1 05-14-2023 Diagnosis: Cataract both eyes (OU) Testing Indication: Performed for preop measurements in the determination of an intraocular lens (IOL) for both eyes (OU) Test Reliability: Good quality both eyes (OU) Interpretation: Good measurements for intraocular lens (IOL) calculation purposes. Calculation made for both eyes (OU). [facility] [employer] (PV[facility])car [facility] Radiology Study observation (narrative) [facility] XR Shoulder - left 2 [facility] 01-03-2024 Imaging Result: X-rays updated today shows chronic cuff arthropathy with decreased acromiohumeral interval. There are advanced degenerative changes that are end stage. There is no acute fracture, dislocation, tumor or infection seen. [facility] Should[facility] - left 2 [facility] 12-30-2023 Radiology Study observation (narrative) [facility] [id number] 11-03-2023 HbA1c (Bld) [Mass fraction] 6.4 % High <=5.9 [facility] Comment on above: Performed By: #### 7 [id number] #### [facility] [address] [place] [address] CBC w/ Auto Diffon 4 Basophils/100 WBC (Bld) 0.5 % Normal 0.0-2.0 [facility] Comment on above: Performed By: #### 2 [id number] #### [facility] [address] [place] [address] Basophils/Leukocyt es Auto (Bld) [Pure # fraction] 0.0 E9/L Normal 0.0-0.2 [facility] Comment on above: Performed By: #### 2 [id number] #### [facility] [address] [place] [address] Eosinophils (Bld) [#/Vol] 0.2 E9/L Normal 0.0-0.5 [facility] Comment on above: Performed By: #### 2 [id number] #### [facility] [address] [place] [address] Eosinophils/100 WBC (Bld) 2.6 % Normal 0.0-8.0 [facility] Comment on above: Performed By: #### 2 [id number] #### [facility] [address] [place] [address] Erythrocyte distribution width (RBC) [Ratio] 15.1 % High 10.9-14.2 [facility] Comment on above: Performed By: #### 2 [id number] #### [facility] [address] [place] [address] Hematocrit (Bld) [Volume fraction] 40.1 % Normal 37.7-49.0 [facility] Comment on above: Performed By: #### 2 [id number] #### [facility] [address] [place] [address] Hemoglobin (Bld) [Mass/Vol] 13.6 g/dL Normal 13.5-17.5 [facility] Comment on above: Performed By: #### 2 [id number] #### [facility] [address] [place] [address] Lymphocytes (Bld) [#/Vol] 2.0 E9/L Normal 1.0-4.0 [facility] Comment on above: Performed By: #### 2 [id number] #### [facility] [address] [place] [address] Lymphocytes/100 WBC (Bld) 28.1 % Normal 14.0-50.0 [facility] Comment on above: Performed By: #### 2 [id number] #### [facility] [address] [place] [address] MCH (RBC) [Entitic mass] 30.5 pg Normal 27.0-34.0 [facility] Comment on above: Performed By: #### 2 [id number] #### [facility] [address] [place] [address] MCHC (RBC) [Mass/Vol] 33.9 g/dL Normal 31.4-36.0 [facility] Comment on above: Performed By: #### 2 [id number] #### [facility] [address] [place] [address] MCV (RBC) [Entitic vol] 90.0 fL Normal 80.0-100.0 [facility] Comment on above: Performed By: #### 2 [id number] #### [facility] [address] [place] [address] Monocytes (Bld) [#/Vol] 0.5 E9/L Normal 0.2-1.0 [facility] Comment on above: Performed By: #### 2 [id number] #### [facility] [address] [place] [address] Neutrophils (Bld) [#/Vol] 4.4 E9/L Normal 2.0-7.5 [facility] Comment on above: Performed By: #### 2 [id number] #### [facility] [address] [place] [address] Neutrophils/100 WBC (Bld) 61.6 % Normal 36.0-75.0 [facility] Comment on above: Performed By: #### 2 [id number] #### [facility] [address] [place] [address] Platelet 278.0 E9/L Normal 150.0-500.0 [facility] Comment on above: Performed By: #### 2 [id number] #### [facility] [address] [place] [address] Platelet mean volume (Bld) [Entitic vol] 8.6 fL Normal 6.4-10.8 [facility] Comment on above: Performed By: #### 2 [id number] #### [facility] [address] [place] [address] RBC (Bld) [#/Vol] 4.5 E12/L Normal 4.3-5.9 [facility] Comment on above: Performed By: #### 2 [id number] #### [facility] [address] [place] [address] WBC corrected for nucl RBC Auto (Bld) [#/Vol] 7.1 E9/L Normal 4.0-11.0 [facility] Comment on above: Performed By: #### 2 [id number] #### [facility] [address] [place] [address] CMPon 11-02-2023 Albumin/Globulin (S) [Mass conc ratio] 1.8 Normal 1.1-2.2 [facility] Comment on above: Performed By: #### 2 191509 #### [facility] [address] [place] [address] ALP [Catalytic activity/Vol] 46 Int._Unit/L Normal 21-98 [facility] Comment on above: Performed By: #### 2 [id number] #### [facility] [address] [place] [address] ALT No additional P-5'-P [Catalytic activity/Vol] 17 Int._Unit/L Normal 6-46 [facility] Comment on above: Performed By: #### 2 [id number] #### [facility] [address] [place] [address] AST [Catalytic activity/Vol] 18 Int._Unit/L Normal 5-43 [facility] Comment on above: Performed By: #### 2 [id number] #### [facility] [address] [place] [address] Creatinine [Mass/Vol] 1.1 mg/dL Normal 0.5-1.3 [facility] Comment on above: Performed By: #### 2 [id number] #### [facility] [address] [place] [address] Globulin (S) [Mass/Vol] 2.4 g/dL Normal 1.4-4.0 [facility] Comment on above: Performed By: #### 2 [id number] #### [facility] [address] [place] [address] Glucose [Mass/Vol] 150 mg/dL Normal 55-199 [facility] Comment on above: Performed By: #### 2 [id number] #### [facility] [address] [place] [address] Protein [Mass/Vol] 6.8 g/dL Normal 6.0-7.8 [facility] Comment on above: Performed By: #### 2 [id number] #### [facility] [address] [place] [address] Urea nitrogen [Mass/Vol] 11 mg/dL Normal 5-21 [facility] Comment on above: Performed By: #### 2 534702 #### [facility] [address] [place] [address] Urea nitrogen/Creatinin e [Mass ratio] 10 No Units Normal 10-20 [facility] Comment on above: Performed By: #### 2 150605 #### [facility] [address] [place] [address] Albumin [Mass/Vol] 4.4 g/dL Normal 3.3-5.0 [facility] Comment on above: Performed By: #### 2 [id number] #### [facility] [address] [place] [address] Anion gap [Moles/Vol] 10 mmol/L Normal 6-16 [facility] Comment on above: Performed By: #### 2 884310 #### [facility] [address] [place] [address] Bilirubin [Mass/Vol] 0.5 mg/dL Normal 0.0-1.1 [facility] Comment on above: Performed By: #### 2 081361 #### [facility] [address] [place] [address] Calcium [Mass/Vol] 9.3 mg/dL Normal 8.9-11.1 [facility] Comment on above: Performed By: #### 2 245722 #### [facility] [address] [place] [address] Chloride [Moles/Vol] 105 mmol/L Normal 101-111 [facility] Comment on above: Performed By: #### 2 [id number] #### [facility] [address] [place] [address] CO2 [Moles/Vol] 27 mmol/L Normal 21-31 [facility] Comment on above: Performed By: #### 2 [id number] #### [facility] [address] [place] [address] Potassium [Moles/Vol] 4.0 mmol/L Normal 3.5-5.3 [facility] Comment on above: Performed By: #### 2 [id number] #### [facility] [address] [place] [address] Sodium [Moles/Vol] 138 mmol/L Normal 135-145 [facility] Comment on above: Performed By: #### 2 858010 #### [facility] [address] [place] [address] Lipid Panelon 11-02-2023 Cholesterol [Mass/Vol] 147 mg/dL Normal 120-200 [facility] Comment on above: Performed By: #### 2 344195 #### [facility] [address] [place] [address] Cholesterol in HDL [Mass/Vol] 50 mg/dL Invalid Interpretation Code [facility] Comment on above: Result Comment: '>= 60 LOW RISK' '<= 40 HIGH RISK' Performed By: #### 2 [id number] #### [facility] [address] [place] [address] Cholesterol in LDL [Mass/Vol] 78 mg/dL Normal <=129 [facility] Comment on above: Performed By: #### 2 [id number] #### [facility] [address] [place] [address] Cholesterol in VLDL [Mass/Vol] 27 mg/dL Normal 7-40 [facility] Comment on above: Performed By: #### 2 628384 #### [facility] [address] [place] [address] Triglyceride [Mass/Vol] 137 mg/dL Normal <=149 [facility] Comment on above: Performed By: #### 2 [id number] #### [facility] [address] [place] [address] PSA Screen, Totalon 11-02-19 Prostate specific Ag [Mass/Vol] 0.3 ng/mL Normal 0.1-3.5 [facility] Comment on above: Result Comment: The concentration of PSA determined by different manufacturers can vary due to differences in assay methods and reagent specificity. Values obtained from different assay methods cannot be used interchangeably. The methodology used for this result was chemiluminescence using [employer]'s Access Hybritech PSA reagent. Performed By: #### 1 [id number] #### [facility] [address] [place] [address] U Microalbon 11-02-2023 Albumin DL <= 20 mg/L (U) [Mass/Vol] 1.0 mg/dL Normal 0.0-1.9 [facility] Comment on above: Performed By: #### 1 [id number] #### [facility] [address] [place] [address] eGFRon 11-02-2023 eGFR 74 mL/min/1.73 m2 Normal >=59 [facility] Comment on above: Order Comment: Order added by Discern Expert. Performed By: #### 1 [id number] #### [facility] [address] [place] [address] Glucose Glucometer (BldC) [M ass/Vol]Ordered By: Cam Rea on 02-20-2022 Glucose [Mass/Vol] 130 mg/dL [facility] Comment on above: Random Glucose Refer ence Range is dependent on time and content of last meal. Glucose of more than 200 mg/dL in a nonstressed, ambulatory subject supports the diagnosis of Diabetes Mellitus. Glucose Poct Glucometerson 1 04-22-2021 Glucose [Mass/Vol] 130 mg/dL Normal [facility] Comment on above: Result Comment: [place] Glucose Reference Range is dependent on time and content of last meal. Glucose of more than 200 mg/dL in a nonstressed, ambulatory subject supports the diagnosis of Diabetes Mellitus. PERFORMED BY: [place] [address] PATHOLOGIST PORTABLE SAWYER MATHEUS TAVERA M.D. Performed By: #### G BRONWYN #### Point of Care testing , Benji 02-20-2022 L --- Specimen: [id number] Received: 02/20/22 Status: CHRISTIANO Pillai Num: [id number] Spec Type: Surgical Subm Dr: Cam Rea MD Tissues: A Colon - Polyp (DESCENDING POLYP) Procedures: HE/2, Gross/Micro L4 Age/ Patient Sex Location Account Attending Physician Rachid Mcnair/Lindsey [id number] Cam Rea MD SPEC NUM: [id number] RECD: 02/20/22 STATUS: CHRISTIANO PILLAI NUM: [id number] NIGHAT: 02/20/[address] [facility] [address]: Cam Rea MD ENTERED: 02/20/[address] [facility] [address]: SPEC TYPE: Surgical DEPT: S [...] support the above pathologic diagnosis. CPT Codes 16843 Specimen: [id number] Received: 02/20/22 Status: CHRISTIANO Pillai Num: [id number] Spec Type: Surgical Subm Dr: Cam Rea MD Tissues: A Colon - Polyp (DESCENDING POLYP) Procedures: HE/Jaycee, Gross/Micro L4 Patient: Rachid Mcnair [id number] (Continued) Signed (signature on file) Keerthi Finch MD (Michelle) 02/23/22 1529 [facility] CBC AUTO DIFFon 10-25-2021 BASO # 0.0 103/ul Normal 0.0-0.1 [facility] Comment on above: Performed By: #### C BC #### [facility] [address] [place] [address] Dr. Varghese Perez Basophils/100 WBC (Bld) 0.6 % Normal 0.2-2.0 [facility] Comment on above: Performed By: #### C BC #### [facility] [address] [place] [address] Dr. Varghese Perez EO # 0.3 103/ul Normal 0.0-0.7 [facility] Comment on above: Performed By: #### C BC #### [facility] [address] [place] [address] Dr. Varghese Perez Eosinophils/100 WBC (Bld) 3.9 % Normal 0.9-7.0 [facility] Comment on above: Performed By: #### C BC #### [facility] [address] [place] [address] Dr. Varghese Perez Erythrocyte distribution width (RBC) [Ratio] 13.1 % Normal 11.0-15.0 [facility] Comment on above: Performed By: #### C BC #### [facility] [address] [place] [address] Dr. Varghese Perez Hematocrit (Bld) [Volume fraction] 42.4 % Normal 42.0-54.0 [facility] Comment on above: Performed By: #### C BC #### [facility] [address] [place] [address] Dr. Varghese Perez Hemoglobin (Bld) [Mass/Vol] 14.5 g/dL Normal 14.0-18.0 [facility] Comment on above: Performed By: #### C BC #### [facility] [address] [place] [address] Dr. Varghese Perez IG # 0.02 10e3/ul Normal 0.00-0.03 [facility] Comment on above: Performed By: #### C BC #### [facility] [address] [place] [address] Dr. Varghese Perez IG % 0.3 % Normal 0.0-0.5 [facility] Comment on above: Performed By: #### C BC #### [facility] [address] [place] [address] Dr. Varghese Perez LYMPH # 1.8 103/ul Normal 1.2-3.8 [facility] Comment on above: Performed By: #### C BC #### [facility] [address] [place] [address] Dr. Varghese Perez Lymphocytes/100 WBC (Bld) 28.4 % Normal 20.5-60.0 [facility] Comment on above: Performed By: #### C BC #### [facility] [address] [place] [address] Dr. Varghese Perez MANUAL DIFF REQ NO Normal [facility] Comment on above: Performed By: #### C BC #### [facility] [address] [place] [address] Dr. Varghese Perez MCH (RBC) [Entitic mass] 29.5 pg Normal 25.9-34.0 [facility] Comment on above: Performed By: #### C BC #### [facility] [address] [place] [address] Dr. Varghese Perez MCHC (RBC) [Mass/Vol] 34.2 g/dL Normal 29.9-35.2 [facility] Comment on above: Performed By: #### C BC #### [facility] [address] [place] [address] Dr. Varghese Perez MCV (RBC) [Entitic vol] 86.4 fL Normal 80.0-94.0 [facility] Comment on above: Performed By: #### C BC #### [facility] [address] [place] [address] Dr. Varghese Perez MONO # 0.6 103/ul Normal 0.3-0.8 [facility] Comment on above: Performed By: #### C BC #### [facility] [address] [place] [address] Dr. Varghese Perez Monocytes/100 WBC (Bld) 9.6 % Normal 1.7-12.0 [facility] Comment on above: Performed By: #### C BC #### [facility] [address] [place] [address] Dr. Varghese Perez NEUT # 3.7 103/ul Normal 1.4-6.5 [facility] Comment on above: Performed By: #### C BC #### [facility] [address] [place] [address] Dr. Varghese Perez Neutrophils/100 WBC (Bld) 57.2 % Normal 43.0-75.0 [facility] Comment on above: Performed By: #### C BC #### [facility] [address] [place] [address] Dr. Varghese Perez Platelet mean volume (Bld) [Entitic vol] 9.4 fL Critically low 9.5-13.5 [facility] Comment on above: Performed By: #### C BC #### [facility] [address] [place] [address] Dr. Varghese Perez PLT 256 103/ul Normal 150-450 [facility] Comment on above: Performed By: #### C BC #### [facility] [address] [place] [address] Dr. Varghese Perez RBC 4.91 106/ul Normal 4.70-6.10 [facility] Comment on above: Performed By: #### C BC #### [facility] [address] [place] [address] Dr. Varghese Perez WBC 6.5 103/ul Normal 4.0-11.0 [facility] Comment on above: Performed By: #### C BC #### [facility] [address] [place] [address] Dr. Varghese Perez GLYCOHEMOGLOBIN A1Con 2021 ADA RECOMMENDATION SEE BELOW Normal [facility] Comment on above: Result Comment: ADA RECOMMENDED LIMIT 4.0 - 6.0 ADA THERAPEUTIC TARGET < 7.0 ACTION SUGGESTED > 7.0 Performed By: #### A 1C #### [facility] [address] [place] [address] Dr. Varghese Perez Glucose [Mass/Vol] 117 mg/dL Normal [facility] Comment on above: Performed By: #### A 1C #### [facility] [address] [place] [address] Dr. Varghese Perez HbA1c (Bld) [Mass fraction] 5.7 % Normal 4.5-6.2 [facility] Comment on above: Performed By: #### A 1C #### [facility] [address] [place] [address] Dr. Varghese Perez LIPID PROFILEon 10-25-2021 CHOL-HDL RATIO NORM SEE BELOW Normal [facility] Comment on above: Result Comment: 3.3 - 4.4 LOW RISK 4.4 - 7.1 AVERAGE RISK 7.1 - 11.0 MODERATE RISK >11.0 HIGH RISK Performed By: #### C MP, LIPID, TSH #### [facility] [address] [place] [address] Dr. Varghese Perez Cholesterol [Mass/Vol] 170 mg/dL Normal <=200 [facility] Comment on above: Performed By: #### C MP, LIPID, TSH #### [facility] [address] [place] [address] Dr. Varghese Perez Cholesterol in HDL [Mass/Vol] 52 mg/dL Normal 40-60 [facility] Comment on above: Performed By: #### C MP, LIPID, TSH #### [facility] [address] [place] [address] Dr. Varghese Perez Cholesterol in LDL [Mass/Vol] 107.4 mg/dL Normal [facility] Comment on above: Performed By: #### C MP, LIPID, TSH #### [facility] [address] [place] [address] Dr. Varghese Perez Cholesterol.total/ Cholesterol in HDL [Mass ratio] 3.3 {ratio} Normal [facility] Comment on above: Performed By: #### C MP, LIPID, TSH #### [facility] [address] [address] [address] Varghese Perez HDL NORMAL > or = 60 mg/dl - LO W CARDIOVASCULAR RISK <40 mg/dl - HIGH CARDIOVASCULAR RISK Normal [facility] Comment on above: Performed By: #### C MP, LIPID, TSH #### [facility] [address] [address] [address] Varghese Perez LDL CALC NORMAL SEE BELOW Normal [facility] Comment on above: Result Comment: <100 mg/dl OPTIMAL 100 - 129 mg/dl NEAR OR ABOVE OPTIMAL 130 - 159 mg/dl BORDERLINE HIGH 160 - 189 mg/dl HIGH >190 mg/dl VERY HIGH Performed By: #### C MP, LIPID, TSH #### [facility] [address] [address] [address] Varghese Perez Triglyceride [Mass/Vol] 53 mg/dL Normal <=150 [facility] Comment on above: Performed By: #### C MP, LIPID, TSH #### [facility] [address] [address] [address] Varghese Perez VLDL CALC 10.6 mg/dL Normal [facility] Comment on above: Performed By: #### C MP, LIPID, TSH #### [facility] [address] [address] [address] Varghese Perez PROF 14(COMP METB)on 022 Albumin [Mass/Vol] 3.9 g/dL Normal 3.4-5.0 [facility] Comment on above: Performed By: #### C MP, LIPID, TSH #### [facility] [address] [address] [address] Varghese Perez Albumin/Globulin [Mass ratio] 1.2 {ratio} Normal [facility] Comment on above: Performed By: #### C MP, LIPID, TSH #### [facility] [address] [address] [address] Varghese Perez ALP [Catalytic activity/Vol] 50 U/L Normal 46-116 [facility] Comment on above: Performed By: #### C MP, LIPID, TSH #### [facility] [address] [address] [address] Varghese Perez ALT [Catalytic activity/Vol] 30 U/L Normal 16-63 [facility] Comment on above: Performed By: #### C MP, LIPID, TSH #### [facility] [address] [address] [address] Varghese Perez Anion gap [Moles/Vol] 9.8 mmol/L Normal [facility] Comment on above: Performed By: #### C MP, LIPID, TSH #### [facility] [address] [address] [address] Varghese Perez AST [Catalytic activity/Vol] 16 U/L Normal 15-37 [facility] Comment on above: Performed By: #### C MP, LIPID, TSH #### [facility] [address] [place] [address] Dr. Varghese Perez Bilirubin [Mass/Vol] 0.7 mg/dL Normal 0.2-1.0 [facility] Comment on above: Performed By: #### C MP, LIPID, TSH #### [facility] [address] [address] [address] Varghese Perez Calcium [Mass/Vol] 9.0 mg/dL Normal 8.5-10.1 [facility] Comment on above: Performed By: #### C MP, LIPID, TSH #### [facility] [address] [place] [address] Dr. Varghese Perez Chloride [Moles/Vol] 107 mmol/L Normal 98-107 [facility] Comment on above: Performed By: #### C MP, LIPID, TSH #### [facility] [address] [address] [address] Varghese Perez CO2 [Moles/Vol] 29.6 mmol/L Normal 21.0-32.0 [facility] Comment on above: Performed By: #### C MP, LIPID, TSH #### [facility] [address] [address] [address] Varghese Perez Creatinine [Mass/Vol] 0.97 mg/dL Normal 0.70-1.30 [facility] Comment on above: Performed By: #### C MP, LIPID, TSH #### [facility] [address] [address] [address] Varghese Perez EGFR-AF PAKISTANI >60 Normal >=60 [facility] Comment on above: Performed By: #### C MP, LIPID, TSH #### [facility] [address] [address] [address] Varghese Perez EGFR-NON AF PAKISTANI >60 Normal >=60 [facility] Comment on above: Performed By: #### C MP, LIPID, TSH #### [facility] [address] [address] [address] Varghese Perez Globulin (S) [Mass/Vol] 3.2 g/dL Normal [facility] Comment on above: Performed By: #### C MP, LIPID, TSH #### [facility] [address] [address] [address] Varghese Perez Glucose [Mass/Vol] 134 mg/dL Critically high 74-106 [facility] Comment on above: Performed By: #### C MP, LIPID, TSH #### [facility] [address] [address] [address] Varghese Perez Potassium [Moles/Vol] 4.4 mmol/L Normal 3.5-5.1 [facility] Comment on above: Performed By: #### C MP, LIPID, TSH #### [facility] [address] [address] [address] Varghese Perez Protein [Mass/Vol] 7.1 g/dL Normal 6.4-8.2 [facility] Comment on above: Performed By: #### C MP, LIPID, TSH #### [facility] [address] [address] [address] Varghese Perez Sodium [Moles/Vol] 142 mmol/L Normal 136-145 [facility] Comment on above: Performed By: #### C MP, LIPID, TSH #### [facility] [address] [address] [address] Varghese Perez Urea nitrogen [Mass/Vol] 12.0 mg/dL Normal 7.0-18.0 [facility] Comment on above: Performed By: #### C MP, LIPID, TSH #### [facility] [address] [place], [place] [address] Dr. Varghese Perez Urea nitrogen/Creatinin e [Mass ratio] 12.4 mg/mg Normal [facility] Comment on above: Performed By: #### C MP, LIPID, TSH #### [facility] [address] [place], [place] [address] Dr. [facility]arghese Perez [facility] TSH 1.433 uIU/mL Normal 0.358-3.740 [facility] Comment on above: Performed By: #### C MP, LIPID, TSH #### [facility] [address] [address] [address] Varghese Perez [facility] Surgical Pathology Depar tmenton 08-06-2021 [facility] Surgical Pathology Department Name RACHID MCNAIR Pathologist: GUMARO PATEL DMD Date of Procedure: 08/06/2021 Date Received: 08/08/2021 Date Reported 08/11/2021 Submitting Physician: EMELY FU DDS Location: [facility] Copy To/Referring/Attending: EMELY FU DDS Other External # FINAL DIAGNOSIS A. LEFT LOWER LIP, EXCISION: -- TRAUMATIC FIBROMA ICD-10/CPT: D10.0/10594 Electronically Signed Out By GUMARO PATEL DMD/TAMIR By the signature on this report, the individual or group listed as making the Final Interpretation/Diagnosi s certifies that they have reviewed this case. [...] A 1 tips 2 body of ellipse rcc/08/08/2021 [facility] Department of Pathology [address] [place] [address] Normal [facility] Comment on above: Performed By: #### U HCS #### [facility] Surgical Pathology Department [id number] [facility] [id number] CBC AUTO DIFFon 03-08-2021 BASO # 0.0 103/ul Normal 0.0-0.1 [facility] Comment on above: Performed By: #### C BC #### [facility] [address] [place] [address] Dr. Varghese Perez Basophils/100 WBC (Bld) 0.5 % Normal 0.2-2.0 [facility] Comment on above: Performed By: #### C BC #### [facility] [address] [address] [address] Varghese Perez EO # 0.3 103/ul Normal 0.0-0.7 [facility] Comment on above: Performed By: #### C BC #### [facility] [address] [place] [address] Dr. Varghese Perez Eosinophils/100 WBC (Bld) 4.7 % Normal 0.9-7.0 [facility] Comment on above: Performed By: #### C BC #### [facility] [address] [address] [address] Varghese Perez Erythrocyte distribution width (RBC) [Ratio] 13.2 % Normal 11.0-15.0 [facility] Comment on above: Performed By: #### C BC #### [facility] [address] [place] [address] Dr. Varghese Perez Hematocrit (Bld) [Volume fraction] 42.7 % Normal 42.0-54.0 [facility] Comment on above: Performed By: #### C BC #### [facility] [address] [place] [address] Dr. Varghese Perez Hemoglobin (Bld) [Mass/Vol] 14.5 g/dL Normal 14.0-18.0 [facility] Comment on above: Performed By: #### C BC #### [facility] [address] [place] [address] Dr. Varghese Perez IG # 0.02 10e3/ul Normal 0.00-0.03 [facility] Comment on above: Performed By: #### C BC #### [facility] [address] [place] [address] Dr. Varghese Perez IG % 0.3 % Normal 0.0-0.5 [facility] Comment on above: Performed By: #### C BC #### [facility] [address] [place] [address] Dr. Varghese Perez LYMPH # 1.7 103/ul Normal 1.2-3.8 [facility] Comment on above: Performed By: #### C BC #### [facility] [address] [place] [address] Dr. Varghese Perez Lymphocytes/100 WBC (Bld) 28.8 % Normal 20.5-60.0 [facility] Comment on above: Performed By: #### C BC #### [facility] [address] [place] [address] Dr. aVrghese Perez MANUAL DIFF REQ NO Normal [facility] Comment on above: Performed By: #### C BC #### [facility] [address] [place] [address] Dr. Vraghese Perez MCH (RBC) [Entitic mass] 29.6 pg Normal 25.9-34.0 [facility] Comment on above: Performed By: #### C BC #### [facility] [address] [place] [address] Dr. Varghese Perez MCHC (RBC) [Mass/Vol] 34.0 g/dL Normal 29.9-35.2 [facility] Comment on above: Performed By: #### C BC #### [facility] [id number] Varghese Perez MCV (RBC) [Entitic vol] 87.1 fL Normal 80.0-94.0 [facility] Comment on above: Performed By: #### C BC #### [facility] [address] [place] [address] Dr. Varghese Perez MONO # 0.6 103/ul Normal 0.3-0.8 [facility] Comment on above: Performed By: #### C BC #### [facility] [address] [place] [address] Dr. Varghese Perez Monocytes/100 WBC (Bld) 9.7 % Normal 1.7-12.0 [facility] Comment on above: Performed By: #### C BC #### [facility] [address] [place] [address] Dr. Varghese Perez NEUT # 3.4 103/ul Normal 1.4-6.5 [facility] Comment on above: Performed By: #### C BC #### [facility] [address] [place] [address] Dr. Varghese Perez Neutrophils/100 WBC (Bld) 56.0 % Normal 43.0-75.0 [facility] Comment on above: Performed By: #### C BC #### [facility] [address] [place] [address] Dr. Varghese Perez Platelet mean volume (Bld) [Entitic vol] 9.9 fL Normal 9.5-13.5 [facility] Comment on above: Performed By: #### C BC #### [facility] [address] [place] [address] Dr. Varghese Perez PLT 217 103/ul Normal 150-450 [facility] Comment on above: Performed By: #### C BC #### [facility] [address] [place] [address] Dr. Varghese Perez RBC 4.90 106/ul Normal 4.70-6.10 [facility] Comment on above: Performed By: #### C BC #### [facility] [address] [place] [address] Dr. Varghese Perez WBC 6.0 103/ul Normal 4.0-11.0 [facility] Comment on above: Performed By: #### C BC #### [facility] [address] [place] [address] Dr. Varghese Perez GLYCOHEMOGLOBIN A1Con 2020 ADA RECOMMENDATION ADA THERAPEUTIC TARG ET 6.0 - 7.0 ACTION SUGGESTED > 7.0 Normal [facility] Comment on above: Performed By: #### C MP, LIPID #### [facility] [address] [place] [address] Dr. Varghese Perez Glucose [Mass/Vol] 137 mg/dL Normal [facility] Comment on above: Performed By: #### C MP, LIPID #### [facility] [address] [place] [address] Dr. Varghese Perez HbA1c (Bld) [Mass fraction] 6.4 % Critically high <=6.0 [facility] Comment on above: Performed By: #### C MP, LIPID #### [facility] [address] [place] [address] Dr. Varghese Perez LIPID PROFILEon 03-08-2021 CHOL-HDL RATIO NORM SEE BELOW Normal [facility] Comment on above: Result Comment: 3.3 - 4.4 LOW RISK 4.4 - 7.1 AVERAGE RISK 7.1 - 11.0 MODERATE RISK >11.0 HIGH RISK Performed By: #### C MP, LIPID #### [facility] [address] [place] [address] Dr. Varghese Perez Cholesterol [Mass/Vol] 147 mg/dL Normal <=200 [facility] Comment on above: Performed By: #### C MP, LIPID #### [facility] [address] [place] [address] Dr. Varghese Perez Cholesterol in HDL [Mass/Vol] 50 mg/dL Normal [facility] Comment on above: Performed By: #### C MP, LIPID #### [facility] [address] [place] [address] Dr. Varghese Perez Cholesterol in LDL [Mass/Vol] 82.4 mg/dL Normal [facility] Comment on above: Performed By: #### C MP, LIPID #### [facility] [address] [address] [address] Varghese Perez Cholesterol.total/ Cholesterol in HDL [Mass ratio] 2.9 {ratio} Normal [facility] Comment on above: Performed By: #### C MP, LIPID #### [facility] [address] [address] [address] Varghese Perez HDL NORMAL > or = 60 mg/dl - LO W CARDIOVASCULAR RISK <40 mg/dl - HIGH CARDIOVASCULAR RISK Normal [facility] Comment on above: Performed By: #### C MP, LIPID #### [facility] [address] [address] [address] Varghese Perez LDL CALC NORMAL SEE BELOW Normal [facility] Comment on above: Result Comment: <100 mg/dl OPTIMAL 100 - 129 mg/dl NEAR OR ABOVE OPTIMAL 130 - 159 mg/dl BORDERLINE HIGH 160 - 189 mg/dl HIGH >190 mg/dl VERY HIGH Performed By: #### C MP, LIPID #### [facility] [address] [place] [address] Dr. Varghese Perez Triglyceride [Mass/Vol] 73 mg/dL Normal <=150 [facility] Comment on above: Performed By: #### C MP, LIPID #### [facility] [address] [place] [address] Dr. Varghese Perez VLDL CALC 14.6 mg/dL Normal [facility] Comment on above: Performed By: #### C MP, LIPID #### [facility] [address] [address] [address] Varghese Perez PROF 14(COMP METB)on 021 Albumin [Mass/Vol] 3.7 g/dL Normal 3.5-5.0 [facility] Comment on above: Performed By: #### C MP, LIPID #### [facility] [address] [place] [address] Dr. Varghese Perez Albumin/Globulin [Mass ratio] 1.1 {ratio} Normal [facility] Comment on above: Performed By: #### C MP, LIPID #### [facility] [address] [address] [address] Varghese Perez ALP [Catalytic activity/Vol] 54 U/L Normal 38-126 [facility] Comment on above: Performed By: #### C MP, LIPID #### [facility] [address] [place] [address] Dr. Varghese Perez ALT [Catalytic activity/Vol] 29 U/L Normal 21-72 [facility] Comment on above: Performed By: #### C MP, LIPID #### [facility] [address] [address] [address] Varghese Perez Anion gap [Moles/Vol] 10.5 mmol/L Normal [facility] Comment on above: Performed By: #### C MP, LIPID #### [facility] [address] [place] [address] Dr. Varghese Perez AST [Catalytic activity/Vol] 15 U/L Critically low 17-59 [facility] Comment on above: Performed By: #### C MP, LIPID #### [facility] [address] [place] [address] Dr. Varghese Perez Bilirubin [Mass/Vol] 0.5 mg/dL Normal 0.2-1.3 [facility] Comment on above: Performed By: #### C MP, LIPID #### [facility] [address] [place] [address] Dr. Varghese Perez Calcium [Mass/Vol] 8.9 mg/dL Normal 8.4-10.2 [facility] Comment on above: Performed By: #### C MP, LIPID #### [facility] [address] [place] [address] Dr. Varghese Perez Chloride [Moles/Vol] 106 mmol/L Normal 98-107 [facility] Comment on above: Performed By: #### C MP, LIPID #### [facility] [address] [place] [address] Dr. Varghese Perez CO2 [Moles/Vol] 29.0 mmol/L Normal 22.0-30.0 [facility] Comment on above: Performed By: #### C MP, LIPID #### [facility] [address] [place] [address] Dr. Varghese Perez Creatinine [Mass/Vol] 0.86 mg/dL Normal 0.66-1.25 [facility] Comment on above: Performed By: #### C MP, LIPID #### [facility] [address] [place] [address] Dr. Varghese Perez EGFR-AF PAKISTANI >60 Normal >=60 [facility] Comment on above: Performed By: #### C MP, LIPID #### [facility] [address] [place] [address] Dr. Varghese Perez EGFR-NON AF PAKISTANI >60 Normal >=60 [facility] Comment on above: Performed By: #### C MP, LIPID #### [facility] [address] [place] [address] Dr. Varghese Perez Globulin (S) [Mass/Vol] 3.3 g/dL Normal [facility] Comment on above: Performed By: #### C MP, LIPID #### [facility] [address] [place] [address] Dr. Varghese Perez Glucose [Mass/Vol] 127 mg/dL Critically high 74-106 [facility] Comment on above: Performed By: #### C MP, LIPID #### [facility] [address] [place] [address] Dr. Varghese Perez Potassium [Moles/Vol] 4.2 mmol/L Normal 3.4-5.0 [facility] Comment on above: Performed By: #### C MP, LIPID #### [facility] [address] [place] [address] Dr. Varghese Perez Protein [Mass/Vol] 7.0 g/dL Normal 6.1-8.2 [facility] Comment on above: Performed By: #### C MP, LIPID #### [facility] [address] [place] [address] Dr. Varghese Perez Sodium [Moles/Vol] 142 mmol/L Normal 137-145 [facility] Comment on above: Performed By: #### C MP, LIPID #### [facility] [address] [place] [address] Dr. Varghese Perez Urea nitrogen [Mass/Vol] 9.0 mg/dL Normal 9.0-20.0 [facility] Comment on above: Performed By: #### C MP, LIPID #### [facility] [id number] Varghese Perez Urea nitrogen/Creatinin e [Mass ratio] 10.5 mg/mg Normal [facility] Comment on above: Performed By: #### C MP, LIPID #### [facility] [address] [address] [address] Varghese Perez Vital Signs Date Time Vital Sign Value Performing Clinician Facility 10-19-2024 09:01-0400 Body weight 75 kg Rach Bonus PA-C Work Phone: [facility] 10-19-2024 09:01-0400 Diastolic blood pressure 72 mm[Hg] Rach Bonus PA-C Work Phone: [facility] 10-19-2024 09:01-0400 Heart rate 56 /min Rach Bonus PA-C Work Phone: [facility] 10-19-2024 09:01-0400 Respiratory rate 16 /min Rach Bonus PA-C Work Phone: [facility] 10-19-2024 09:01-0400 SaO2% (BldA) [Mass fraction] 99 % Rach Bonus PA-C Work Phone: [facility] 10-19-2024 09:01-0400 Systolic blood pressure 130 mm[Hg] Rach Bonus PA-C Work Phone: [facility] 06-27-2024 08:36-0400 Diastolic blood pressure 85 mm[Hg] [address] 06-27-2024 08:36-0400 Heart rate 67 /min [address] 06-27-2024 08:36-0400 Respiratory rate 20 /min [address] 06-27-2024 08:36-0400 Systolic blood pressure 135 mm[Hg] [address] 06-27-2024 08:19-0400 SaO2% (BldA) [Mass fraction] 100 % Sweetie 1 [facility] 06-13-2024 15:00-0500 Body height 180 cm Sweetie 1 [facility] 06-13-2024 15:00-0500 Body mass index (BMI) [Ratio] 24.69 kg/m2 Sweetie 1 [facility] 06-13-2024 15:00-0500 Body weight 80 kg Sweetie 1 [facility] 12-30-2023 15:44-0400 Body height 177.8 cm Zohreh Oliver DO Work Phone: [facility] 12-30-2023 15:44-0400 Body mass index (BMI) [Ratio] 24.68 kg/m2 Zohreh Oliver DO Work Phone: [facility] 12-30-2023 15:44-0400 Body weight 78.02 kg Zohreh Oliver DO Work Phone: [facility] 02-20-2022 08:48-0500 Diastolic blood pressure 95 mm[Hg] MD Sai Yost Work Phone: [facility] 02-20-2022 08:48-0500 Heart rate 57 /min MD Sai Yost Work Phone: [facility] 02-20-2022 08:48-0500 Respiratory rate 18 /min MD Sai Yost Work Phone: [facility] 02-20-2022 08:48-0500 SaO2% (BldA) [Mass fraction] 97 % MD Sai Yost Work Phone: [facility] 02-20-2022 08:48-0500 Systolic blood pressure 154 mm[Hg] MD Sai Yost Work Phone: [facility] 02-20-2022 07:18-0500 Body height 180.34 cm MD Sai Yost Work Phone: [facility] 02-20-2022 07:18-0500 Body temperature 98 [degF] MD Sai Yost Work Phone: [facility] 02-20-2022 07:18-0500 Body weight 77.11 kg MD Sai Yost Work Phone: [facility] Encounters Encounter Date Encounter Type Care Provider Facility Start: 12-18-2024 ambulatory Maxwell BealLarisa Weston Facility :[facility] Kaylen Start: 10-19-2024 End: 10-19-2024 Patient encounter procedure Rach Nino PA-C Work Phone: Spine Surgery Comment on above: Cervical disc disord er with radiculopathy (Primary Dx); Carpal tunnel syndrome, bilateral upper limbs Start: 10-19-2024 End: 10-19-2024 ambulatory LATIA CHAVIS Facility:[facility] Start: 10-11-2024 End: 10-11-2024 Orders Only Norbert French MD Work Phone: Orthopaedics Comment on above: Carpal tunnel syndro me on left (Primary Dx); Trigger middle finger of left hand; Trigger ring finger of left hand Start: 10-11-2024 ambulatory NORBERT FRENCH Facility:[facility] Start: 10-09-2024 End: 10-09-2024 Telephone encounter Norbert French MD Work Phone: Orthopaedics Comment on above: Surgical Followup Start: 10-04-2024 End: 10-04-2024 ambulatory Anderson Madera Facility:[facility] Start: 10-04-2024 End: 10-04-2024 Office outpatient visit 25 minutes Norbert French MD Work Phone: Orthopaedics Comment on above: Bilateral carpal airam filiberto syndrome (Primary Dx); Trigger finger, left ring finger; Trigger finger, left middle finger Start: 10-04-2024 End: 10-04-2024 ambulatory NORBERT FRENCH Facility:[facility] Start: 09-25-2024 End: 09-26-2024 Telephone encounter Latia Chavis PA-C Work Phone: Orthopaedics Comment on above: Results Start: 09-20-2024 End: 09-20-2024 ambulatory LATIA CHAVIS Facility:[facility] Start: 09-20-2024 End: 09-20-2024 Subsequent hospital visit by physician [facility] Rej Work Phone: Radiology Comment on above: 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, 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] Start: 09-11-2024 End: 09-11-2024 ambulatory MD Maxwell Ontiveros Facility:[facility] Start: 09-06-2024 End: 09-07-2024 Chart abstracting None (Historical) Neurology Start: 08-09-2024 End: 08-09-2024 ambulatory Anderson Madera Facility:[facility] Start: 08-09-2024 End: 08-09-2024 Telephone encounter Crystal Matthews Radiology Comment on above: Appointment Start: 08-02-2024 End: 08-02-2024 ambulatory LATIA CHAVIS Facility:[facility] Start: 07-20-2024 End: 07-20-2024 Telephone encounter Sandy Bhatt MD Work Phone: Orthopaedics Comment on above: Appointment Start: 07-16-2024 ambulatory SANDY BHATT Facility:[facility] Start: 07-16-2024 End: 07-16-2024 Subsequent hospital visit by physician Mr [facility] (Istat/1.5) Work Phone: [facility] Radiology MRI Comment on above: Spinal stenosis of c ervical region [M48.02] Start: 07-12-2024 End: 07-13-2024 Telephone encounter Sandy Bhatt MD Work Phone: Spine Medicine Start: 07-06-2024 End: 07-07-2024 ambulatory XXXX NONE Facility:[facility] Start: 06-29-2024 End: 06-29-2024 Subsequent hospital visit by physician Aby Richard 1 Work Phone: Radiology Comment on above: Hx of cervical spine surgery [Z98.890] Start: 06-29-2024 End: 06-29-2024 ambulatory SAI YOST Facility:[facility] Start: 06-29-2024 End: 06-29-2024 Office outpatient visit 15 minutes Sandy Bhatt MD Work Phone: Orthopaedics Comment on above: 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); Carpal tunnel syndrome, bilateral; Hx of cervical spine surgery; Spinal stenosis of cervical region Start: 06-27-2024 End: 06-27-2024 Subsequent hospital visit by physician Sweetie Herrera[address] [facility] Comment on above: Chest pain, unspecif ied; Shortness of breath; Essential (primary) hypertension Start: 06-27-2024 End: 06-27-2024 ambulatory CHRIS GARCIA [facility] Start: 06-24-2024 End: 06-24-2024 ambulatory SANDY BHATT Facility:[facility] Start: 06-24-2024 End: 06-24-2024 Patient encounter procedure Emg 2 Neur [facility] Rej (Max Weight: 400) Work Phone: Neurology Comment on above: EMG Start: 06-14-2024 End: 06-14-2024 ambulatory Crhis Garcia Facility:[facility] Start: 06-13-2024 End: 06-13-2024 Office outpatient new 45 minutes Sandy Bhatt MD Work Phone: Orthopaedics Comment on above: 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) Start: 06-13-2024 End: 06-13-2024 ambulatory SAI YOST Facility:[facility] Start: 06-13-2024 End: 06-13-2024 Subsequent hospital visit by physician Aby Richard 1 Work Phone: Radiology Comment on above: Pain [R52] Start: 06-12-2024 End: 06-12-2024 ambulatory XXXX NONE Facility:[facility] Start: 06-09-2024 End: 06-09-2024 ambulatory Chris Garcia Facility:[facility] Start: 05-26-2024 End: 05-26-2024 Orders Only No One (Historical) Referring Physician Comment on above: Pain (Primary Dx) Start: 05-24-2024 End: 05-24-2024 ambulatory MD Aneesh Haq Facility:[facility] Start: 05-11-2024 End: 05-11-2024 ambulatory Chris Garcia Facility:[facility] Start: 05-08-2024 End: 05-08-2024 Emergency department patient visit Chema Cho Facility:[facility] Start: 05-08-2024 End: 05-08-2024 ambulatory Maxwell Ontiveros Facility:[facility] Lashon das Start: 04-04-2024 End: 04-04-2024 Bamboo flowsheet Jigna Sivakumar Zahler DO Work Phone: [facility] Start: 04-04-2024 End: 04-04-2024 Bamboo flowsheet Jigna Sivakumar Zahler DO Work Phone: [facility] Start: 04-04-2024 End: 04-04-2024 Postop follow up visit related to original px Jigna Shaver Zahler DO Work Phone: [facility] Comment on above: Pseudophakia (Primar y Dx) Start: 04-04-2024 End: 04-04-2024 ambulatory JIGNA BARROSO Not Available Start: 03-13-2024 End: 03-13-2024 Bamboo flowsheet Jigna Sivakumar Zahler DO Work Phone: [facility] Start: 03-13-2024 End: 03-13-2024 Bamboo flowsheet Jigna Sivakumar Zahler DO Work Phone: [facility] Start: 03-13-2024 End: 03-13-2024 ambulatory JIGNA BARROSO Not Available Start: 01-14-2024 End: 01-14-2024 ambulatory Lauri [place] Facility:[facility] Start: 12-30-2023 End: 12-30-2023 Patient encounter procedure Zohreh Oliver DO Work Phone: [facility] Comment on above: Left shoulder pain, unspecified chronicity (Primary Dx) Start: 12-30-2023 End: 12-30-2023 ambulatory ZOHREH OLIVER Not Available Start: 12-30-2023 End: 12-30-2023 ambulatory ZOHREH OLIVER Not Available Start: 02-20-2022 End: 02-20-2022 ambulatory Cam Rea Facility:[facility] Start: 02-20-2022 End: 02-20-2022 Admission to same day surgery center MD Sai Yost Work Phone: [facility] Start: 02-20-2022 End: 02-20-2022 ambulatory MD Sai Yost Work Phone: [facility] Work Phone: Start: 10-28-2021 Encounter for genera l adult medical examination without abnormal findings DR SAI YOST [facility] Start: 10-25-2021 End: 10-26-[address] SAI YOST Facility:[facility] Start: 10-25-2021 End: 10-26-2021 Encounter for general adult medical examination without abnormal findings DR SAI YOST Facility:[facility] Start: 03-08-2021 End: 03-09-[address] SAI YSOT Facility:[facility] Procedures Date Procedure Procedure Detail Performing Clinician Start: 09-20-2024 Us lmtd joint/oth nonvasc xtr strux r-t w/img Latia Chavis PA-C Work Phone: Start: 07-16-2024 Mri spinal canal cervical w/o contrast matrl Sandy Bhatt MD Work Phone: Start: 06-29-2024 Radex spine cervical 4 or 5 views Sandy Bhatt MD Work Phone: Start: 06-27-2024 Cta hrt cornry art/bypass grfts contrst 3d post Chris Garcia MD Work Phone: Start: 06-24-2024 Nerve conduction terrance dies 5-6 studies Sandy Bhatt MD Work Phone: Start: 06-13-2024 Radex hand minimum 3 views Sandy Bhatt MD Work Phone: Start: 03-13-2024 Oph bmtry prtl coher intrfrmtry io lens pwr melissa Jigna Barroso DO Work Phone: Start: 03-13-2024 End: 03-13-2024 Ophth medical xm&eval compre new pt 1/> vst Age-related nuclear cataract of both eyes Jigna Barroso DO Work Phone: Comment on above: Age-related nuclear cataract of both eyes (Primary Dx) Start: 12-30-2023 Radex shoulder compl ete minimum 2 views Zohreh Oliver DO Work Phone: Start: 02-20-2022 Screening colonoscopy Lindsey Yost Work Phone: Start: 02-20-2022 Colonoscopy Sweetie 1 Start: 10-25-[address] SAI OCAMPO Comment on above: Performed By: #### P SASC #### [facility] [address] [place] [address] Dr. Varghese Perez Start: 03-08-[address] SAI OCAMPO Comment on above: Performed By: #### P SASC #### [facility] [address] [place] [address] Dr. Varghese Perez Plan of Treatment Date Care Activity Detail Author Start: 2032 RSV High Risk: (Elde rly (60+) or Population) (1 - 1-dose 75+ series) RSV High Risk: (Elderly (60+) or Population) (1 - 1-dose 75+ series) [facility] Start: 2032 RSV Vaccine (1 - 1-d ose 75+ series) RSV Vaccine (1 - 1-dose 75+ series) [facility] Start: 02-21-2032 Screening for malign ant neoplasm of colon [facility] Start: 07-01-2031 DTaP/Tdap/Td Vaccine s (2 - Td or Tdap) DTaP/Tdap/Td Vaccines (2 - Td or Tdap) [facility] Start: 03-13-2025 End: 03-13-2025 Patient encounter procedure 03/13/2025 11:30 AM EST Office Visit Orthopaedics [address] [place], [place] [id number] Norbert French MD [address] [place] [address] Post op Left wrist Sx 01/29/25 Orthopaedics Comment on above: Post op Left wrist S x 01/29/25 Start: 02-13-2025 End: 02-13-2025 Patient encounter procedure 02/13/2025 11:30 AM EST Office Visit Orthopaedics [address] [facility] [place] [place] [address] Latia Chavis PA-C [address] [facility] [place] [address] Post op Left wrist Sx 01/29/25 Orthopaedics Comment on above: Post op Left wrist S x 01/29/25 Start: 01-29-2025 End: 01-29-2025 Admission to same day surgery center 01/29/2025 7:30 AM EDT - 01/29/2025 9:00 AM EDT Surgery Ambulatory Surgery [address] [facility] [place] [address] Norbert French MD [address] [facility] [place] [address] DECOMPRESSION NERVE MEDIAN CARPAL TUNNEL Ambulatory Surgery Comment on above: DECOMPRESSION NERVE MEDIAN CARPAL TUNNEL Start: 01-29-2025 End: 01-29-2025 Neuroplasty &/transpos median nrv carpal tunne DECOMPRESSION NERVE MEDIAN CARPAL TUNNEL Carpal tunnel syndrome on left Trigger middle finger of left hand Trigger ring finger of left hand 01/29/2025 7:30 AM EDT ABEL [facility]NON Start: 01-29-2025 Subsequent hospital visit by physician 01/29/2025 7:30 AM EDT Hospital Encounter Ambulatory Surgery [address] [facility] [place] [address] Norbert French MD [address] [facility] [place] [place] [address] Carpal tunnel syndrome on left [G56.02], Trigger middle finger of left hand [M65.332], Trigger ring finger of left hand [M65.342] Ambulatory Surgery Comment on above: Carpal tunnel syndro me on left [G56.02], Trigger middle finger of left hand [M65.332], Trigger ring finger of left hand [M65.342] Start: 01-29-2025 End: 01-29-2025 Tendon sheath incision [facility] Start: 01-08-2025 End: 01-08-2025 Anesthesia consultation 01/08/2025 9:40 AM EDT PAT Pre Anesthesia [address] [place] [address] 1, Pacc Ferris [address] [place] [address] Pacc Left wrist Sx 01/29/25 Pre Anesthesia Comment on above: Pacc Left wrist Sx 1 Start: 12-11-2024 [facility] Start: 10-19-2024 End: 10-19-2024 Patient encounter procedure 10/19/2024 9:30 AM EDT Office Visit Spine Surgery [address] [facility] [address] [place] [address] Rach Nino PA-C [address] [place] [address] symptoms of left hand weakness, numbness, and issue using hands. Spine Surgery Comment on above: symptoms of left alan d weakness, numbness, and issue using hands. Start: 09-20-2024 End: 09-20-2024 Patient encounter procedure 09/20/2024 10:15 AM EDT Appointment Radiology [address] [place] [address] US WRIST RT+LT; VOLAR+CARPAL TUNNEL-EVAL FOR BILATERAL CTS Radiology Comment on above: US WRIST RT+LT; VOLA R+CARPAL TUNNEL-EVAL FOR BILATERAL CTS Start: 08-02-2024 End: 08-02-2024 Patient encounter procedure 08/02/2024 1:30 PM EDT Office Visit Orthopaedics [address] [place] [address] Latia Chavis, AARON [address] [place] [address] 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, M62.542] Orthopaedics Comment on above: 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, M62.542] Start: 07-16-2024 End: 07-16-2024 Patient encounter procedure 07/16/2024 2:40 PM EDT Appointment [facility] [place] [address] [place] [address] Spinal stenosis of cervical region [M48.02] [facility] Radiology MRI Comment on above: Spinal stenosis of c ervical region [M48.02] Start: 07-14-2024 End: 07-14-2024 Patient encounter procedure 07/14/2024 2:00 PM EDT Office Visit Neurology [address] [place] [id number] Tho Guerra MD [address] [place] [address] 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, M62.542] Neurology Comment on above: 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, M62.542] Start: 06-29-2024 End: 06-29-2024 Patient encounter procedure 06/29/2024 10:00 AM EDT Office Visit Orthopaedics [address] [place] [address] Sandy Bhatt MD [address] [place] [address] follow up bilateral hand pain - EMG results Orthopaedics Comment on above: follow up bilateral hand pain - EMG results Start: 06-24-2024 End: 06-24-2024 Patient encounter procedure 06/24/2024 9:35 AM EDT Procedure Neurology [address] [place] [address] 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, M62.542] Neurology Comment on above: 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, M62.542] Start: 06-13-2024 End: 06-13-2024 Patient encounter procedure Radiology Comment on above: Thenar muscle atroph y of right hand, PT says its for both sides Start: 04-12-2024 Advance Directive Discussion Advance Directive Discussion [facility] Start: 04-12-2024 Medicare Advantage Annual Wellness Visit Medicare Advantage Annual Wellness Visit [facility] Start: 04-04-2024 End: 04-04-2024 Patient encounter procedure [facility] Comment on above: Arrived Start: 03-13-2024 End: 03-13-2024 Patient encounter procedure [facility] Comment on above: Arrived Start: 12-12-2023 Covid-19 Vaccine () Covid-19 Vaccine () [facility] Start: 12-12-2023 COVID-19 Vaccine () COVID-19 Vaccine () [facility] Start: 12-12-2023 Influenza vaccination Influenza Vacc ine (#1) [facility] Start: 2022 Pneumococcal Vaccine : 65+ Years (1 of 1 - PCV) Pneumococcal Vaccine: 65+ Years (1 of 1 - PCV) [facility] Start: 02-20-[address] [facility] Start: 09-30-2014 Diabetes Screening Diabetes Screenin g [facility] Start: 2012 Prostate specific antigen measurement Prostate Cancer Screening Discussion [facility] Start: 11-11-2007 Pneumococcal vaccination Pneumococcal Vaccine (1 of 1 - PCV) [facility] Start: 11-11-2007 Pneumococcal Vaccine : 50+ (1 of 1 - PCV) Pneumococcal Vaccine: 50+ (1 of 1 - PCV) [facility] Start: 11-11-2007 Shingrix Vaccine (1 of 2) Shingrix Vaccine (1 of 2) [facility] Start: 2002 Prostate specific antigen measurement Prostate Cancer Screening Discussion [facility] Start: 2002 Screening for malign ant neoplasm of colon [facility] Start: 1992 Lipid panel Lipid Screening [facility] Start: 1976 Urine microalbumin profile DTaP,Tdap,Td Vaccine (1 - Tdap) [facility] Start: 11-11-1975 Anxiety Screening Anxiety Screening [facility] Start: 11-11-1975 Depression Screening Depression Scre ening [facility] Start: 11-11-1975 Hepatitis C screening Hepatitis C Sc sarwat [facility] Start: 1958 MMR Vaccines (1 of 1 - Standard series) MMR Vaccines (1 of 1 - Standard series) [facility] Start: 1957 Abdominal aortic aneurysm screening Abdominal Aortic Aneurysm Screening [facility] Start: 1957 Annual wellness visit Welcome to Medicare Visit [facility] Start: 1957 Lipid panel Lipid Panel [facility] Start: 1957 Screening for malign ant neoplasm of colon [facility] End: 06-13-2025 EMG(NEURO/NI) EMG(NEURO/NI) EMG Routine Atrophy of muscle of both hands 1 Occurrences starting 06/13/2024 until 06/13/2025 [facility] Work Phone: Comment on above: 1 Occurrences starti ng 06/13/2024 until 06/13/2025 End: 07-29-2025 MR Cervical spine WO contrast MRI CERVICAL SPINE WO IVCON Radiology Routine Spinal stenosis of cervical region 1 Occurrences starting 06/29/2024 until 07/29/2025 [facility] Comment on above: 1 Occurrences starti ng 06/29/2024 until 07/29/2025 Patient Education Colon Polyps [facility] Work Phone: End: 07-29-2025 XR CERV OTHER 4V AP/LAT/FLX/EXT XR CERV OTHER 4V AP/LAT/FLX/EXT Radiology Routine Hx of cervical spine surgery 1 Occurrences starting 06/29/2024 until 07/29/2025 [facility] Work Phone: Comment on above: 1 Occurrences starti ng 06/29/2024 until 07/29/2025 XR CERV OTHER 4V AP/LAT/FLX/EXT XR CERV OTHER 4V AP/LAT/FLX/EXT Radiology Routine Hx of cervical spine surgery 06/29/2024 11:05 AM EDT [facility] End: 06-25-2025 XR Hand - bilateral PA and Lateral and Oblique XR HAND GENERAL 3V PA/LAT/OBL BILATERAL Radiology Routine Pain 1 Occurrences starting 05/26/2024 until 06/25/2025 [facility] Work Phone: Comment on above: 1 Occurrences starti ng 05/26/2024 until 06/25/2025 Immunizations Immunization Date Immunization Notes Care Provider Nalini heath 03-18-2024 influenza virus vaccine, unspecified formulation Jigna Barroso DO Work Phone: [facility] 12-28-2022 influenza virus vaccine, unspecified formulation Zohreh Oliver DO Work Phone: [facility] 04-14-2021 COVID-19 mRNA Bivale nt Booster (Moderna) MD Sai Yost Work Phone: [facility] 07-23-2020 COVID-19 mRNA-1273 (Moderna) MD Sai Yost Work Phone: [facility] 06-20-2020 COVID-19 mRNA-1273 (Moderna) MD Sai Yost Work Phone: [facility] Payers Date Payer Category Payer Medicare (Managed Care) [employer] [facility] [id number] 5 2024 Medicare [id number] 2024 Medicare [id number] .[id number] 5 2024 Medicare [id number] 2022 Private Health Insurance [id number] .[id number] .[id number] 5 2021 Self-pay 2012 Unknown SABRINA Mitchell [facility] [place] [id number] 2012-Present [address] [place] [address] [id number] .[id number] 2012 Worker's Compensation SABRINA Portillo adelia [id number] .[id number] 5 2012 Unknown [id number] 1959 Unknown [id number] 1957 Unknown [id number] 2.16.840.1.277329.3.579 .2.59 1957 Unknown [id number] 2.16.840.1.212678.3.579 .2.593 1957 Unknown [id number] 2.16.840.1.334494.3.579 .2.1258 1957 Unknown [id number] 2.16.840.1.402664.3.579 .2.1259 1957 Unknown [id number] 2.16.840.1.374550.3.579 .2.125 1957 Unknown [id number] 2.16.840.1.550574.3.579 .2.1259 1957 Unknown [id number] 2.16.840.1.669393.3.579 .2.1259 1957 Unknown [id number] 2.16.840.1.578638.3.579 .2.1259 1957 Unknown [id number] 2.16.840.1.507382.3.579 .2.1258 1957 Unknown [id number] 2.16.840.1.503692.3.579 .2.1259 1957 Unknown [id number] 2.16.840.1.814617.3.579 .2. 1957 Unknown [id number] 2.16.840.1.080202.3.579 .2.72 1957 Unknown [id number] 2.16.840.1.032178.3.579 .2.1246 1957 Unknown [id number] 2.16.840.1.318732.3.579 .2. 1957 Unknown [id number] 2.16.840.1.509414.3.579 .2. 1957 Unknown [id number] 2.16.840.1.073468.3.579 .2. 1957 Unknown [id number] 2.16.840.1.713474.3.579 .2. 1957 Unknown [id number] 2.16.840.1.462312.3.579 .2. 1957 Unknown [id number] 2.16.840.1.774570.3.579 .2. 1957 Unknown [id number] 2.16.840.1.842940.3.579 .2.72 1957 Unknown [id number] 2.16.840.1.333596.3.579 .2. 1957 Unknown [id number] 2.16.840.1.115885.3.579 .2.72 1957 Unknown [id number] 2.16.840.1.298357.3.579 .2.727 1957 Unknown [id number] 2.16.840.1.925069.3.579 .2.727 1957 Unknown [id number] 2.16.840.1.524265.3.579 .2.727 1957 Unknown [id number] 2.16.840.1.103048.3.579 .2.727 1957 Unknown [id number] 2.16.840.1.538651.3.579 .2.727 Private Health Insurance [facility] [employer] [id number] Unknown [id number] 2.16.840.1.409077.3.579 .2.531 Social History Date Type Detail Facility Start: 09-10-2011 End: 02-20-2022 Tobacco smoking status COIS Ex-smoker (finding) [facility] Start: 1955 Sex Assigned At Male F [facility] Start: 12-12-1975 End: 10-11-1991 History of tobacco use Current smoker [facility] Start: 12-12-1975 End: 10-11-1991 History of tobacco use Cigarette Smoker [facility] Start: 12-30-2023 End: 06-29-2024 Cigarettes smoked current (pack per day) - Reported 1.5 [facility] Start: 12-30-2023 End: 04-04-2024 Alcoholic beverage intake Ex-drinker (finding) [facility] Start: 12-30-2023 End: 06-29-2024 Tobacco use panel [facility] Start: 12-24-2022 Gender identity Identifies as male gender (finding) [facility] Start: 12-24-2022 Sexual orientation Asexual [facility] Start: 09-10-2011 Tobacco use and exposure Smokeless tobacco non-user [facility] Start: 09-24-2011 Alcoholic beverage intake Current drinker of alcohol (finding) [facility] Start: 09-10-2011 Alcohol Comment moderate [facility] Start: 1957 Sex assigned at Not on file [facility] Tobacco smoking stat [facility] Tobacco smoking consumption unknown [facility] Work Phone: Start: 06-17-2024 End: 06-27-2024 Exposure to SARS-CoV-2 (event) Not sure [facility] Work Phone: Medical Equipment Procedure Code Equipment Code Equipment Original Text Equipment Identifier Dates Bey-Ru-T-Kind Implant - [id number] Start: 09-30-2011 Comment on above: Description: ACCOLAD E II 127 DEGREE NECK ANGLE HIP STEM Shell Actb 60mm Prim Sb Hmsphr - [id number] Start: 09-30-2011 Comment on above: Description: TRITANI UM HEMISPHERICAL SOLID BACK SHELL Ins Actb 36mm 0d F X3 Trdnt - [id number] Start: 09-30-2011 Comment on above: Description: TRIDENT X3 0 DEGREE POLYETHYLENE INSERT Head Fem 36mm V4 0 Blx D - [id number] Start: 09-30-2011 Comment on above: Description: BIOLOX DELTA CERAMIC V40 FEMORAL HEAD Goals Date Patient Goal Desired Activity /State Clinical Notes 02-20-2022 to 10-19-2024 Rach Nino PA-C - 10/19/2024 9:16 AM EDTTelephone Encounter - Brii Sousa - 10/09/2024 12:22 PM EDTTelephone Encounter - Brii Sousa - 10/09/2024 12:22 PM EDTPatient Instructions Note Date & Type Note Facility 10-19-2024 Note HNO ID: [id number] Author: RACH NINO PA-C Service: ? Author Type: Physician [employer] Type: Progress Notes Filed: 10/19/2024 09:54 Note Text: SPINE SURGERY OUTPATIENT CONSULT This is an in-person visit. SERVICE DATE: 10/19/2024 PCP: Sai Yost MD REFERRING PROVIDER: Latia Chavis [address] [facility] [place] [address] Consult requested for an opinion regarding the evaluation and treatment of hand weakness. My final impression and recommendations will be communicated back to the requesting physician by way of the shared medical record or letter via US mail. SUBJECTIVE Rachid Mcnair is a 68 year old male CHIEF COMPLAINT: hand weakness, numbness, pain HISTORY OF PRESENT ILLNESS PRECIPITATING EVENT: None DURATION OF SYMPTOMS: Greater Than 1 Year Rachid Mcnair is a 68-year-old male with a history of cervical spine surgeries, presenting for evaluation of bilateral hand weakness and numbness. Rachid underwent his first cervical spine surgery in 1997 at the [facility] with Dr. Chema Bosch. A second surgery was performed in [address] Antony Gudino in [place]. He reports that his right thumb weakness and numbness began around [id number], prior to the second surgery. Over the past 3-4 years, these symptoms have progressed to involve the index and middle fingers of the right hand. He describes these fingers as pretty much , with no strength but some sensation of pain. He does not endorse any shooting pain in the arm. In February, he began experiencing similar symptoms in the middle finger and ring finger of his left hand, which prevent him from making a fist. He describes the fingers as getting stuck, and popping. Rachid has scheduled carpal tunnel surgery, starting with the left hand, followed by the right hand 4-6 weeks later. A carpal tunnel injection in September provided no relief. He also reports a trigger finger on the right hand, which locks and clicks when tying shoes. PREVIOUS CONSERVATIVE TREATMENTS: Injections Scheduled for carpel tunnel release PREVIOUS SPINAL SURGERY: SURGERY #1: Cervical laminectomy 1997 SURGERY #2: C5-7 ACDF 2017 ACTIVE PROBLEM LIST Hip Pain PAST MEDICAL HISTORY Diagnosis Date Anxiety Diabetes mellitus type 2 in obese Dyslipidemia GERD (gastroesophageal reflux disease) HTN (hypertension) Osteoarthritis Tinnitus of both ears PAST SURGICAL HISTORY Procedure Laterality Date CERVICAL LAMINOPLASTY 1997 removal of bone spur EXCISION OLECRANON BURSA MRSA infection Rt. S JESSICA SPINE LUMB STRY insertion of two rods No family history on file. Social History Tobacco Use Smoking status: Former Smokeless tobacco: Never Substance Use Topics Alcohol use: Yes Comment: moderate Drug use: No ALLERGIES Allergen Reactions Sulfa (Sulfonamide * Rash MEDICATIONS: Amoxicillin 500 mg tablet Take four (4) capsules one (1) hour before Dental surgery oxyCODONE-acetaminophen 5-325 mg tablet Take 1 tablet by mouth every 4 hours as needed. enoxaparin 40 mg/0.4 mL Syrg Inject 0.4 mL subcutaneously once daily. docusate sodium 100 mg capsule Take 1 capsule by mouth twice daily. citalopram 20 mg tablet Take 20 mg by mouth once daily. pravastatin 20 mg tablet Take 20 mg by mouth once daily. valsartan (DIOVAN) 160 mg tablet Take 160 mg by mouth once daily. metFORMIN 500 mg tablet Take 500 mg by mouth twice daily with meals. omeprazole 20 mg capsule Take 20 mg by mouth once daily. REVIEW OF SYSTEMS: GENERAL: No weight loss or malaise MUSCULOSKELETAL: see HPI NEURO: No history of headaches, syncope, paralysis, seizures or tremors Patient Entered Questionnaires 10/15/2024 Spine Questions Pain Location: None, my primary complaint is not pain-related Symptoms from neck/cervical spine: Yes Employment Status: Retired Involved in law suit/legal claim: No 10/15/2024 Neck Questionnaires Benzel Modified BOGDAN Score 13 (Moderate Myelopathy Symptoms) PROMIS Score Percentiles 07/29/2024 09/28/2024 10/15/2024 Physical Health Physical Function Percentile 58 18* Sleep Percentile 92 Fatigue Percentile 62 10/15/2024 PROMIS SOCIAL ROLE SCORE Social Role Satisfaction Percentile 62 06/12/2024 09/28/2024 PROMIS Global Health Scale Physical Health Percentile 53 31 Mental Health Percentile 63 34 Patient-reported Percentiles provide an indication of how the patient's score ranks in relation to the general population. Higher percentile rankings indicate better function/quality of life. 50th percentile is the average of the general population and indicates half of respondents had a worse score. Descriptive Summary for PROMIS Physical Function T-score = 41 (Percentile 18) Much difficulty - Do 2 hours of physical labor. Some difficulty - Walk more than a mile (1.6 km). Depression Screenin10/15/2024 PHQ-9 Score 0 10/15/2024 PHQ-9 Self-harm Question Question 9 Not at all PHQ-9 Self-Harm (Item (more content not included)... [facility] 10-19-2024 History of Present illness Narrative Images from the original note were not included. SPINE SURGERY OUTPATIENT CONSULT This is an in-person visit. SERVICE DATE: 10/19/2024 PCP: Sai Yost MD REFERRING PROVIDER: Latia Chavis [facility] [address] Consult requested for an opinion regarding the evaluation and treatment of hand weakness. My final impression and recommendations will be communicated back to the requesting physician by way of the shared medical record or letter via US mail. SUBJECTIVE Rachid Mcnair is a 68 year old male CHIEF COMPLAINT: hand weakness, numbness, pain HISTORY OF PRESENT ILLNESS PRECIPITATING EVENT: None DURATION OF SYMPTOMS: Greater Than 1 Year Rachid Mcnair is a 68-year-old male with a history of cervical spine surgeries, presenting for evaluation of bilateral hand weakness and numbness. Rachid underwent his first cervical spine surgery in 1997 at the [facility] with Dr. Chema Bosch. A second surgery was performed in [address] Antony Gudino in [place]. He reports that his right thumb weakness and numbness began around [id number], prior to the second surgery. Over the past 3-4 years, these symptoms have progressed to involve the index and middle fingers of the right hand. He describes these fingers as pretty much , with no strength but some sensation of pain. He does not endorse any shooting pain in the arm. In February, he began experiencing similar symptoms in the middle finger and ring finger of his left hand, which prevent him from making a fist. He describes the fingers as getting stuck, and popping. Rachid has scheduled carpal tunnel surgery, starting with the left hand, followed by the right hand 4-6 weeks later. A carpal tunnel injection in September provided no relief. He also reports a trigger finger on the right hand, which locks and clicks when tying shoes. PREVIOUS CONSERVATIVE TREATMENTS: Injections Scheduled for carpel tunnel release PREVIOUS SPINAL SURGERY: SURGERY #1: Cervical laminectomy 1997 SURGERY #2: C5-7 ACDF 2016 ACTIVE PROBLEM LIST Hip Pain PAST MEDICAL HISTORY Diagnosis Date Anxiety Diabetes mellitus type 2 in obese Dyslipidemia GERD (gastroesophageal reflux disease) HTN (hypertension) Osteoarthritis Tinnitus of both ears PAST SURGICAL HISTORY Procedure Laterality Date CERVICAL LAMINOPLASTY 1997 removal of bone spur EXCISION OLECRANON BURSA MRSA infection Rt. S JESSICA SPINE LUMB STRY insertion of two rods No family history on file. Social History Tobacco Use Smoking status: Former Smokeless tobacco: Never Substance Use Topics Alcohol use: Yes Comment: moderate Drug use: No ALLERGIES Allergen Reactions Sulfa (Sulfonamide * Rash MEDICATIONS: Amoxicillin 500 mg tablet Take four (4) capsules one (1) hour before Dental surgery oxyCODONE-acetaminophen 5-325 mg tablet Take 1 tablet by mouth every 4 hours as needed. enoxaparin 40 mg/0.4 mL Syrg Inject 0.4 mL subcutaneously once daily. docusate sodium 100 mg capsule Take 1 capsule by mouth twice daily. citalopram 20 mg tablet Take 20 mg by mouth once daily. pravastatin 20 mg tablet Take 20 mg by mouth once daily. valsartan (DIOVAN) 160 mg tablet Take 160 mg by mouth once daily. metFORMIN 500 mg tablet Take 500 mg by mouth twice daily with meals. omeprazole 20 mg capsule Take 20 mg by mouth once daily. REVIEW OF SYSTEMS: GENERAL: No weight loss or malaise MUSCULOSKELETAL: see HPI NEURO: No history of headaches, syncope, paralysis, seizures or tremors Patient Entered Questionnaires 10/15/2024 Spine Questions Pain Location: None, my primary complaint is not pain-related Symptoms from neck/cervical spine: Yes Employment Status: Retired Involved in law suit/legal claim: No 10/15/2024 Neck Questionnaires Benzel Modified BOGDAN Score 13 (Moderate Myelopathy Symptoms) PROMIS Score Percentiles 07/29/2024 09/28/2024 10/15/2024 Physical Health Physical Function Percentile 58 18* Sleep Percentile 92 Fatigue Percentile 62 10/15/2024 PROMIS SOCIAL ROLE SCORE Social Role Satisfaction Percentile 62 06/12/2024 09/28/2024 PROMIS Global Health Scale Physical Health Percentile 53 31 Mental Health Percentile 63 34 Patient-reported Percentiles provide an indication of how the patient's score ranks in relation to the general population. Higher percentile rankings indicate better function/quality of life. 50th percentile is the average of the general population and indicates half of respondents had a worse score. Descriptive Summary for PROMIS Physical Function T-score = 41 (Percentile 18) Much difficulty - Do 2 hours of physical labor. Some difficulty - Walk more than a mile (1.6 km). Depression Screenin10/15/2024 PHQ-9 Score 0 10/15/2024 PHQ-9 Self-harm Question Question 9 Not at all PHQ-9 Self-Harm (Item 9) response options: 0 Not at all 1 Several days 2 More than half the days 3 Nearly every day PHQ-9 Levels: 0-4 No to mild depression 5-9 Mild depression 10-14 Moderate depression 15-19 Moderately severe depression 20-27 Severe depression OBJECTIVE: PHYSICAL EXAM BP 130/72 Pulse (!) 56 Resp 16 Wt 75 kg (165 lb 5.5 oz) SpO2 99% GENERAL APPEARANCE: Well nourished, well developed, and no apparent distress. NEURO PSYCH: Patient oriented to person, place, and time. Mood pleasant. Benign affect. MUSCULOSKELETAL VISUAL INSPECTION CERVICAL: WNL THORACIC: WNL LUMBAR: WNL PALPATION: SPINOUS PROCESS: No pain. PARASPINALS: No pain. Atrophy in the thenar muscles, right greater than left. MOTOR: 4+/5 hide buyer on the left (struggles with the ring finger fully flexing) Left finger intermittently locks with flexion SENSORY: Normal sensory exam GAIT: Normal. REFLEXES: +2 to bilateral U/L extremities. None DATA REVIEW [facility] records independently reviewed Imaging and outside records independently reviewed EMG: EM. Very chronic appearing motor axon loss changes are noted supportive of an intraspinal canal lesions affecting the right C7-C8/T1 roots or segments (i.e, motor radiculopathy), severe in degree electrically, accompanied by evidence of active or ongoing motor fiber loss most prevalent in distal hand muscles. 2. Chronic motor axon loss changes are noted supportive of an intraspinal canal lesions affecting the left C8/T1 roots or segments (i.e, motor radiculopathy), severe in degree electrically, accompanied by evidence of active or ongoing motor fiber loss. 3. Severe right median mononeuropathy with active denervation in the right abductor pollicis brevis muscle. Due to the severity of the median mononeuropathy and superimposed C8-T1 radiculopathy the lesion cannot be precisely localized to the wrist on this study. 4. Left median neuropathy at or distal to the wrist, supportive of a clinical diagnosis of carpal tunnel syndrome, very severe in degree electrically with evidence of ongoing/active motor axon loss in the abductor pollicis brevis muscle. 5. No definite EMG evidence ofperipheral polyneuropathy involving the upper extremities based upon normal right ulnar and radial sensory nerve conduction responses ASSESSMENT/PLAN (M50.10) Cervical disc disorder with radiculopathy (primary encounter diagnosis) (G56.03) Carpal tunnel syndrome, bilateral upper limbs Hx of C5-7 ACDF in 2017. He noted chronic numbness and weakness in the right hand following surgery. MRI with myelomalacia of C6 likely related to previous stenosis. We discussed how this can impact chronic changes. He has experienced more pain in the right thumb, 2nd and 3rd digits. His main concern is left sided trigger finger in the ring finger. He describes trouble with hide buyer because the finger gets stuck in flexion. He has to pull the finger and hears a pop. No radiating pain down the arms. No imbalance. No neck pain. EMG with chronic C8-T1, C7-T8 changes severe in degree, accompanied by active motor fiber loss. Carpel tunnel also identified on EMG. Seen by orthopedics and plans on carpel tunnel release in January. Consideration for trigger finger as well. We had a long discussion regarding his symptoms. Without any radicular pain and weakness which has been ongoing for >6 months there would likely be little, if any, benefit with a cervical surgery. His symptoms seem to be related more to his trigger finger (his main concern is the ring finger getting stuck and being unable to fully make a fist with it). He states his numbness is tolerable but he is hoping that this improves with the carpel tunnel release. We discussed plan of continuing with treatment for carpel tunnel and trigger finger. If he develops radicular symptoms or worsening symptoms he will follow up and we will reevaluate. Would consider CT as well if we went this route given his hx of fusion. The majority of the visit was spent counseling and/or coordinating care for the patient. Total face to face time was 45 minutes SIGNATURE: Rach Nino PA-C PATIENT NAME: Rachid Mcnair DATE: October 19, 2024 TIME: 9:17 AM PAGER: documented in this encounter [facility] 10-09-2024 Telephone encounter Note [facility] requesting a call back to schedule surgery. Left direct number to return call. [phone] [facility] 10-09-2024 Telephone encounter Note ----- Message from Pepe Mitchell RN sent at 10/04/2024 9:47 AM EDT ----- Regarding: Surgery Please make a post operative appointment 10-14 days after surgery date with Latia Chavis PA-C. Please make a post operative appointment [address] surgery [address] French. Where: Date: Procedure: Left carpal tunnel release, left long and ring trigger finger releases Code: [id number], [id number], [id number] Anesthesia: MAC Dx: G56.02, M65.332, M65.342 Implant to come out: Special request: Time: 1.5 hours Patient is requesting a surgery time in january Patient is a known diabetic [facility] 10-09-2024 Miscellaneous Notes [facility] requesting a call back to schedule surgery. Left direct number to return call. [phone] ----- Message from Pepe Mitchell RN sent at 10/04/2024 9:47 AM EDT ----- Regarding: Surgery Please make a post operative appointment 10-14 days after surgery date with Latia Chavis PA-C. Please make a post operative appointment 6 weeks after surgery with Dr French. Where: Date: Procedure: Left carpal tunnel release, left long and ring trigger finger releases Code: [id number], [id number], [id number] Anesthesia: MAC Dx: G56.02, M65.332, M65.342 Implant to come out: Special request: Time: 1.5 hours Patient is requesting a surgery time in january Patient is a known diabetic documented in this encounter [facility] 10-04-2024 Note HNO ID: [id number] Author: NORBERT FRENCH MD Service: ? Author Type: Physician Type: Progress Notes Filed: 10/04/2024 09:29 Note Text: The patient is sent for evaluation and an opinion regarding treatment by , who will receive a copy of this report by mail or through the shared medical record. CHIEF COMPLAINT: Rachid Mcnair is a 68-year-old male with a history of cervical spine surgery, presenting for evaluation of bilateral hand pain and numbness. HPI: PAIN EVALUATION 09/28/2024 1222 10/04/2024 0843 Pain Level: 4 3 Pain Location: Wrist-Left Finger Description: Aching;Cramping;Numbness Aching Duration Amount of Time: 60 -- Duration Units: Months Months Frequency: Continuous Intermittent Intervention/Comfort measure: -- Reposition;Relaxation Occupation: Retired Hand Dominance: right Bilateral Carpal Tunnel Syndrome: - EMG on 06/24 showed severe right median mononeuropathy and very severe left median neuropathy, likely carpal tunnel syndrome. - Ultrasound on 09/20 confirmed narrowing of the median nerve in both wrists, with mild ulnar neuritis in the left wrist. - Rachid reports constant numbness in the right index and long fingers for several years; describes them as . - Left hand numbness and pain in the long and ring fingers since March; unable to make a fist or hide buyer a golf club without severe pain. - Denies tingling in both hands. - Noted atrophy in the first dorsal interosseous and thenar muscles, worse on the right; began after neck surgery. - No previous carpal tunnel releases. - Concerns about the cumulative effects of anesthesia. Trigger Finger: - Left ring finger locks and causes severe pain; left long finger also affected but less severe. - No previous treatment for trigger fingers. Cervical Spine Surgery: - Two previous neck surgeries; first in [id number] by Chema Bosch, second in 2016. - Follow-up with spine surgery scheduled for October 19. ROS: REVIEW OF SYSTEMS: Constitutional: Fever/chills: No Cardiovascular: Chest Pain: No Respiratory: SOB: No Musculoskeletal: as noted in the HPI Neurologic: as noted in the HPI Endocrine: Diabetes: Yes Tobacco user? No SOCIAL HISTORY: Tobacco Use: Quit FAMILY HISTORY: No family history on file. PAST MEDICAL HISTORY Diagnosis Date Anxiety Diabetes mellitus type 2 in obese Dyslipidemia GERD (gastroesophageal reflux disease) HTN (hypertension) Osteoarthritis Tinnitus of both ears PAST SURGICAL HISTORY Procedure Laterality Date CERVICAL LAMINOPLASTY 1997 removal of bone spur EXCISION OLECRANON BURSA MRSA infection Rt. S JESSICA SPINE LUMB STRY insertion of two rods No family history on file. Social History Tobacco Use Smoking status: Former Smokeless tobacco: Never Substance Use Topics Alcohol use: Yes Comment: moderate Drug use: No ALLERGIES Allergen Reactions Sulfa (Sulfonamide * Rash Current Outpatient Medications Medication Sig Dispense Refill Amoxicillin 500 mg tablet Take four (4) capsules one (1) hour before Dental surgery 12 tablet 0 oxyCODONE-acetaminophen 5-325 mg tablet Take 1 tablet by mouth every 4 hours as needed. 60 tablet 0 enoxaparin 40 mg/0.4 mL Syrg Inject 0.4 mL subcutaneously once daily. 11 Syringe 0 docusate sodium 100 mg capsule Take 1 capsule by mouth twice daily. 0 citalopram 20 mg tablet Take 20 mg by mouth once daily. pravastatin 20 mg tablet Take 20 mg by mouth once daily. valsartan (DIOVAN) 160 mg tablet Take 160 mg by mouth once daily. metFORMIN 500 mg tablet Take 500 mg by mouth twice daily with meals. omeprazole 20 mg capsule Take 20 mg by mouth once daily. No current facility-administered medications for this visit. Physical Exam: Vitals: There were no vitals taken for this visit. Body Habitus: Well nourished and no acute distress Orientation: Normal, oriented to person, place and time Psych: Normal Skin: Color, texture, turgor normal. No rashes or lesions Sensation: Sensation to light touch is grossly normal bilaterally - Musculoskeletal: - Right Hand: - Severe first dorsal interosseous atrophy, severe thenar atrophy. - Sensation: Decreased sensation along the median nerve distribution. - Provocative test: No numbness or tingling elicited with manipulation. - Left Hand: - Severe first dorsal interosseous atrophy, severe thenar atrophy. - Sensation: Decreased sensation along the median nerve distribution. - Provocative test: No numbness or tingling elicited with manipulation. Both hands are examined. Decreased sensation in the median distribution bilaterally, maintained in the radial, ulnar and dorsal ulnar cutaneous. AIN, PIN, ulnar motor intact. To make full fist. Severe first dorsal interosseous and thenar atrophy bilaterally. Tender to palpation with a nodule felt at the left long and ring fingers with active locking of the ring finger. Carpal tunnel testing, elbow flexion test (more content not included)... [facility] 10-04-2024 History of Present illness Narrative Images from the original note were not included. The patient is sent for evaluation and an opinion regarding treatment by , who will receive a copy of this report by mail or through the shared medical record. CHIEF COMPLAINT: Rachid Mcnair is a 68-year-old male with a history of cervical spine surgery, presenting for evaluation of bilateral hand pain and numbness. HPI: PAIN EVALUATION 09/28/2024 1222 10/04/2024 0843 Pain Level: 4 3 Pain Location: Wrist-Left Finger Description: Aching;Cramping;Numbness Aching Duration Amount of Time: 60 -- Duration Units: Months Months Frequency: Continuous Intermittent Intervention/Comfort measure: -- Reposition;Relaxation Occupation: Retired Hand Dominance: right Bilateral Carpal Tunnel Syndrome: - EMG on 06/24 showed severe right median mononeuropathy and very severe left median neuropathy, likely carpal tunnel syndrome. - Ultrasound on 09/20 confirmed narrowing of the median nerve in both wrists, with mild ulnar neuritis in the left wrist. - Rachid reports constant numbness in the right index and long fingers for several years; describes them as . - Left hand numbness and pain in the long and ring fingers since March; unable to make a fist or hide buyer a golf club without severe pain. - Denies tingling in both hands. - Noted atrophy in the first dorsal interosseous and thenar muscles, worse on the right; began after neck surgery. - No previous carpal tunnel releases. - Concerns about the cumulative effects of anesthesia. Trigger Finger: - Left ring finger locks and causes severe pain; left long finger also affected but less severe. - No previous treatment for trigger fingers. Cervical Spine Surgery: - Two previous neck surgeries; first in [id number] by Chema Bosch, second in 2017. - Follow-up with spine surgery scheduled for October 19. ROS: REVIEW OF SYSTEMS: Constitutional: Fever/chills: No Cardiovascular: Chest Pain: No Respiratory: SOB: No Musculoskeletal: as noted in the HPI Neurologic: as noted in the HPI Endocrine: Diabetes: Yes Tobacco user? No SOCIAL HISTORY: Tobacco Use: Quit FAMILY HISTORY: No family history on file. PAST MEDICAL HISTORY Diagnosis Date Anxiety Diabetes mellitus type 2 in obese Dyslipidemia GERD (gastroesophageal reflux disease) HTN (hypertension) Osteoarthritis Tinnitus of both ears PAST SURGICAL HISTORY Procedure Laterality Date CERVICAL LAMINOPLASTY 1997 removal of bone spur EXCISION OLECRANON BURSA MRSA infection Rt. S JESSICA SPINE LUMB STRY insertion of two rods No family history on file. Social History Tobacco Use Smoking status: Former Smokeless tobacco: Never Substance Use Topics Alcohol use: Yes Comment: moderate Drug use: No ALLERGIES Allergen Reactions Sulfa (Sulfonamide * Rash Current Outpatient Medications Medication Sig Dispense Refill Amoxicillin 500 mg tablet Take four (4) capsules one (1) hour before Dental surgery 12 tablet 0 oxyCODONE-acetaminophen 5-325 mg tablet Take 1 tablet by mouth every 4 hours as needed. 60 tablet 0 enoxaparin 40 mg/0.4 mL Syrg Inject 0.4 mL subcutaneously once daily. 11 Syringe 0 docusate sodium 100 mg capsule Take 1 capsule by mouth twice daily. 0 citalopram 20 mg tablet Take 20 mg by mouth once daily. pravastatin 20 mg tablet Take 20 mg by mouth once daily. valsartan (DIOVAN) 160 mg tablet Take 160 mg by mouth once daily. metFORMIN 500 mg tablet Take 500 mg by mouth twice daily with meals. omeprazole 20 mg capsule Take 20 mg by mouth once daily. No current facility-administered medications for this visit. Physical Exam: Vitals: There were no vitals taken for this visit. Body Habitus: Well nourished and no acute distress Orientation: Normal, oriented to person, place and time Psych: Normal Skin: Color, texture, turgor normal. No rashes or lesions Sensation: Sensation to light touch is grossly normal bilaterally - Musculoskeletal: - Right Hand: - Severe first dorsal interosseous atrophy, severe thenar atrophy. - Sensation: Decreased sensation along the median nerve distribution. - Provocative test: No numbness or tingling elicited with manipulation. - Left Hand: - Severe first dorsal interosseous atrophy, severe thenar atrophy. - Sensation: Decreased sensation along the median nerve distribution. - Provocative test: No numbness or tingling elicited with manipulation. Both hands are examined. Decreased sensation in the median distribution bilaterally, maintained in the radial, ulnar and dorsal ulnar cutaneous. AIN, PIN, ulnar motor intact. To make full fist. Severe first dorsal interosseous and thenar atrophy bilaterally. Tender to palpation with a nodule felt at the left long and ring fingers with active locking of the ring finger. Carpal tunnel testing, elbow flexion testing, Spurling's all negative. IMAGING: Labs: Tests: (06/24) EMG: Severe right median mononeuropathy (carpal tunnel). Left median neuropathy (carpal tunnel). Right is severe; left is very severe. Imaging: (09/20) - Ultrasound left wrist: Narrowing of the median nerve at the carpal tunnel, mild ulnar neuritis. - Ultrasound right wrist: Narrowing of the median nerve at the carpal tunnel. Other Tests: Assessment & Plan: 1. Bilateral carpal tunnel syndrome (G56.03) - EMG on June 24 showed severe right median mononeuropathy and very severe left median neuropathy, likely carpal tunnel syndrome. - Ultrasound on September 20 confirmed narrowing of the median nerve at the carpal tunnel bilaterally, with mild ulnar neuritis on the left. - Physical exam reveals severe atrophy of the first dorsal interosseous and thenar muscles bilaterally. - Recommended surgical release for both hands to prevent further irreversible nerve damage. - Discussed procedure can be performed under local anesthesia with the patient fully awake. - Scheduled left carpal tunnel release for mid to late January, followed by right hand 6-8 weeks later. - Patient to follow-up with spine surgery on October 19. 2. Trigger finger, left ring finger (M65.342) 3. Trigger finger, left middle finger (M65.332) - Exam reveals locking and severe pain in the left ring finger, with mild symptoms in the left middle finger. - Discussed pathophysiology involving inflammatory nodules on the flexor tendons causing locking. - Recommended initial treatment with cortisone injections; 2 injections 6 weeks apart offer a 2 out of 3 chance of cure. - If injections are ineffective, surgical release can be performed. - Agreed to combine trigger finger releases with left carpal tunnel release in January. Will continue to monitor patient for Bilateral carpal tunnel syndrome (primary encounter diagnosis) Trigger finger, left ring finger Trigger finger, left middle finger, patient to schedule visit as per follow up discussed. Norbert French MD This document has been created with the use of voice recognition technology. It may contain inaccuracies: misspellings, inaccurate syntax or word sense that escaped review. Recording using Event[employer] software for draft documentation of the visit was discussed with the patient/authorized public service representative; all questions welcomed and answered. Patient/authorized public service representative agreed to proceed documented in this encounter [facility] 09-26-2024 Telephone encounter Note Attempted to return patient's call, no answer left voicemail. US results do show significant findings that we would be able to recommend surgical intervention for so will have patient see Dr. French for surgical discussion. Latia Chavis PA-C [facility] Work Phone: 09-26-2024 Miscellaneous Notes Attempted to return patient's call, no answer left voicemail. US results do show significant findings that we would be able to recommend surgical intervention for so will have patient see Dr. French for surgical discussion. Latia Chavis PA-C Patient is calling in today to discuss the US that you order'd that he recently had done. He'd like to discuss what the next course of action is. Please call and advise Patient has been identified by name and birthdate. Duration of symptoms: N/A Person calling: self Call patient at: at home [phone] (home) [phone] (cell) Was an appointment scheduled: No Closing statement: Results or non-symptom based questions: Thank you for calling [facility], your call will be returned within the next business day. Emily Silveira documented in this encounter [facility] 09-25-2024 Telephone encounter Note Patient is calling in today to discuss the US that you order'd that he recently had done. He'd like to discuss what the next course of action is. Please call and advise Patient has been identified by name and birthdate. Duration of symptoms: N/A Person calling: self Call patient at: at home [phone] (home) [phone] (cell) Was an appointment scheduled: No Closing statement: Results or non-symptom based questions: Thank you for calling [facility], your call will be returned within the next business day. Emily Silveira [facility] 09-07-2024 Note HNO ID: [id number] Author: AL MCCRACKEN APRN.RETIREMENT PLAN SPECIALIST Service: ? Author Type: Nurse Practitioner Type: Progress Notes Filed: 09/07/2024 14:02 Note Text: Per Triage: Rachid Mcnair is a 68 year old male that reports symptoms of left hand weakness, numbness, and issue using hands. Referring provider: DERRICK Zhang Is this a 2nd opinion and offered surgery?: no Out of state: No BMI: N/A A1C: N/A Previous Spine Surgery: Yes, 2016 [facility] CMT: None Studies (Reports unless indicated) Cervical MRI 07/16/24: Craniocervical junction: Craniocervical junction is normal. Mucosal thickening in the sphenoid sinus. Flattening appearance of the pituitary gland reflecting partially empty sella configuration. 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 Bone marrow signal/fracture: Plate and screw fixation anteriorly at C5-C7 status post ACDF, as demonstrated by susceptibility artifact. No evidence of acute fracture. No marrow replacing process. Osseous fusion spanning C5-C7. C2-C3: Canal and foramina are patent. C3-C4: Disc osteophyte complex causing mild effacement of ventral CSF space. Facet and uncinate hypertrophy contribute to moderate right and moderate to severe left neural foraminal stenosis. C4-C5: Disc osteophyte complex causing moderate effacement of ventral CSF space. Facet and uncinate hypertrophy contribute to moderate right and moderate to severe left neural foraminal stenosis. C5-C6: Decompress spinal level. No residual high-grade spinal canal stenosis. Facet and uncinate hypertrophy contributes to moderate to severe right and mild left neural foraminal stenosis. C6-C7: Decompress spinal level. No residual high-grade spinal canal stenosis. Facet and uncinate hypertrophy contributes to at least moderate bilateral neural foraminal stenosis more pronounced on the right. C7-T1: Disc osteophyte complex causing ventral CSF effacement without cord contact or deformity. Facet and uncinate hypertrophy contributes to moderate right and mild left neural foraminal stenosis. XR: Status post anterior cervical discectomy and fusion C5-C7. Hardware is intact without evidence of loosening. Prevertebral soft tissues are maintained. Straightening of the normal cervical lordosis with mild anterolisthesis C3 on C4 and C4 on C5 which increases by 1 mm on flexion projections compared to neutral and extension radiographs. Atlantodental interval is maintained. Vertebral body heights are maintained. Multilevel uncovertebral and facet arthropathy. Small anterior endplate osteophytes C3 and C4. EM. Very chronic appearing motor axon loss changes are noted supportive of an intraspinal canal lesions affecting the right C7-C8/T1 roots or segments (i.e, motor radiculopathy), severe in degree electrically, accompanied by evidence of active or ongoing motor fiber loss most prevalent in distal hand muscles. 2. Chronic motor axon loss changes are noted supportive of an intraspinal canal lesions affecting the left C8/T1 roots or segments (i.e, motor radiculopathy), severe in degree electrically, accompanied by evidence of active or ongoing motor fiber loss. 3. Severe right median mononeuropathy with active denervation in the right abductor pollicis brevis muscle. Due to the severity of the median mononeuropathy and superimposed C8-T1 radiculopathy the lesion cannot be precisely localized to the wrist on this study. 4. Left median neuropathy at or distal to the wrist, supportive of a clinical diagnosis of carpal tunnel syndrome, very severe in degree electrically with evidence of ongoing/active motor axon loss in the abductor pollicis brevis muscle. 5. No definite EMG evidence ofperipheral polyneuropathy involving the upper extremities based upon normal right ulnar and radial sensory nerve conduction responses Disposition: Please schedule with surgical spine LIVIA. Indications for recommendations: Being seen by hand specialist for CTS and possible surgery. EMG mostly indicative of chronic changes. Prior ACDF. Needs further assessment. Please advise pt to send/upload images prior to visit or hand carry on CD to visit (spine MRIs, xrays) [facility] 09-07-2024 History of Present illness Narrative Per Triage: Rachid Mcnair is a 68 year old male that reports symptoms of left hand weakness, numbness, and issue using hands. Referring provider: DERRICK Zhang Is this a 2nd opinion and offered surgery?: no Out of state: No BMI: N/A A1C: N/A Previous Spine Surgery: Yes, 2017 [facility] CMT: None Studies (Reports unless indicated) Cervical MRI 07/16/24: Craniocervical junction: Craniocervical junction is normal. Mucosal thickening in the sphenoid sinus. Flattening appearance of the pituitary gland reflecting partially empty sella configuration. 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 Bone marrow signal/fracture: Plate and screw fixation anteriorly at C5-C7 status post ACDF, as demonstrated by susceptibility artifact. No evidence of acute fracture. No marrow replacing process. Osseous fusion spanning C5-C7. C2-C3: Canal and foramina are patent. C3-C4: Disc osteophyte complex causing mild effacement of ventral CSF space. Facet and uncinate hypertrophy contribute to moderate right and moderate to severe left neural foraminal stenosis. C4-C5: Disc osteophyte complex causing moderate effacement of ventral CSF space. Facet and uncinate hypertrophy contribute to moderate right and moderate to severe left neural foraminal stenosis. C5-C6: Decompress spinal level. No residual high-grade spinal canal stenosis. Facet and uncinate hypertrophy contributes to moderate to severe right and mild left neural foraminal stenosis. C6-C7: Decompress spinal level. No residual high-grade spinal canal stenosis. Facet and uncinate hypertrophy contributes to at least moderate bilateral neural foraminal stenosis more pronounced on the right. C7-T1: Disc osteophyte complex causing ventral CSF effacement without cord contact or deformity. Facet and uncinate hypertrophy contributes to moderate right and mild left neural foraminal stenosis. XR: Status post anterior cervical discectomy and fusion C5-C7. Hardware is intact without evidence of loosening. Prevertebral soft tissues are maintained. Straightening of the normal cervical lordosis with mild anterolisthesis C3 on C4 and C4 on C5 which increases by 1 mm on flexion projections compared to neutral and extension radiographs. Atlantodental interval is maintained. Vertebral body heights are maintained. Multilevel uncovertebral and facet arthropathy. Small anterior endplate osteophytes C3 and C4. EM. Very chronic appearing motor axon loss changes are noted supportive of an intraspinal canal lesions affecting the right C7-C8/T1 roots or segments (i.e, motor radiculopathy), severe in degree electrically, accompanied by evidence of active or ongoing motor fiber loss most prevalent in distal hand muscles. 2. Chronic motor axon loss changes are noted supportive of an intraspinal canal lesions affecting the left C8/T1 roots or segments (i.e, motor radiculopathy), severe in degree electrically, accompanied by evidence of active or ongoing motor fiber loss. 3. Severe right median mononeuropathy with active denervation in the right abductor pollicis brevis muscle. Due to the severity of the median mononeuropathy and superimposed C8-T1 radiculopathy the lesion cannot be precisely localized to the wrist on this study. 4. Left median neuropathy at or distal to the wrist, supportive of a clinical diagnosis of carpal tunnel syndrome, very severe in degree electrically with evidence of ongoing/active motor axon loss in the abductor pollicis brevis muscle. 5. No definite EMG evidence ofperipheral polyneuropathy involving the upper extremities based upon normal right ulnar and radial sensory nerve conduction responses Disposition: Please schedule with surgical spine LIVIA. Indications for recommendations: Being seen by hand specialist for CTS and possible surgery. EMG mostly indicative of chronic changes. Prior ACDF. Needs further assessment. Please advise pt to send/upload images prior to visit or hand carry on CD to visit (spine MRIs, xrays) Patient name: Rachid Mcnair Are you being referred by a Center for Spine Health Provider or Pain Management Provider at [facility]? No If answer is YES please schedule directly with surgeon, triage does not need to be completed. Is this a self-referral No If not, who is the Referring Provider Latia Chavis PA-C Is this a 2nd opinion from another spine surgeon? No Were you offered surgery? No MRI/CT/myelogram within 12 months? Yes If NO , please refer to medical spine or PCP to complete above imaging, triage does not need to be completed If YES, please ask for the name/address of the facility where the MRI/CT/myelogram was completed: [facility] MRI/CT/myelogram viewable in Epic: Yes If not, please provide [phone] to fax in imaging reports for review. Also, please inform patient to hand carry imaging disc to appointment. XR (spine) within 12 months: Yes If YES, please ask for the name/address of the facility where the XR was completed: [facility] Dr. Nevarez's patients: Have you had previous EMG/Nerve Conduction Study, Ultrasound, or MRI for these same symptoms? If YES, please ask for the name/address of the facility where they were completed: Requested provider (First and Last name): Are you interested in a virtual visit if offered? No 1. Where are you having symptoms related to this visit? Hand weakness (L), cannot enclose to a fist Fingers, Numbness, Weakness bilateral Back pain No Leg pain No Arm pain No Neck pain No 2. Are you having any of the following symptoms: Difficulty walking No Numbness Yes Weakness Yes Trouble using your hands? Yes 3. Have you had any injections or physical therapy in the last 12 months? No If YES then please ask for the name/address of the facility where the injections and/or physical therapy was completed Have you tried any other kinds of non-surgical treatments in the last 12 months? (For example: NSAIDS, muscle relaxants, analgesics, oral steroids, Chiropractor, Acupuncture): No 4. Are you currently taking daily prescribed narcotic medications for your current symptoms (For example Oxycodone, Hydrocodone, Tramadol, Morphine, Other)? No 5. Have you had previous spinal surgery for this same symptoms? Yes If YES please ask for the name of facility/address of where the surgery was completed: [address] [facility] Additional Comments documented in this encounter [facility] 09-06-2024 Note HNO ID: [id number] Author: ?, ?, ? Service: ? Author Type: ? Type: Progress Notes Filed: 09/07/2024 14:02 Note Text: Patient name: Rachid Mcnair Are you being referred by a Center for Spine Health Provider or Pain Management Provider at [facility]? No If answer is YES please schedule directly with surgeon, triage does not need to be completed. Is this a self-referral No If not, who is the Referring Provider Bachir, Latia, PA-C Is this a 2nd opinion from another spine surgeon? No Were you offered surgery? No MRI/CT/myelogram within 12 months? Yes If NO , please refer to medical spine or PCP to complete above imaging, triage does not need to be completed If YES,? please ask for the name/address of the facility where the MRI/CT/myelogram was completed: [facility] MRI/CT/myelogram viewable in [facility]: Yes If not, please provide [phone] to fax in imaging reports for review. Also, please inform patient to hand carry imaging disc to appointment. XR (spine) within 12 months: Yes If YES,? please ask for the name/address of the facility where the XR was completed: [facility] Dr. Nevarez's patients: Have you had previous EMG/Nerve Conduction Study, Ultrasound, or MRI for these same symptoms? If YES,? please ask for the name/address of the facility where they were completed: Requested provider (First and Last name): Are you interested in a virtual visit if offered? No 1. Where are you having symptoms related to this visit? Hand weakness (L), cannot enclose to a fist Fingers, Numbness, Weakness bilateral Back pain No Leg pain No Arm pain No Neck pain No 2. Are you having any of the following symptoms: Difficulty walking No Numbness Yes Weakness Yes Trouble using your hands? Yes 3. Have you had any injections or physical therapy in the last 12 months? No If YES then please ask for the name/address of the facility where the injections and/or physical therapy was completed Have you tried any other kinds of non-surgical treatments in the last 12 months? (For example: NSAIDS, muscle relaxants, analgesics, oral steroids, Chiropractor, Acupuncture): No 4. Are you currently taking daily prescribed narcotic medications for your current symptoms (For example Oxycodone, Hydrocodone, Tramadol, Morphine, Other)? No 5. Have you had previous spinal surgery for this same symptoms? Yes If YES? please ask for the name of facility/address of where the surgery was completed: [address] [facility] Additional Comments [facility] 08-09-2024 Telephone encounter Note PT scheduled for MSK US on 09/20/24 at 10:15 AM at [place] [facility] 08-09-2024 Miscellaneous Notes PT scheduled for MSK US on 09/20/24 at 10:15 AM at [place] Visit Type: ANY MSKx2 Visit Length: 90, 100 OR 120 MINUTES Order Name/Protocol: US WRIST RT+LT; VOLAR+CARPAL TUNNEL-EVAL FOR BILATERAL CTS Preferred Provider: N/A Comment: Please ask if the patient has ever had any prior surgery to their wrists. If so, upgrade the visit type to an MSK1x2 and notate the surgical hx in the Appointment Note. Location: Depending on the surgical hx, this patient can have this exam performed at any of our four locations. Slot held: N/A documented in this encounter [facility] 08-09-2024 Telephone encounter Note Visit Type: ANY MSKx2 Visit Length: 90, 100 OR 120 MINUTES Order Name/Protocol: US WRIST RT+LT; VOLAR+CARPAL TUNNEL-EVAL FOR BILATERAL CTS Preferred Provider: N/A Comment: Please ask if the patient has ever had any prior surgery to their wrists. If so, upgrade the visit type to an MSK1x2 and notate the surgical hx in the Appointment Note. Location: Depending on the surgical hx, this patient can have this exam performed at any of our four locations. Slot held: N/A [facility] 08-02-2024 Note HNO ID: [id number] Author: LATIA CHAVIS PA-C Service: ? Author Type: Physician [employer] Type: Progress Notes Filed: 08/03/2024 16:21 Note Text: August 02, 2024 The patient is sent for evaluation and an opinion regarding treatment by Sandy Bhatt, who will receive a copy of this report by mail or through the shared medical record. CHIEF COMPLAINT: Rachid Mcnair is a 68 year old male who presents today for new evaluation of bilateral hand numbness. HPI: PAIN EVALUATION 07/29/2024 1024 Pain Level: 4 Pain Location: Hand-Left Description: Aching Duration Units: Weeks Frequency: Continuous Occupation: Retired Hand Dominance: Right Background: Patient presents for evaluation of bilateral hand numbness and tingling as well as significant atrophy throughout both hands. Patient has followed with orthopedics and has had an EMG as well as an MRI of the cervical spine. In 2017 he had C-spine surgery at an outside facility, states he had improvement in the numbness and tingling initially after surgery and then symptoms progressed significantly over the last 9-10 years. He has constant numbness and tingling in the right thumb index and long finger and is dropping objects. Has noted muscle wasting and weakness of the hand. The left hand began having numbness and tingling and an ache present for the last 5 to 6 months. The EMG that was obtained demonstrated significant overlap between C7-T1 radiculopathy and median neuropathies at the wrist on the left but could not be localized on the right. He is here to discuss treatment options as well as consideration for possible surgery. He is diabetic. Previous treatment or work-up includes: C-spine surgery in 2017, EMG. ROS: REVIEW OF SYSTEMS: Constitutional: Fever/chills: No Cardiovascular: Chest Pain: No Respiratory: SOB: No Musculoskeletal: as noted in the HPI Neurologic: as noted in the HPI Endocrine: Diabetes: Yes, no A1c on file. Tobacco user? No SOCIAL HISTORY: Tobacco Use: Quit FAMILY HISTORY: No family history on file. PAST MEDICAL HISTORY Diagnosis Date Anxiety Diabetes mellitus type 2 in obese Dyslipidemia GERD (gastroesophageal reflux disease) HTN (hypertension) Osteoarthritis Tinnitus of both ears PAST SURGICAL HISTORY Procedure Laterality Date CERVICAL LAMINOPLASTY 1997 removal of bone spur EXCISION OLECRANON BURSA MRSA infection Rt. S JESSICA SPINE LUMB STRY insertion of two rods No family history on file. Social History Tobacco Use Smoking status: Former Smokeless tobacco: Never Substance Use Topics Alcohol use: Yes Comment: moderate Drug use: No ALLERGIES Allergen Reactions Sulfa (Sulfonamide * Rash Current Outpatient Medications Medication Sig Dispense Refill Amoxicillin 500 mg tablet Take four (4) capsules one (1) hour before Dental surgery 12 tablet 0 oxyCODONE-acetaminophen 5-325 mg tablet Take 1 tablet by mouth every 4 hours as needed. 60 tablet 0 enoxaparin 40 mg/0.4 mL Syrg Inject 0.4 mL subcutaneously once daily. 11 Syringe 0 docusate sodium 100 mg capsule Take 1 capsule by mouth twice daily. 0 citalopram 20 mg tablet Take 20 mg by mouth once daily. pravastatin 20 mg tablet Take 20 mg by mouth once daily. valsartan (DIOVAN) 160 mg tablet Take 160 mg by mouth once daily. metFORMIN 500 mg tablet Take 500 mg by mouth twice daily with meals. omeprazole 20 mg capsule Take 20 mg by mouth once daily. No current facility-administered medications for this visit. Physical Exam: Vitals: There were no vitals taken for this visit. Body Habitus: Well nourished and no acute distress Orientation: Normal, oriented to person, place and time Psych: Normal Skin: Color, texture, turgor normal. No rashes or lesions Sensation: Sensation to light touch is grossly normal bilaterally Bilateral hands On exam of the right hand skin is intact. Significant dorsal interossei noted and some thenar atrophy noted as well. Can flex and extend at the wrist without irritability. Sensation subjectively decreased to light touch in the median distribution and intact in the radial and ulnar nerve distributions. AIN, PIN and ulnar motor is intact. Can make a complete fist. Positive Tinel, positive Phalen's and positive Durkan's at the carpal tunnel. Negative Tinel at the cubital tunnel and negative elbow flexion test. Negative Spurling's. Radial pulse 2+ and brisk capillary refill present to all digits. On exam of the left hand skin is intact. Mild thenar atrophy and first dorsal interossei atrophy noted. APB strength is weak. Can flex and extend at the wrist without irritability. Sensation is intact to light touch in the median, radial and ulnar nerve distributions but subjectively decreased in the median nerve distribution. AIN, PIN and ulnar motor is intact, ulnar motor is weak. Can make a complete fist. Negative Tinel , negative Phalen's and negative Du (more content not included)... [facility] 07-20-2024 Telephone encounter Note Call placed to patient to schedule a virtual visit to discuss MRI results. May use an est slot. No answer. Left voicemail requesting a return call back. [facility] Work Phone: 07-20-2024 Miscellaneous Notes Call placed to patient to schedule a virtual visit to discuss MRI results. May use an est slot. No answer. Left voicemail requesting a return call back. documented in this encounter [facility] 07-16-2024 History of Present illness Narrative Radiology Service Progress Note PATIENT NAME: Rachid Mcnair DATE OF SERVICE: July 16, 2024 TIME: 2:43 PM PATIENT IDENTITY VERIFICATION COMPLETED USING TWO (2) IDENTIFIERS: Name and Date of confirmed by patient verbally and Name and Date of confirmed by identification band. FALL SCREENING: Has the patient had 2 falls in the last year or 1 fall with injury or currently using an Ambulatory Assistive Device (Walker, Cane, Wheelchair, Crutches, etc.)? No PATIENT GENDER DATA: Assigned male at PATIENT RELEVANT IMPLANT DATA REVIEWED: Yes PATIENT PRESENTS WITH AN IMPLANTABLE OR ATTACHED SECTION HOUSEKEEPER: No RADIOLOGY DEPARTMENT: MR; Exam(s) Completed: Spine: Cervical spine PERIPHERAL IV DATA: Not applicable SIGNED BY: Ho PLASCENCIA(Esther)Jimy MRI Tech July 16, 2024 2:43 PM documented in this encounter [facility] 07-16-2024 Note HNO ID: [id number] Author: JIMY JACOBSON MRI Tech Service: Radiology Author Type: Technologist Type: Progress Notes Filed: 07/16/2024 14:46 Note Text: Radiology Service Progress Note PATIENT NAME: Rachid Mcnair DATE OF SERVICE: July 16, 2024 TIME: 2:43 PM PATIENT IDENTITY VERIFICATION COMPLETED USING TWO (2) IDENTIFIERS: Name and Date of confirmed by patient verbally and Name and Date of confirmed by identification band. FALL SCREENING: Has the patient had 2 falls in the last year or 1 fall with injury or currently using an Ambulatory Assistive Device (Walker, Cane, Wheelchair, Crutches, etc.)? No PATIENT GENDER DATA: Assigned male at PATIENT RELEVANT IMPLANT DATA REVIEWED: Yes PATIENT PRESENTS WITH AN IMPLANTABLE OR ATTACHED SECTION HOUSEKEEPER: No RADIOLOGY DEPARTMENT: MR; Exam(s) Completed: Spine: Cervical spine PERIPHERAL IV DATA: Not applicable SIGNED BY: Ho PLASCENCIA(R), Jimy Jacobson, exhibitions curator July 16, 2024 2:43 PM [facility] 07-13-2024 Telephone encounter Note Call placed to patient to notify the medication was sent to his pharmacy. He will need a van driver for the MRI due to the medication. Per patient he has a van driver already. [facility] Work Phone: 07-13-2024 Miscellaneous Notes Call placed to patient to notify the medication was sent to his pharmacy. He will need a van driver for the MRI due to the medication. Per patient he has a van driver already. The following approved medication requests have been transmitted electronically. Requested Prescriptions Signed Prescriptions Disp Refills LORazepam (ATIVAN) 1 mg tablet 2 tablet 0 Sig: Take 1 tablet by mouth two times a day as needed for anxiety for up to 2 doses. Take 1 tablet 1-2 hours before the procedure. May take the 2nd tablet at the time of the procedure if needed. Must have a van driver to the procedure if taking. Authorizing Provider: SANDY BHATT MD Rachid is calling Sandy Bhatt MD today to request medication prior to having his MRI for claustrophobia. Patient askig for script to be sent to [facility] on file. Patient has been identified by name and birthdate. Duration of symptoms: N/A Person calling: self Call patient at: on cell [phone] (home) [phone] (cell) Was an appointment scheduled: No Closing statement: Results or non-symptom based questions: Thank you for calling [facility], your call will be returned within the next business day. Francesca Silveira documented in this encounter [facility] 07-13-2024 Telephone encounter Note The following approved medication requests have been transmitted electronically. Requested Prescriptions Signed Prescriptions Disp Refills LORazepam (ATIVAN) 1 mg tablet 2 tablet 0 Sig: Take 1 tablet by mouth two times a day as needed for anxiety for up to 2 doses. Take 1 tablet 1-2 hours before the procedure. May take the 2nd tablet at the time of the procedure if needed. Must have a van driver to the procedure if taking. Authorizing Provider: SANDY BHATT MD [facility] 07-12-2024 Telephone encounter Note Rachid is calling Sandy Bhatt MD today to request medication prior to having his MRI for claustrophobia. Patient askig for script to be sent to [facility] on file. Patient has been identified by name and birthdate. Duration of symptoms: N/A Person calling: self Call patient at: on cell [phone] (home) [phone] (cell) Was an appointment scheduled: No Closing statement: Results or non-symptom based questions: Thank you for calling [facility], your call will be returned within the next business day. Francesca Mchugh Pss [facility] 06-29-2024 Note Addended by: SANDY BHATT on: 06/29/2024 11:00 AM Modules accepted: Orders [facility] 06-29-2024 Miscellaneous Notes Addended by: SANDY BHATT on: 06/29/2024 11:00 AM Modules accepted: Orders documented in this encounter [facility] 06-29-2024 Instructions Sandy Bhatt MD - 06/29/2024 10:24 AM EDT - Schedule and attend an appointment with the blasting entry specialist. - Schedule and attend an appointment with the hand surgeon, Dr. French. - Contact [facility] to obtain surgical records from your cervical surgery in 2017 and bring them to your appointment with the blasting entry specialist. - Schedule MRI cervical spine, ideally before your appointment with spine documented in this encounter [facility] 06-29-2024 Note HNO ID: [id number] Author: SANDY BHATT MD Service: ? Author Type: Physician Type: Progress Notes Filed: 06/29/2024 10:29 Note Text: Rachid Mcnair is a patient of Sai Yost MD. CHIEF COMPLAINT: Rachid is a 68-year-old male with a history of cervical surgery, presenting for evaluation of bilateral hand atrophy and syncope. HISTORY OF PRESENT ILLNESS: PAIN EVALUATION 06/25/20242029 Pain Level: 3 Pain Location: -- bilateral hands Description: Aching Duration Units: Months Frequency: Continuous Intervention/Comfort measure: Medication Comments: PT is here for EMG results. He reports he is taking Tylenol for pain control. Patient is a right-hand dominant, retired individual with a history of cervical surgery in August 2016 at [facility]. Presenting today with severe issues in both hands, including significant carpal tunnel syndrome and concerns about ongoing muscle loss. Patient was established with me on June 13, 2024. Noted to have syncope and atrophy in both hands. EMG on June 24, 2024, demonstrated a severe C7/8 T1 cervical spinal lesion with ongoing motor fiber loss, most prevalent in the distal hand. 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 Patient reports that issues began after cervical surgery in 2017. Despite working with an occupational therapist, muscle loss has continued. Patient has not experienced symptoms of carpal tunnel until about three months ago, shortly after retiring. - Noted atrophy in bilateral hands and episodes of syncope. - EMG on 06/24/2024 showed severe C7/8 T1 cervical spinal lesion with ongoing motor fiber loss, most prevalent in the distal hand. 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 - Cervical surgery performed in August 2016 at [facility] by Dr. Reyes. - Symptoms began post-surgery, including muscle loss. - Engaged in occupational therapy post-surgery. - No significant symptoms of carpal tunnel on the Left until approximately three months ago, coinciding with intermediate. - Describes self as thin and kind of weak. ROS Neurological: (+) right-hand weakness PHYSICAL EXAMINATION: WNWD NAD Tests (06/24/24) Electromyography: - Severe C7/8 T1 cervical spinal lesion with ongoing motor fiber loss, most prominent in the distal hand - Severe right median mononeuropathy - Very severe left median mononeuropathy LABS: No results found for: HBA1C Creatinine Date Value Ref Range Status 10/01/2011 1.08 0.70 - 1.40 mg/dL Final 09/24/2011 0.81 0.70 - 1.40 mg/dL Final CLINICAL IMPRESSION / ASSESSMENT: (M62.541, M62.542) Atrophy of muscle of both hands (primary encounter diagnosis) (G56.03) Carpal tunnel syndrome, bilateral (Z98.890) Hx of cervical spine surgery (M48.02) Spinal stenosis of cervical region RECOMMENDATION / PLAN: 1. Atrophy of muscle of both hands (M62.541) 2. Carpal tunnel syndrome, bilateral (G56.03) - EMG on 06/24/24 demonstrates C7/8 T1 cervical spinal lesion with ongoing motor fiber loss, most prevalent in the distal hand. 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 - Referred to hand surgeon, Dr. French, for evaluation and potential surgical intervention. - Advised patient that the severity of carpal tunnel syndrome likely necessitates surgery, but outcomes may be influenced by concurrent cervical spine issues. - Patient to schedule appointment with Dr. French. 3. Hx of cervical spine surgery (Z98.890) 4. Spinal stenosis of cervical region (M48.02) - History of cervical spine surgery in 08/2016 at [facility]. - EMG findings indicate severe C7/8 T1 cervical spinal lesion. - Referred to blasting entry specialist for further evaluation and management. - Advised patient to obtain surgical records from [facility] to assist spine surgeon in assessment. - Patient to schedule appointment with blasting entry specialist. - Obtain XR cervical spine today - Schedule MRI cervical spine Pertinent previous records and images reviewed. Verbal health education was given to patient. Patient verbalizes understanding and agrees with the treatment plan as detailed above. Sandy Bhatt MD [facility] Sports and Exercise Medicine Orthopaedic Medical Decision Making (MDM) Complexity of problems: Chronic condition with severe exacerbation and Illness posing threat to life or bodily function, Complexity of data: 2 unique tests ordered, Risk: Low risk of morbidity from testing/treatment, Level of MDM: Low (3) The patient consented to the use of EventBug software for draft documentation of the visit consistent with [facility]?s Notice of Privacy Practices. [facility] 06-29-2024 History of Present illness Narrative Images from the original note were not included. Rachid Mcnair is a patient of Sai Yost MD. CHIEF COMPLAINT: Rachid is a 68-year-old male with a history of cervical surgery, presenting for evaluation of bilateral hand atrophy and syncope. HISTORY OF PRESENT ILLNESS: PAIN EVALUATION 06/25/20242029 Pain Level: 3 Pain Location: -- bilateral hands Description: Aching Duration Units: Months Frequency: Continuous Intervention/Comfort measure: Medication Comments: PT is here for EMG results. He reports he is taking Tylenol for pain control. Patient is a right-hand dominant, retired individual with a history of cervical surgery in August 2016 at [facility]. Presenting today with severe issues in both hands, including significant carpal tunnel syndrome and concerns about ongoing muscle loss. Patient was established with me on June 13, 2024. Noted to have syncope and atrophy in both hands. EMG on June 24, 2024, demonstrated a severe C7/8 T1 cervical spinal lesion with ongoing motor fiber loss, most prevalent in the distal hand. 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 Patient reports that issues began after cervical surgery in 2017. Despite working with an occupational therapist, muscle loss has continued. Patient has not experienced symptoms of carpal tunnel until about three months ago, shortly after retiring. - Noted atrophy in bilateral hands and episodes of syncope. - EMG on 06/24/2024 showed severe C7/8 T1 cervical spinal lesion with ongoing motor fiber loss, most prevalent in the distal hand. 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 - Cervical surgery performed in August 2016 at [facility] by Dr. Reyes. - Symptoms began post-surgery, including muscle loss. - Engaged in occupational therapy post-surgery. - No significant symptoms of carpal tunnel on the Left until approximately three months ago, coinciding with intermediate. - Describes self as thin and kind of weak. ROS Neurological: (+) right-hand weakness PHYSICAL EXAMINATION: WNWD NAD Tests (06/24/24) Electromyography: - Severe C7/8 T1 cervical spinal lesion with ongoing motor fiber loss, most prominent in the distal hand - Severe right median mononeuropathy - Very severe left median mononeuropathy LABS: No results found for: HBA1C Creatinine Date Value Ref Range Status 10/01/2011 1.08 0.70 - 1.40 mg/dL Final 09/24/2011 0.81 0.70 - 1.40 mg/dL Final CLINICAL IMPRESSION / ASSESSMENT: (M62.541, M62.542) Atrophy of muscle of both hands (primary encounter diagnosis) (G56.03) Carpal tunnel syndrome, bilateral (Z98.890) Hx of cervical spine surgery (M48.02) Spinal stenosis of cervical region RECOMMENDATION / PLAN: 1. Atrophy of muscle of both hands (M62.541) 2. Carpal tunnel syndrome, bilateral (G56.03) - EMG on 06/24/24 demonstrates C7/8 T1 cervical spinal lesion with ongoing motor fiber loss, most prevalent in the distal hand. 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 - Referred to hand surgeon, Dr. French, for evaluation and potential surgical intervention. - Advised patient that the severity of carpal tunnel syndrome likely necessitates surgery, but outcomes may be influenced by concurrent cervical spine issues. - Patient to schedule appointment with Dr. French. 3. Hx of cervical spine surgery (Z98.890) 4. Spinal stenosis of cervical region (M48.02) - History of cervical spine surgery in 08/2016 at [facility]. - EMG findings indicate severe C7/8 T1 cervical spinal lesion. - Referred to blasting entry specialist for further evaluation and management. - Advised patient to obtain surgical records from [facility] to assist spine surgeon in assessment. - Patient to schedule appointment with blasting entry specialist. - Obtain XR cervical spine today - Schedule MRI cervical spine Pertinent previous records and images reviewed. Verbal health education was given to patient. Patient verbalizes understanding and agrees with the treatment plan as detailed above. Sandy Bhatt MD [facility] Sports and Exercise Medicine Orthopaedic Medical Decision Making (MDM) Complexity of problems: Chronic condition with severe exacerbation and Illness posing threat to life or bodily function, Complexity of data: 2 unique tests ordered, Risk: Low risk of morbidity from testing/treatment, Level of MDM: Low (3) The patient consented to the use of EventBug software for draft documentation of the visit consistent with [facility] s Notice of Privacy Practices. documented in this encounter [facility] 06-27-2024 Nurse Note Post CCTA pt denies feeling dizzy or lightheaded, denies headache. Steady on feet, skin warm pink and dry. Pt verbalized understanding of increased water intake x24 hours, educated on side effects of medications. HL removed with tip intact, manual pressure held until hemostasis achieved, 2x2 and coban to site. Pt DC home to self care [facility] Work Phone: 06-27-2024 Nurse Note Post CCTA pt denies feeling dizzy or lightheaded, denies headache. Steady on feet, skin warm pink and dry. Pt verbalized understanding of increased water intake x24 hours, educated on side effects of medications. HL removed with tip intact, manual pressure held until hemostasis achieved, 2x2 and coban to site. Pt DC home to self care documented in this encounter [facility] Work Phone: 06-24-2024 Note HNO ID: [id number] Author: ROD BRADEN MD Service: ? Author Type: Physician Type: Progress Notes Filed: 06/24/2024 10:59 Note Text: UNIVERSAL PROTOCOL / SAFETY CHECKLIST Procedure to be Performed: EMG Sign In: A Moment of CARE was completed. Personnel directly involved with the procedure wore the appropriate PPE (Personal Protective Equipment). Patient/Surrogate Stated/Verified: Patient name, Date of , Relevant allergies, and The intended procedure Time Out Communication: Intended patient and procedure match the source documents. Correct side/site marked and visible. Sign Out: SIGN OUT (optional for EMERGENT procedures): Post-procedure follow-up management communicated and Plan of Care Visit completed when applicable. Bree Braden MD [facility] 06-24-2024 History of Present illness Narrative UNIVERSAL PROTOCOL / SAFETY CHECKLIST Procedure to be Performed: EMG Sign In: A Moment of CARE was completed. Personnel directly involved with the procedure wore the appropriate PPE (Personal Protective Equipment). Patient/Surrogate Stated/Verified: Patient name, Date of , Relevant allergies, and The intended procedure Time Out Communication: Intended patient and procedure match the source documents. Correct side/site marked and visible. Sign Out: SIGN OUT (optional for EMERGENT procedures): Post-procedure follow-up management communicated and Plan of Care Visit completed when applicable. Bree Braden MD documented in this encounter [facility] 06-16-2024 Note Echocardiology Procedure Exam Date/Time Accession # Ordering ECG Stress Exercise 06/09/2024 09:46 EST [id number] Chris Garcia MD CPT code 16846 Reason for Exam (ECG Stress Exercise) Chest pain;R07.9 Report DATE OF PROCEDURE: 06/09/2024 SUPERVISING PHYSICIAN: Chris Garcia M.D. PROCEDURE: Treadmill exercise stress test. INDICATIONS: Chest pain. PROCEDURE DESCRIPTION: The patient exercised using a standard Dayne protocol for 3 minutes and 21 seconds achieving 100% of maximal age-predicted heart rate, 5.0 METS. The patient had no chest pain. Blood pressure at baseline of 128/88 mmHg increased to 172/75 mmhg. The baseline ECG showed sinus rhythm. The stress ECG showed no ischemic changes. CONCLUSIONS: 1. Uncomplicated exercise stress test, negative by clinical and electrocardiographic criteria. 2. Low tolerance for physical exertion, adequate workload. FINAL REPORT Signed (Electronic Signature): 06/16/2024 5:11 pm Signed by: Chris Garcia MD Transcribed by: [facility] Technologist: TRINY [facility] 06-13-2024 Instructions Sandy Bhatt MD - 06/13/2024 9:57 AM EST Please note that you are responsible for making the follow-up appointment following your MRI. This appointment should be made at the same time you are scheduling your MRI so that you do not have to wait for a follow-up. documented in this encounter [facility] 06-13-2024 Note HNO ID: [id number] Author: SANDY BHATT MD Service: ? Author Type: Physician Type: Progress Notes Filed: 06/13/2024 10:07 Note Text: Rachid Mcnair is a patient of Sai Yost MD. CHIEF COMPLAINT: Rachid Mcnair is a 68 year old male who presents today for new evaluation. HISTORY OF PRESENT ILLNESS: PAIN EVALUATION 06/12/2024 0953 Pain Level: 0 Pain Location: -- philomena hand Description: Sore weakness, to the right index and middle and thumb Duration Units: Years Frequency: Continuous Intervention/Comfort measure: Reposition Comments: Pt is here for bilateral pain and weakness x 12 years. He denies any injury. He reports he had cervical surgery 08/2016 by at [facility]. He reports weakness to the right hand which is worse than the left. He is right handed. He denies any pain today. He states he has difficulty doing normal ADL's. He says his right thumb, index and middle fingers are . He reports his symptoms to the left hand started 3 months ago. right-hand dominant. Work Related: No Occupation: retired Injury: No Mechanical Symptoms: No, patient denies locking, popping, or catching He localizes pain to the whole hand, R>L. Left just started Accident several years ago and tore , followed in [facility] He notes that this problem exhibits no specific aggravating factors. He notes that this problem exhibits no specific alleviating factors. associated symptoms of numbness in the fingers PREVIOUS TREATMENT HISTORY: Prior Surgery in location of pain: Yes: cervical surgery 08/2016 by at [facility] PHYSICAL EXAMINATION: BL HAND AND WRIST EXAM Inspection: significant atrophy of hands, R>L Range of Motion: Finger: normal ROM of all joints of all fingers of both hands Wrist Flexion: normal ROM when compared to the contralateral side Wrist Extension: normal ROM when compared to the contralateral side Wrist Ulnar deviation: normal ROM when compared to the contralateral side Wrist Radial Deviation: normal ROM when compared to the contralateral side Muscle Strength: Wrist extension (C6): 5/5 Wrist flexion (C7): 5/5 Finger abduction: 5/5 Neurologic: Dorsal thumb (radial nerve): Normal sensation to light touch Index finger (median nerve): Normal sensation to light touch 5th finger (ulnar nerve): Normal sensation to light touch Hitchhike sign (PIN): 5/5 Ok sign (AIN): 5/5 IMAGING: Final results and radiologist's interpretation, available in the [facility] health record. Images were reviewed with the patient/family members in the office today. My personal interpretation of the performed imaging: Scattered chronic degenerative changes LABS: No results found for: HBA1C Creatinine Date Value Ref Range Status 10/01/2011 1.08 0.70 - 1.40 mg/dL Final 09/24/2011 0.81 0.70 - 1.40 mg/dL Final CLINICAL IMPRESSION / ASSESSMENT: (M62.541, M62.542) Atrophy of muscle of both hands (primary encounter diagnosis) RECOMMENDATION / PLAN: Severe atrophy w/ h/o cervical surgery in October 2023 at [facility], records unavailable at this time Will obtain EMG Consider cervical XR or MRI Consider referral to hand vs spine Follow up: after EMG is complete to discuss results and next step in management Films prior to visit: No additional imaging warranted. Pertinent previous records and images reviewed. Verbal health education was given to patient. Patient verbalizes understanding and agrees with the treatment plan as detailed above. Sandy Bhatt MD [facility] Sports and Exercise Medicine Medical Decision Making [facility] 06-13-2024 History of Present illness Narrative Images from the original note were not included. Rachid Mcnair is a patient of Sai Yost MD. CHIEF COMPLAINT: Rachid Mcnair is a 68 year old male who presents today for new evaluation. HISTORY OF PRESENT ILLNESS: PAIN EVALUATION 06/12/2024 0953 Pain Level: 0 Pain Location: -- philomena hand Description: Sore weakness, to the right index and middle and thumb Duration Units: Years Frequency: Continuous Intervention/Comfort measure: Reposition Comments: Pt is here for bilateral pain and weakness x 12 years. He denies any injury. He reports he had cervical surgery 08/2016 by at [facility]. He reports weakness to the right hand which is worse than the left. He is right handed. He denies any pain today. He states he has difficulty doing normal ADL's. He says his right thumb, index and middle fingers are . He reports his symptoms to the left hand started 3 months ago. right-hand dominant. Work Related: No Occupation: retired Injury: No Mechanical Symptoms: No, patient denies locking, popping, or catching He localizes pain to the whole hand, R>L. Left just started Accident several years ago and tore , followed in [facility] He notes that this problem exhibits no specific aggravating factors. He notes that this problem exhibits no specific alleviating factors. associated symptoms of numbness in the fingers PREVIOUS TREATMENT HISTORY: Prior Surgery in location of pain: Yes: cervical surgery 08/2016 by at [facility] PHYSICAL EXAMINATION: BL HAND & WRIST EXAM Inspection: significant atrophy of hands, R>L Range of Motion: Finger: normal ROM of all joints of all fingers of both hands Wrist Flexion: normal ROM when compared to the contralateral side Wrist Extension: normal ROM when compared to the contralateral side Wrist Ulnar deviation: normal ROM when compared to the contralateral side Wrist Radial Deviation: normal ROM when compared to the contralateral side Muscle Strength: Wrist extension (C6): 5/5 Wrist flexion (C7): 5/5 Finger abduction: 5/5 Neurologic: Dorsal thumb (radial nerve): Normal sensation to light touch Index finger (median nerve): Normal sensation to light touch 5th finger (ulnar nerve): Normal sensation to light touch Hitchhike sign (PIN): 5/5 Ok sign (AIN): 5/5 IMAGING: Final results and radiologist's interpretation, available in the [facility] health record. Images were reviewed with the patient/family members in the office today. My personal interpretation of the performed imaging: Scattered chronic degenerative changes LABS: No results found for: HBA1C Creatinine Date Value Ref Range Status 10/01/2011 1.08 0.70 - 1.40 mg/dL Final 09/24/2011 0.81 0.70 - 1.40 mg/dL Final CLINICAL IMPRESSION / ASSESSMENT: (M62.541, M62.542) Atrophy of muscle of both hands (primary encounter diagnosis) RECOMMENDATION / PLAN: Severe atrophy w/ h/o cervical surgery in October 2023 at [facility], records unavailable at this time Will obtain EMG Consider cervical XR or MRI Consider referral to hand vs spine Follow up: after EMG is complete to discuss results and next step in management Films prior to visit: No additional imaging warranted. Pertinent previous records and images reviewed. Verbal health education was given to patient. Patient verbalizes understanding and agrees with the treatment plan as detailed above. Sandy Bhatt MD [facility] Sports and Exercise Medicine Medical Decision Making documented in this encounter [facility] 06-13-2024 Note HNO ID: [id number] Author: YASSINE MAIN RT(R) Service: ? Author Type: Technologist Type: Progress Notes Filed: 06/13/2024 09:29 Note Text: Radiology Service Progress Note PATIENT NAME: Rachid Mcnair DATE OF SERVICE: June 13, 2024 TIME: 9:29 AM PATIENT IDENTITY VERIFICATION COMPLETED USING TWO (2) IDENTIFIERS: Name and Date of confirmed by patient verbally. FALL SCREENING: Has the patient had 2 falls in the last year or 1 fall with injury or currently using an Ambulatory Assistive Device (Walker, Cane, Wheelchair, Crutches, etc.)? No PATIENT GENDER DATA: Assigned male at PATIENT RELEVANT IMPLANT DATA REVIEWED: Not Applicable PATIENT PRESENTS WITH AN IMPLANTABLE OR ATTACHED SECTION HOUSEKEEPER: No RADIOLOGY DEPARTMENT: General X-ray: Exam(s) Completed: Upper Extremity X-Ray(s): Hand, bilateral PERIPHERAL IV DATA: Not applicable SIGNED BY: RT Mack(R) June 13, 2024 9:29 AM [facility] 05-24-2024 Note Echocardiology Procedure Exam Date/Time Accession # Ordering Echo Transthoracic 05/24/2024 11:24 [facility] [id number] Chris Garcia MD Complete CPT code 24784 [id number] Reason for Exam (Echo Transthoracic Complete) HTN, R07.9;[place] [address] Adult Echocardiogram Report Name: RACHID MCNAIR Study Date: 05/24/2024 10:49 AM BP: 151/103 mmHg Patient Location: [facility] Ambulatory(s) [facility] HR: 91 : 1955 Gender: Male Height: 71 in Age: 68 yrs Ethnicity: [facility] Weight: 170 lb Reason For Study: HTN, R07.9;Chest pain BSA: 2.0 m2 History: HTN, DM Ordering Physician: Chris Garcia Referring Physician: Chris Garcia Performed By: Elizabet Ruiz [facility] Interpretation Summary moderate left ventricular hypertrophy. Left ventricular systolic function is normal. Ejection Fraction = 55-60%. The left ventricular wall motion is normal. Diastolic dysfunction, Grade II (pseudonormalization pattern). There is no pericardial effusion. No significant valvular disease. Procedure A complete two-dimensional transthoracic echocardiogram was performed (2D, M-mode, spectral and color flow Doppler). Left Ventricle The left ventricle is normal in size. moderate left ventricular hypertrophy. Left ventricular systolic function is normal. Ejection Fraction = 55-60%. The left ventricular wall motion is normal. Diastolic dysfunction, Grade II (pseudonormalization pattern). Echocardiology Report Left Atrium The left atrium is grossly normal. There is no atrial septal defect. Right Atrium Right atrial size is normal. Right Ventricle The right ventricular systolic function is normal. The right ventricle is normal size. Aortic Valve The trileaflet aortic valve opening is normal. No aortic regurgitation. There is no aortic stenosis. Mitral Valve The mitral valve is normal in structure and function. Tricuspid Valve Structurally normal tricuspid valve. No evidence of tricuspid regurgitation. No evidence of tricuspid stenosis. Pulmonic Valve The pulmonic valve is normal. There is no pulmonic valve regurgitation. No evidence of stenosis. Arteries The aortic root is normal in size. Venous The inferior vena cava is normal in size, and collapses normally with respiration. Effusion There is no pericardial effusion. MMode/2D Measurements & Calculations RVDd: 3.4 cm LVIDd: 4.1 cm FS: 28.9 % Ao root diam: 3.4 cm IVSd: 1.6 cm LVIDs: 2.9 cm EDV(Teich): 72.8 ml Ao root area: 8.9 cm2 LVPWd: 1.4 cm ESV(Teich): 32.0 ml LA dimension: 2.8 cm EF(Teich): 56.0 % asc Aorta Diam: 3.1 cm LVOT diam: 2.1 cm LVLd ap4: 8.8 cm EDV(MOD-sp2): 71.1 ml LVOT area: 3.5 cm2 EDV(MOD-sp4): 92.7 ml ESV(MOD-sp2): 31.1 ml LVLs ap4: 7.4 cm EF(MOD-sp2): 56.3 % ESV(MOD-sp4): 36.3 ml EF(MOD-sp4): 60.8 % SV(MOD-sp4): 56.4 ml TAPSE: 2.3 cm Ao Sinus of Valsalva: 3.4 cm Ao Sinotubular Junction: 2.6 cm IVC Diam: 1.6 cm RVIDd/LVIDd: 0.84 EF (MOD-bp): 58.8 % LA Vol Index: 16.5 ml/m2 Doppler Measurements & Calculations Echocardiology Report MV E max jozef: 64.8 cm/sec MV dec time: 0.19 sec Ao V2 max: 103.4 cm/sec LV V1 max P.5 mmHg MV A max jozef: 51.8 cm/sec Ao max P.3 mmHg LV V1 max: 62.1 cm/sec MV E/A: 1.3 Lat Peak E' Jozef: 6.9 cm/sec REGI(V,D): 2.1 cm2 E/E' Lat: 9.4 Med Peak E' Jozef: 5.7 cm/sec E/E' Med: 11.5 RAP systole: 3.0 mmHg AV VR: 0.60 FINAL REPORT Dictated: 05/24/2024 10:49 am Chris Garcia MD Signed (Electronic Signature): 05/24/2024 12:14 pm Signed by: Chris Garcia MD Transcribed by: SHERWIN Technologist: NATHAN [facility] 05-08-2024 Note Patient Education Nutrition BMI for Adults Body mass index (BMI) is a number found using a person's weight and height. BMI can help tell how much of a person's weight is made up of fat. BMI does not measure body fat directly. It is used instead of tests that directly measure body fat, which can be difficult and expensive. What are BMI measurements used for? BMI is useful to: ??? Find out if your weight puts you at higher risk for medical problems. ??? Help recommend changes, such as in diet and exercise. This can help you reach a healthy weight. BMI screening can be done again to see if these changes are working. How is BMI calculated? Your height and weight are measured. The BMI is found from those numbers. This can be done with U.S. or metric measurements. Note that charts and online BMI calculators are available to help you find your BMI quickly and easily without doing these calculations. To calculate your BMI in U.S. measurements: 1. Measure your weight in pounds (lb). 2. Multiply the number of pounds by 703. ??? So, for an adult who weighs 150 lb, multiply that number by 703: 150 x 703, which equals 105,450. 3. Measure your height in inches. Then multiply that number by itself to get a measurement called inches squared. ??? So, for an adult who is 70 inches tall, the inches squared measurement is 70 inches x 70 inches, which equals 4,900 inches squared. 4. Divide the total from step 2 (number of lb x 703) by the total from step 3 (inches squared): 105,450 ? 4,900 = 21.5. This is your BMI. To calculate your BMI in metric measurements: 1. Measure your weight in kilograms (kg). ??? For this example, the weight is 70 kg. 2. Measure your height in meters (m). Then multiply that number by itself to get a measurement called meters squared. ??? So, for an adult who is 1.75 m tall, the meters squared measurement is 1.75 m x 1.75 m, which equals 3.1 meters squared. 3. Divide the number of kilograms (your weight) by the meters squared number. In this example: 70 ? 3.1 = 22.6. This is your BMI. What do the results mean? BMI charts are used to see if you are underweight, normal weight, overweight, or obese. The following guidelines will be used: ??? Underweight: BMI less than 18.5. ??? Normal weight: BMI between 18.5 and 24.9. ??? Overweight: BMI between 25 and 29.9. ??? Obese: BMI of 30 or above. BMI is a tool and cannot diagnose a condition. Talk with your health care provider about what your BMI means for you. Keep these notes in mind: ??? Weight includes fat and muscle. Someone with a muscular build, such as an athlete, may have a BMI that is higher than 24.9. In cases like these, BMI is not a correct measure of body fat. ??? If you have a BMI of 25 or higher, your provider may need to do more testing to find out if excess body fat is the cause. ??? BMI is measured the same way for males and females. Females usually have more body fat than males of the same height and weight. Where to find more information For more information about BMI, including tools to quickly find your BMI, go to: ??? Centers for Disease Control and Prevention: cdc.gov ??? [place] Heart Association: heart.org ??? National Heart, Lung, and Blood [place]: nhlbi.nih.gov This information is not intended to replace advice given to you by your health care provider. Make sure you discuss any questions you have with your health care provider. Document Revised: 12/17/2022 Document Reviewed: 12/10/2022 [employer] Patient Education ? 2023 [employer] [facility] 04-04-2024 History of Present illness Narrative Images from the original note were not included. Assessment/Plan Diagnoses and all orders for this visit: Pseudophakia - s/p CE OD (POD #1): Patient provided with post-op form. Instructed to continue drops as well as shield. Instructed to call immediately with increased pain, redness, decreased vision, questions or concerns. documented in this encounter [facility] 03-13-2024 History of Present illness Narrative Images from the original note were not included. Subjective Patient ID: Rachid Mcnair is a 68 y.o. male. Chief Complaint Cataract HPI Cataract In both eyes. Associated symptoms include blurred vision, glare, haloes, starburst and a need for brighter lights. Severity is moderate. Onset was sudden. Frequency is constant. Context: distance vision and night driving. Since onset it is gradually worsening. Affected activities include night driving. Treatments tried include no treatments. Response to treatment was no improvement. Comments Pt presents for Cataract evaluation both eyes (OU) referred by Dr. Rubio. Pt states he has glasses for near only they are about 2.5 yrs old. Pt states he has been having a lot of trouble nighttime driving , glare and halos around lights. Pt state in he has intermittent floaters in both eyes (OU) . Pts last A1C: 6.5 ( 08/2023) Blood sugar: 134 ( 03/12/24) Dr. Ontiveros for Diabetic care. No Flomax No latex allergies Last edited by Jigna Barroso DO on 03/13/2024 1:35 PM. Current Outpatient Medications (Ophthalmic Agents) Medication Sig Dispense Refill ketorolac (Acular) 0.5 % ophthalmic solution Administer 1 drop into affected eye(s) in the morning and 1 drop before bedtime. 5 mL 1 ofloxacin (Ocuflox) 0.3 % ophthalmic solution Administer 1 drop into affected eye(s) 5 (five) times a day for 1 day Starting 1 day before surgery, continue after surgery as directed 5 mL 1 prednisoLONE acetate (Pred-Forte) 1 % ophthalmic suspension Administer 1 drop into affected eye(s) in the morning and 1 drop at noon and 1 drop in the evening and 1 drop before bedtime. Do all this for 14 days. 5 mL 1 No current facility-administered medications for this visit. (Ophthalmic Agents) Current Outpatient Medications (Other) Medication Sig Dispense Refill aspirin 81 MG EC tablet Take 81 mg by mouth in the morning. atorvastatin (Lipitor) 20 MG tablet Take 20 mg by mouth at bedtime. Blood Glucose Calibration (Contour Next Control) Normal solution Januvia 100 MG tablet 1 (one) time each day at the same time. losartan (Cozaar) 100 MG tablet Take 100 mg by mouth Daily metFORMIN (Glucophage) 500 MG tablet every 12 (twelve) hours. omeprazole (PriLOSEC) [address] capsule Take 20 mg by mouth in the morning. terbinafine (LamISIL) 250 MG tablet Take 250 mg by mouth Daily venlafaxine (Effexor) 25 MG tablet Take 25 mg by mouth Daily No current facility-administered medications for this visit. (Other) Past Medical History: Diagnosis Date Diabetes mellitus (CMS/HCC) Hypercholesteremia (CMS/HCC) Hypertension (CMS/HCC) Rotator cuff syndrome Allergies Allergen Reactions Sulfa Antibiotics Review of Systems Constitutional: Negative. HENT: Negative. Eyes: Negative. Respiratory: Negative. Cardiovascular: Negative. Gastrointestinal: Negative. Genitourinary: Negative. Musculoskeletal: Negative. Skin: Negative. Neurological: Negative. Psychiatric/Behavioral: Negative. Hematological: Negative. Endocrine: Negative. Allergic/Immunologic: Negative. Objective Base Eye Exam Visual Acuity (Snellen - Linear) Right Left Dist sc 20/30 20/50 -1 Tonometry (Applanation, 1:37 PM) Right Left Pressure 16 16 Pupils Pupils Right PERRL Left PERRL Visual Booker Left Right Full Full Extraocular Movement Right Left Full Full Neuro/Psych Oriented x3: Yes Dilation Both eyes: 1.0% Mydriacyl @ 1:18 PM Additional Tests Keratometry K1 Rhine K2 Rhine Right 43.75 52 44.00 142 Left 43.50 116 43.75 26 Glare Testing High Right 20/200 Left 20/400 Slit Lamp and Fundus Exam External Exam Right Left External Rosacea Rosacea Slit Lamp Exam Right Left Lids/Lashes Blepharitis, Dermatochalasis - upper lid Blepharitis, Dermatochalasis - upper lid Conjunctiva/Sclera White and quiet White and quiet Cornea Decreased tear film Decreased tear film Anterior Chamber Deep and quiet Deep and quiet Iris Round and reactive Round and reactive Lens 2+ Nuclear sclerosis, 1+ Cortical cataract, Vacuoles 2+ Nuclear sclerosis, 1+ Cortical cataract, Vacuoles Anterior Vitreous Normal Normal Fundus Exam Right Left Disc Normal Normal Macula Normal Normal Vessels Normal Normal Periphery Normal Normal Refraction Wearing Rx Sphere Rhine Right +2.50 180 Left +2.75 180 Age: 2.5 Type: reading Manifest Refraction Sphere Cylinder Rhine Right +1.50 -1.25 077 Left +1.50 -0.50. 104 Final Rx Sphere Cylinder Rhine Dist VA Right +1.50 -1.25 080 20/30 Left +1.50 -0.50 105 20/40 Expiration Date: 03/13/2025 Assessment/Plan Age-related nuclear cataract of both eyes - Visually Significant Cataract, OU: I discussed the risks, benefits, alternatives, and expectations of cataract surgery. A complete ophthalmic exam was performed and it was determined that the cataracts were a primary source of vision decline, affecting activities of daily living, necessitating removal. Limited vision post-surgery may occur with pre-existing conditions affecting other areas of the eye or the brain was explained and the patient displayed an understanding. The overall objective is to improve ADLs, not eliminate glasses or restore vision to 20/20. Tests were reviewed - the different lens options were explained including the [id number] fees for any upgrades. Intraocular lens (IOL) selection may be altered either prior to or during the procedure based on the doctor's discretion including reverting to a traditional intraocular lens (IOL). They understood that there will exist the potential of glasses prescription need post surgery for near, distance or possibly both. The patient stated a full understanding and a desire to proceed with the procedure. The patient received cataract measurements and had any additional questions answered. - A complete exam was performed including a physical exam: General: AAOx3 and NAD, Lungs: Clear, Heart: RRR, Abdomen: S/NT/ND, Extremities: no pitting edema. - Coordination of care will be shared with Dr. Moore. Cataract Surgery for OS will take place - 03/20 and OD - 04/03. documented in this encounter [facility] 12-30-2023 History of Present illness Narrative Images from the original note were not included. Rachid Mcnair is a 68 y.o. male presents with chief complaint of follow up left shoulder [facility] claim, chronic rotator cuff tear with posttraumatic arthritis. HPI: Victoriano is here, seen in assistance with physician research lab assistant Arsh Pack. He does have occasional pain, night disruption, stiffness. He does get occasional crepitance. Overall he does fairly well. He has no interest in surgical reverse arthroplasty. Brochure was provided today. There are no fever, chills or constitutional symptoms. He does have unrelated contralateral shoulder pain as well. This is an open [facility] claim. SUBJECTIVE: MEDICATIONS: Current Outpatient Medications Medication Instructions aspirin 81 mg, Oral, Daily atorvastatin (LIPITOR) 20 mg, Oral, Nightly Blood Glucose Calibration (Contour Next Control) Normal solution Januvia 100 MG tablet Every 24 hours losartan (COZAAR) 100 mg, Oral, Daily metFORMIN (Glucophage) 500 MG tablet Every 12 hours omeprazole (PRILOSEC) 20 mg, Oral, Daily venlafaxine (EFFEXOR) 25 mg, Oral, Daily ALLERGIES: Allergies Allergen Reactions Sulfa Antibiotics SURGICAL HISTORY: Past Surgical History: Procedure Laterality Date HIP ARTHROPLASTY FAMILY HISTORY: Family History Problem Relation Name Age of Onset Cancer Father Alan SOCIAL HISTORY: Social History Tobacco Use Smoking status: Former Current packs/day: 0.00 Average packs/day: 1.5 packs/day for 15.8 years (23.7 ttl pk-yrs) Types: Cigarettes Start date: 12/12/1975 Quit date: 10/11/1991 Years since quittin.2 Substance Use Topics Alcohol use: Not Currently Drug use: Never Depression: Not on file REVIEW OF SYMPTOMS: The review of systems, history and current medications list are all reviewed today. OBJECTIVE: Visit Vitals Ht 5' 10 Wt 172 lb BMI 24.68 kg/m Smoking Status Former BSA 1.96 m Physical Exam On physical exam, the neck has moderate stiffness. Spurling compression test is mildly positive with left dorsal forearm radiation. His bilateral shoulders have mild to moderate stiffness, but no real pain. The right has moderate weakness. The left has mild. Cross arm produces pain bilaterally. Crepitance is present of both. X-rays updated today shows chronic cuff arthropathy with decreased acromiohumeral interval. There are advanced degenerative changes that are end stage. There is no acute fracture, dislocation, tumor or infection seen. ASSESSMENT AND PLAN: Assessment/Plan Left shoulder chronic rotator cuff tear, [facility] claim with cuff arthropathy. The nature of the findings were discussed at length. We discussed continued conservative care with ice, Tylenol and anti-inflammatory. Injection therapy up to three per year were reviewed. We discussed reverse arthroplasty at some point with CT scan with 3D blueprint. Brochure was provided. He will keep a close watchful eye and he will call or return as needed. He voices verbal understanding. He is discharged in stable condition. Numerous questions were answered. The patient was seen and examined. From the time of check in, nurse triage, vital signs, x-ray, x-ray interpretation, review of systems, comprehensive history and physical exam as well as setting up treatment plan and further management took 35 minutes. documented in this encounter [facility] 02-20-[address] [facility] Evaluation note No assessment inform ation available [facility] Work Phone: Evaluation note Diagnosis Age-related nuclear cataract of both eyes- Primary documented in this encounter [facility] note* Diagnosis Left shoulder pain, unspecified chronicity- Primary [facility] Diagnosis Pseudophakia- Primary Lens replaced by other means documented in this encounter [facility] note* Diagnosis Pain- Primary Generalized pain [facility] Diagnosis Atrophy of muscle of both hands- Primary [facility]* Diagnosis Pain Generalized pain documented in this encounter [facility] note* Diagnosis Carpal tunnel syndrome, bilateral upper limbs- Primary Atrophy of muscle of both hands Radiculopathy, cervical region Brachial neuritis or radiculitis nos [facility] Diagnosis Chest pain, unspecified Shortness of breath Essential (primary) hypertension Unspecified essential hypertension documented in this encounter [facility] Work Phone: Evaluation note* Diagnosis Atrophy of muscle of both hands- Primary Carpal tunnel syndrome, bilateral Carpal tunnel syndrome Hx of cervical spine surgery Other postprocedural status Spinal stenosis of cervical region Spinal stenosis in cervical region [facility] Hx of cervical spine surgery Other postprocedural status [facility] Diagnosis 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 [facility] Diagnosis Spinal stenosis of cervical region Spinal stenosis in cervical region [facility] Diagnosis Atrophy of muscle of both hands Carpal tunnel syndrome, bilateral Carpal tunnel syndrome [facility] Diagnosis Bilateral carpal tunnel syndrome- Primary Carpal tunnel syndrome Trigger finger, left ring finger Trigger finger, left middle finger [facility] Diagnosis Carpal tunnel syndrome on left- Primary Carpal tunnel syndrome Trigger middle finger of left hand Trigger finger (acquired) Trigger ring finger of left hand Trigger finger (acquired) Carpal tunnel syndrome on left Carpal tunnel syndrome Trigger middle finger of left hand Trigger finger (acquired) Trigger ring finger of left hand Trigger finger (acquired) [facility] Diagnosis Cervical disc disorder with radiculopathy- Primary Brachial neuritis or radiculitis nos Carpal tunnel syndrome, bilateral upper limbs Carpal tunnel syndrome on left Carpal tunnel syndrome Trigger middle finger of left hand Trigger finger (acquired) Trigger ring finger of left hand Trigger finger (acquired) [facility] Author Cam Rea [facility] February 20, 2022 7:57am Note Date/Time February 20, 2022 7:57am [facility] ENTER [address] [place] [address] Gastroenterology H&P Signed Patient: Rachid Mcnair MR#: [id number] : 1955 Acct:[id number] Age/Sex: 66 / M Adm Date: 2 Loc: Room: Type: [facility] Attending Dr: Cam Rea MD Copies to: MD Sai Camacho MD~ Date of Service: 02/20/2022 HISTORY [...] By: <Electronically signed by Cam Rea MD> 02/20/22 075 [facility] Work Phone: Hospital Discharge instructions Additional Instructions DISCHARGE INSTRUCTIONS [...] NOT operate machinery such as power tools, Devices[employer] mowers, snow blowers, sewing machines, etc. for [...] Follow up with PCP. - Office number [phone].[facility] Work Phone: Reason for visit Narrative* Diagnostic Procedure Only (Routine) - Closed Specialty Diagnoses / Procedures Referred By Jovanny merritt Referred To Contact XR IMAGING Diagnoses Pain Procedures XR HAND GENERAL 3V PA/LAT/OBL BILATERAL RADEX HAND MINIMUM 3 VIEWS Sandy Bhatt MD [address] [place] [address] Phone: tel: fax: [place] [address] Referral ID Status Reason Start Date Expiration Date V isits Requested Visits Authorized [id number] Closed Auto-Generate d Referral 05/26/2024 06/25/2025 1 1 [facility] for visit Narrative* Imaging (Routine) - Authorized Specialty Diagnoses / Procedures Referred By Contkita Referred To Contact Radiology Diagnoses Chest pain, unspecified Shortness of breath Essential (primary) hypertension Procedures CT angio coronary art with heartflow if score >30% Chris Garcia MD [address] [facility] [place] [address] Phone: tel: fax: Referral ID Status Reason Start Date Expiration Date Visits Requested Visits Authorized [id number] Authorized Perform Procedure 06/12/2024 06/12/2025 1 1 [facility] Work Phone: [employer] for visit Narrative* Diagnostic Procedure Only (Routine) - Closed Specialty Diagnoses / Procedures Referred By Jovanny merritt Referred To Contact XR IMAGING Diagnoses Hx of cervical spine surgery Procedures XR CERV OTHER 4V AP/LAT/FLX/EXT RADEX SPINE CERVICAL 4 OR 5 VIEWS Sandy Bhatt MD [address] [place] [address] Phone: tel: fax: [place] [address] Referral ID Status Reason Start Date Expiration Date V isits Requested Visits Authorized [id number] Closed Auto-Generate d Referral 06/29/2024 07/29/2025 1 1 [facility] for visit Narrative* MRI/CT (Routine) - Closed Specialty Diagnoses / Procedures Referred By Jovanny merritt Referred To Contact MR IMAGING Diagnoses Spinal stenosis of cervical region Procedures MRI CERVICAL SPINE WO IVCON MRI SPINAL CANAL CERVICAL W/O CONTRAST MATRL Sandy Bhatt MD [address] [place] [address] Phone: tel: fax: [place] [address] Referral ID Status Reason Start Date Expiration Date V isits Requested Visits Authorized [id number] Closed Auto-Generate d Referral 07/05/2024 09/08/2024 1 1 [facility] for visit Narrative* Diagnostic Procedure Only (Routine) - Closed Specialty Diagnoses / Procedures Referred By Jovanny merritt Referred To Contact US IMAGING Diagnoses Atrophy of muscle of both hands Carpal tunnel syndrome, bilateral Procedures US WRIST RIGHT US COMPL JOINT R-T W/IMAGE DOCUMENTATION Latia Chavis PA-C [address] [place] [address] Phone: tel: fax: [place] [address] Referral ID Status Reason Start Date Expiration Date V isits Requested Visits Authorized [id number] Closed Auto-Generate d Referral 08/02/2024 09/01/2025 1 1 [facility] Summary Purpose Family History No Family History [...] section and content) DATE CREATED AUTHOR 08/11/2021 [facility] DATE CREATED AUTHOR AUTHOR'S ORGANIZ ATION 10/30/2021 [facility] DATE CREATED AUTHOR AUTHOR'S ORGANIZ ATION 02/27/2022 [facility] DATE CREATED AUTHOR AUTHOR'S ORGANIZ ATION 11/05/2023 [facility] DATE CREATED AUTHOR AUTHOR'S ORGANIZ ATION 04/06/2024 [facility] Special[facility] DATE CREATED AUTHOR AUTHOR'S ORGANIZ ATION 05/09/2024 [facility] DATE CREATED AUTHOR AUTHOR'S ORGANIZ ATION 06/16/2024 [facility] DATE CREATED AUTHOR AUTHOR'S ORGANIZ ATION 07/03/2024 [facility] DATE CREATED AUTHOR AUTHOR'S ORGANIZ ATION 07/17/2024 [facility] DATE CREATED AUTHOR AUTHOR'S ORGANIZ ATION 09/13/2024 [facility] DATE CREATED AUTHOR AUTHOR'S ORGANIZ ATION 09/17/2024 [facility] DATE CREATED AUTHOR AUTHOR'S ORGANIZ ATION 10/23/2024 [facility] DATE CREATED AUTHOR AUTHOR'S ORGANIZ ATION 2024 [facility] DATE CREATED AUTHOR AUTHOR'S ORGANIZ ATION 11/11/2024 [facility] DATE CREATED AUTHOR AUTHOR'S ORGANIZ ATION 12/09/2024 [facility] Care Teams (unrecognized sec tion and content) Team Status: Inactive Member Role Status Dates Sai Yost MD Primary Care Provider Active Cam Rea MD Attending Provider Active Team Status: Active Member Role Status Dates Sai Yots MD Primary Care Provider Active [employer] Relationship Specialty Start Date End Date Maxwell Ontiveros MD [address] [place] [phone] PCP - General Family Medicine 12/31/22 [employer]er Relationship Specialty Start Date End Date Maxwell Ontiveros MD [address] [place] [phone] PCP - General Family Medicine 12/31/22 [employer]er Relationship Specialty Start Date End Date Maxwell Ontiveros MD PCP - General Family Medicine 12/31/22 [employer]er Relationship Specialty Start Date End Date Maxwell Ontiveros MD [address] [place] [phone] PCP - General Family Medicine 12/31/22 [employer]er Relationship Specialty Start Date End Date Maxwell Ontiveros MD [address] [place] [phone] PCP - General Family Medicine 12/31/22 [employer]er Relationship Specialty Start Date End Date Sai Yost MD [address] [place] [address] PCP - General Family Medicine 07/22/11 Lauri Qureshi MD [address] [facility] [address] [place] [address] Primary Staff Physician Cardiology 06/28/18 Maxwell Ontiveros MD [address] [place] [address] Referring Family Medicine 05/26/24 [employer]er Relationship Specialty Start Date End Date Sai Yost MD [address] [place] [address] PCP - General Family Medicine 07/22/11 Lauri Qureshi MD [address] [facility] [address] [place] [address] Primary Staff Physician Cardiology 06/28/18 Maxwell Ontiveros MD [address] [place] [address] Referring Family Medicine 05/26/24 [employer]er Relationship Specialty Start Date End Date Sai Yost MD [address] [place] [address] PCP - General Family Medicine 07/22/11 Lauri Qureshi MD [address] [facility] [address] [place] [address] Primary Staff Physician Cardiology 06/28/18 Maxwell Ontiveros MD [address] [place] [address] Referring Family Medicine 05/26/24 [employer]er Relationship Specialty Start Date End Date Sai Yost MD [address] [place] [address] PCP - General Family Medicine 07/22/11 Lauri Qureshi MD [address] [facility] [address] [place] [address] Primary Staff Physician Cardiology 06/28/18 Maxwell Ontiveros MD [address] [place] [address] Referring Family Medicine 05/26/24 Iron [employer]er Relationship Specialty Start Date End Date Sai Yost MD [address] [place], [place] [address] PCP - General Family Medicine 07/22/11 Lauri Qureshi MD [address] [facility] [address] [place] [address] Primary Staff Physician Cardiology 06/28/18 Maxwell Ontiveros MD [address] [facility] Referring Family Medicine 05/26/24 Iron [employer]er Relationship Specialty Start Date End Date Sai Yost MD [address] [facility] [facility] PCP - General Family Medicine 07/22/11 Lauri Qureshi MD [address] [facility] [address] [place] [address] Primary Staff Physician Cardiology 06/28/18 Maxwell Ontiveros MD [address] [place] [address] Referring Family Medicine 05/26/24 Iron Miner Relationship Specialty Start Date End Date Sai Yost MD [address] [place] [address] PCP - General Family Medicine 07/22/11 Lauri Qureshi MD [address] [address] Primary Staff Physician Cardiology 06/28/18 Maxwell Ontiveros MD [address] [place] [address] Referring Family Medicine 05/26/24 Iron Miner Relationship Specialty Start Date End Date Sai Yost MD [address] [place] [address] PCP - General Family Medicine 07/22/11 Lauri Qureshi MD [address] [address] Primary Staff Physician Cardiology 06/28/18 Maxwell Ontiveros MD [address] [place] [address] Referring Family Medicine 05/26/24 Iron Miner Relationship Specialty Start Date End Date Sai Yost MD [address] [place] [address] PCP - General Family Medicine 07/22/11 Lauri Qureshi MD [address] [facility] [address] [place] [address] Primary Staff Physician Cardiology 06/28/18 Maxwell Ontiveros MD [address] [place] [address] Referring Family Medicine 05/26/24 Iron Miner Relationship Specialty Start Date End Date Sai Yost MD [address] [place] [address] PCP - General Family Medicine 07/22/11 Lauri Qureshi MD [address] [address] Primary Staff Physician Cardiology 06/28/18 Maxwell Ontiveros MD [address] [place], [facility] Referring Family Medicine 05/26/24 Iron Miner Relationship Specialty Start Date End Date Sai Yost MD [address] [place], [facility] PCP - General Family Medicine 07/22/11 Lauri Qureshi MD [address] [address] Primary Staff Physician Cardiology 06/28/18 Maxwell Ontiveros MD [address] [place] [address] Referring Family Medicine 05/26/24 Iron Miner Relationship Specialty Start Date End Date Sai Yost MD [address] [place] [address] PCP - General Family Medicine 07/22/11 Lauri Qureshi MD [address] [facility] [address] [place] [address] Primary Staff Physician Cardiology 06/28/18 Maxwell Ontiveros MD [address] [place] [address] Referring Family Medicine 05/26/24 Iron Miner Relationship Specialty Start Date End Date Sai Yost MD [address] [facility] [place] [address] PCP - General Family Medicine 07/22/11 Lauri Qureshi MD [address] [facility] [address] [place] [address] Primary Staff Physician Cardiology 06/28/18 Maxwell Ontiveros MD [address] [facility] [place] [address] Referring Family Medicine 05/26/24 Iron Miner Relationship Specialty Start Date End Date Sai Yost MD [address] [facility] [place] [address] PCP - General Family Medicine 07/22/11 Lauri Qureshi MD [address] [facility] [address] [place] [address] Primary Staff Physician Cardiology 06/28/18 Maxwell Ontiveros MD [address] [place] [address] Referring Family Medicine 05/26/24 Iron Miner Relationship Specialty Start Date End Date Nevaeh Agosto MD [address] [place] [address] PCP - General Family Medicine 10/19/24 Lauri Qureshi MD [address] [facility] [address] [place] [address] Primary Staff Physician Cardiology 06/28/18 Maxwell Ontiveros MD [address] [place] [address] Referring Family Medicine 05/26/24 Reason for Visit (unrecogniz ed section and content) Reason Comments Cataract Reason Comments Pain Reason Comments Post-op Reason Comments New Pain Reason Onset Date Comments EMG 06/24/2024 Specialty Diagnoses / Procedures Referred By Contac t Referred To [facility] Diagnoses Atrophy of muscle of both hands Procedures EMG(NEURO/NI) NERVE CONDUCTION STUDIES 9-10 STUDIES Sandy Bhatt MD [address] [place] [address] Phone: tel: fax: Neurology [address] [place], [place] [id number] Phone: tel: Referral ID Status Reason Start Date Expiration Date V isits Requested Visits Authorized [id number] Closed Auto-Generate d Referral 06/24/2024 04/11/2025 1 1 Reason Comments Pain Established Patient Follow Up Reason Comments Appointment Reason Comments Results Reason Comments Follow Up Reason Comments Surgical Followup Reason Comments New Patient Hand numbness and ti ngling in fingers Source Comments (unrecognize d section and content) In the event this informatio n is protected by the Federal Confidentiality of Alcohol and Drug Abuse Patient Records regulations: The Federal rules restrict any use of the information to criminally investigate or prosecute any alcohol or drug abuse patient.[facility] the event this information is protected by the Federal Confidentiality of Alcohol and Drug Abuse Patient Records regulations: The Federal rules restrict any use of the information to criminally investigate or prosecute any alcohol or drug abuse patient.[facility] Center[facility] the event this information is protected by the Federal Confidentiality of Alcohol and Drug Abuse Patient Records regulations: The Federal rules restrict any use of the information to criminally investigate or prosecute any alcohol or drug abuse patient.[facility] the event this information is protected by the Federal Confidentiality of Alcohol and Drug Abuse Patient Records regulations: The Federal rules restrict any use of the information to criminally investigate or prosecute any alcohol or drug abuse patient.[facility] the event this information is protected by the Federal Confidentiality of Alcohol and Drug Abuse Patient Records regulations: The Federal rules restrict any use of the information to criminally investigate or prosecute any alcohol or drug abuse patient.[facility] Center[facility] the event this information is protected by the Federal Confidentiality of Alcohol and Drug Abuse Patient Records regulations: The Federal rules restrict any use of the information to criminally investigate or prosecute any alcohol or drug abuse patient.[facility] Center[facility] the event this information is protected by the Federal Confidentiality of Alcohol and Drug Abuse Patient Records regulations: The Federal rules restrict any use of the information to criminally investigate or prosecute any alcohol or drug abuse patient.[facility] the event this information is protected by the Federal Confidentiality of Alcohol and Drug Abuse Patient Records regulations: The Federal rules restrict any use of the information to criminally investigate or prosecute any alcohol or drug abuse patient.[facility] the event this information is protected by the Federal Confidentiality of Alcohol and Drug Abuse Patient Records regulations: The Federal rules restrict any use of the information to criminally investigate or prosecute any alcohol or drug abuse patient.[facility] the event this information is protected by the Federal Confidentiality of Alcohol and Drug Abuse Patient Records regulations: The Federal rules restrict any use of the information to criminally investigate or prosecute any alcohol or drug abuse patient.[facility] the event this information is protected by the Federal Confidentiality of Alcohol and Drug Abuse Patient Records regulations: The Federal rules restrict any use of the information to criminally investigate or prosecute any alcohol or drug abuse patient.[facility] Center[facility] the event this information is protected by the Federal Confidentiality of Alcohol and Drug Abuse Patient Records regulations: The Federal rules restrict any use of the information to criminally investigate or prosecute any alcohol or drug abuse patient.[facility] Center[facility] the event this information is protected by the Federal Confidentiality of Alcohol and Drug Abuse Patient Records regulations: The Federal rules restrict any use of the information to criminally investigate or prosecute any alcohol or drug abuse patient.[facility] Center[facility] the event this information is protected by the Federal Confidentiality of Alcohol and Drug Abuse Patient Records regulations: The Federal rules restrict any use of the information to criminally investigate or prosecute any alcohol or drug abuse patient.[facility] Center[facility] the event this information is protected by the Federal Confidentiality of Alcohol and Drug Abuse Patient Records regulations: The Federal rules restrict any use of the information to criminally investigate or prosecute any alcohol or drug abuse patient.[facility] Center[facility] the event this information is protected by the Federal Confidentiality of Alcohol and Drug Abuse Patient Records regulations: The Federal rules restrict any use of the information to criminally investigate or prosecute any alcohol or drug abuse patient.[facility] CenterIn the event this information is protected by the Federal Confidentiality of Alcohol and Drug Abuse Patient Records regulations: The Federal rules restrict any use of the information to criminally investigate or prosecute any alcohol or drug abuse patient.[facility] FOR RECORDS PERTAINING TO PATIENTS WHO ARE [...] BE BASED ON THE PRIMARY CLINICAL RECORDS. [facility] [address] [facility]. provides no warranty or guarantee of the accuracy or completeness of information in this document.
--- OUTSIDE RECORDS SUMMARY | 2024-12-23 09:15 | XMS_ITS | Clinical Summary ---
Author Organization [facility] Address [address] [place] [address] Phone Care Team Providers Care Business Development Engineer Name Role Phone Unavailable Primary Care Provider Unavailabl e Allergies Active Allergy Reactions Criticality Noted Date Comments Sulfa (Sulfonamide Antibiotics) Hives 06/10 Medications Hospital, Clinic, or Other Facility Administered Medication Ordered Dose Route Frequency Start Date End Date Status metoprolol tartrate (Lopressor) injection 5 mgIndications:Chest pain 5 mg IV Every 5 min PRN 06/23/2024 Active metoprolol tartrate (Lopressor) tablet 100 mgIndications:Chest pain 100 mg oral Every 1 hour PRN 06/23/2024 Active nitroglycerin (NitrolinguaL) 400 mcg/spray spray 2 sprayIndications:Chest pain 2 spray SL Once 06/23/2024 Active Social History Tobacco Use Types Packs/Day Years Used Date Smoking Tobacco: Never Assessed Sex and Gender Information Value Date Recorded Sex Assigned at Not on file Legal Sex Male 1:48 PM EST Gender Identity Not on file Sexual Orientation Not on file Last Filed Vital Signs Vital Sign Reading Time Taken Comments Blood Pressure 135/85 06/27/2024 8:36 AM EDT Pulse 67 06/27/2024 8:36 AM EDT Temperature - - Respiratory Rate 20 06/27/2024 8:36 AM EDT Oxygen Saturation 100% 06/27/2024 8:19 AM EDT Inhaled Oxygen Concentration - - Weight 80 kg (176 lb 5.9 oz) 06/13/2024 3:00 PM EST Height 180 cm (5' 10.87 ) 06/13/2024 3:00 PM EST Body Mass Index 24.69 06/13/2024 3:00 PM EST Plan of Treatment Health Maintenance Due Date Last Done Comments CT Colonography 1957 FIT-DNA (Cologuard) 1957 FIT 1957 Lipid Panel 1957 Sigmoidoscopy 1955 Welcome to Medicare Visit 1955 MMR Vaccines (1 of 1 - Standard series) 1958 Hepatitis C Screening 11/11/1975 Pneumococcal Vaccine (1 of 2 - PCV) 1976 PSA Prostate Cancer Screening 11/11/2007 RSV High Risk: (Elderly (60+) or Population) (1 - Risk 60-74 years 1-dose series) 2017 COVID-19 Vaccine ( - season) 2024 04/14/2021, 07/19/2020, 06/20/2020 Influenza Vaccine (#1) 2024 , 12/28/2022, 03/24/2022, Additional history exists DTaP/Tdap/Td Vaccines (2 - Td or Tdap) 07/01/2031 06/30/2021 Colonoscopy 02/21/2032 02/20/2022 Colorectal Cancer Screening 02/21/2032 Zoster Vaccines Completed 12/26/2018, 10/24/2018 HIB Vaccines Aged Out No longer eligi ble based on patient's age to complete this topic HPV Vaccines Aged Out No longer eligi ble based on patient's age to complete this topic Hepatitis A Vaccines Aged Out No long er eligible based on patient's age to complete this topic Hepatitis B Vaccines Aged Out No long er eligible based on patient's age to complete this topic IPV Vaccines Aged Out No longer eligi ble based on patient's age to complete this topic Meningococcal Vaccine Aged Out No malissa sheeba eligible based on patient's age to complete this topic Rotavirus Vaccines Aged Out No longer eligible based on patient's age to complete this topic Insurance [employer] SynapDx
--- OUTSIDE RECORDS SUMMARY | 2024-12-23 09:15 | XMS_ITS | Patient Health Record ---
Author Organization [facility] Address [address] [place] [address] Care Team Providers Care Bessemer Converter Blower Name Role Phone Moses Manuel [phone] Allergies Allergen (clinical drug ingredient) Drug/Non Drug Allergy documented on EMR Reaction Allergy Type Onset Date Status Sulfa (uncoded) Unknown Allergy Acti ve Reason For Referral No Information Social History Tobacco Use: Social History Observation Description Date Details (start date - stop date) Never Smoker NA - NA Smoking History Question Answer Notes Smoking Status NonSmoker AUDIT-C (Standard) Question Answer Notes Did you have a drink contain ing alcohol in the past year? Yes How often did you have six o r more drinks on one occasion in the past year? Never (0 point) How many drinks did you have on a typical day when you were drinking in the past year? 1 or 2 drinks (0 point) How often did you have a dri nk containing alcohol in the past year? Monthly or less (1 point) Points 1 Interpretation Negative Problems Problem Type SNOMED Code ICD Code Onset Dates Problem Status W/U Status Risk Notes Problem Closed fracture of right superior pubic ramus, with routine healing, subsequent encounter (S32.511D) Active confirmed Problem Closed fracture of inferior ramus of right pubis with routine healing (S32.591D) Active confirmed Problem Closed fracture pubis (280556376) Closed fracture of right inferior pubic ramus, initial encounter (S32.591A) Active confirmed Plan Of Treatment Pending Test Test Name Order Date Work Slip, Off Work: Patient was seen in my office today and will be off work until seen back in my office for follow-up appointment. 04/26/2023 Work Slip; Off work 03/15/2023 [facility] [id number] 04/26/2023 [facility] [id number] 07/26/2023 Insurance Providers Payer Name Payer Address Payer Phone Subscriber Number Group Number Insured Name Patient Relationship to Insured Coverage Start Date Coverage End Date [facility] [address] [place] [address] [id number] DOI 23 RACHID MANNING Self - patient is the insured
--- OUTSIDE RECORDS SUMMARY | 2024-12-23 09:15 | XMS_ITS | Clinical Summary ---
Author Organization [facility] Address [address] [place] [address] Care Team Providers Care Steam Tunnel Feeder Name Role Phone Lauri Qureshi MD Unavailable [phone] Maxwell Ontiveros MD Unavailable [phone] Teddy Severino MD Primary Care Provider [phone] Allergies Active Allergy Reactions Criticality Noted Date Comments Sulfa (Sulfonamide Antibiotics) Rash 08/12 Medications citalopram 20 mg tablet Take 20 mg by mouth once daily. Active pravastatin 20 mg tablet Take 20 mg by mouth once daily. Active valsartan (DIOVAN) 160 mg tablet Take 160 mg by mouth once daily. Active metFORMIN 500 mg tablet Take 500 mg by mouth twice daily with meals. Active omeprazole 20 mg capsule Take 20 mg by mouth once daily. Active enoxaparin 40 mg/0.4 mL Syrg Inject 0.4 mL subcutaneously once daily. 11 Syringe 0 10/03/19 12 Active docusate sodium 100 mg capsule Take 1 capsule by mouth twice daily. 0 10/03/19 12 Active oxyCODONE-aceta minophen 5-325 mg tabletIndicatio ns:Osteoarthros is, unspecified whether generalized or localized, pelvic region and thigh,Status post THR (total hip replacement) Take 1 tablet by mouth every 4 hours as needed. 60 tablet 0 10/12/19 12 Active Amoxicillin 500 mg tabletIndicatio ns:Hip pain Take four (4) capsules one (1) hour before Dental surgery 12 tablet 0 12/07/19 12 Active Active Problems Problem Noted Date Diagnosed Date Hip pain 09/02/2011 Encounters Date Type Department Care Team Description 10/19/2024 9:30 AM EDT Office Visit Spine Surgery [address] [place] [id number] Rekha Sawyer PA-C Cervical disc disorder with radiculopathy (Primary Dx); Carpal tunnel syndrome, bilateral upper limbs 10/15/2024 Travel 10/11/2024 Orders Only Orthopaedics [address] [place] [address] Jas French MD Carpal tunnel syndrome on left (Primary Dx); Trigger middle finger of left hand; Trigger ring finger of left hand 10/09/2024 Telephone Orthopaedics [address] [place] [address] Jas French MD Surgical Followup 10/04/2024 8:45 AM EDT Office Visit Orthopaedics [address] [place] [address] Jas French MD Bilateral carpal tunnel syndrome (Primary Dx); Trigger finger, left ring finger; Trigger finger, left middle finger 09/27/2024 Patient Msg Orthopa[facility] [address] [place] [address] Provider, [facility] Your appointment with Dr. French has been rescheduled to 10/04/24 in [place] for an in-person visit at 8:45 AM. 09/25/2024 Telephone [facility]opaedics [address] [place] [address] Latia Summers PA-C Results from Last 3 Months Social History Tobacco Use Types Packs/Day Years Used Date Smoking Tobacco: Former Smokeless Tobacco: Never Alcohol Use Standard Drinks/Week Comments Yes 0 (1 standard drink = 0.6 oz pur e alcohol) moderate PHQ-2 Answer Date Recorded PHQ-2 score 0 10/15/2024 Area Deprivation Index Answer Date Roland rded National Score (1-100), lower number is lower ri sk 80 06/29/2024 State Score (1-10), lower number is lower risk 7 06/29/2024 Data from: https://www.neighborhoodatlas.medicine.[facility].edu/. Last address used for calculation [address] 06/29/2024 Sex and Gender Information Value Date Recorded Sex Assigned at Not on file Legal Sex Male 10:15 AM EST Gender Identity Not on file Sexual Orientation Not on file Last Filed Vital Signs Vital Sign Reading Time Taken Comments Blood Pressure 130/72 10/19/2024 9:01 AM EDT Pulse 56 10/19/2024 9:01 AM EDT Temperature 37.3 C (99.1 F) 10/03/2011 9:00 AM EDT Respiratory Rate 16 10/19/2024 9:01 AM EDT Oxygen Saturation 99% 10/19/2024 9:01 AM EDT Inhaled Oxygen Concentration - - Weight 75 kg (165 lb 5.5 oz) 10/19/2024 9:01 AM EDT Height 180.3 cm (5' 11 ) 11/03/2011 12:58 PM EDT Body Mass Index - - Plan of Treatment Upcoming Encounters Date Type Department Care Team (Latest Contact Info) Description 01/08/2025 9:40 AM EDT PAT Pre Anesthesia [address] [place] [id number] 1, [place]acc [place] [address] [place] [id number] Pacc Left wrist Sx 01/29/25 01/29/2025 7:30 AM EDT Hospital Encounter Ambulatory Surgery [address] [place] [id number] Jas French MD [address] [place] [id number] Carpal tunnel syndrome on left [G56.02], Trigger middle finger of left hand [M65.332], Trigger ring finger of left hand [M65.342] 01/29/2025 7:30 AM EDT - 01/29/2025 9:00 AM EDT Surgery Ambulatory Surgery [address] [place] [address] Jas French MD [address] [facility] [place] [address] DECOMPRESSION NERVE MEDIAN CARPAL TUNNEL 02/13/2025 11:30 AM EST Office Visit Orthopaedics [address] [place] [address] Latia Summers PA-C [address] [place] [address] Post op Left wrist Sx 01/29/25 03/13/2025 11:30 AM EST Office Visit Orthopaedics [address] [place] [address] Jas French MD [address] [facility] [address] Post op Left wrist Sx 01/29/25 Scheduled Procedures Name Priority Associated Diagnoses Date/Ti me DECOMPRESSION NERVE MEDIAN CARPAL TUNNEL Carpal tunnel syndrome on left Trigger middle finger of left hand Trigger ring finger of left hand 01/29/2025 7:30 AM EDT RELEASE TRIGGER MIDDLE FINGER Carpal tunnel syndrome on left Trigger middle finger of left hand Trigger ring finger of left hand 01/29/2025 7:30 AM EDT RELEASE TRIGGER RING FINGER Carpal tunnel syndrome on left Trigger middle finger of left hand Trigger ring finger of left hand 01/29/2025 7:30 AM EDT Health Maintenance Due Date Last Done Comments Abdominal Aortic Aneurysm Screening 1957 Anxiety Screening 11/11/1975 Depression Screening 11/11/1975 Hepatitis C Screening 11/11/1975 DTaP,Tdap,Td Vaccine (1 - Tdap) [address] Colonography 2002 Cologuard (FIT-DNA) 2002 Colonoscopy 2002 Colorectal Cancer Screening 2002 Fecal Occult Blood 2002 Prostate Cancer Screening Discussion 2002 Sigmoidoscopy 2002 Pneumococcal Vaccine: 50+ (1 of 1 - PCV) 11/11/2007 Shingrix Vaccine (1 of 2) 11/11/2007 Diabetes Screening 09/30/2014 10/01/2011, 09/24/2011 Advance Directive Discussion 04/12/2024 Medicare Advantage Annual Wellness Visit 04/12/2024 Influenza Vaccine (#1) 2024 RSV Vaccine (1 - 1-dose 75+ series) 2032 Medical Devices Implanted Type Area Guide Rail Cleaner Device Identifier Shelf Expiration Date Model / Serial / Lot Evh-Vw-R-Kind Implant - [id number] Implanted:Qty: 1 on 09/30/2011 at [facility] Implant Right: Bone - Hip [employer] 06/01/2016 [id number] / / [id number] Description:ACCOLADE II 127 DEGREE NECK ANGLE HIP STEM Shell Actb 60mm Prim Sb Hmsphr - [id number] Implanted:Qty: 1 on 09/30/2011 at [facility] Joint - Hip Right: Bone - Hip [employer] 09/30/2015 [id number] / / [id number] Description:TRITANIUM HEMISP HERICAL SOLID BACK SHELL Ins Actb 36mm 0d F X3 Trdnt - [id number] Implanted:Qty: 1 on 09/30/2011 at [facility] Joint - Hip Right: Bone - Hip [employer] 06/29/2016 [id number] / / [id number] Description:TRIDENT X3 0 DEG REE POLYETHYLENE INSERT Head Fem 36mm V40 Blx D - [id number] Implanted:Qty: 1 on 09/30/2011 at [facility] Joint - Hip Right: Bone - Hip [employer] 05/01/2014 [id number] / / [id number] Description:BIOLOX DELTA CER AMIC V40 FEMORAL HEAD Procedures Procedure Name Priority Date/Time Associated Diagnosis Comments BASIC METABOLIC PANEL Routine 10/01/2011 4:35 AM EDT from Last 3 Months or Most Recently Relevant to Health Maintenance Results * (ABNORMAL) BASIC METABOLIC PNL (10/01/2011 4:35 AM EDT) Glucose 155(H) 65 - 100 mg/dL [facility] BUN 20 10 - 25 mg/dL [facility] Creatinine 1.08 0.70 - 1.40 mg/dL [facility] Sodium 132(L) 135 - 146 mmol/L [facility] Potassium 4.8 3.5 - 5.0 mmol/L [facility] Chloride 97(L) 98 - 110 mmol/L [facility] CO2 28 23 - 32 mmol/L [facility] Anion Gap 12 10 - 20 mmol/L [facility] Calcium 8.7 8.5 - 10.5 mg/dL [facility] eGFR, >60 [facility] eGFR-All Other Races >60 . [facility] Blood specimen (specimen) BLOOD SPECIMEN / Unknown 10/01/2011 4:35 AM EDT 10/01/2011 4:57 AM EDT Moses Noriega [facility] LABORATORY Final Result [facility] [address] [place], [place] [id number] from Last 3 Months or Most Recently Relevant to Health Maintenance [facility] Care Teams Steam Tunnel Feeder Relationship Specialty Start Date End Date Teddy Severino MD [address] [place] [address] PCP - General Family Medicine 10/19/24 Lauri Qureshi MD [address] [phone] Primary Staff Physician Cardiology 06/28/18 Maxwell Ontiveros MD [address] [place] [address] Referring Family Medicine 05/26/24
--- OUTSIDE RECORDS SUMMARY | 2024-12-23 09:15 | XMS_ITS | Encounter Summary ---
Author Organization [facility] Address [address] [place] [address] Care Team Providers Care Multimedia Engineer Name Role Phone Renay Yost MD Primary Care Provider [phone] Lauri Qureshi MD Unavailable [phone] Maxwell Ontiveros MD Unavailable [phone] Teddy Severino MD Primary Care Provider + Source Comments In the event this information is protected by the Federal Confidentiality of Alcohol and Drug AbusePatient Records regulations: The Federal rules restrict any use of the information to criminally investigate or prosecute any alcohol or drug abuse patient.[facility] Encounter Details Date Type Department Care Team (Late st Contact Info) Description 09/27/2024 Patient Msg Orthopaedics [address] [place] [address] Provider, Ccf Your appointment with Dr. French has been rescheduled to 10/04/24 in [place] for an in-person visit at 8:45 AM. Social History Tobacco Use Types Packs/Day Years Used Date Smoking Tobacco: Former Smokeless Tobacco: Never Alcohol Use Standard Drinks/Week Comments Yes 0 (1 standard drink = 0.6 oz pur e alcohol) moderate PHQ-2 Answer Date Recorded PHQ-2 score 1 09/28/2024 Area Deprivation Index Answer Date Roland rded National Score (1-100), lower number is lower ri sk 80 06/29/2024 State Score (1-10), lower number is lower risk 7 06/29/2024 Data from: https://www.neighborhoodatlas.medicine.[facility].edu/. Last address used for calculation [address] 06/29/2024 Sex and Gender Information Value Date Recorded Sex Assigned at Not on file Legal Sex Male 10:15 AM EST Gender Identity Not on file Sexual Orientation Not on file documented as of this encounter Plan of Treatment Upcoming Encounters Date Type Department Care Team (Latest Contact Info) Description 01/08/2025 9:40 AM EDT PAT Pre Anesthesia [address] [place] [id number] 1, Pacc [place] [address] [place] [phone] Pacc Left wrist Sx 01/29/25 01/29/2025 7:30 AM EDT Hospital Encounter Ambulatory Surgery [address] [place] [address] Jas French MD [address] [place] [address] Carpal tunnel syndrome on left [G56.02], Trigger middle finger of left hand [M65.332], Trigger ring finger of left hand [M65.342] 01/29/2025 7:30 AM EDT - 01/29/2025 9:00 AM EDT Surgery Ambulatory Surgery [address] [place] [address] Jas French MD [address] [place] [address] DECOMPRESSION NERVE MEDIAN CARPAL TUNNEL 02/13/2025 11:30 AM EST Office Visit Orthopaedics [address] [place] [address] Latia Summers PA-C [address] [place] [address] Post op Left wrist Sx 01/29/25 03/13/2025 11:30 AM EST Office Visit Orthopaedics [address] [place] [address] Jas French MD [address] [place] [address] Post op Left wrist Sx 01/29/25 Scheduled [...] of left hand 01/29/2025 7:30 AM EDT documented as of this encounter Visit Diagnoses Not on filedocumented in this encounter Care Teams Multimedia Engineer Relationship Specialty Start Date End Date Renay Yost MD [address] [place] [address] PCP - General Family Medicine 07/22/11 10/18/24 Teddy Severino MD [address] [place] [address] PCP - General Family Medicine 10/19/24 Lauri Qureshi MD [address] [phone] Primary Staff Physician Cardiology 06/28/18 Maxwell Ontiveros MD [address] [place] [address] Referring Family Medicine 05/26/24 documented as of this encounter
--- OUTSIDE RECORDS SUMMARY | 2024-12-23 09:15 | XMS_ITS | Encounter Summary ---
Author Organization [facility] Address [address] [place] [address] Care Team Providers Care Care Management Coordinator Name Role Phone Renay Yost MD Primary Care Provider [phone] Lauri Qureshi MD Unavailable [phone] Maxwell Ontiveros MD Unavailable [phone] Teddy Severino MD Primary Care Provider + Source Comments In the event this information is protected by the Federal Confidentiality of Alcohol and Drug AbusePatient Records regulations: The Federal rules restrict any use of the information to criminally investigate or prosecute any alcohol or drug abuse patient.[facility] Reason for Visit * Reason Comments Radiology XR Encounter Details Date Type Department Care Team (Late st Contact Info) Description 06/13/2024 Radiology Radiology [address] [place] [address] Eunice Baker, RT(R) Radiology XR Social History Tobacco Use Types Packs/Day Years Used Date Smoking Tobacco: Former Smokeless Tobacco: Never Alcohol Use Standard Drinks/Week Comments Yes 0 (1 standard drink = 0.6 oz pur e alcohol) moderate PHQ-2 Answer Date Recorded PHQ-2 score 0 06/12/2024 Area Deprivation Index Answer Date Roland rded National Score (1-100), lower number is lower ri sk 80 06/13/2024 State Score (1-10), lower number is lower risk 7 06/13/2024 Data from: https://www.neighborhoodatlas.medicine.[facility]/. Last address used for calculation [address] 06/13/2024 Sex and Gender Information Value Date Recorded Sex Assigned at Not on file Legal Sex Male 10:15 AM EST Gender Identity Not on file Sexual Orientation Not on file documented as of this encounter Progress Notes * Eunice Baker RT(R) - 06/13/2024 9:29 AM EST Radiology Service Progress Note PATIENT NAME: Genaro Mcnair DATE OF SERVICE: June 13, 2024 TIME: 9:29 AM PATIENT IDENTITY VERIFICATION COMPLETED USING TWO (2) IDENTIFIERS: Name and Date of confirmedby patient verbally. FALL SCREENING: Has the patient had 2 falls in the last year or 1 fall with injury or currently using an Ambulatory Assistive Device (Walker, Cane, Wheelchair, Crutches, etc.)? No PATIENT GENDER DATA: Assigned male at PATIENT RELEVANT IMPLANT DATA REVIEWED: Not Applicable PATIENT PRESENTS WITH AN IMPLANTABLE OR ATTACHED HANDS ASSEMBLER: No RADIOLOGY DEPARTMENT: General X-ray: Exam(s) Completed: Upper Extremity X- Ray(s): Hand, bilateral PERIPHERAL IV DATA: Not applicable SIGNED BY: RT Mack(Esther) June 13, 2024 9:29 AM documented in this encounter Plan of Treatment Upcoming Encounters Date Type Department Care Team (Latest Contact Info) Description 01/08/2025 9:40 AM EDT PAT Pre Anesthesia [address] [facility] [place] [address] 1, Pacc [place] [address] [place] [address] Pacc Left wrist Sx 01/29/25 01/29/2025 7:30 AM EDT Hospital Encounter Ambulatory Surgery [address] [facility] [place] [address] Jas French MD [address] [place] [address] Carpal tunnel syndrome on left [G56.02], Trigger middle finger of left hand [M65.332], Trigger ring finger of left hand [M65.342] 01/29/2025 7:30 AM EDT - 01/29/2025 9:00 AM EDT Surgery [facility] [address] [facility] [place] [address] Jas French MD [address] [place] [address] DECOMPRESSION NERVE MEDIAN CARPAL TUNNEL 02/13/2025 11:30 AM EST Office Visit Orthopaedics [address] [place] [address] Latia Summers PA-C [address] [place] [address] Post op Left wrist Sx 01/29/25 03/13/2025 11:30 AM EST Office Visit Orthopaedics [address] [place] [address] Jas French MD [address] [place] [address] Post op Left wrist Sx 01/29/25 Scheduled [...] on filedocumented in this encounter Care Teams Care Management Coordinator Relationship Specialty Start Date End Date Renay Yost MD [address] [place] [address] PCP - General Family Medicine 07/22/11 10/18/24 Teddy Severino MD [address] [place] [address] PCP - General Family Medicine 10/19/24 Lauri Qureshi MD [address] [phone] Primary Staff Physician Cardiology 06/28/18 Maxwell Ontiveros MD [address] [place] [address] Referring Family Medicine 05/26/24 documented as of this encounter
--- OUTSIDE RECORDS SUMMARY | 2024-12-23 09:15 | XMS_ITS | Encounter Summary ---
Author Organization [facility] Address [address] [place] [address] Care Team Providers Care Machine Stonecutter Name Role Phone Renay Yost MD Primary Care Provider [phone] Lauri Qureshi MD Unavailable [phone] Maxwell Ontiveros MD Unavailable [phone] Teddy Severino MD Primary Care Provider + Source Comments In the event this information is protected by the Federal Confidentiality of Alcohol and Drug AbusePatient Records regulations: The Federal rules restrict any use of the information to criminally investigate or prosecute any alcohol or drug abuse patient.[facility] Encounter Details Date Type Department Care Team (Late st Contact Info) Description 06/29/2024 Radiology Radiology [address] [place] [address] Christina Aguirre RT(R) Social History Tobacco Use Types Packs/Day Years [...] is lower risk 7 06/29/2024 Data from: https://www.neighborhoodatlas.medicine.[facility]/. Last address used for calculation [address] [...] 9:40 AM EDT PAT Pre Anesthesia [address] [place] [phone] 1, Pacc [place] [address] [place] [address] Pacc Left wrist Sx 01/29/25 01/29/2025 7:30 AM EDT Hospital Encounter Ambulatory Surgery [address] [place] [id number] Jas French MD [address] [place] [address] Carpal tunnel syndrome on left [G56.02], Trigger middle finger of left hand [M65.332], Trigger ring finger of left hand [M65.342] 01/29/2025 7:30 AM EDT - 01/29/2025 9:00 AM EDT Surgery Ambulatory Surgery [address] [place] [id number] Jas French MD [address] [place] [address] DECOMPRESSION NERVE MEDIAN CARPAL TUNNEL 02/13/2025 11:30 AM EST Office Visit Orthopaedics [address] [place] [address] Latia Summers PA-C [address] [facility] [place] [address] Post op Left wrist Sx 01/29/25 03/13/2025 11:30 AM EST Office Visit Orthopaedics [address] [facility] [place] [place] [address] Jas French MD [address] [facility] [address] [facility] [address] [facility] [place] [address] Post op Left wrist Sx 01/29/25 Scheduled [...] on filedocumented in this encounter Care Teams Machine Stonecutter Relationship Specialty Start Date End Date Renay Yost MD [address] [place] [address] PCP - General Family Medicine 07/22/11 10/18/24 Teddy Severino MD [address] [place] [address] PCP - General Family Medicine 10/19/24 Lauri Qureshi MD [address] [phone] Primary Staff Physician Cardiology 06/28/18 Maxwell Ontiveros MD [address] [place] [address] Referring Family Medicine 05/26/24 documented as of this encounter
--- OUTSIDE RECORDS SUMMARY | 2024-12-23 09:15 | XMS_ITS | Patient Health Record ---
Author Organization [facility] [place] Address [address] [place] [address] Care Team Providers Care Dry Yard Worker Name Role Phone Joshua Severino Primary Care Provider Allergies Allergen (clinical drug ingredient) Drug/Non Drug Allergy documented on EMR Reaction Allergy Type Onset Date Status Substance with sulfonamide structure and antibacterial mechanism of action (substance) Sulfa Antibiotics hives Drug Allergy Active Reason For Referral No Information Medications Medication SIG (Take, Route, Frequency, Duration) [...] ashlyn l Orally twice daily 10/18/2024 Active Atorvastatin Calcium 20 MG 1 tablet Oral ly Once a day 10/18/2024 Active Aspirin Adult Low Dose 81 MG 1 tablet Or ally Once a day Active hydroCHLOROthiazide 12.5 MG 1 tablet in the morning Orally Once a day 10/18/2024 Active Losartan Potassium 100 MG 1 tablet Orall y Once a day 10/18/2024 Active Januvia 100 [...] Problem Status W/U Status Risk Notes Problem Hypertension (88367419) Hypertension (I10) Active confirmed Problem Gastroesophageal reflux disease (193015190) GERD (gastroesophageal reflux disease) (K21.9) Active confirmed Problem Carpal tunnel syndrome (85792243) Carpal tunnel syndrome (G56.00) Active confirmed Problem Type 2 diabetes mellitus (25974011) Type 2 diabetes mellitus (E11.9) Active confirmed Problem Hypertriglyceridemia (225849080) Hypertriglyceridemia (E78.1) Active confirmed Problem Hypercholesterolemia (67420787) Hypercholesterolemia (E78.00) Active confirmed Vital Signs Blood pressure diastolic 70 mm Hg 10/18/2024 Height 71 in 10/18/2024 Blood pressure systolic 116 mm Hg 10/18/2024 Weight 165.8 lbs 10/18/2024 BMI 23.12 kg/m2 10/18/2024 Encounters Encounter Location Date Provider Diagnosis [facility] [address] [place] [address] 10/19/2024 Joshua Hoy Type 2 diabetes hayde itus E11.9 and Hypercholesterolemia E78.00 [facility] [address] [place] [address] 10/18/2024 Joshua Hoy Hypertension I10 ; G ERD (gastroesophageal reflux disease) K21.9 ; Type 2 diabetes mellitus E11.9 ; Hypercholesterolemia E78.00 and Carpal tunnel syndrome G56.00 Assessments Encounter Date Diagnosis (ICD Code) Assessment Notes Treatment Notes Treatment Clinical Notes Section Notes 10/18/2024 Hypertension (ICD-10 - I10) 10/18/2024 GERD (gastroesophage al reflux disease) (ICD-10 - K21.9) 10/19/2024 Type 2 diabetes hayde itus (ICD-10 - E11.9) 10/19/2024 Hypercholesterolemia (ICD-10 - E78.00) 10/18/2024 Type 2 diabetes hayde itus (ICD-10 - E11.9) 10/18/2024 Hypercholesterolemia (ICD-10 - E78.00) 10/18/2024 Carpal tunnel syndro me (ICD-10 - G56.00) Plan Of Treatment Pending Test Test Name Order Date GLYCOHEMOGLOBIN A1C 10/19/2024 LIPID PROFILE 10/19/2024 Next Appt Details Provider Name:Joshua Severino, 10:00:00 AM, [address] [place], [address], Insurance Providers Payer Name Payer Address Payer Phone Subscriber Number Group Number Insured Name Patient Relationship to Insured Coverage Start Date Coverage End Date [employer] [address] [place] [phone] [id number] Genaro Mcnair Self - patient is the insured Medical (General) History Medical History History ICD Code Type 2 diabetes mellitus E11.9 GERD (gastroesophageal reflux disease) K 21.9 Hypercholesterolemia E78.00 Hypertension I10 Surgical History Surgery Date(Month/Year) Back Surgery Cataract Extraction Bilateral Hip Replacement Rotator Cuff repair- Bilateral Hospitalization History Reason Date(Month/Year) see above
--- OUTSIDE RECORDS SUMMARY | 2024-12-23 09:16 | XMS_ITS | CCD ---
Author Organization [facility] Inform ion [facility] Care Team Providers Care Software Applications Engineer Name Role Phone DR SAI YOST Attending Unavailable MARLENE, DR SAI Beal Admitting Unavailable MARLENE, DR SAI Beal Primary Care Unavailable MARLENE, DR SAI Beal Consulting Unavailable MARLENE, DR SAI Beal Admitting Unavailable MARLENE, DR SIA Beal Primary Care Unavailable MARLENE, DR SAI [...] Attending Unavail able LATIA CHAVIS Referring Unavailable HOJaennette, NEVAEH M Primary Care Unavailable YOST, SAI EDWARD Primary Care Unavailable TOMAZIC, SANDY GOETZ Referring Unavail able LATIA CHAVIS Attending Unavailable OYST, SAI EDWARD Primary Care Unavailable TOMAZIC, SANDY GOETZ Referring Unavail able NORBERT FRENCH Attending Unavailable YOST, SAI EDFLANDREAU Primary Care Unavailable LATIA CHAVIS Referring Unavailable [...] Sulfonamides (Antibiotic) Drug allergy (disorder) 0 [facility] Repository (20 sources) Sulfonamides (Antibiotic); Translations: [Sulfa (Sulfonamide Antibiotics)] Allergy to substance 2 Rash, Hives [facility] (6 sources) Sulfonamides (Antibiotic) Propensity to adverse reactions 3 [facility] (6 sources) Sulfamethoxazole; Translations: [sulfamethoxazole ] Drug Allergy [facility] Repository Medications Current Medications Medication Drug [...] the procedure if needed. Must have a crew car driver to the procedure if taking. 2 [...] Provider Letter December 07, 2024 RACHID MCNAIR [address] [place] [id number] : 1955 Dear Rachid, We have been trying to reach you with no success. It is important that you return our call regarding your upcoming appointment upon receiving this letter. Also, at the time of your call, please provide us with your current information. Thank you for your prompt attention to this matter. Sincerely, Family Medicine [address] [address] [facility] CNOVon 10-19-2024 CNOV Office Visit (SPSUCR ) RACHID MNCAIR ([id number]) 1955 M Date Time Provider Department 10/19/24 9:30 AM RACH NINO SPSUCR During your visit today, we recorded the following information about you: Pulse Respiration Blood pressure Weight 56/minute 16/minute 130/72 75 kg Rach Nino PA-C 10/19/2024 9:54 AM Signed SPINE SURGERY OUTPATIENT CONSULT This is an in-person visit. SERVICE DATE: 10/19/2024 PCP: Sai Yost MD REFERRING PROVIDER: Latia Chavis [facility]0 [facility] [id number] Consult requested for an opinion regarding the [...] cervical spine surgery in 1997 at the [facility] with Dr. Chema Bosch. A second surgery was performed in [address] Antony Gudino in [place]. He reports that his right thumb weakness and numbness began around [id number], prior to the second surgery. Over the [...] T-score = (more content not included)... Normal [facility] CNPNon 10-09-2024 CNPN Telephone (LOORRM) DENNISRACHID VIZCARRA ([id number]) 1955 M Date Time Provider Department 10/09/24 [...] long and ring trigger finger releases Code: 49256, 07203, 85873 Anesthesia: MAC Dx: G56.02, M65.332, M65.342 Implant to come out: Special request: Time: 1.5 hours Patient is requesting a surgery time in late January Patient is a known diabetic Brii Sousa 10/09/2024 12:59 PM Signed [facility] requesting a call back to schedule surgery. 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 - [...] - Two previous neck surgeries; first in [id number] by Chema Bosch, second in 2016. - [...] dorsal interosseous (more content not included)... Normal [facility] Heart and Vascular Office/ inic Noteon 10-04-2024 [...] current medications. 2. Nonocclusive coronary atherosclerosis of [place] coronary artery (I25.10: Atherosclerotic heart disease of [place] coronary artery without angina pectoris) Patient had coronary CTA in 06/2024 which revealed nonobstructive C (more content not included)... Normal [facility] Comment on above: Result Comment: Elec tronically Signed By: Santy WALKER, Anderson Cardenas\.fidel\Date and Time Signed: 10/04/24 14:56 EDT Jose Luis 09-25-2024 TAMIR Telephone (AramscoON) RACHID MCNAIR ([id number]) 1955 M Date Time Provider Department 09/25/24 [...] calling: self Call patient at: at home [phone] (home) [phone] (cell) Was an appointment scheduled: No Closing statement: Results or non-symptom based questions: Thank you for calling [facility], your call will be [...] Status:Closed by LATIA CHAVIS on 09/26/24 Normal [facility] No Panel Informationon 09-20 Radiology Study observation (narrative) [facility] US WRIST LTon 09-20-2024 [...] the carpal tunnel. Mild ulnar nerve neuritis. Supervisor Orchard[facility] Transcribe Date/Time: Sep 20 2024 11:11A Dictated by : JIGNA DREW MD This examination was interpreted and the report reviewed and electronically signed by: JIGNA DREW MD on Sep 20 2024 12:32PM EST [id number] Normal [facility] US WRIST RTon 09-20-2024 US WRIST RT [...] the median nerve at the carpal tunnel. Supervisor Orchard: [facility] Transcribe Date/Time: Sep 20 2024 11:03A Dictated by : JIGNA DREW MD This examination was interpreted and the report reviewed and electronically signed by: JIGNA DREW MD on Sep 20 2024 12:31PM EST [id number] Normal [facility] US Wrist - lefton 09-20-2024 IMPRESSION: Narrowing of the median nerve at the carpal tunnel. Mild ulnar nerve neuritis. Supervisor Orchard: [facility] Transcribe Date/Time: Sep 20 2024 11:11A Dictated [...] DIVISION OF RADIOLOGY Provider, [facility] [place] - 09/20/2024 * * *Final Report* * [...] the carpal tunnel. Mild ulnar nerve neuritis. Supervisor Orchard: ISIDRO Transcribe Date/Time: Sep 20 2024 11:11A Dictated by : JIGNA DREW MD This examination was interpreted and the report reviewed and electronically signed by: JIGNA DREW MD on Sep 20 2024 12:32PM EST [facility] Wrist - leftOrdered By: Ora degroot Provider on 09-20-2024 [facility] Wrist - righton IMPRESSION: Narrowing of the median nerve at the carpal tunnel. Supervisor Orchard: [facility] Transcribe Date/Time: Sep 20 2024 11:03A Dictated [...] appear grossly maintained. DIVISION OF RADIOLOGY Provider, [facility] - 09/20/2024 * * *Final Report* * [...] the median nerve at the carpal tunnel. Supervisor Orchard: [facility] Transcribe Date/Time: Sep 20 2024 11:03A Dictated by : JIGNA DREW MD This examination was interpreted and the report reviewed and electronically signed by: JIGNA DREW MD on Sep 20 2024 12:31PM EST [facility] [id number] 09-12-2024 HbA1c (Bld) [Mass fraction] 8.3 % High <=5.9 [facility] Comment on above: Performed By: #### 7 [id number] #### [facility] [address] [place] [address] Lipid Panelon 09-12-2024 Cholesterol [Mass/Vol] 154 mg/dL Normal 120-200 [facility] Comment on above: Performed By: #### 2 [id number] #### [facility] [address] [place] [address] Cholesterol in HDL [Mass/Vol] 46 mg/dL Invalid Interpretation Code [facility] Comment on above: Result Comment: '>= 60 LOW RISK' '<= 40 HIGH RISK' Performed By: #### 2 [id number] #### [facility] [address] [place] [address] Cholesterol in LDL [Mass/Vol] 84 mg/dL Normal <=129 [facility] Comment on above: Performed By: #### 2 [id number] #### [facility] [address] [place] [address] Cholesterol in VLDL [Mass/Vol] 62 mg/dL High 7-40 [facility] Comment on above: Performed By: #### 2 [id number] #### [facility] [address] [place] [address] Triglyceride [Mass/Vol] 310 mg/dL High <=149 [facility] Comment on above: Performed By: #### 2 [id number] #### [facility] [address] [place] [address] PSA Totalon 09-12-2024 PSA Total 0.3 ng/mL Normal 0.1-3.5 [facility] Comment on above: Result Comment: The concentration of PSA determined by different manufacturers can vary due to differences in assay methods and reagent specificity. Values obtained from different assay methods cannot be used interchangeably. The methodology used for this result was chemiluminescence using [employer] Access Hybritech PSA reagent. Performed By: #### 1 [id number] #### [facility] [address] [place] [address] U MA/Cr Ratioon 09-12-2024 Microalb/Cr Ratio 28.9 mg/gm Cr Normal .0-30.0 [facility] Comment on above: Result Comment: 30-3 00 mg/g Cr indicates an increased risk for diabetic nephropathy. >300 mg/g Cr is consistent with clinical nephropathy. Performed By: #### 1 [id number] #### [facility] [address] [place] [address] U Creatinine 27.7 mg/dL Invalid Interpretation Code [facility] Comment on above: Performed By: #### 1 [id number] #### [facility] [address] [place] [address] U Microalb 0.8 mg/dL Normal 0.0-1.9 [facility] Comment on above: Performed By: #### 1 [id number] #### [facility] [address] [place] [address] Ambulatory Visit Summaryon 0 09-11-2024 Ambulatory Visit [...] Mouth 2 times a day Pickup at [facility] 4901 Unchanged sitagliptin (Januvia 100 mg Tab) See instructions TAKE 1 TABLET BY MOUTH DAILY Pickup at [facility] 7798 Unchanged aspirin (aspirin 81 mg oral capsule) [...] 1 cap (more content not included)... Normal [facility] Family Medicine Office/Clini c Noteon 09-11-2024 Family [...] A1C %: 6.4 % High (11/01/23 18:22:00) [employer]- been off for since mid July.. his job paid for it in the past now he has to pay for it and it was too expensive. Metformin needs refills, could like his PSA checked also History of Present Illness - The patient is a 68-year-old male presenting with concerns regarding diabetes management. - Notably, he ran out of [employer] in early to mid-July, experiencing elevated blood glucose readings between 240 and 260 mg/dL thereafter. - He maintains his metformin regimen and observes how a friend benefits from an increased dose. - While his last lab results in April were stable, the patient is curious and concerned about present changes in his condition. - With recent long term and reliance on Medicare, he is alert [...] BID, # 360 tab(s), Refills(s) 3, Pharmacy: [facility]62, 180, cm, 09/11/24 17:23:00 EDT, Height/Length Dosing, 79.7, kg, 09/11/24 17:23:00 EDT, Weight Dosing sitagliptin, See Instructions, TAKE 1 TABLET BY MOUTH DAILY, # 90 tab(s), Refills(s) 3, Pharmacy: [facility], 180, cm, 09/11/24 17:23:00 [...] yet ma (more content not included)... Normal [facility] Comment on above: Result Comment: Elec [...] current medications. 2. Nonocclusive coronary atherosclerosis of [place] coronary artery (I25.10: Atherosclerotic heart disease of [place] coronary artery without angina pectoris) Patient had [...] with voice recognition artificial intelligence software, specifically [employer], [employer] and or [employer]. Substitutions may have occurred due to the [...] exam Pros (more content not included)... Normal [facility] Comment on above: Result Comment: Elec tronically Signed By: Santy WALKER, Anderson Cardenas\.fidel\Date and Time Signed: 08/14/24 08:55 EDT Jose Luis 08-09-2024 CNPN Telephone (RULTTB) RACHID CHRISTENSEN ([id number]) 1955 M Date Time Provider Department 08/09/24 [...] US on 09/20/24 at 10:15 AM at [facility] Allergies As of Date: 08/09/2024 Noted Allergy [...] Encounter Status:Closed by OMA SHAH on 08/09/24 [facility] CNPNon 08-03-2024 CNPN Telephone (PAMAVN) RACHID MCNAIR ([id number]) 1955 M Date Time Provider Department 08/03/24 [...] Encounter Status:Closed by LETI WILLINGHAM on 08/03/24 [facility] CNOVon 08-02-2024 CNOV Office Visit (ORAVON ) RACHID MCNAIR ([id number]) 1955 M Date Time Provider Department 08/02/24 1:30 PM LATIA CHAVIS During your visit today, we recorded the following information about you: aLtia Chavis PA-C 08/03/2024 4:21 PM Signed August [...] subjectively d (more content not included)... Normal [facility] Jose Luis 07-20-2024 [facility] Telephone (ROCÍOORR) RACHID MCNAIR ([id number]) 1955 M Date Time Provider Department 07/20/24 [...] Status:Closed by KATIE AMATO on 07/20/24 Normal [facility] MR Cervical spine WO contras ton 07-16-2024 IMPRESSION: Cervical spondylosis with postoperative changes at C5-C7. Cord signal abnormality with atrophy at C6 and C7 likely reflects a component of myelomalacia. Spinal canal and neural foraminal stenosis as described level by level the body the report. Anatomic Variant: None. Assume 7 cervical vertebrae with counting from the craniocervical junction. Supervisor Orchard: ISIDRO Transcribe Date/Time: Jul 16 2024 2:53P Dictated by : JENNY GONZALEZ MD This examination was interpreted and the report reviewed and electronically signed by: JENNY GONZALEZ MD on Jul 16 2024 2:59PM EST [facility] * * *Final Report* * * DATE OF EXAM: Jul 16 2024 2:49PM [facility] 0297 - MRI CERVICAL SPINE WO [...] left neural foraminal stenosis. [facility] Provider, [facility] - 07/16/2024 * * *Final Report* * * DATE OF EXAM: Jul 16 2024 2:49PM [facility] 0297 - MRI CERVICAL SPINE WO [...] vertebrae with counting from the craniocervical junction. Supervisor Orchard: ISIDRO Transcribe Date/Time: Jul 16 2024 2:53P Dictated by : JENNY GONZALEZ MD This examination was interpreted and the report reviewed and electronically signed by: JENNY GONZALEZ MD on Jul 16 2024 2:59PM EST [facility] Radiology Study observation (narrative) [facility] MR Cervical spine WO contras tOrdered By: [facility] Provider on 07-16-2024 [facility] MRI CERVICAL SPINE WO IVCONo n 07-16-2024 MRI CERVICAL SPINE WO IVCON * * *Final Report* * * DATE OF EXAM: Jul 16 2024 2:49PM [facility] 0297 - MRI CERVICAL SPINE WO [...] vertebrae with counting from the craniocervical junction. Supervisor Orchard: [facility] Transcribe Date/Time: Jul 16 2024 2:53P Dictated by : JENNY GONZALEZ MD This examination was interpreted and the report reviewed and electronically signed by: JENNY GONZALEZ MD on Jul 16 2024 2:59PM EST [id number] [facility] 07-12-2024 [facility] Telephone ([facility]) KERRIRACHID ([id number]) 1955 M Date Time Provider Department 07/12/24 SANDY BHATT [facility] During your visit today, we recorded the following information about you: Francesca Orozco 07/12/2024 9:28 AM Signed Rachid is calling Sandy Bhatt MD today to request medication prior to having his MRI for claustrophobia. Patient askig for script to be sent to [facility] on file. Patient has been identified by name and birthdate. Duration of symptoms: N/A Person calling: self Call patient at: on cell [phone] (home) [phone] (cell) Was an appointment scheduled: No Closing statement: Results or non-symptom based questions: Thank you for calling [facility], your call will be [...] the procedure if needed. Must have a crew car driver to the procedure if taking. Authorizing Provider: SANDY BHATT MD Morales, Desiree, LPN 07/13/2024 1:08 PM Signed Call placed to patient to notify the medication was sent to his pharmacy. He will need a crew car driver for the MRI due to the medication. Per patient he has a crew car driver already. Allergies As of Date: 07/12/2024 [...] the procedure if needed. Must have a crew car driver to the procedure if taking.Disp: 2 tabletRfl: 0 Prescriptions as of 07/13/2024 - LORazepam (ATIVAN) 1 mg tablet Take 1 tablet by mouth two times a day as needed for anxiety for up to 2 doses. Take 1 tablet 1-2 hours before the procedure. May take the 2nd tablet at the time of the procedure if needed. Must have a crew car driver to the procedure if taking. - [...] the procedure if needed. Must have a crew car driver to the procedure if taking. Encounter Status:Closed by KATIE AMATO on 07/13/24 Normal [facility] Heart and Vascular Office/Cl inic Noteon 07-06-2024 [...] Procedure (05/24/2024 11:24 EST Echo Transthoracic Complete) [facility] [address] [place] [address] Adult Echocardiogram Report Name: RACHID MCNAIR Study Date: 05/24/2024 10:49 AM BP: 151/103 mmHg Patient Location: [facility] Ambulatory(s) [facility] HR: 91 : 1955 Gender: Male Height: 71 in Age: 68 yrs Ethnicity: T Weight: 170 lb Reason For Study: HTN, R07.9;Chest pain BSA: 2.0 m2 History: HTN, DM Ordering Physician: Chris Garcia Referring Physician: Chris Garcia Performed By: Elizabet Ruiz [facility] Interpretation Summary moderate left ventricular hypertrophy. Left ventricular systolic function is normal. Ejection Fraction = 55-60%. The left ventricular wall motion is normal. Diastolic dysfunction, Grade II (pseudonormalization pattern). There is no pericardial effusion. No significant valvular disease. [1] Assessment/Plan 1. CAD in [place] artery (I25.10: Atherosclerotic heart disease of [place] coronary artery without angina pectoris) Mild and [...] Instructions terbinafine (more content not included)... Normal [facility] Comment on above: Result Comment: Elec tronically Signed By: Radha PARKER, Chris Shaver\.fidel\Date and Time Signed: 07/06/24 10:55 EDT Ranjith 06-29-2024 CNOV Office Visit (LOORRM ) RACHID MCNAIR ([id number]) 1955 Date Time Provider Department 06/29/24 10:00 [...] of cervical surgery in August 2016 at [facility]. Presenting today with severe issues in both [...] Cervical surgery performed in August [address] at [facility] [address] Reyes. - Symptoms began post-surgery, including muscle loss. - Engaged in occupational therapy post-surgery. - No significant symptoms of carpal tunnel on the Left until approximately three months ago, coinciding with long term. - Describes self as thin and kind [...] - Patient to schedule appointment with Dr. Frnech. 3. Hx of cervical spine surgery (Z98.890) 4. Spinal stenosis of cervical region (M48.02) - History of cervical spine surgery in 08/2016 at [facility]. - EMG findings indicate severe C7/8 T1 cervical spinal lesion. - Referred to member service specialist for further evaluation and management. - Advised patient to obtain surgical records from [facility] to assist spine surgeon in assessment. - Patient to schedule appointment with member service specialist. - Obtain XR cervical spine today - Schedule MRI cervical spine Pertinent previous records and images reviewed. Verbal health education was given to patient. Patient verbalizes understanding and agrees with the treatment plan as detailed above. Sandy Bhatt MD [facility] Sports and Exercise Medicine Orthopaedic Medical Decision Making (MDM) Complexity of problems: Chronic condition with severe exacerbation and Illness posing threat to life or bodily function, Complexity of data: 2 unique tests ordered, Risk: Low risk of morbidity from testing/treatment, Level of MDM: Low (3) The patient consented to the use of [employer] software for draft documentation of the visit consistent with Alexandru (more content not included)... Normal [facility] XR CERV OTHER 4V AP/LAT/FLX/ EXTon 06-29-2024 IMPRESSION: Postsurgical changes without dynamic instability. Supervisor Orchard: ISIDRO Transcribe Date/Time: Jun 29 2024 2:03P Dictated by : LEANN OCHOA, DO This examination was interpreted and the report reviewed and electronically signed by: ALLEY BENTON MD on Jun 29 2024 4:06PM [facility] DIVISION OF RADIOLOGY * * *Final Report* [...] C3 and C4. DIVISION OF RADIOLOGY [facility] * * *Final Report* [...] IMPRESSION IMPRESSION: Postsurgical changes without dynamic instability. Supervisor Orchard: ISIDRO Transcribe Date/Time: Jun 29 2024 2:03P Dictated by : LEANN OCHOA DO This examination was interpreted and the report reviewed and electronically signed by: ALLEY BENTON MD on Jun 29 2024 4:06PM EST [facility] Radiology Study observation (narrative) [facility] XR CERV OTHER 4V AP/LAT/FLX/ EXTOrdered By: [facility] Provider on 06-29-2024 [facility] XR CERVICAL 4V AP/LAT/FLX/EX [...] C4. IMPRESSION: Postsurgical changes without dynamic instability. Supervisor Orchard: [facility] Transcribe Date/Time: Jun 29 2024 2:03P Dictated by : LEANN OCHOA DO This examination was interpreted and the report reviewed and electronically signed by: ALLEY BENTON MD on Jun 29 2024 4:06PM EST [id number] Normal [facility] CT ANGIO CORONARY ART WITH H EARTFLOW [...] STRUCTURES ARE THE SOLE RESPONSIBILITY OF THE TOOL AND DIE ENGINEER SUBMITTING THE ORIGINAL REPORT (NOT THIS ADDENDUM) Signed by: Pepe Malave 06/27/2024 12:21 PM -------- ORIGINAL REPORT -------- Dictation workstation: [id number] Interpreted By: Zohreh Gipson, STUDY: CT ANGIO CORONARY ART WITH HEARTFLOW IF SCORE >30%; 06/27/2024 8:44 am INDICATION: Signs/Symptoms:HTN SOB CHEST PAIN. COMPARISON: None. ACCESSION NUMBER(S): [id number] ORDERING CLINICIAN: CHRIS GARCIA TECHNIQUE: Using multi-detector [...] of thickening. IMPRESSION: (more content not included)... [facility] CTA Heart and Coronary arter ies [...] STRUCTURES ARE THE SOLE RESPONSIBILITY OF THE TOOL AND DIE ENGINEER SUBMITTING THE ORIGINAL REPORT (NOT THIS ADDENDUM) Signed by: Pepe Malave 06/27/2024 12:21 PM -------- ORIGINAL REPORT -------- Dictation workstation: [id number] [facility] Work Phone: 1. Mild diffuse coronary artery disease without significant stenosis. 2. Coronary artery calcium score 360, 75th percentile for age, gender, and race in asymptomatic patients. Reading Group Product Manager: Dr. Zohreh Gipson, Date: 06/27/2024 11:36 am Signed by: Zohreh Gipson 06/27/2024 11:38 AM Dictation workstation: [id number] MMODAL Interpreted By: Zohreh Velasquez, STUDY: CT ANGIO CORONARY ART WITH HEARTFLOW IF SCORE >30%; 06/27/2024 8:44 am INDICATION: Signs/Symptoms:HTN SOB CHEST PAIN. COMPARISON: None. ACCESSION NUMBER(S): [id number] ORDERING CLINICIAN: CHRIS GARCIA TECHNIQUE: Using multi-detector [...] SOB CHEST PAIN. COMPARISON: None. ACCESSION NUMBER(S): [id number] ORDERING CLINICIAN: CHRIS GARCIA TECHNIQUE: Using multi-detector [...] gender, and race in asymptomatic patients. Reading Group Product Manager: Dr. Zohreh Gipson, Date: 06/27/2024 11:36 am Signed by: Zohreh Gipson 06/27/2024 11:38 AM Dictation workstation: [id number] [facility] Work Phone: [facility] Work Phone: Radiology Study observation (narrative) [facility] Work Phone: EMG(NEURO/NI)on 06-24-2024 Results can be seen in attached scanned documents. If you are a patient reviewing this test result, call the doctor who ordered the test with any questions. [facility] Creatinineon 06-14-2024 Creatinine [Mass/Vol] 1.0 mg/dL Normal 0.5-1.3 [facility] Comment on above: Performed By: #### 2 [id number] #### [facility] [address] [place] [address] eGFRon 06-14-2024 eGFR 83 mL/min/1.73 m2 Normal >=59 [facility] Comment on above: Performed By: #### 1 [id number] #### [facility] [address] [place] [address] CNOVon 06-13-2024 CNOV Office Visit (LOORRM ) DORIRACHID ARMIJO ([id number]) 1955 M Date Time Provider Department 06/13/24 [...] he had cervical surgery 08/2016 by at [facility]. He reports weakness to the right hand [...] years ago and tore , followed in [facility] He notes that this problem exhibits no specific aggravating factors. He notes that this problem exhibits no specific alleviating factors. associated symptoms of numbness in the fingers PREVIOUS TREATMENT HISTORY: Prior Surgery in location of pain: Yes: cervical surgery 08/2016 by at [facility] PHYSICAL EXAMINATION: BL HAND AND WRIST EXAM [...] results and radiologist's interpretation, available in the [facility] health record. Images were reviewed with [...] h/o cervical surgery in October 2023 at [facility], records unavailable at this time Will obtain [...] plan as detailed above. Sandy Bhatt MD [facility] Sports and Exercise Medicine [...] - Fully Assessed Reason for Visit: New [123912] Pain [78] New [297072] Pain [78] Primary Visit Diagnosis: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, M62.542] Order(s):EMG(NEURO/NI) [5171210] Order #: [id number]: 1 FUTURE Prescriptions as of 06/13/2024 - [...] by mouth (more content not included)... 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 Supervisor Orchard: PSCB Transcribe Date/Time: Jun 13 2024 9:37A [...] the [facility] bilaterally. 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 Supervisor Orchard: ISIDRO Transcribe Date/Time: Jun 13 2024 9:37A Dictated by : LEANN OCHOA DO This examination was interpreted and the report reviewed and electronically signed by: BAO GAMBINO MD on Jun 13 2024 3:05PM EST [facility] Radiology Study observation (narrative) [facility] XR Hand - bilateral PA and L ateral and ObliqueOrdered By: Ccf Provider on 06-13-2024 [facility] Heart and Vascular Office/Cl [...] Procedure (05/24/2024 11:24 EST Echo Transthoracic Complete) [place] [address] Adult Echocardiogram Report Name: RACHID MCNAIR Study Date: 05/24/2024 10:49 AM BP: 151/103 mmHg Patient Location: [facility] Ambulatory(s) [facility] HR: 91 : 1955 Gender: Male Height: 71 in Age: 68 yrs Ethnicity: [facility] Weight: 170 lb Reason For Study: HTN, R07.9;Chest pain BSA: 2.0 m2 History: HTN, DM Ordering Physician: Chris Garcia Referring Physician: Chris Garcia Performed By: Elizabet Ruiz, [facility] Interpretation Summary moderate left ventricular hypertrophy. Left [...] mg Tab (more content not included)... Normal [facility] Comment on above: Result Comment: Elec [...] Use:. N (more content not included)... Normal [facility] Comment on above: Result Comment: Elec [...] this time. I, Dr. Cho had a [id number]-fvcc interaction with the patient. I personally performed [...] Contact Informatio (more content not included)... Normal [facility] Comment on above: Result Comment: Elec [...] BY MOUTH TWICE DAILY Unchanged Misc Prescription ([facility] Prescription) See instructions microlet lancets Use to test blood sugars once a day Dx E11.9 Unchanged Misc Prescription ([facility] Prescription) See instructions Contour next test strips Test blood sugars once a day Dx E11.9 [facility]changed [facility] ([facility] Prescription) See instructions control solution for [...] for choosing us for your care. Normal [facility] BMPon 05-08-2024 Anion gap [Moles/Vol] 11 mmol/L Normal 6-16 [facility] Comment on above: Performed By: #### 2 [id number] #### [facility] [address] [place] [address] Calcium [Mass/Vol] 9.3 mg/dL Normal 8.9-11.1 [facility] Comment on above: Performed By: #### 2 [id number] #### [facility] [address] [place] [address] Chloride [Moles/Vol] 104 mmol/L Normal 101-111 [facility] Comment on above: Performed By: #### 2 759824 #### [facility] [address] [place] [address] CO2 [Moles/Vol] 26 mmol/L Normal 21-31 [facility] Comment on above: Performed By: #### 2 [id number] #### [facility] [address] [place] [address] Creatinine [Mass/Vol] 1.0 mg/dL Normal 0.5-1.3 [facility] Comment on above: Performed By: #### 2 628398 #### [facility] [address] [place] [address] Glucose [Mass/Vol] 140 mg/dL Normal 55-199 [facility] Comment on above: Performed By: #### 2 654942 #### [facility] [address] [place] [address] Potassium [Moles/Vol] 4.2 mmol/L Normal 3.5-5.3 [facility] Comment on above: Performed By: #### 2 [id number] #### [facility] [address] [place] [address] Sodium [Moles/Vol] 137 mmol/L Normal 135-145 [facility] Comment on above: Performed By: #### 2 836878 #### [facility] [address] [place] [address] Urea nitrogen [Mass/Vol] 13 mg/dL Normal 5-21 [facility] Comment on above: Performed By: #### 2 248002 #### [facility] [address] [place] [address] Urea nitrogen/Creatinin e [Mass ratio] 13 No Units Normal 10-20 [facility] Comment on above: Performed By: #### 2 [id number] #### [facility] [address] [place] [address] BNPon 5 Natriuretic peptide B (Bld) [Mass/Vol] 10 pg/mL Normal 5-80 [facility] Comment on above: Performed By: #### 1 [id number] #### [facility] [address] [place] [address] CBC w/ Auto Diffon 5 Basophils/100 WBC (Bld) 1.0 % Normal 0.0-2.0 [facility] Comment on above: Performed By: #### 2 801164 #### [facility] [address] [place] [address] Basophils/Leukocyt es Auto (Bld) [Pure # fraction] 0.1 E9/L Normal 0.0-0.2 [facility] Comment on above: Performed By: #### 2 360242 #### [facility] [address] [place] [address] Eosinophils (Bld) [#/Vol] 0.2 E9/L Normal 0.0-0.5 [facility] Comment on above: Performed By: #### 2 687342 #### [facility] [address] [place] [address] Eosinophils/100 WBC (Bld) 3.2 % Normal 0.0-8.0 [facility] Comment on above: Performed By: #### 2 [id number] #### [facility] [address] [place] [address] Erythrocyte distribution width (RBC) [Ratio] 13.5 % Normal 10.9-14.2 [facility] Comment on above: Performed By: #### 2 116995 #### [facility] [address] [place] [address] Hematocrit (Bld) [Volume fraction] 40.5 % Normal 37.7-49.0 [facility] Comment on above: Performed By: #### 2 743632 #### [facility] [address] [place] [address] Hemoglobin (Bld) [Mass/Vol] 14.5 g/dL Normal 13.5-17.5 [facility] Comment on above: Performed By: #### 2 464114 #### [facility] [address] [place] [address] Lymphocytes (Bld) [#/Vol] 1.7 E9/L Normal 1.0-4.0 [facility] Comment on above: Performed By: #### 2 727410 #### [facility] [address] [place] [address] Lymphocytes/100 WBC (Bld) 24.9 % Normal 14.0-50.0 [facility] Comment on above: Performed By: #### 2 620018 #### [facility] [address] [place] [address] MCH (RBC) [Entitic mass] 31.1 pg Normal 27.0-34.0 [facility] Comment on above: Performed By: #### 2 636740 #### [facility] [address] [place] [address] MCHC (RBC) [Mass/Vol] 35.7 g/dL Normal 31.4-36.0 [facility] Comment on above: Performed By: #### 2 008292 #### [facility] [address] [place] [address] MCV (RBC) [Entitic vol] 87.3 fL Normal 80.0-100.0 [facility] Comment on above: Performed By: #### 2 111650 #### [facility] [address] [place] [address] Monocytes (Bld) [#/Vol] 0.5 E9/L Normal 0.2-1.0 [facility] Comment on above: Performed By: #### 2 146951 #### [facility] [address] [place] [address] Neutrophils (Bld) [#/Vol] 4.3 E9/L Normal 2.0-7.5 [facility] Comment on above: Performed By: #### 2 448387 #### [facility] [address] [place] [address] Neutrophils/100 WBC (Bld) 63.8 % Normal 36.0-75.0 [facility] Comment on above: Performed By: #### 2 849946 #### [facility] [address] [place] [address] Platelet 286.0 E9/L Normal 150.0-500.0 [facility] Comment on above: Performed By: #### 2 454214 #### [facility] [address] [place] [address] Platelet mean volume (Bld) [Entitic vol] 7.4 fL Normal 6.4-10.8 [facility] Comment on above: Performed By: #### 2 588087 #### [facility] [address] [place] [address] RBC (Bld) [#/Vol] 4.6 E12/L Normal 4.3-5.9 [facility] Comment on above: Performed By: #### 2 975423 #### [facility] [address] [place] [address] WBC corrected for nucl RBC Auto (Bld) [#/Vol] 6.8 E9/L Normal 4.0-11.0 [facility] Comment on above: Performed By: #### 2 902479 #### [facility] [address] [place] [address] ED Clinical Summaryon 2024 ED Clinical Summary ED Clinical Summary [address] [address] ED Clinical Summary Person Information Name: RACHID MCNAIR [place] Age: 68 Years : 1955 Sex: Male Language: Thai PCP: Maxwell Ontiveros MD Marital Status: Visit [...] 05/08/2024 12:56:05 05/08/2024 12:56:05 05/08/2024 12:56:05 ADDRESS: [address] [place] [phone] [facility] DOC NOTES: MEDICAL INFORMATION: Prescriptions Given: [...] MOUTH TWICE DAILY. Refills: 3. Misc Prescription ([facility] Prescription) microlet lancets Use to test blood sugars once a day Dx E11.9. Refills: 3. Misc Prescription (Misc DME Prescription) Contour next test strips Test blood sugars once a day Dx E11.9. Refills: 3. Misc Prescription ([facility] Prescription) control solution for contour next [...] Follow up: With: Address: When: Chris Garcia [address] [place], [place] [phone] Business (1) In 3 days 05/11/2024 With: Address: When: Maxwell Ontiveros In 3 days DIAGNOSIS: Chest pain Normal [facility] ED Patient Education Noteon 05-08-2024 ED Patient Education Note ED Patient Education Note Normal [facility] ED Patient Summaryon 025 ED Patient Summary ED Patient Summary [address] [address] Patient Discharge Instructions Person Information Name: RACHID MCNAIR Age: 68 Years Arrival Date: 05/08/2024 10:47:27 Discharge Diagnosis: Chest pain Primary Care Physician: Maxwell Ontiveros MD Provider Information Primary Provider: Chema Cho DO Advanced Pump House Operator:None The exam and treatment you received in the Emergency Department were for an urgent problem and are not intended as complete care. It is important that you follow up with a doctor, nurse practitioner, or physician???s management assistant for ongoing care. If your symptoms [...] Instructions: With: Address: When: Chris Garcia [address] [place] [phone] Contour (1) In 3 days 05/11/2024 With: Address: When: Maxwell Ontiveros In 3 days In the event that this physician does not participate in your insurance network, please consult with your insurance company to find a nearby participating provider. Patient Education Materials: A MESSAGE TO ALL PATIENTS REGARDING OPIOIDS PRESCRIPTION OPIOIDS: WHAT YOU NEED TO KNOW Prescription opioids can be used to help relieve ninbuzyq-qj-vnglgu pain and are often prescribed following a [...] be struggling with addiction, tell your health career center director and ask for (more content not included)... Normal [facility] Family Medicine Office/Lucia barclay Noteon 05-08-2024 Family [...] no? States when he is out of [facility] that he has at home, he does not want to continue due to cost. Do you have any of the following symptoms? Vision problems? no? Lightheadedness? no? Paresthesias, Ulcerations or sores? no? Hgb A1C %: 6.4 % High (11/01/23 18:22:00) Referred to Ortho at [facility] due to numbness of hand. Last seen [...] and two fingers. Prior occupational therapy at [facility] was pursued but perceived as ineffective, and [...] or neurologist evaluation may be necessary. Ordered: [facility] External Ambulatory Referral 3. Gastro-esophageal reflux disease [...] former smoking. (more content not included)... Normal [facility] Comment on above: Result Comment: Elec tronically Signed By: Weston PARKER, Maxwell Borden\.br\Date and Time Signed: 05/08/24 11:35 EST PT & PTTon 05-08-2024 aPTT Coag (PPP) [Time] 30.6 second(s) Normal 25.1-36.5 [facility] Comment on above: Result Comment: Para meter [...] the same coagulation reagent and instrumentation as [facility]. Currently there are no coagulation studies available worldwide for children to 14 days, and no normal ranges. Heparin therapeutic range (represented by Anti-Factor Xa activity of 0.2 - 0.4 U/mL) corresponds to PTT of 56.6 - 109.0 sec. Performed By: #### 1 [id number] #### [facility] [address] [place] [address] INR Coag (PPP) [Relative time] 0.97 {INR} Invalid Interpretation Code [facility] Comment on above: Result Comment: INR results are specifically intended to assess patients stabilized on long-term Anticoagulation therapy suggested INR???s ???Less Intensive Anticoagulation??? 2.0 ??? 3.0 Conventional Range 3.0 ??? 4.5 Performed By: #### 1 [id number] #### [facility] [address] [place] [address] PT Coag (PPP) [Time] 10.9 second(s) Normal 9.4-12.5 [facility] Comment on above: Result Comment: 15 d [...] the same coagulation reagent and instrumentation as [facility]. Currently there are no coagulation studies available worldwide for children to 14 days, and no normal ranges. Performed By: #### 1 [id number] #### [facility] [address] [place] [address] Pre-Arrival Noteon Pre-Arrival Note Pre-Arrival Note Pre-Arrival Summary Name: campbell, Current Date: 05/08/2024 10:50:04 EST Gender: Male Date of : Age: Pre-Arrival Type: EMS ETA: 05/08/2024 10:50:00 EST Primary Care Physician: Presenting Problem: cp,sob Pre-Arrival User: Chema Cho DO Referring Source: Location: [place] Completion Date/Time: 05/08/2024 10:21:00 [facility] Emergency Department Pre-Hospital Report Form Vital Signs: Pre-Hospital Report: Treatment in Route: Response to Treatment: Misc. Issues: Normal [facility] Troponin 0 Hr.on 05-08-2024 Troponin HS 4.30 pg/mL Low 15.90-38.40 [facility] Comment on above: Result Comment: The 95% CI (Confidence Interval) PPV (Positive Predictive Value) for myocardial infarction in females is 38 pg/mL, in males 51 pg/mL. The results should be used in conjunction with clinical conditions of myocardial infarction. (Access High Sensitivity Troponin I Instructions For Use, Miki Lynwood, November 2017) Performed By: #### 1 [id number] #### [facility] [address] [place] [address] Troponin 1 Hr.on 05-08-2024 Troponin HS 4.10 pg/mL Low 15.90-38.40 [facility] Comment on above: Order Comment: Due a t 1158 Result Comment: The 95% CI (Confidence Interval) PPV (Positive Predictive Value) for myocardial infarction in females is 38 pg/mL, in males 51 pg/mL. The results should be used in conjunction with clinical conditions of myocardial infarction. (Access High Sensitivity Troponin I Instructions For Use, Miki Lynwood, November 2017) Performed By: #### 1 [id number] #### [facility] [address] [place] [address] XR Chest Single Viewon 05-08 XR Chest [...] mGy = . DAP = . Normal [facility] eGFRon 05-08-2024 eGFR 83 mL/min/1.73 m2 Normal >=59 [facility] Comment on above: Performed By: #### 1 [id number] #### [facility] [address] [place] [address] US Eye+Orbit - bilateralon 1 05-14-2023 Diagnosis: Cataract both eyes (OU) Testing Indication: Performed for preop measurements in the determination of an intraocular lens (IOL) for both eyes (OU) Test Reliability: Good quality both eyes (OU) Interpretation: Good measurements for intraocular lens (IOL) calculation purposes. Calculation made for both eyes (OU). [facility] Radiology Study observation (narrative) [facility] XR Shoulder - left 2 Viewson 01-03-2024 Imaging Result: X-rays updated today shows chronic cuff arthropathy with decreased acromiohumeral interval. There are advanced degenerative changes that are end stage. There is no acute fracture, dislocation, tumor or infection seen. [facility] 2 Viewson 12-30-2023 Radiology Study observation (narrative) [facility] [id number] 11-03-2023 HbA1c (Bld) [Mass fraction] 6.4 % High <=5.9 [facility] Comment on above: Performed By: #### 7 [id number] #### [facility] [address] [place] [address] CBC w/ Auto Diffon 4 Basophils/100 WBC (Bld) 0.5 % Normal 0.0-2.0 [facility] Comment on above: Performed By: #### 2 294167 #### [facility] [address] [place] [address] Basophils/Leukocyt es Auto (Bld) [Pure # fraction] 0.0 E9/L Normal 0.0-0.2 [facility] Comment on above: Performed By: #### 2 397141 #### [facility] [address] [place] [address] Eosinophils (Bld) [#/Vol] 0.2 E9/L Normal 0.0-0.5 [facility] Comment on above: Performed By: #### 2 158309 #### [facility] [address] [place] [address] Eosinophils/100 WBC (Bld) 2.6 % Normal 0.0-8.0 [facility] Comment on above: Performed By: #### 2 713281 #### [facility] [address] [place] [address] Erythrocyte distribution width (RBC) [Ratio] 15.1 % High 10.9-14.2 [facility] Comment on above: Performed By: #### 2 736175 #### [facility] [address] [place] [address] Hematocrit (Bld) [Volume fraction] 40.1 % Normal 37.7-49.0 [facility] Comment on above: Performed By: #### 2 815435 #### [facility] [address] [place] [address] Hemoglobin (Bld) [Mass/Vol] 13.6 g/dL Normal 13.5-17.5 [facility] Comment on above: Performed By: #### 2 014277 #### [facility] [address] [place] [address] Lymphocytes (Bld) [#/Vol] 2.0 E9/L Normal 1.0-4.0 [facility] Comment on above: Performed By: #### 2 709479 #### [facility] [address] [place] [address] Lymphocytes/100 WBC (Bld) 28.1 % Normal 14.0-50.0 [facility] Comment on above: Performed By: #### 2 747673 #### [facility] [address] [place] [address] MCH (RBC) [Entitic mass] 30.5 pg Normal 27.0-34.0 [facility] Comment on above: Performed By: #### 2 405262 #### [facility] [address] [place] [address] MCHC (RBC) [Mass/Vol] 33.9 g/dL Normal 31.4-36.0 [facility] Comment on above: Performed By: #### 2 627708 #### [facility] [address] [place] [address] MCV (RBC) [Entitic vol] 90.0 fL Normal 80.0-100.0 [facility] Comment on above: Performed By: #### 2 413146 #### [facility] [address] [place] [address] Monocytes (Bld) [#/Vol] 0.5 E9/L Normal 0.2-1.0 [facility] Comment on above: Performed By: #### 2 452925 #### [facility] [address] [place] [address] Neutrophils (Bld) [#/Vol] 4.4 E9/L Normal 2.0-7.5 [facility] Comment on above: Performed By: #### 2 795634 #### [facility] [address] [place] [address] Neutrophils/100 WBC (Bld) 61.6 % Normal 36.0-75.0 [facility] Comment on above: Performed By: #### 2 693258 #### [facility] [address] [place] [address] Platelet 278.0 E9/L Normal 150.0-500.0 [facility] Comment on above: Performed By: #### 2 [id number] #### [facility] [address] [place] [address] Platelet mean volume (Bld) [Entitic vol] 8.6 fL Normal 6.4-10.8 [facility] Comment on above: Performed By: #### 2 694865 #### [facility] [address] [place] [address] RBC (Bld) [#/Vol] 4.5 E12/L Normal 4.3-5.9 [facility] Comment on above: Performed By: #### 2 734512 #### [facility] [address] [place] [address] WBC corrected for nucl RBC Auto (Bld) [#/Vol] 7.1 E9/L Normal 4.0-11.0 [facility] Comment on above: Performed By: #### 2 074270 #### [facility] [address] [place] [address] CMPon 11-02-2023 Albumin/Globulin (S) [Mass conc ratio] 1.8 Normal 1.1-2.2 [facility] Comment on above: Performed By: #### 2 103933 #### [facility] [address] [place] [address] ALP [Catalytic activity/Vol] 46 Int._Unit/L Normal 21-98 [facility] Comment on above: Performed By: #### 2 099449 #### [facility] [address] [place] [address] ALT No additional P-5'-P [Catalytic activity/Vol] 17 Int._Unit/L Normal 6-46 [facility] Comment on above: Performed By: #### 2 [id number] #### [facility] [address] [place] [address] AST [Catalytic activity/Vol] 18 Int._Unit/L Normal 5-43 [facility] Comment on above: Performed By: #### 2 810817 #### [facility] [address] [place] [address] Creatinine [Mass/Vol] 1.1 mg/dL Normal 0.5-1.3 [facility] Comment on above: Performed By: #### 2 686327 #### [facility] [address] [place] [address] Globulin (S) [Mass/Vol] 2.4 g/dL Normal 1.4-4.0 [facility] Comment on above: Performed By: #### 2 699911 #### [facility] [address] [place] [address] Glucose [Mass/Vol] 150 mg/dL Normal 55-199 [facility] Comment on above: Performed By: #### 2 573116 #### [facility] [address] [place] [address] Protein [Mass/Vol] 6.8 g/dL Normal 6.0-7.8 [facility] Comment on above: Performed By: #### 2 627087 #### [facility] [address] [place] [address] Urea nitrogen [Mass/Vol] 11 mg/dL Normal 5-21 [facility] Comment on above: Performed By: #### 2 519999 #### [facility] [address] [place] [address] Urea nitrogen/Creatinin e [Mass ratio] 10 No Units Normal 10-20 [facility] Comment on above: Performed By: #### 2 746548 #### [facility] [address] [place] [address] Albumin [Mass/Vol] 4.4 g/dL Normal 3.3-5.0 [facility] Comment on above: Performed By: #### 2 137992 #### [facility] [address] [place] [address] Anion gap [Moles/Vol] 10 mmol/L Normal 6-16 [facility] Comment on above: Performed By: #### 2 067236 #### [facility] [address] [place] [address] Bilirubin [Mass/Vol] 0.5 mg/dL Normal 0.0-1.1 [facility] Comment on above: Performed By: #### 2 283716 #### [facility] [address] [place] [address] Calcium [Mass/Vol] 9.3 mg/dL Normal 8.9-11.1 [facility] Comment on above: Performed By: #### 2 507400 #### [facility] [address] [place] [address] Chloride [Moles/Vol] 105 mmol/L Normal 101-111 [facility] Comment on above: Performed By: #### 2 811541 #### [facility] [address] [place] [address] CO2 [Moles/Vol] 27 mmol/L Normal 21-31 [facility] Comment on above: Performed By: #### 2 153690 #### [facility] [address] [place] [address] Potassium [Moles/Vol] 4.0 mmol/L Normal 3.5-5.3 [facility] Comment on above: Performed By: #### 2 324692 #### [facility] [address] [place] [address] Sodium [Moles/Vol] 138 mmol/L Normal 135-145 [facility] Comment on above: Performed By: #### 2 923791 #### [facility] [address] [place] [address] Lipid Panelon 11-02-2023 Cholesterol [Mass/Vol] 147 mg/dL Normal 120-200 [facility] Comment on above: Performed By: #### 2 134609 #### [facility] [address] [place] [address] Cholesterol in HDL [Mass/Vol] 50 mg/dL Invalid Interpretation Code [facility] Comment on above: Result Comment: '>= 60 LOW RISK' '<= 40 HIGH RISK' Performed By: #### 2 873897 #### [facility] [address] [place] [address] Cholesterol in LDL [Mass/Vol] 78 mg/dL Normal <=129 [facility] Comment on above: Performed By: #### 2 [id number] #### [facility] [address] [place] [address] Cholesterol in VLDL [Mass/Vol] 27 mg/dL Normal 7-40 [facility] Comment on above: Performed By: #### 2 [id number] #### [facility] [address] [place] [address] Triglyceride [Mass/Vol] 137 mg/dL Normal <=149 [facility] Comment on above: Performed By: #### 2 [id number] #### [facility] [address] [place] [address] PSA Screen, Totalon 11-02-19 Prostate specific Ag [Mass/Vol] 0.3 ng/mL Normal 0.1-3.5 [facility] Comment on above: Result Comment: The concentration of PSA determined by different manufacturers can vary due to differences in assay methods and reagent specificity. Values obtained from different assay methods cannot be used interchangeably. The methodology used for this result was chemiluminescence using [employer]'s Access Hybritech PSA reagent. Performed By: #### 1 [id number] #### [facility] [address] [place] [address] U Microalbon 11-02-2023 Albumin DL <= 20 mg/L (U) [Mass/Vol] 1.0 mg/dL Normal 0.0-1.9 [facility] Comment on above: Performed By: #### 1 [id number] #### [facility] [address] [place] [address] eGFRon 11-02-2023 eGFR 74 mL/min/1.73 m2 Normal >=59 [facility] Comment on above: Order Comment: Order added by Discern Expert. Performed By: #### 1 [id number] #### [facility] [address] [place] [address] Glucose Glucometer (BldC) [M ass/Vol]Ordered By: Cam Rea on 02-20-2022 Glucose [Mass/Vol] 130 mg/dL [facility] Comment on above: Random Glucose Refer ence Range is dependent on time and content of last meal. Glucose of more than 200 mg/dL in a nonstressed, ambulatory subject supports the diagnosis of Diabetes Mellitus. Glucose Poct Glucometerson 1 04-22-2021 Glucose [Mass/Vol] 130 mg/dL Normal [facility] Comment on above: Result Comment: [place] Glucose Reference Range is dependent on time and content of last meal. Glucose of more than 200 mg/dL in a nonstressed, ambulatory subject supports the diagnosis of Diabetes Mellitus. PERFORMED BY: [facility] [place] [address] PATHOLOGIST SENIOR OFFICER MATHEUS TAVERA M.D. Performed By: #### G BRONWYN #### Point of Care testing , Benji 02-20-2022 L --- Specimen: [id number] Received: 02/20/22 Status: CHRISTIANO Pillai Num: [id number] Spec Type: Surgical Subm Dr: Cam Rea MD Tissues: A Colon - Polyp (DESCENDING POLYP) Procedures: HE/2, Gross/Micro L4 Age/ Patient Sex Location Account Attending Physician Rachid Mcnair/Lindsey [id number] Cam Rea MD SPEC NUM: [id number] RECD: 02/20/22 STATUS: CHRISTIANO PILLAI NUM: [id number] NIGHAT: 02/20/22 [facility] DR: Cam Rea MD ENTERED: 02/20/[address] [facility] [address]: SPEC TYPE: Surgical DEPT: [...] support the above pathologic diagnosis. CPT Codes 81869 Specimen: [id number] Received: 02/20/22 Status: CHRISTIANO Pillai Num: [id number] Spec Type: Surgical Subm Dr: Cam Rea MD Tissues: A Colon - Polyp (DESCENDING POLYP) Procedures: HE/Jaycee, Gross/Micro L4 Patient: Rachid Mcnair [id number] (Continued) Signed (signature on file) Keerthi Finch MD (Michelle) 02/23/22 1529 [facility] CBC AUTO DIFFon 10-25-2021 BASO # 0.0 103/ul Normal 0.0-0.1 [facility] Comment on above: Performed By: #### C BC #### [facility] [address] [place] [address] Dr. Varghese Perez Basophils/100 WBC (Bld) 0.6 % Normal 0.2-2.0 [facility] Comment on above: Performed By: #### C BC #### [facility] [address] [place] [address] Dr. Varghese Perez EO # 0.3 103/ul Normal 0.0-0.7 [facility] Comment on above: Performed By: #### C BC #### [facility] [address] [place] [address] Dr. Varghese Perez Eosinophils/100 WBC (Bld) 3.9 % Normal 0.9-7.0 [facility] Comment on above: Performed By: #### C BC #### [facility] [address] [place] [address] Dr. Varghese Perez Erythrocyte distribution width (RBC) [Ratio] 13.1 % Normal 11.0-15.0 [facility] Comment on above: Performed By: #### C BC #### [facility] [address] [place] [address] Dr. Varghese Perez Hematocrit (Bld) [Volume fraction] 42.4 % Normal 42.0-54.0 [facility] Comment on above: Performed By: #### C BC #### [facility] [address] [place] [address] Dr. Varghese Perez Hemoglobin (Bld) [Mass/Vol] 14.5 g/dL Normal 14.0-18.0 [facility] Comment on above: Performed By: #### C BC #### [facility] [address] [place] [address] Dr. Varghese Perez IG # 0.02 10e3/ul Normal 0.00-0.03 [facility] Comment on above: Performed By: #### C BC #### [facility] [address] [place] [address] Dr. Varghese Perez IG % 0.3 % Normal 0.0-0.5 [facility] Comment on above: Performed By: #### C BC #### [facility] [address] [place] [address] Dr. Varghese Perez LYMPH # 1.8 103/ul Normal 1.2-3.8 [facility] Comment on above: Performed By: #### C BC #### [facility] [address] [place] [address] Dr. Varghese Perez Lymphocytes/100 WBC (Bld) 28.4 % Normal 20.5-60.0 [facility] Comment on above: Performed By: #### C BC #### [facility] [address] [place] [address] Dr. Varghese Perez MANUAL DIFF REQ NO Normal [facility] Comment on above: Performed By: #### C BC #### [facility] [address] [place] [address] Dr. Varghese Perez MCH (RBC) [Entitic mass] 29.5 pg Normal 25.9-34.0 [facility] Comment on above: Performed By: #### C BC #### [facility] [address] [place] [address] Dr. Varghese Perez MCHC (RBC) [Mass/Vol] 34.2 g/dL Normal 29.9-35.2 [facility] Comment on above: Performed By: #### C BC #### [facility] [address] [place] [address] Dr. Varghese Perez MCV (RBC) [Entitic vol] 86.4 fL Normal 80.0-94.0 [facility] Comment on above: Performed By: #### C BC #### [facility] [address] [place] [address] Dr. Varghese Perez MONO # 0.6 103/ul Normal 0.3-0.8 [facility] Comment on above: Performed By: #### C BC #### [facility] [address] [place] [address] Dr. Varghese Perez Monocytes/100 WBC (Bld) 9.6 % Normal 1.7-12.0 [facility] Comment on above: Performed By: #### C BC #### [facility] [address] [place] [address] Dr. Varghese Perez NEUT # 3.7 103/ul Normal 1.4-6.5 [facility] Comment on above: Performed By: #### C BC #### [facility] [address] [place] [address] Dr. Varghese Perez Neutrophils/100 WBC (Bld) 57.2 % Normal 43.0-75.0 [facility] Comment on above: Performed By: #### C BC #### [facility] [address] [place] [address] Dr. Varghese Perez Platelet mean volume (Bld) [Entitic vol] 9.4 fL Critically low 9.5-13.5 [facility] Comment on above: Performed By: #### C BC #### [facility] [address] [place] [address] Dr. Varghese Perez PLT 256 103/ul Normal 150-450 [facility] Comment on above: Performed By: #### C BC #### [facility] [address] [place] [address] Dr. Varghese Perez RBC 4.91 106/ul Normal 4.70-6.10 [facility] Comment on above: Performed By: #### C BC #### [facility] [address] [place] [address] Dr. Varghese Perez WBC 6.5 103/ul Normal 4.0-11.0 [facility] Comment on above: Performed By: #### C BC #### [facility] [address] [place] [address] Dr. Varghese Perez GLYCOHEMOGLOBIN A1Con 2021 ADA RECOMMENDATION SEE BELOW Normal [facility] Comment on above: Result Comment: ADA RECOMMENDED LIMIT 4.0 - 6.0 ADA THERAPEUTIC TARGET < 7.0 ACTION SUGGESTED > 7.0 Performed By: #### A 1C #### [facility] [address] [place] [address] Dr. Varghese Perez Glucose [Mass/Vol] 117 mg/dL Normal [facility] Comment on above: Performed By: #### A 1C #### [facility] [address] [place] [address] Dr. Varghese Perez HbA1c (Bld) [Mass fraction] 5.7 % Normal 4.5-6.2 [facility] Comment on above: Performed By: #### A 1C #### [facility] [address] [place] [address] Dr. Varghese Perez LIPID PROFILEon 10-25-2021 CHOL-HDL RATIO NORM SEE BELOW Normal [facility] Comment on above: Result Comment: 3.3 - 4.4 LOW RISK 4.4 - 7.1 AVERAGE RISK 7.1 - 11.0 MODERATE RISK >11.0 HIGH RISK Performed By: #### C MP, LIPID, TSH #### [facility] [address] [place] [address] Dr. Varghese Perez Cholesterol [Mass/Vol] 170 mg/dL Normal <=200 [facility] Comment on above: Performed By: #### C MP, LIPID, TSH #### [facility] [address] [place] [address] Dr. Varghese Perez Cholesterol in HDL [Mass/Vol] 52 mg/dL Normal 40-60 [facility] Comment on above: Performed By: #### C MP, LIPID, TSH #### [facility] [address] [place] [address] Dr. Varghese Perez Cholesterol in LDL [Mass/Vol] 107.4 mg/dL Normal [facility] Comment on above: Performed By: #### C MP, LIPID, TSH #### [facility] [address] [place] [address] Dr. Varghese Perez Cholesterol.total/ Cholesterol in HDL [Mass ratio] 3.3 {ratio} Normal [facility] Comment on above: Performed By: #### C MP, LIPID, TSH #### [facility] [address] [place] [address] [address] Varghese Perez HDL NORMAL > or = 60 mg/dl - LO W CARDIOVASCULAR RISK <40 mg/dl - HIGH CARDIOVASCULAR RISK Normal [facility] Comment on above: Performed By: #### C MP, LIPID, TSH #### [facility] [address] [place] [address] [address] Varghese Perez LDL CALC NORMAL SEE BELOW Normal [facility] Comment on above: Result Comment: <100 mg/dl OPTIMAL 100 - 129 mg/dl NEAR OR ABOVE OPTIMAL 130 - 159 mg/dl BORDERLINE HIGH 160 - 189 mg/dl HIGH >190 mg/dl VERY HIGH Performed By: #### C MP, LIPID, TSH #### [facility] [address] [place] [address] [address] Varghese Perez Triglyceride [Mass/Vol] 53 mg/dL Normal <=150 [facility] Comment on above: Performed By: #### C MP, LIPID, TSH #### [facility] [address] [place] [address] [address] Varghese Perez VLDL CALC 10.6 mg/dL Normal [facility] Comment on above: Performed By: #### C MP, LIPID, TSH #### [facility] [address] [address] [address] Varghese Perez PROF 14(COMP METB)on 022 Albumin [Mass/Vol] 3.9 g/dL Normal 3.4-5.0 [facility] Comment on above: Performed By: #### C MP, LIPID, TSH #### [facility] [address] [address] [address] Varghese Perez Albumin/Globulin [Mass ratio] 1.2 {ratio} Normal [facility] Comment on above: Performed By: #### C MP, LIPID, TSH #### [facility] [address] [place] [address] [address] Varghese Perez ALP [Catalytic activity/Vol] 50 U/L Normal 46-116 [facility] Comment on above: Performed By: #### C MP, LIPID, TSH #### [facility] [address] [place] [address] [address] Varghese Perez ALT [Catalytic activity/Vol] 30 U/L Normal 16-63 [facility] Comment on above: Performed By: #### C MP, LIPID, TSH #### [facility] [address] [place] [address] [address] Varghese Perez Anion gap [Moles/Vol] 9.8 mmol/L Normal [facility] Comment on above: Performed By: #### C MP, LIPID, TSH #### [facility] [address] [place] [address] [address] Varghese Perez AST [Catalytic activity/Vol] 16 U/L Normal 15-37 [facility] Comment on above: Performed By: #### C MP, LIPID, TSH #### [facility] [address] [place] [address] Dr. Varghese Perez Bilirubin [Mass/Vol] 0.7 mg/dL Normal 0.2-1.0 [facility] Comment on above: Performed By: #### C MP, LIPID, TSH #### [facility] [address] [place] [address] [address] Varghese Perez Calcium [Mass/Vol] 9.0 mg/dL Normal 8.5-10.1 [facility] Comment on above: Performed By: #### C MP, LIPID, TSH #### [facility] [address] [place] [address] Dr. Varghese Perez Chloride [Moles/Vol] 107 mmol/L Normal 98-107 [facility] Comment on above: Performed By: #### C MP, LIPID, TSH #### [facility] [address] [place] [address] [address] Varghese Perez CO2 [Moles/Vol] 29.6 mmol/L Normal 21.0-32.[address] [facility] Comment on above: Performed By: #### C MP, LIPID, TSH #### [facility] [address] [place] [address] [address] Varghese Perez Creatinine [Mass/Vol] 0.97 mg/dL Normal 0.70-1.30 [facility] Comment on above: Performed By: #### C MP, LIPID, TSH #### [facility] [address] [place] [address] [address] Varghese Perez EGFR-AF POLISH >60 Normal >=[address] [facility] Comment on above: Performed By: #### C MP, LIPID, TSH #### [facility] [address] [place] [address] [address] Varghese Perez EGFR-NON AF POLISH >60 Normal >=60 [facility] Comment on above: Performed By: #### C MP, LIPID, TSH #### [facility] [address] [place] [address] [address] Varghese Perez Globulin (S) [Mass/Vol] 3.2 g/dL Normal [facility] Comment on above: Performed By: #### C MP, LIPID, TSH #### [facility] [address] [place] [address] [address] Varghese Perez Glucose [Mass/Vol] 134 mg/dL Critically high 74-106 [facility] Comment on above: Performed By: #### C MP, LIPID, TSH #### [facility] [address] [place] [address] [address] Varghese Perez Potassium [Moles/Vol] 4.4 mmol/L Normal 3.5-5.1 [facility] Comment on above: Performed By: #### C MP, LIPID, TSH #### [facility] [address] [place] [address] [address] Varghese Perez Protein [Mass/Vol] 7.1 g/dL Normal 6.4-8.2 [facility] Comment on above: Performed By: #### C MP, LIPID, TSH #### [facility] [address] [place] [address] [address] Varghese Perez Sodium [Moles/Vol] 142 mmol/L Normal 136-145 [facility] Comment on above: Performed By: #### C MP, LIPID, TSH #### [facility] [address] [place] [address] [address] Varghese Perez Urea nitrogen [Mass/Vol] 12.0 mg/dL Normal 7.0-18.0 [facility] Comment on above: Performed By: #### C MP, LIPID, TSH #### [facility] [address] [place], [place] [address] Dr. Varghese Perez Urea nitrogen/Creatinin e [Mass ratio] 12.4 mg/mg Normal [facility] Comment on above: Performed By: #### C MP, LIPID, TSH #### [facility] [address] [place], [place] [address] Dr. [facility]hese Perez [facility] 1.433 uIU/mL Normal 0.358-3.740 [facility] Comment on above: Performed By: #### C MP, LIPID, TSH #### [facility] [address] [place] [address] [address] Varghese Perez [facility] Surgical Pathology Depar tmenton 08-06-2021 [facility] Surgical Pathology Department Name RACHID MCNAIR Pathologist: GUMARO PATEL DMD Date of Procedure: 08/06/2021 Date Received: 08/08/2021 Date Reported 08/11/2021 Submitting Physician: EMELY FU DDS Location: [facility] Copy To/Referring/Attending: EMELY FU DDS Other External # FINAL DIAGNOSIS A. LEFT LOWER LIP, EXCISION: -- TRAUMATIC FIBROMA ICD-10/CPT: D10.0/11181 Electronically Signed Out By GUMARO PATEL DMD/TAMIR [...] 1 tips 2 body of ellipse rcc/08/08/2021 [facility] Department of Pathology [address] [place] [address] Normal [facility] Comment on above: Performed By: #### U HCS #### [facility] Surgical Pathology Department [address] [facility] [address] CBC AUTO DIFFon 03-08-2021 BASO # 0.0 103/ul Normal 0.0-0.1 [facility] Comment on above: Performed By: #### C BC #### [facility] [address] [place] [address] Dr. Varghese Perez Basophils/100 WBC (Bld) 0.5 % Normal 0.2-2.0 [facility] Comment on above: Performed By: #### C BC #### [facility] [address] [place] [address] [address] Varghese Perez EO # 0.3 103/ul Normal 0.0-0.7 [facility] Comment on above: Performed By: #### C BC #### [facility] [address] [place] [address] Dr. Varghese Perez Eosinophils/100 WBC (Bld) 4.7 % Normal 0.9-7.0 [facility] Comment on above: Performed By: #### C BC #### [facility] [address] [address] [address] Varghese Perez Erythrocyte distribution width (RBC) [Ratio] 13.2 % Normal 11.0-15.0 [facility] Comment on above: Performed By: #### C BC #### [facility] [address] [place] [address] Dr. Varghese Perez Hematocrit (Bld) [Volume fraction] 42.7 % Normal 42.0-54.0 [facility] Comment on above: Performed By: #### C BC #### [facility] [address] [place] [address] Dr. Varghese Perez Hemoglobin (Bld) [Mass/Vol] 14.5 g/dL Normal 14.0-18.0 [facility] Comment on above: Performed By: #### C BC #### [facility] [address] [place] [address] Dr. Varghese Perez IG # 0.02 10e3/ul Normal 0.00-0.03 [facility] Comment on above: Performed By: #### C BC #### [facility] [address] [place] [address] Dr. Varghese Perez IG % 0.3 % Normal 0.0-0.5 [facility] Comment on above: Performed By: #### C BC #### [facility] [address] [place] [address] Dr. Varghese Perez LYMPH # 1.7 103/ul Normal 1.2-3.8 [facility] Comment on above: Performed By: #### C BC #### [facility] [address] [place] [address] Dr. Varghese Perez Lymphocytes/100 WBC (Bld) 28.8 % Normal 20.5-60.0 [facility] Comment on above: Performed By: #### C BC #### [facility] [address] [place] [address] Dr. Varghese Perez MANUAL DIFF REQ NO Normal [facility] Comment on above: Performed By: #### C BC #### [facility] [address] [place] [address] Dr. Varghese Perez MCH (RBC) [Entitic mass] 29.6 pg Normal 25.9-34.0 [facility] Comment on above: Performed By: #### C BC #### [facility] [address] [place] [address] Dr. Varghese Perez MCHC (RBC) [Mass/Vol] 34.0 g/dL Normal 29.9-35.2 [facility] Comment on above: Performed By: #### C BC #### [facility] [id number] Varghese Perez MCV (RBC) [Entitic vol] 87.1 fL Normal 80.0-94.0 [facility] Comment on above: Performed By: #### C BC #### [facility] [address] [place] [address] Dr. Varghese Perez MONO # 0.6 103/ul Normal 0.3-0.8 [facility] Comment on above: Performed By: #### C BC #### [facility] [address] [place] [address] Dr. Varghese Perez Monocytes/100 WBC (Bld) 9.7 % Normal 1.7-12.0 [facility] Comment on above: Performed By: #### C BC #### [facility] [address] [place] [address] Dr. Varghese Perez NEUT # 3.4 103/ul Normal 1.4-6.5 [facility] Comment on above: Performed By: #### C BC #### [facility] [address] [place] [address] Dr. Varghese Perez Neutrophils/100 WBC (Bld) 56.0 % Normal 43.0-75.0 [facility] Comment on above: Performed By: #### C BC #### [facility] [address] [place] [address] Dr. Varghese Perez Platelet mean volume (Bld) [Entitic vol] 9.9 fL Normal 9.5-13.5 [facility] Comment on above: Performed By: #### C BC #### [facility] [address] [place] [address] Dr. Varghese Perez PLT 217 103/ul Normal 150-450 [facility] Comment on above: Performed By: #### C BC #### [facility] [address] [place] [address] Dr. Varghese Perez RBC 4.90 106/ul Normal 4.70-6.10 [facility] Comment on above: Performed By: #### C BC #### [facility] [address] [place] [address] Dr. Varghese Perez WBC 6.0 103/ul Normal 4.0-11.0 [facility] Comment on above: Performed By: #### C BC #### [facility] [address] [place] [address] Dr. Varghese Perez GLYCOHEMOGLOBIN A1Con 2020 ADA RECOMMENDATION ADA THERAPEUTIC TARG ET 6.0 - 7.0 ACTION SUGGESTED > 7.0 Normal [facility] Comment on above: Performed By: #### C MP, LIPID #### [facility] [address] [place] [address] Dr. Varghese Perez Glucose [Mass/Vol] 137 mg/dL Normal [facility] Comment on above: Performed By: #### C MP, LIPID #### [facility] [address] [place] [address] Dr. Varghese Perez HbA1c (Bld) [Mass fraction] 6.4 % Critically high <=6.0 [facility] Comment on above: Performed By: #### C MP, LIPID #### [facility] [facility] [address] [place] [address] Dr. Varghese Perez LIPID PROFILEon 03-08-2021 CHOL-HDL RATIO NORM SEE BELOW Normal [facility] Comment on above: Result Comment: 3.3 - 4.4 LOW RISK 4.4 - 7.1 AVERAGE RISK 7.1 - 11.0 MODERATE RISK >11.0 HIGH RISK Performed By: #### C MP, LIPID #### [facility] [address] [place] [address] Dr. Varghese Perez Cholesterol [Mass/Vol] 147 mg/dL Normal <=200 [facility] Comment on above: Performed By: #### C MP, LIPID #### [facility] [address] [place] [address] Dr. Varghese Perez Cholesterol in HDL [Mass/Vol] 50 mg/dL Normal [facility] Comment on above: Performed By: #### C MP, LIPID #### [facility] [address] [place] [address] Dr. Varghese Perez Cholesterol in LDL [Mass/Vol] 82.4 mg/dL Normal [facility] Comment on above: Performed By: #### C MP, LIPID #### [facility] [address] [address] [address] Varghese Perez Cholesterol.total/ Cholesterol in HDL [Mass ratio] 2.9 {ratio} Normal [facility] Comment on above: Performed By: #### C MP, LIPID #### [facility] [address] [address] [address] Varghese Perez HDL NORMAL > or = 60 mg/dl - LO W CARDIOVASCULAR RISK <40 mg/dl - HIGH CARDIOVASCULAR RISK Normal [facility] Comment on above: Performed By: #### C MP, LIPID #### [facility] [address] [address] [address] Varghese Perez LDL CALC NORMAL SEE BELOW Normal [facility] Comment on above: Result Comment: <100 mg/dl OPTIMAL 100 - 129 mg/dl NEAR OR ABOVE OPTIMAL 130 - 159 mg/dl BORDERLINE HIGH 160 - 189 mg/dl HIGH >190 mg/dl VERY HIGH Performed By: #### C MP, LIPID #### [facility] [address] [place] [address] Dr. Varghese Perez Triglyceride [Mass/Vol] 73 mg/dL Normal <=150 [facility] Comment on above: Performed By: #### C MP, LIPID #### [facility] [address] [place] [address] Dr. Varghese Preez VLDL CALC 14.6 mg/dL Normal [facility] Comment on above: Performed By: #### C MP, LIPID #### [facility] [address] [address] [address] Varghese Perez PROF 14(COMP METB)on 021 Albumin [Mass/Vol] 3.7 g/dL Normal 3.5-5.0 [facility] Comment on above: Performed By: #### C MP, LIPID #### [facility] [address] [place] [address] Dr. Varghese Perez Albumin/Globulin [Mass ratio] 1.1 {ratio} Normal [facility] Comment on above: Performed By: #### C MP, LIPID #### [facility] [address] [address] [address] Varghese Perez ALP [Catalytic activity/Vol] 54 U/L Normal 38-126 [facility] Comment on above: Performed By: #### C MP, LIPID #### [facility] [address] [place] [address] Dr. Varghese Perez ALT [Catalytic activity/Vol] 29 U/L Normal 21-72 [facility] Comment on above: Performed By: #### C MP, LIPID #### [facility] [address] [address] [address] Varghese Perez Anion gap [Moles/Vol] 10.5 mmol/L Normal [facility] Comment on above: Performed By: #### C MP, LIPID #### [facility] [address] [place] [address] Dr. Varghese Perez AST [Catalytic activity/Vol] 15 U/L Critically low 17-59 [facility] Comment on above: Performed By: #### C MP, LIPID #### [facility] [address] [place] [address] Dr. Varghese Perez Bilirubin [Mass/Vol] 0.5 mg/dL Normal 0.2-1.3 [facility] Comment on above: Performed By: #### C MP, LIPID #### [facility] [address] [place] [address] Dr. Varghese Perez Calcium [Mass/Vol] 8.9 mg/dL Normal 8.4-10.2 [facility] Comment on above: Performed By: #### C MP, LIPID #### [facility] [address] [place] [address] Dr. Varghese Perez Chloride [Moles/Vol] 106 mmol/L Normal 98-107 [facility] Comment on above: Performed By: #### C MP, LIPID #### [facility] [address] [place] [address] Dr. Varghese Perez CO2 [Moles/Vol] 29.0 mmol/L Normal 22.0-30.[address] [facility] Comment on above: Performed By: #### C MP, LIPID #### [facility] [address] [place] [address] Dr. Varghese Perez Creatinine [Mass/Vol] 0.86 mg/dL Normal 0.66-1.25 [facility] Comment on above: Performed By: #### C MP, LIPID #### [facility] [address] [place] [address] Dr. Varghese Perez EGFR-AF POLISH >60 Normal >=[address] [facility] Comment on above: Performed By: #### C MP, LIPID #### [facility] [address] [place] [address] Dr. Varghese Perez EGFR-NON AF POLISH >60 Normal >=60 [facility] Comment on above: Performed By: #### C MP, LIPID #### [facility] [address] [place] [address] Dr. Varghese Perez Globulin (S) [Mass/Vol] 3.3 g/dL Normal [facility] Comment on above: Performed By: #### C MP, LIPID #### [facility] [address] [place] [address] Dr. Varghese Perez Glucose [Mass/Vol] 127 mg/dL Critically high 74-106 [facility] Comment on above: Performed By: #### C MP, LIPID #### [facility] [address] [place] [address] Dr. Varghese Perez Potassium [Moles/Vol] 4.2 mmol/L Normal 3.4-5.0 [facility] Comment on above: Performed By: #### C MP, LIPID #### [facility] [address] [place] [address] Dr. Varghese Perez Protein [Mass/Vol] 7.0 g/dL Normal 6.1-8.2 [facility] Comment on above: Performed By: #### C MP, LIPID #### [facility] [address] [place] [address] Dr. Varghese Perez Sodium [Moles/Vol] 142 mmol/L Normal 137-145 [facility] Comment on above: Performed By: #### C MP, LIPID #### [facility] [address] [place] [address] Dr. Varghese Perez Urea nitrogen [Mass/Vol] 9.0 mg/dL Normal 9.0-20.0 [facility] Comment on above: Performed By: #### C MP, LIPID #### [facility] [id number] Varghese Perez Urea nitrogen/Creatinin e [Mass ratio] 10.5 mg/mg Normal [facility] Comment on above: Performed By: #### C MP, LIPID #### [facility] [address] [address] [address] Varghese Perez Vital Signs Date Time Vital Sign Value Performing Clinician Facility 10-19-2024 09:01-0400 Body weight 75 kg Rach Bonus PA-C Work Phone: [facility] 10-19-2024 09:01-0400 Diastolic blood pressure 72 mm[Hg] Rach Bonus PA-C Work Phone: [facility] 10-19-2024 09:01-0400 Heart rate 56 /min Rach Bonus PA-C Work Phone: [facility] 10-19-2024 09:01-0400 Respiratory rate 16 /min Rach Bonus PA-C Work Phone: [facility] 10-19-2024 09:01-0400 SaO2% (BldA) [Mass fraction] 99 % Rach Bonus PA-C Work Phone: [facility] 10-19-2024 09:01-0400 Systolic blood pressure 130 mm[Hg] Rach Bonus PA-C Work Phone: [facility] 06-27-2024 08:36-0400 Diastolic blood pressure 85 mm[Hg] [address] 06-27-2024 08:36-0400 Heart rate 67 /min [address] 06-27-2024 08:36-0400 Respiratory rate 20 /min [address] 06-27-2024 08:36-0400 Systolic blood pressure 135 mm[Hg] [address] 06-27-2024 08:19-0400 SaO2% (BldA) [Mass fraction] 100 % Sweetie 1 [facility] 06-13-2024 15:00-0500 Body height 180 cm Sweetie 1 [facility] 06-13-2024 15:00-0500 Body mass index (BMI) [Ratio] 24.69 kg/m2 Sweetie 1 [facility] 06-13-2024 15:00-0500 Body weight 80 kg Sweetie 1 [facility] 12-30-2023 15:44-0400 Body height 177.8 cm Zohreh Oliver DO Work Phone: [facility] 12-30-2023 15:44-0400 Body mass index (BMI) [Ratio] 24.68 kg/m2 Zohreh Oliver DO Work Phone: [facility] 12-30-2023 15:44-0400 Body weight 78.02 kg Zohreh Oliver DO Work Phone: [facility] 02-20-2022 08:48-0500 Diastolic blood pressure 95 mm[Hg] MD Sai Yost Work Phone: [facility] 02-20-2022 08:48-0500 Heart rate 57 /min MD Sai Yost Work Phone: [facility] 02-20-2022 08:48-0500 Respiratory rate 18 /min MD Sai Yost Work Phone: [facility] 02-20-2022 08:48-0500 SaO2% (BldA) [Mass fraction] 97 % MD Sai Yost Work Phone: [facility] 02-20-2022 08:48-0500 Systolic blood pressure 154 mm[Hg] MD Sai Yost Work Phone: [facility] 02-20-2022 07:18-0500 Body height 180.34 cm MD Sai Yost Work Phone: [facility] 02-20-2022 07:18-0500 Body temperature 98 [degF] MD Sai Yots Work Phone: [facility] 02-20-2022 07:18-0500 Body weight 77.11 kg MD Sai Yost Work Phone: [facility] Encounters Encounter Date Encounter Type Care Provider Facility Start: 12-18-2024 ambulatory Maxwell BealLarisa Weston Facility [facility] Start: 10-19-2024 End: 10-19-2024 Patient encounter procedure Rach Nino PA-C Work Phone: Spine Surgery Comment on above: Cervical disc disord er with radiculopathy (Primary Dx); Carpal tunnel syndrome, bilateral upper limbs Start: 10-19-2024 End: 10-19-2024 ambulatory LATIA CHAVIS Facility:[facility] Start: 10-11-2024 End: 10-11-2024 Orders Only Norbert French MD Work Phone: Orthopaedics Comment on above: Carpal tunnel syndro me on left (Primary Dx); Trigger middle finger of left hand; Trigger ring finger of left hand Start: 10-11-2024 ambulatory NORBERT FRENCH Facility:[facility] Start: 10-09-2024 End: 10-09-2024 Telephone encounter Norbert French MD Work Phone: Orthopaedics Comment on above: Surgical Followup Start: 10-04-2024 End: 10-04-2024 ambulatory Anderson Madera Facility:[facility] Start: 10-04-2024 End: 10-04-2024 Office outpatient visit 25 minutes Norbert French MD Work Phone: Orthopaedics Comment on above: Bilateral carpal airam filiberto syndrome (Primary Dx); Trigger finger, left ring finger; Trigger finger, left middle finger Start: 10-04-2024 End: 10-04-2024 ambulatory NORBERT FRENCH Facility:[facility] Start: 09-25-2024 End: 09-26-2024 Telephone encounter Latia Chavis PA-C Work Phone: Orthopaedics Comment on above: Results Start: 09-20-2024 End: 09-20-2024 ambulatory LATIA CHAVIS Facility:[facility] Start: 09-20-2024 End: 09-20-2024 Subsequent hospital visit by physician Jeff [facility] Rej Work Phone: Radiology Comment on above: 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, 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] Start: 09-11-2024 End: 09-11-2024 ambulatory MD Maxwell Ontiveros Facility:[facility] Start: 09-06-2024 End: 09-07-2024 Chart abstracting None (Historical) Neurology Start: 08-09-2024 End: 08-09-2024 ambulatory Anderson Madera Facility:[facility] Start: 08-09-2024 End: 08-09-2024 Telephone encounter Crystal Matthews Radiology Comment on above: Appointment Start: 08-02-2024 End: 08-02-2024 ambulatory LATIA CHAVIS Facility:[facility] Start: 07-20-2024 End: 07-20-2024 Telephone encounter Sandy Bhatt MD Work Phone: Orthopaedics Comment on above: Appointment Start: 07-16-2024 ambulatory SANDY BHATT Facility:[facility] Start: 07-16-2024 End: 07-16-2024 Subsequent hospital visit by physician Mr [facility] (Istat/1.5) Work Phone: [facility] Radiology MRI Comment on above: Spinal stenosis of c ervical region [M48.02] Start: 07-12-2024 End: 07-13-2024 Telephone encounter Sandy Bhatt MD Work Phone: Spine Medicine Start: 07-06-2024 End: 07-07-2024 ambulatory XXXX NONE Facility:[facility] Start: 06-29-2024 End: 06-29-2024 Subsequent hospital visit by physician Aby Richard 1 Work Phone: Radiology Comment on above: Hx of cervical spine surgery [Z98.890] Start: 06-29-2024 End: 06-29-2024 ambulatory SAI YOST Facility:[facility] Start: 06-29-2024 End: 06-29-2024 Office outpatient visit 15 minutes Sandy Bhatt MD Work Phone: Orthopaedics Comment on above: 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); Carpal tunnel syndrome, bilateral; Hx of cervical spine surgery; Spinal stenosis of cervical region Start: 06-27-2024 End: 06-27-2024 Subsequent hospital visit by physician Sweetie Herrera[address] [facility] Comment on above: Chest pain, unspecif ied; Shortness of breath; Essential (primary) hypertension Start: 06-27-2024 End: 06-27-2024 ambulatory CHRIS GARCIA [facility] Start: 06-24-2024 End: 06-24-2024 ambulatory SANDY BHATT Facility:[facility] Start: 06-24-2024 End: 06-24-2024 Patient encounter procedure Emg 2 Neur [facility] Rej (Max Weight: 400) Work Phone: Neurology Comment on above: EMG Start: 06-14-2024 End: 06-14-2024 ambulatory Chris Garcia Facility:[facility] Start: 06-13-2024 End: 06-13-2024 Office outpatient new 45 minutes Sandy Bhatt MD Work Phone: Orthopaedics Comment on above: 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) Start: 06-13-2024 End: 06-13-2024 ambulatory SAI YOST Facility:[facility] Start: 06-13-2024 End: 06-13-2024 Subsequent hospital visit by physician Aby Richard 1 Work Phone: Radiology Comment on above: Pain [R52] Start: 06-12-2024 End: 06-12-2024 ambulatory XXXX NONE Facility:[facility] Start: 06-09-2024 End: 06-09-2024 ambulatory Chris Garcia Facility:[facility] Start: 05-26-2024 End: 05-26-2024 Orders Only No One (Historical) Referring Physician Comment on above: Pain (Primary Dx) Start: 05-24-2024 End: 05-24-2024 ambulatory MD Aneesh Haq Facility:[facility] Start: 05-11-2024 End: 05-11-2024 ambulatory Chris Garcia Facility:[facility] Start: 05-08-2024 End: 05-08-2024 Emergency department patient visit Chema Cho Facility:[facility] Start: 05-08-2024 End: 05-08-2024 ambulatory Maxwell Ontiveros Facility:[facility] Lashon das Start: 04-04-2024 End: 04-04-2024 Bamboo [...] Available Start: 01-14-2024 End: 01-14-2024 ambulatory Lauri BEULAH Facility:[facility] Start: 12-30-2023 End: 12-30-2023 Patient encounter procedure Zohreh Oliver DO Work Phone: [facility] Comment on above: Left shoulder pain, unspecified chronicity (Primary Dx) Start: 12-30-2023 End: 12-30-2023 ambulatory ZOHREH OLIVER Not Available Start: 12-30-2023 End: 12-30-2023 ambulatory ZOHREH OLIVER Not Available Start: 02-20-2022 End: 02-20-2022 ambulatory Cam Rea Facility:[facility] Start: 02-20-2022 End: 02-20-2022 Admission to same day surgery center MD Sai Yost Work Phone: [facility] Start: 02-20-2022 End: 02-20-2022 ambulatory MD Sai Yost Work Phone: [facility] Work Phone: Start: 10-28-2021 Encounter for genera l adult medical examination without abnormal findings DR SAI YOST [facility] Start: 10-25-2021 End: 10-26-[address] SAI YOST Facility:[facility] Start: 10-25-2021 End: 10-26-2021 Encounter for general adult medical examination without abnormal findings DR SAI YOST Facility:[facility] Start: 03-08-2021 End: 03-09-[address] SAI YOST Facility:[facility] Procedures Date Procedure Procedure Detail [...] above: Performed By: #### P SASC #### [facility] [address] [place] [address] Dr. Varghese Perez Start: 03-08-[address] SAI OCAMPO Comment on above: Performed By: #### P SASC #### [facility] [address] [place] [address] Dr. Varghese Perez Plan of Treatment Date Care Activity Detail Author Start: 2032 RSV High Risk: (Elde rly (60+) or Population) (1 - 1-dose 75+ series) RSV High Risk: (Elderly (60+) or Population) (1 - 1-dose 75+ series) [facility] Start: 2032 RSV Vaccine (1 - 1-d ose 75+ series) RSV Vaccine (1 - 1-dose 75+ series) [facility] Start: 02-21-2032 Screening for malign ant neoplasm of colon [facility] Start: 07-01-2031 DTaP/Tdap/Td Vaccine s (2 - Td or Tdap) DTaP/Tdap/Td Vaccines (2 - Td or Tdap) [facility] Start: 03-13-2025 End: 03-13-2025 Patient encounter procedure 03/13/2025 11:30 AM EST Office Visit Orthopaedics [address] [place], [place] [id number] Norbert French MD [address] [place] [address] Post op Left wrist Sx 01/29/25 Orthopaedics Comment on above: Post op Left wrist S x 01/29/25 Start: 02-13-2025 End: 02-13-2025 Patient encounter procedure 02/13/2025 11:30 AM EST Office Visit Orthopaedics [address] [facility] [place] [place] [address] Latia Chavis PA-C [address] [facility] [address] Post op Left wrist Sx 01/29/25 Orthopaedics Comment on above: Post op Left wrist S x 01/29/25 Start: 01-29-2025 End: 01-29-2025 Admission to same day surgery center 01/29/2025 7:30 AM EDT - 01/29/2025 9:00 AM EDT Surgery Ambulatory Surgery [address] [facility] [place] [address] Norbert French MD [address] [facility] [place] [address] DECOMPRESSION NERVE MEDIAN CARPAL TUNNEL Ambulatory Surgery [...] AM EDT Hospital Encounter Ambulatory Surgery [address] [facility] [place] [address] Norbert French MD [address] [facility] [place] [address] Carpal tunnel syndrome on left [G56.02], Trigger middle finger of left hand [M65.332], Trigger ring finger of left hand [M65.342] Ambulatory Surgery Comment on above: Carpal tunnel syndro me on left [G56.02], Trigger middle finger of left hand [M65.332], Trigger ring finger of left hand [M65.342] Start: 01-29-2025 End: 01-29-2025 Tendon sheath incision [facility] Start: 01-08-2025 End: 01-08-2025 Anesthesia consultation 01/08/2025 9:40 AM EDT PAT Pre Anesthesia [address] [place] [address] 1, Pacc [place] [address] [place] [address] Pacc Left wrist Sx 01/29/25 Pre Anesthesia Comment on above: Pacc Left wrist Sx 1 Start: 12-11-2024 [facility] Start: 10-19-2024 End: 10-19-2024 Patient encounter procedure 10/19/2024 9:30 AM EDT Office Visit Spine Surgery [address] [facility] [address] [place] [address] Rach Nino PA-C [address] [place] [address] symptoms of left hand weakness, numbness, and issue using hands. Spine Surgery Comment on above: symptoms of left alan d weakness, numbness, and issue using hands. Start: 09-20-2024 End: 09-20-2024 Patient encounter procedure 09/20/2024 10:15 AM EDT Appointment Radiology [address] [place] [address] US WRIST RT+LT; VOLAR+CARPAL TUNNEL-EVAL FOR BILATERAL CTS Radiology Comment on above: US WRIST RT+LT; VOLA R+CARPAL TUNNEL-EVAL FOR BILATERAL CTS Start: 08-02-2024 End: 08-02-2024 Patient encounter procedure 08/02/2024 1:30 PM EDT Office Visit Orthopaedics [address] [place] [address] Latia Chavis, AARON [address] [place] [address] 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, M62.542] Orthopaedics Comment on above: 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, M62.542] Start: 07-16-2024 End: 07-16-2024 Patient encounter procedure 07/16/2024 2:40 PM EDT Appointment [facility] [place] [address] [place] [address] Spinal stenosis of cervical region [M48.02] [facility]iology MRI Comment on above: Spinal stenosis of c ervical region [M48.02] Start: 07-14-2024 End: 07-14-2024 Patient encounter procedure 07/14/2024 2:00 PM EDT Office Visit Neurology [address] [place] [id number] Tho Guerra MD [address] [place] [address] 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, M62.542] Neurology Comment on above: 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, M62.542] Start: 06-29-2024 End: 06-29-2024 Patient encounter procedure 06/29/2024 10:00 AM EDT Office Visit Orthopaedics [address] [place] [address] Sandy Bhatt MD [address] [place] [address] follow up bilateral hand pain - EMG results Orthopaedics Comment on above: follow up bilateral hand pain - EMG results Start: 06-24-2024 End: 06-24-2024 Patient encounter procedure 06/24/2024 9:35 AM EDT Procedure Neurology [address] [place] [address] 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, M62.542] Neurology Comment on above: 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, M62.542] Start: 06-13-2024 End: 06-13-2024 Patient encounter procedure Radiology Comment on above: Thenar muscle atroph y of right hand, PT says its for both sides Start: 04-12-2024 Advance Directive Discussion Advance Directive Discussion [facility] Start: 04-12-2024 Medicare Advantage Annual Wellness Visit Medicare Advantage Annual Wellness Visit [facility] Start: 04-04-2024 End: 04-04-2024 Patient encounter procedure [facility] Comment on above: Arrived Start: 03-13-2024 End: 03-13-2024 Patient encounter procedure [facility] Comment on above: Arrived Start: 12-12-2023 Covid-19 Vaccine () Covid-19 Vaccine () [facility] Start: 12-12-2023 COVID-19 Vaccine () COVID-19 Vaccine () [facility] Start: 12-12-2023 Influenza vaccination Influenza Vacc ine (#1) [facility] Start: 2022 Pneumococcal Vaccine : 65+ Years (1 of 1 - PCV) Pneumococcal Vaccine: 65+ Years (1 of 1 - PCV) [facility] Start: 02-20-2022 [facility] Start: 09-30-2014 Diabetes Screening Diabetes Screenin g [facility] Start: 2012 Prostate specific antigen measurement Prostate Cancer Screening Discussion [facility] Start: 11-11-2007 Pneumococcal vaccination Pneumococcal Vaccine (1 of 1 - PCV) [facility] Start: 11-11-2007 Pneumococcal Vaccine : 50+ (1 of 1 - PCV) Pneumococcal Vaccine: 50+ (1 of 1 - PCV) [facility] Start: 11-11-2007 Shingrix Vaccine (1 of 2) Shingrix Vaccine (1 of 2) [facility] Start: 2002 Prostate specific antigen measurement Prostate Cancer Screening Discussion [facility] Start: 2002 Screening for malign ant neoplasm of colon [facility] Start: 1992 Lipid panel Lipid Screening [facility] Start: 1976 Urine microalbumin profile DTaP,Tdap,Td Vaccine (1 - Tdap) [facility] Start: 11-11-1975 Anxiety Screening Anxiety Screening [facility] Start: 11-11-1975 Depression Screening Depression Scre ening [facility] Start: 11-11-1975 Hepatitis C screening Hepatitis C Sc sarwat [facility] Start: 1958 MMR Vaccines (1 of 1 - Standard series) MMR Vaccines (1 of 1 - Standard series) [facility] Start: 1955 Abdominal aortic aneurysm screening Abdominal Aortic Aneurysm Screening [facility] Start: 1955 Annual wellness visit Welcome to Medicare Visit [facility] Start: 1955 Lipid panel Lipid Panel [facility] Start: 1955 Screening for malign ant neoplasm of colon [facility] End: 06-13-2025 EMG(NEURO/NI) EMG(NEURO/NI) EMG Routine Atrophy of muscle of both hands 1 Occurrences starting 06/13/2024 until 06/13/2025 [facility] Work Phone: Comment on above: 1 Occurrences starti ng 06/13/2024 until 06/13/2025 End: 07-29-2025 MR Cervical spine WO contrast MRI CERVICAL SPINE WO IVCON Radiology Routine Spinal stenosis of cervical region 1 Occurrences starting 06/29/2024 until 07/29/2025 [facility] Comment on above: 1 Occurrences starti ng 06/29/2024 until 07/29/2025 Patient Education Colon Polyps [facility] Work Phone: End: 07-29-2025 XR CERV OTHER 4V AP/LAT/FLX/EXT XR CERV OTHER 4V AP/LAT/FLX/EXT Radiology Routine Hx of cervical spine surgery 1 Occurrences starting 06/29/2024 until 07/29/2025 [facility] Work Phone: Comment on above: 1 Occurrences starti ng 06/29/2024 until 07/29/2025 XR CERV OTHER 4V AP/LAT/FLX/EXT XR CERV OTHER 4V AP/LAT/FLX/EXT Radiology Routine Hx of cervical spine surgery 06/29/2024 11:05 AM EDT [facility] End: 06-25-2025 XR Hand - bilateral PA and Lateral and Oblique XR HAND GENERAL 3V PA/LAT/OBL BILATERAL Radiology Routine Pain 1 Occurrences starting 05/26/2024 until 06/25/2025 [facility] Work Phone: Comment on above: 1 Occurrences starti ng 05/26/2024 until 06/25/2025 Immunizations Immunization Date Immunization Notes Care Provider Nalini heath 03-18-2024 influenza virus vaccine, unspecified formulation Jigna Barroso DO Work Phone: [facility] 12-28-2022 influenza virus vaccine, unspecified formulation Zohreh Oliver DO Work Phone: [facility] 04-14-2021 COVID-19 mRNA Bivale nt Booster (Moderna) MD Sai Yost Work Phone: [facility] 07-23-2020 COVID-19 mRNA-1273 (Moderna) MD Sai Yost Work Phone: [facility] 06-20-2020 COVID-19 mRNA-1273 (Moderna) MD Sai Yost Work Phone: [facility] Payers Date Payer Category Payer Medicare (Managed Care) [employer] [facility] [id number] 2024 Medicare [id number] 2024 Medicare [id number] 5 2024 Medicare [id number] 2022 Private Health Insurance [id number] .[id number] 5 2021 Self-pay 2012 Unknown SABRINA Mitchell [facility] [id number] 2012-Present [address] [place] [address] [id number] .[id number] 2012 Worker's Compensation SABRINA Portillo adelia [id number] .[id number] 5 2012 Unknown [id number] 1959 Unknown [id number] 1957 Unknown [id number] 2.16.840.1.572276.3.579 .2.59 1957 Unknown [id number] 2.16.840.1.258947.3.579 .2.593 1957 Unknown [id number] 2.16.840.1.886822.3.579 .2.1258 1957 Unknown [id number] 2.16.840.1.857287.3.579 .2.1259 1957 Unknown [id number] 2.16.840.1.508094.3.579 .2.125 1957 Unknown [id number] 2.16.840.1.821728.3.579 .2.1259 1957 Unknown [id number] 2.16.840.1.270173.3.579 .2.1259 1957 Unknown [id number] 2.16.840.1.565172.3.579 .2.1259 1957 Unknown [id number] 2.16.840.1.183371.3.579 .2.1258 1957 Unknown [id number] 2.16.840.1.302293.3.579 .2.1259 1957 Unknown [id number] 2.16.840.1.226720.3.579 .2. 1957 Unknown [id number] 2.16.840.1.477529.3.579 .2.72 1957 Unknown [id number] 2.16.840.1.606204.3.579 .2.1246 1957 Unknown [id number] 2.16.840.1.322244.3.579 .2. 1957 Unknown [id number] 2.16.840.1.916585.3.579 .2. 1957 Unknown [id number] 2.16.840.1.377437.3.579 .2. 1957 Unknown [id number] 2.16.840.1.793895.3.579 .2. 1957 Unknown [id number] 2.16.840.1.675831.3.579 .2. 1957 Unknown [id number] 2.16.840.1.859499.3.579 .2. 1957 Unknown [id number] 2.16.840.1.802459.3.579 .2.72 1957 Unknown [id number] 2.16.840.1.592155.3.579 .2. 1957 Unknown [id number] 2.16.840.1.554641.3.579 .2.72 1957 Unknown [id number] 2.16.840.1.445683.3.579 .2.727 1957 Unknown [id number] 2.16.840.1.343214.3.579 .2.727 1957 Unknown [id number] 2.16.840.1.823035.3.579 .2.727 1957 Unknown [id number] 2.16.840.1.106377.3.579 .2.727 1957 Unknown [id number] 2.16.840.1.251483.3.579 .2.727 Private Health Insurance [employer] [facility] [employer] [id number] Unknown [id number] 2.16.840.1.765260.3.579 .2.531 Social History Date Type Detail Facility Start: 09-10-2011 End: 02-20-2022 Tobacco smoking status MSIS Ex-smoker (finding) [facility] Start: 1955 Sex Assigned At Male F [facility] Start: 12-12-1975 End: 10-11-1991 History of tobacco use Current smoker [facility] Start: 12-12-1975 End: 10-11-1991 History of tobacco use Cigarette Smoker [facility] Start: 12-30-2023 End: 06-29-2024 Cigarettes smoked current (pack per day) - Reported 1.5 [facility] Start: 12-30-2023 End: 04-04-2024 Alcoholic beverage intake Ex-drinker (finding) [facility] Start: 12-30-2023 End: 06-29-2024 Tobacco use panel [facility] Start: 12-24-2022 Gender identity Identifies as male gender (finding) [facility] Start: 12-24-2022 Sexual orientation Asexual [facility] Start: 09-10-2011 Tobacco use and exposure Smokeless tobacco non-user [facility] Start: 09-24-2011 Alcoholic beverage intake Current drinker of alcohol (finding) [facility] Start: 09-10-2011 Alcohol Comment moderate [facility] Start: 1955 Sex assigned at Not on file [facility] Tobacco smoking stat [facility] Tobacco smoking consumption unknown [facility] Work Phone: Start: 06-17-2024 End: 06-27-2024 Exposure to SARS-CoV-2 (event) Not sure [facility] Work Phone: Medical Equipment Procedure Code Equipment Code Equipment Original Text Equipment Identifier Dates [id number] Implant - [id number] Start: 09-30-2011 Comment on above: Description: ACCOLAD E II 127 DEGREE NECK ANGLE HIP STEM Shell Actb 60mm Prim Sb Hmsphr - [id number] Start: 09-30-2011 Comment on above: Description: TRITANI UM HEMISPHERICAL SOLID BACK SHELL Ins Actb 36mm 0d F X3 Trdnt - [id number] Start: 09-30-2011 Comment on above: Description: TRIDENT X3 0 DEGREE POLYETHYLENE INSERT Head Fem 36mm V4 0 Blx D - [id number] Start: 09-30-2011 Comment on above: Description: BIOLOX DELTA CERAMIC V40 FEMORAL HEAD Goals Date Patient Goal Desired Activity /State Clinical Notes 02-20-2022 to 10-19-2024 Rach Nino PA-C - 10/19/2024 9:16 AM EDTTelephone Encounter - Brii Sousa - 10/09/2024 12:22 PM EDTTelephone Encounter - Brii Sousa - 10/09/2024 12:22 PM EDTPatient Instructions Note Date & Type Note Facility 10-19-2024 Note HNO ID: [id number] Author: RACH NINO PA-C Service: ? Author Type: Physician Director Packaging Type: Progress Notes Filed: 10/19/2024 09:54 Note Text: SPINE SURGERY OUTPATIENT CONSULT This is an in-person visit. SERVICE DATE: 10/19/2024 PCP: Sai Yost MD REFERRING PROVIDER: Latia Chavis [address] [facility] [place] [address] Consult requested for an opinion regarding the [...] cervical spine surgery in 1997 at the [facility] with Dr. Chema Bosch. A second surgery was performed in [address] Antony Gudino in [place]. He reports that his right thumb weakness and numbness began around 3059-6552, prior to the second surgery. Over the [...] PHQ-9 Self-Harm (Item (more content not included)... [facility] 10-19-2024 History of Present illness Narrative Images from the original note were not included. SPINE SURGERY OUTPATIENT CONSULT This is an in-person visit. SERVICE DATE: 10/19/2024 PCP: Sai Yost MD REFERRING PROVIDER: Latia Chavis [facility] [address] Consult requested for an opinion regarding the [...] cervical spine surgery in 1997 at the [facility] with Dr. Chema Bosch. A second surgery was performed in [address] Antony Gudino in [place]. He reports that his right thumb weakness and numbness began around 4912-1744, prior to the second surgery. Over the [...] muscles, right greater than left. 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 He describes trouble with chemist physical because the finger gets stuck in flexion. [...] 9:17 AM PAGER: documented in this encounter [facility] 10-09-2024 Telephone encounter Note [facility] requesting a call back to schedule surgery. Left direct number to return call. [phone] [facility] 10-09-2024 Telephone encounter Note [...] long and ring trigger finger releases Code: 21161, 77708, 90987 Anesthesia: MAC Dx: G56.02, M65.332, M65.342 Implant to come out: Special request: Time: 1.5 hours Patient is requesting a surgery time in january Patient is a known diabetic [facility] 10-09-2024 Miscellaneous Notes [facility] requesting a call back to schedule surgery. Left direct number to return call. [phone] ----- Message from Pepe Mitchell RN sent at 10/04/2024 9:47 AM EDT ----- Regarding: Surgery Please make a post operative appointment 10-14 days after surgery date with Latia Chavis PA-C. Please make a post operative appointment 6 weeks after surgery [address] Dr French. Where: Date: Procedure: Left carpal tunnel release, left long and ring trigger finger releases Code: 85381, 71599, 95213 Anesthesia: MAC Dx: G56.02, M65.332, M65.342 Implant to come out: Special request: Time: 1.5 hours Patient is requesting a surgery time in january Patient is a known diabetic documented in this encounter [facility] 10-04-2024 Note HNO ID: [id number] Author: NORBERT FRENCH MD Service: ? 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 - [...] - Two previous neck surgeries; first in [id number] by Chema Bosch, second in 2016. - [...] elbow flexion test (more content not included)... [facility] 10-04-2024 History of Present illness Narrative Images [...] March; unable to make a fist or chemist physical a golf club without severe pain. - [...] - Two previous neck surgeries; first in 5180-3484 by Chema Bosch, second in 2017. - [...] word sense that escaped review. Recording using [employer] software for draft documentation of the visit was discussed with the patient/authorized account service representative; all questions welcomed and answered. Patient/authorized account service representative agreed to proceed documented in this encounter [facility] 09-26-2024 Telephone encounter Note Attempted to return patient's call, no answer left voicemail. US results do show significant findings that we would be able to recommend surgical intervention for so will have patient see Dr. French for surgical discussion. Latia Chavis PA-C [facility] Work Phone: 09-26-2024 Miscellaneous [...] calling: self Call patient at: at home [phone] (home) [phone] (cell) Was an appointment scheduled: No Closing statement: Results or non-symptom based questions: Thank you for calling [facility], your call will be returned within the next business day. Emily Silveira documented in this encounter [facility] 09-25-2024 Telephone encounter Note Patient is calling in today to discuss the US that you order'd that he recently had done. He'd like to discuss what the next course of action is. Please call and advise Patient has been identified by name and birthdate. Duration of symptoms: N/A Person calling: self Call patient at: at home [phone] (home) [phone] (cell) Was an appointment scheduled: No Closing statement: Results or non-symptom based questions: Thank you for calling [facility], your call will be returned within the next business day. Emily Silveira [facility] 09-07-2024 Note HNO ID: [id number] Author: AL MCCRACKEN APRN.SECURITY AGENT Service: ? Author Type: Nurse Practitioner Type: Progress Notes Filed: 09/07/2024 14:02 Note Text: Per Triage: Rachid Mcnair is a 68 year old male that reports symptoms of left hand weakness, numbness, and issue using hands. Referring provider: DERRICK Zhang Is this a 2nd opinion and offered surgery?: no Out of state: No BMI: N/A A1C: N/A Previous Spine Surgery: Yes, 2016 [facility] CMT: None Studies (Reports unless indicated) Cervical [...] on CD to visit (spine MRIs, xrays) [facility] 09-07-2024 History of Present illness Narrative Per Triage: Rachid Mcnair is a 68 year old male that reports symptoms of left hand weakness, numbness, and issue using hands. Referring provider: DERRICK Zhang Is this a 2nd opinion and offered surgery?: no Out of state: No BMI: N/A A1C: N/A Previous Spine Surgery: Yes, 2017 [facility] CMT: None Studies (Reports unless indicated) Cervical [...] Health Provider or Pain Management Provider at [facility]? No If answer is YES please schedule [...] the facility where the MRI/CT/myelogram was completed: [facility] MRI/CT/myelogram viewable in Epic: Yes If not, please provide [phone] to fax in imaging reports for review. Also, please inform patient to hand carry imaging disc to appointment. XR (spine) within 12 months: Yes If YES, please ask for the name/address of the facility where the XR was completed: [facility] Dr. Nevarez's patients: Have you had previous [...] of where the surgery was completed: 2016 [facility] Additional Comments documented in this encounter [facility] 09-06-2024 Note HNO ID: [id number] Author: ?, ?, ? Service: ? Author Type: ? Type: Progress Notes Filed: 09/07/2024 14:02 Note Text: Patient name: Rachid Mcnair Are you being referred by a [facility] Provider or Pain Management Provider at [facility]? No If answer is YES please schedule [...] MRI/CT/myelogram was completed: [facility] MRI/CT/myelogram viewable in [facility]: Yes If not, please provide [phone] to fax in imaging reports for review. [...] of where the surgery was completed: 2016 [facility] Additional Comments [facility] 08-09-2024 Telephone encounter Note PT scheduled for [facility] US on 09/20/24 at 10:15 AM at [place] [facility] 08-09-2024 Miscellaneous Notes PT [...] Slot held: N/A documented in this encounter [facility] 08-09-2024 Telephone encounter Note [...] of our four locations. Slot held: N/A [facility] 08-02-2024 Note HNO ID: [id number] Author: LATIA CHAVIS PA-C Service: ? Author Type: Physician Director Packaging Type: Progress Notes Filed: 08/03/2024 16:21 Note Text: August 02, 2024 The patient is sent for evaluation and an opinion regarding treatment by Sandy Bhtat, who will receive a copy of this [...] and negative Du (more content not included)... [facility] 07-20-2024 Telephone encounter Note Call placed to patient to schedule a virtual visit to discuss MRI results. May use an est slot. No answer. Left voicemail requesting a return call back. [facility] Work Phone: 07-20-2024 Miscellaneous Notes Call placed to patient to schedule a virtual visit to discuss MRI results. May use an est slot. No answer. Left voicemail requesting a return call back. documented in this encounter [facility] 07-16-2024 History of Present [...] PATIENT PRESENTS WITH AN IMPLANTABLE OR ATTACHED ELECTRICAL JOURNEYMAN: No RADIOLOGY DEPARTMENT: MR; Exam(s) Completed: Spine: Cervical spine PERIPHERAL IV DATA: Not applicable SIGNED BY: Ho PLASCENCIA(Esther)Jimy MRI Tech July 16, 2024 2:43 PM documented in this encounter [facility] 07-16-2024 Note HNO ID: [id number] Author: JIMY JACOBSON MRI Tech Service: Radiology [...] PATIENT PRESENTS WITH AN IMPLANTABLE OR ATTACHED ELECTRICAL JOURNEYMAN: No RADIOLOGY DEPARTMENT: MR; Exam(s) Completed: Spine: Cervical spine PERIPHERAL IV DATA: Not applicable SIGNED BY: Ho PLASCENCIA(R), Jimy Jacobson, medical science liaison July 16, 2024 2:43 PM [facility] 07-13-2024 Telephone encounter Note Call placed to patient to notify the medication was sent to his pharmacy. He will need a crew car driver for the MRI due to the medication. Per patient he has a crew car driver already. [facility] Work Phone: 07-13-2024 Miscellaneous Notes Call placed to patient to notify the medication was sent to his pharmacy. He will need a crew car driver for the MRI due to the medication. Per patient he has a crew car driver already. The following approved medication requests [...] the procedure if needed. Must have a crew car driver to the procedure if taking. Authorizing Provider: SANDY BHATT MD Rachid is calling Sandy Bhatt MD today to request medication prior to having his MRI for claustrophobia. Patient askig for script to be sent to [facility] on file. Patient has been identified by name and birthdate. Duration of symptoms: N/A Person calling: self Call patient at: on cell [phone] (home) [phone] (cell) Was an appointment scheduled: No Closing statement: Results or non-symptom based questions: Thank you for calling [facility], your call will be returned within the next business day. Francesca Silveira documented in this encounter [facility] 07-13-2024 Telephone encounter Note [...] the procedure if needed. Must have a crew car driver to the procedure if taking. Authorizing Provider: SANDY BHATT MD [facility] 07-12-2024 Telephone encounter Note Rachid is calling Sandy Bhatt MD today to request medication prior to having his MRI for claustrophobia. Patient askig for script to be sent to [facility] on file. Patient has been identified by name and birthdate. Duration of symptoms: N/A Person calling: self Call patient at: on cell [phone] (home) [phone] (cell) Was an appointment scheduled: No Closing statement: Results or non-symptom based questions: Thank you for calling [facility], your call will be returned within the next business day. Francesca Mchugh Pss [facility] 06-29-2024 Note Addended by: SANYD BHATT on: 06/29/2024 11:00 AM Modules accepted: Orders [facility] 06-29-2024 Miscellaneous Notes Addended by: SANDY BHATT on: 06/29/2024 11:00 AM Modules accepted: Orders documented in this encounter [facility] 06-29-2024 Instructions Sandy Bhatt MD - 06/29/2024 10:24 AM EDT - Schedule and attend an appointment with the member service specialist. - Schedule and attend an appointment with the hand surgeon, Dr. French. - Contact [facility] to obtain surgical records from your cervical surgery in 2017 and bring them to your appointment with the member service specialist. - Schedule MRI cervical spine, ideally before your appointment with spine documented in this encounter [facility] 06-29-2024 Note HNO ID: [id number] Author: SANDY BHATT MD Service: ? Author [...] of cervical surgery in August 2016 at [facility]. Presenting today with severe issues in both [...] Cervical surgery performed in August [address] [facility] [address] Reyes. - Symptoms began post-surgery, including muscle loss. - Engaged in occupational therapy post-surgery. - No significant symptoms of carpal tunnel on the Left until approximately three months ago, coinciding with long term. - Describes self as thin and kind [...] of cervical spine surgery in 08/2016 at [facility]. - EMG findings indicate severe C7/8 T1 cervical spinal lesion. - Referred to member service specialist for further evaluation and management. - Advised patient to obtain surgical records from [facility] to assist spine surgeon in assessment. - Patient to schedule appointment with member service specialist. - Obtain XR cervical spine today - Schedule MRI cervical spine Pertinent previous records and images reviewed. Verbal health education was given to patient. Patient verbalizes understanding and agrees with the treatment plan as detailed above. Sandy Bhatt MD [facility] Sports and Exercise Medicine Orthopaedic Medical Decision Making (MDM) Complexity of problems: Chronic condition with severe exacerbation and Illness posing threat to life or bodily function, Complexity of data: 2 unique tests ordered, Risk: Low risk of morbidity from testing/treatment, Level of MDM: Low (3) The patient consented to the use of [employer] software for draft documentation of the visit consistent with [facility]?s Notice of Privacy Practices. [facility] 06-29-2024 History of Present illness Narrative Images [...] of cervical surgery in August 2016 at [facility]. Presenting today with severe issues in both [...] Cervical surgery performed in August [address] [facility] [address] Reyes. - Symptoms began post-surgery, including muscle loss. - Engaged in occupational therapy post-surgery. - No significant symptoms of carpal tunnel on the Left until approximately three months ago, coinciding with long term. - Describes self as thin and kind [...] of cervical spine surgery in 08/2016 at [facility]. - EMG findings indicate severe C7/8 T1 cervical spinal lesion. - Referred to member service specialist for further evaluation and management. - Advised patient to obtain surgical records from [facility] to assist spine surgeon in assessment. - Patient to schedule appointment with member service specialist. - Obtain XR cervical spine today - Schedule MRI cervical spine Pertinent previous records and images reviewed. Verbal health education was given to patient. Patient verbalizes understanding and agrees with the treatment plan as detailed above. Sandy Bhatt MD [facility] Sports and Exercise Medicine Orthopaedic Medical Decision Making (MDM) Complexity of problems: Chronic condition with severe exacerbation and Illness posing threat to life or bodily function, Complexity of data: 2 unique tests ordered, Risk: Low risk of morbidity from testing/treatment, Level of MDM: Low (3) The patient consented to the use of [employer] software for draft documentation of the visit consistent with [facility] s Notice of Privacy Practices. documented in this encounter [facility] 06-27-2024 Nurse Note Post CCTA pt denies feeling dizzy or lightheaded, denies headache. Steady on feet, skin warm pink and dry. Pt verbalized understanding of increased water intake x24 hours, educated on side effects of medications. HL removed with tip intact, manual pressure held until hemostasis achieved, 2x2 and coban to site. Pt DC home to self care [facility] Work Phone: 06-27-2024 Nurse Note Post CCTA [...] to self care documented in this encounter [facility] Work Phone: 06-24-2024 Note HNO ID: [id number] Author: ROD BRADEN MD Service: ? Author [...] Visit completed when applicable. Bree Braden MD [facility] 06-24-2024 History of Present illness Narrative UNIVERSAL [...] Bree Braden MD documented in this encounter [facility] 06-16-2024 Note Echocardiology Procedure Exam Date/Time Accession # Ordering ECG Stress Exercise 06/09/2024 09:46 EST [id number] Chris Garcia MD CPT code 48140 Reason for Exam (ECG Stress Exercise) Chest pain;R07.9 Report DATE OF PROCEDURE: 06/09/2024 SUPERVISING PHYSICIAN: Chirs Garcia M.D. PROCEDURE: Treadmill exercise stress test. [...] Signed by: Chris Garcia MD Transcribed by: [facility] Technologist: [facility] 06-13-2024 Instructions Sandy Bhatt MD - 06/13/2024 9:57 AM EST Please note that you are responsible for making the follow-up appointment following your MRI. This appointment should be made at the same time you are scheduling your MRI so that you do not have to wait for a follow-up. documented in this encounter [facility] 06-13-2024 Note HNO ID: [id number] Author: SANDY BHATT MD Service: ? Author [...] he had cervical surgery 08/2016 by at [facility]. He reports weakness to the right hand [...] years ago and tore , followed in [facility] He notes that this problem exhibits no specific aggravating factors. He notes that this problem exhibits no specific alleviating factors. associated symptoms of numbness in the fingers PREVIOUS TREATMENT HISTORY: Prior Surgery in location of pain: Yes: cervical surgery 08/2016 by at [facility] PHYSICAL EXAMINATION: BL HAND AND WRIST EXAM [...] results and radiologist's interpretation, available in the [facility] health record. Images were reviewed with [...] h/o cervical surgery in October 2023 at [facility], records unavailable at this time Will obtain [...] plan as detailed above. Sandy Bhatt MD [facility] Sports and Exercise Medicine Medical Decision Making [facility] 06-13-2024 History of Present illness Narrative Images [...] he had cervical surgery 08/2016 by at [facility]. He reports weakness to the right hand [...] years ago and tore , followed in [facility] He notes that this problem exhibits no specific aggravating factors. He notes that this problem exhibits no specific alleviating factors. associated symptoms of numbness in the fingers PREVIOUS TREATMENT HISTORY: Prior Surgery in location of pain: Yes: cervical surgery 08/2016 by at [facility] PHYSICAL EXAMINATION: BL HAND & WRIST EXAM [...] results and radiologist's interpretation, available in the [facility] health record. Images were reviewed with [...] h/o cervical surgery in October 2023 at [facility], records unavailable at this time Will obtain [...] plan as detailed above. Sandy Bhatt MD [facility] Sports and Exercise Medicine Medical Decision Making documented in this encounter [facility] 06-13-2024 Note HNO ID: [id number] Author: YASSINE MAIN RT(R) Service: ? Author [...] PATIENT PRESENTS WITH AN IMPLANTABLE OR ATTACHED ELECTRICAL JOURNEYMAN: No RADIOLOGY DEPARTMENT: General X-ray: Exam(s) Completed: Upper Extremity X-Ray(s): Hand, bilateral PERIPHERAL IV DATA: Not applicable SIGNED BY: RT Mack(R) June 13, 2024 9:29 AM [facility] 05-24-2024 Note Echocardiology Procedure Exam Date/Time Accession # Ordering Echo Transthoracic 05/24/2024 11:24 [facility] [id number] Chris Garcia MD Complete CPT code 91010 [id number] Reason for Exam (Echo Transthoracic Complete) HTN, R07.9;[place] [address] Adult Echocardiogram Report Name: RACHID MCNAIR Study Date: 05/24/2024 10:49 AM BP: 151/103 mmHg Patient Location: [facility] Ambulatory(s) [facility] HR: 91 : 1955 Gender: Male Height: 71 in Age: 68 yrs Ethnicity: [facility] Weight: 170 lb Reason For Study: HTN, R07.9;Chest pain BSA: 2.0 m2 History: HTN, DM Ordering Physician: Chris Garcia Referring Physician: Chris Garcia Performed By: Elizabet Ruiz [facility] Interpretation Summary moderate left ventricular hypertrophy. Left [...] Garcia MD Transcribed by: SHERWIN Technologist: NATHAN [facility] 05-08-2024 Note Patient Education Nutrition BMI for [...] for Disease Control and Prevention: cdc.gov ??? [place] Heart Association: heart.org ??? National Heart, Lung, and Blood [place]: nhlbi.nih.gov This information is not intended to replace advice given to you by your health care provider. Make sure you discuss any questions you have with your health care provider. Document Revised: 12/17/2022 Document Reviewed: 12/10/2022 [email or web address] Patient Education ? 2023 [facility] History of Present illness Narrative Images from the original note were not included. Assessment/Plan Diagnoses and all orders for this visit: Pseudophakia - s/p CE OD (POD #1): Patient provided with post-op form. Instructed to continue drops as well as shield. Instructed to call immediately with increased pain, redness, decreased vision, questions or concerns. documented in this encounter [facility] 03-13-2024 History of Present illness Narrative Images [...] @ 1:18 PM Additional Tests Keratometry K1 Pelican K2 Pelican Right 43.75 52 44.00 142 Left 43.50 [...] Periphery Normal Normal Refraction Wearing Rx Sphere Pelican Right +2.50 180 Left +2.75 180 Age: 2.5 Type: reading Manifest Refraction Sphere Cylinder Pelican Right +1.50 -1.25 077 Left +1.50 -0.50. 104 Final Rx Sphere Cylinder Pelican Dist VA Right +1.50 -1.25 080 20/30 [...] different lens options were explained including the [id number] fees for any upgrades. Intraocular lens (IOL) [...] OD - 04/03. documented in this encounter [facility] 12-30-2023 History of Present illness Narrative Images from the original note were not included. Rachid Mcnair is a 68 y.o. 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 HPI: Victoriano is here, seen in assistance with physician management assistant Arsh Pack. He does have occasional pain, night disruption, stiffness. He does get occasional crepitance. Overall he does fairly well. He has no interest in surgical reverse arthroplasty. Brochure was provided today. There are no fever, chills or constitutional symptoms. He does have unrelated contralateral shoulder pain as well. This is an open [facility] claim. SUBJECTIVE: MEDICATIONS: Current Outpatient Medications [...] Assessment/Plan Left shoulder chronic rotator cuff tear, [facility] claim with cuff arthropathy. The nature [...] took 35 minutes. documented in this encounter [facility] 02-20-2022 Procedure note [facility] Evaluation note No assessment inform ation available [facility] Work Phone: Evaluation note Diagnosis Age-related nuclear cataract of both eyes- Primary documented in this encounter [facility] note* Diagnosis Left shoulder pain, unspecified chronicity- Primary [facility] Diagnosis Pseudophakia- Primary Lens replaced by other means documented in this encounter [facility] note* Diagnosis Pain- Primary Generalized pain [facility]* Diagnosis Atrophy of muscle of both hands- Primary [facility]* Diagnosis Pain Generalized pain documented in this encounter [facility]* Diagnosis Carpal tunnel syndrome, bilateral upper limbs- Primary Atrophy of muscle of both hands Radiculopathy, cervical region Brachial neuritis or radiculitis nos [facility] Diagnosis Chest pain, unspecified Shortness of breath Essential (primary) hypertension Unspecified essential hypertension documented in this encounter [facility] Work Phone: Evaluation note* Diagnosis Atrophy of muscle of both hands- Primary Carpal tunnel syndrome, bilateral Carpal tunnel syndrome Hx of cervical spine surgery Other postprocedural status Spinal stenosis of cervical region Spinal stenosis in cervical region [facility] Diagnosis Hx of cervical spine surgery Other postprocedural status [facility] Diagnosis 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 [facility] Diagnosis Spinal stenosis of cervical region Spinal stenosis in cervical region [facility] Diagnosis Atrophy of muscle of both hands Carpal tunnel syndrome, bilateral Carpal tunnel syndrome [facility] Diagnosis Bilateral carpal tunnel syndrome- Primary Carpal tunnel syndrome Trigger finger, left ring finger Trigger finger, left middle finger [facility] Diagnosis Carpal tunnel syndrome on left- Primary Carpal tunnel syndrome Trigger middle finger of left hand Trigger finger (acquired) Trigger ring finger of left hand Trigger finger (acquired) Carpal tunnel syndrome on left Carpal tunnel syndrome Trigger middle finger of left hand Trigger finger (acquired) Trigger ring finger of left hand Trigger finger (acquired) [facility] Diagnosis Cervical disc disorder with radiculopathy- Primary Brachial neuritis or radiculitis nos Carpal tunnel syndrome, bilateral upper limbs Carpal tunnel syndrome on left Carpal tunnel syndrome Trigger middle finger of left hand Trigger finger (acquired) Trigger ring finger of left hand Trigger finger (acquired) [facility] Author Cam Rea [facility] February 20, 2022 7:57am Note Date/Time February 20, 2022 7:57am [facility] [address] [place] [address] Gastroenterology H&P Signed Patient: Rachid Mcnair MR#: [id number] : 1955 Acct:[id number] Age/Sex: 66 / M Adm Date: 2 Loc: Room: Type: [facility] Attending Dr: Cam Rea MD [...] signed by Cam Rea MD> 02/20/22 075 [facility] Work Phone: Hospital Discharge instructions Additional Instructions [...] NOT operate machinery such as power tools, [employer] mowers, snow blowers, sewing machines, etc. for [...] Follow up with PCP. - Office number [phone].[facility] Work Phone: Reason for visit Narrative* Diagnostic Procedure Only (Routine) - Closed Specialty Diagnoses / Procedures Referred By Jovanny merritt Referred To Contact XR IMAGING Diagnoses Pain Procedures XR HAND GENERAL 3V PA/LAT/OBL BILATERAL RADEX HAND MINIMUM 3 VIEWS Sandy Bhatt MD [address] [place] [address] Phone: tel: fax: [place] [phone] Referral ID Status Reason Start Date Expiration Date V isits Requested Visits Authorized [id number] Closed Auto-Generate d Referral 05/26/2024 06/25/2025 1 1 [facility] for visit Narrative* Imaging (Routine) - Authorized Specialty Diagnoses / Procedures Referred By Contkita Referred To Contact Radiology Diagnoses Chest pain, unspecified Shortness of breath Essential (primary) hypertension Procedures CT angio coronary art with heartflow if score >30% Chris Garcia MD [address] [facility] [place] [address] Phone: tel: fax: Referral ID Status Reason Start Date Expiration Date Visits Requested Visits Authorized [id number] Authorized Perform Procedure 06/12/2024 06/12/2025 1 1 [facility] Work Phone: [employer] for visit Narrative* Diagnostic Procedure Only (Routine) - Closed Specialty Diagnoses / Procedures Referred By Jovanny merritt Referred To Contact XR IMAGING Diagnoses Hx of cervical spine surgery Procedures XR CERV OTHER 4V AP/LAT/FLX/EXT RADEX SPINE CERVICAL 4 OR 5 VIEWS Sandy Bhatt MD [address] [place] [address] Phone: tel: fax: [place] [address] Referral ID Status Reason Start Date Expiration Date V isits Requested Visits Authorized [id number] Closed Auto-Generate d Referral 06/29/2024 07/29/2025 1 1 [facility] for visit Narrative* MRI/CT (Routine) - Closed Specialty Diagnoses / Procedures Referred By Jovanny merritt Referred To Contact MR IMAGING Diagnoses Spinal stenosis of cervical region Procedures MRI CERVICAL SPINE WO IVCON MRI SPINAL CANAL CERVICAL W/O CONTRAST MATRL Sandy Bhatt MD [address] [place] [address] Phone: tel: fax: [place] [address] Referral ID Status Reason Start Date Expiration Date V isits Requested Visits Authorized [id number] Closed Auto-Generate d Referral 07/05/2024 09/08/2024 1 1 [facility] for visit Narrative* Diagnostic Procedure Only (Routine) - Closed Specialty Diagnoses / Procedures Referred By Jovanny merritt Referred To Contact US IMAGING Diagnoses Atrophy of muscle of both hands Carpal tunnel syndrome, bilateral Procedures US WRIST RIGHT US COMPL JOINT R-T W/IMAGE DOCUMENTATION Latia Chavis PA-C [address] [place] [address] Phone: tel: fax: [place] [address] Referral ID Status Reason Start Date Expiration Date V isits Requested Visits Authorized [id number] Closed Auto-Generate d Referral 08/02/2024 09/01/2025 1 1 [facility] Summary Purpose Family History [...] section and content) DATE CREATED AUTHOR 08/11/2021 [facility] DATE CREATED AUTHOR AUTHOR'S ORGANIZ ATION 10/30/2021 [facility] DATE CREATED AUTHOR AUTHOR'S ORGANIZ ATION 02/27/2022 [facility] DATE CREATED AUTHOR AUTHOR'S ORGANIZ ATION 11/05/2023 [facility] DATE CREATED AUTHOR AUTHOR'S ORGANIZ ATION 04/06/2024 [facility] DATE CREATED AUTHOR AUTHOR'S ORGANIZ ATION 05/09/2024 [facility] DATE CREATED AUTHOR AUTHOR'S ORGANIZ ATION 06/16/2024 [facility] DATE CREATED AUTHOR AUTHOR'S ORGANIZ ATION 07/03/[address] [facility] DATE CREATED AUTHOR AUTHOR'S ORGANIZ ATION 07/17/2024 [facility] DATE CREATED AUTHOR AUTHOR'S ORGANIZ ATION 09/13/2024 [facility] DATE CREATED AUTHOR AUTHOR'S ORGANIZ ATION 09/17/2024 [facility] DATE CREATED AUTHOR AUTHOR'S ORGANIZ ATION 10/23/2024 [facility] DATE CREATED AUTHOR AUTHOR'S ORGANIZ ATION 2024 [facility] DATE CREATED AUTHOR AUTHOR'S ORGANIZ ATION 11/11/2024 [facility] DATE CREATED AUTHOR AUTHOR'S ORGANIZ ATION 12/09/2024 [facility] Care Teams (unrecognized sec tion and content) Team Status: Inactive Member Role Status Dates Sai Yost MD Primary Care Provider Active Cam Rea MD Attending Provider Active Team Status: Active Member Role Status Dates Sai Yost MD Primary Care Provider Active Software Applications Engineer Relationship Specialty Start Date End Date Maxwell Ontiveros MD [address] [place] [id number] PCP - General Family Medicine 12/31/22 Software Applications Engineer Relationship Specialty Start Date End Date Maxwell Ontiveros MD [address] [place] [id number] PCP - General Family Medicine 12/31/22 Software Applications Engineer Relationship Specialty Start Date End Date Maxwell Ontiveros MD PCP - General Family Medicine 12/31/22 Software Applications Engineer Relationship Specialty Start Date End Date Maxwell Ontiveros MD [address] [place] [phone] PCP - General Family Medicine 12/31/22 Software Applications Engineer Relationship Specialty Start Date End Date Maxwell Ontiveros MD [address] [place] [phone] PCP - General Family Medicine 12/31/22 Software Applications Engineer Relationship Specialty Start Date End Date Sai Yost MD [address] [place] [address] PCP - General Family Medicine 07/22/11 Lauri Qureshi MD [address] [facility] [address] [place] [address] Primary Staff Physician Cardiology 06/28/18 Maxwell Ontiveros MD [address] [place] [address] Referring Family Medicine 05/26/24 Software Applications Engineer Relationship Specialty Start Date End Date Sai Yost MD [address] [place] [address] PCP - General Family Medicine 07/22/11 Lauri Qureshi MD [address] [facility] [address] [place] [address] Primary Staff Physician Cardiology 06/28/18 Maxwell Ontiveros MD [address] [place] [address] Referring Family Medicine 05/26/24 Software Applications Engineer Relationship Specialty Start Date End Date Sai Yost MD [address] [place] [address] PCP - General Family Medicine 07/22/11 Lauri Qureshi MD [address] [facility] [address] [place] [address] Primary Staff Physician Cardiology 06/28/18 Maxwell Ontiveros MD [address] [place] [address] Referring Family Medicine 05/26/24 Software Applications Engineer Relationship Specialty Start Date End Date Sai Yost MD [address] [place] [address] PCP - General Family Medicine 07/22/11 Lauri Qureshi MD [address] [facility] [address] [place] [address] Primary Staff Physician Cardiology 06/28/18 Maxwell Ontiveros MD [address] [place] [address] Referring Family Medicine 05/26/24 Software Applications Engineer Relationship Specialty Start Date End Date Sai Yost MD [address] [place], [place] [address] PCP - General Family Medicine 07/22/11 Lauri Qureshi MD [address] [facility] [address] [place] [address] Primary Staff Physician Cardiology 06/28/18 Maxwell Ontiveros MD [address] [facility] Referring Family Medicine 05/26/24 Software Applications Engineer Relationship Specialty Start Date End Date Sai Yost MD [address] [facility] PCP - General Family Medicine 07/22/11 Lauri Qureshi MD [address] [facility] [address] [place] [address] Primary Staff Physician Cardiology 06/28/18 Maxwell Ontiveros MD [address] [place] [address] Referring Family Medicine 05/26/24 Software Applications Engineer Relationship Specialty Start Date End Date Sai Yost MD [address] [place] [address] PCP - General Family Medicine 07/22/11 Lauri Qureshi MD [address] [address] Primary Staff Physician Cardiology 06/28/18 Maxwell Ontiveros MD [address] [place] [address] Referring Family Medicine 05/26/24 Software Applications Engineer Relationship Specialty Start Date End Date Sai Yost MD [address] [place] [address] PCP - General Family Medicine 07/22/11 Lauri Qureshi MD [address] [address] Primary Staff Physician Cardiology 06/28/18 Maxwell Ontiveros MD [address] [place] [address] Referring Family Medicine 05/26/24 Software Applications Engineer Relationship Specialty Start Date End Date Sai Yost MD [address] [place] [address] PCP - General Family Medicine 07/22/11 Lauri Qureshi MD [address] [facility] [address] [place] [address] Primary Staff Physician Cardiology 06/28/18 Maxwell Ontiveros MD [address] [place] [address] Referring Family Medicine 05/26/24 Software Applications Engineer Relationship Specialty Start Date End Date Sai Yost MD [address] [place] [address] PCP - General Family Medicine 07/22/11 Lauri Qureshi MD [address] [address] Primary Staff Physician Cardiology 06/28/18 Maxwell Ontiveros MD [address] [place], [facility] Referring Family Medicine 05/26/24 Software Applications Engineer Relationship Specialty Start Date End Date Sai Yost MD [address] [place], [facility] PCP - General Family Medicine 07/22/11 Lauri Qureshi MD [address] [address] Primary Staff Physician Cardiology 06/28/18 Maxwell Ontiveros MD [address] [place] [address] Referring Family Medicine 05/26/24 Software Applications Engineer Relationship Specialty Start Date End Date Sai Yost MD [address] [place] [address] PCP - General Family Medicine 07/22/11 Lauri Qureshi MD [address] [facility] [address] [place] [address] Primary Staff Physician Cardiology 06/28/18 Maxwell Ontiveros MD [address] [place] [address] Referring Family Medicine 05/26/24 Software Applications Engineer Relationship Specialty Start Date End Date Sai Yost MD [address] [facility] [place] [address] PCP - General Family Medicine 07/22/11 Lauri Qureshi MD [address] [facility] [address] [place] [address] Primary Staff Physician Cardiology 06/28/18 Maxwell Ontiveros MD [address] [facility] [address] Referring Family Medicine 05/26/24 Software Applications Engineer Relationship Specialty Start Date End Date Sai Yost MD [address] [facility] [place] [address] PCP - General Family Medicine 07/22/11 Lauri Qureshi MD [address] [facility] [address] [place] [address] Primary Staff Physician Cardiology 06/28/18 Maxwell Ontiveros MD [address] [place] [address] Referring Family Medicine 05/26/24 Software Applications Engineer Relationship Specialty Start Date End Date Nevaeh Agosto MD [address] [place] [address] PCP - General Family Medicine 10/19/24 Lauri Qureshi MD [address] [facility] [address] [place] [address] Primary Staff Physician Cardiology 06/28/18 Maxwell Ontiveros MD [address] [place] [address] Referring Family Medicine 05/26/24 Reason for Visit (unrecogniz ed section and content) Reason Comments Cataract Reason Comments Pain Reason Comments Post-op Reason Comments New Pain Reason Onset Date Comments EMG 06/24/2024 Specialty Diagnoses / Procedures Referred By Contac t Referred To [facility] Diagnoses Atrophy of muscle of both hands Procedures EMG(NEURO/NI) NERVE CONDUCTION STUDIES 9-10 STUDIES Sandy Bhatt MD [address] [place] [address] Phone: tel: fax: Neurology [address] [place], [place] [id number] Phone: tel: Referral ID Status Reason Start Date Expiration Date V isits Requested Visits Authorized [id number] Closed Auto-Generate d Referral 06/24/2024 04/11/2025 1 [...] or prosecute any alcohol or drug abuse patient.[facility] the event this information is protected by the Federal Confidentiality of Alcohol and Drug Abuse Patient Records regulations: The Federal rules restrict any use of the information to criminally investigate or prosecute any alcohol or drug abuse patient.[facility] the event this information is protected by the Federal Confidentiality of Alcohol and Drug Abuse Patient Records regulations: The Federal rules restrict any use of the information to criminally investigate or prosecute any alcohol or drug abuse patient.[facility] the event this information is protected by the Federal Confidentiality of Alcohol and Drug Abuse Patient Records regulations: The Federal rules restrict any use of the information to criminally investigate or prosecute any alcohol or drug abuse patient.[facility] the event this information is protected by the Federal Confidentiality of Alcohol and Drug Abuse Patient Records regulations: The Federal rules restrict any use of the information to criminally investigate or prosecute any alcohol or drug abuse patient.[facility] the event this information is protected by the Federal Confidentiality of Alcohol and Drug Abuse Patient Records regulations: The Federal rules restrict any use of the information to criminally investigate or prosecute any alcohol or drug abuse patient.[facility] the event this information is protected by the Federal Confidentiality of Alcohol and Drug Abuse Patient Records regulations: The Federal rules restrict any use of the information to criminally investigate or prosecute any alcohol or drug abuse patient.[facility] the event this information is protected by the Federal Confidentiality of Alcohol and Drug Abuse Patient Records regulations: The Federal rules restrict any use of the information to criminally investigate or prosecute any alcohol or drug abuse patient.[facility] Center[facility] the event this information is protected by the Federal Confidentiality of Alcohol and Drug Abuse Patient Records regulations: The Federal rules restrict any use of the information to criminally investigate or prosecute any alcohol or drug abuse patient.[facility] Center[facility] the event this information is protected by the Federal Confidentiality of Alcohol and Drug Abuse Patient Records regulations: The Federal rules restrict any use of the information to criminally investigate or prosecute any alcohol or drug abuse patient.[facility] the event this information is protected by the Federal Confidentiality of Alcohol and Drug Abuse Patient Records regulations: The Federal rules restrict any use of the information to criminally investigate or prosecute any alcohol or drug abuse patient.[facility] CenterIn the event this information is protected by the Federal Confidentiality of Alcohol and Drug Abuse Patient Records regulations: The Federal rules restrict any use of the information to criminally investigate or prosecute any alcohol or drug abuse patient.[facility] CenterIn the event this information is protected by the Federal Confidentiality of Alcohol and Drug Abuse Patient Records regulations: The Federal rules restrict any use of the information to criminally investigate or prosecute any alcohol or drug abuse patient.[facility] Center[facility] the event this information is protected by the Federal Confidentiality of Alcohol and Drug Abuse Patient Records regulations: The Federal rules restrict any use of the information to criminally investigate or prosecute any alcohol or drug abuse patient.[facility] CenterIn the event this information is protected by the Federal Confidentiality of Alcohol and Drug Abuse Patient Records regulations: The Federal rules restrict any use of the information to criminally investigate or prosecute any alcohol or drug abuse patient.[facility] CenterIn the event this information is protected by the Federal Confidentiality of Alcohol and Drug Abuse Patient Records regulations: The Federal rules restrict any use of the information to criminally investigate or prosecute any alcohol or drug abuse patient.[facility] CenterIn the event this information is protected by the Federal Confidentiality of Alcohol and Drug Abuse Patient Records regulations: The Federal rules restrict any use of the information to criminally investigate or prosecute any alcohol or drug abuse patient.[facility] FOR RECORDS PERTAINING TO [...] BE BASED ON THE PRIMARY CLINICAL RECORDS. [facility] [employer] [facility]. provides no warranty or guarantee of the accuracy or completeness of information in this document.
--- OUTSIDE RECORDS SUMMARY | 2024-12-23 09:16 | XMS_ITS | Clinical Summary ---
Author Organization [facility] Address [address] [place] [address] Care Team Providers Care Care Transition Coordinator Name Role Phone Maxwell Ontiveros MD Primary Care Provider [phone] Allergies Active Allergy Reactions Criticality Noted Date Comments Sulfa Antibiotics 12/31/2022 Medications metFORMIN (Glucophage) 500 MG tablet every 12 (twelve) hours. Active Januvia 100 MG tablet 1 (one) time each day at the same time. Active atorvastatin (Lipitor) 20 MG tablet Take 20 mg by mouth at bedtime. Active Blood Glucose Calibration (Contour Next Control) Normal solution 09/19/2022 Active omeprazole (PriLOSEC) [address] capsule Take 20 mg by mouth in the morning. Active aspirin 81 MG EC tablet Take 81 mg by mouth in the morning. 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 Resolved Problems Problem Noted Date Diagnosed Date Resolved Date Age-related nuclear cataract of both eyes 03/13/2024 04/04/2024 Family History Medical History Relation Name Comments Cancer Father Alan Relation Name Status Comments Father Aaln Social History Tobacco Use Types Packs/Day Years Used Date Smoking Tobacco: Former Cigarettes 1.5 15.8 0 12/12/1975 - 10/11/1991 Alcohol Use Standard Drinks/Week Comments Not Currently 0 (1 standard drink = 0.6 oz pur e alcohol) Sex and Gender Information Value Date Recorded Sex Assigned at Male 12/24/2022 11:39 AM EDT Legal Sex Male 7:13 PM EDT Gender Identity Male 12/24/2022 11:39 AM EDT Sexual Orientation Asexual 12/24/2022 11 :39 AM EDT Last Filed Vital Signs Vital Sign Reading Time Taken Comments Blood Pressure 145/85 07/31/2019 12:00 PM EDT Pulse - - Temperature 36.4 C (97.6 F) 12/31/2022 3:56 PM EDT Respiratory Rate - - Oxygen Saturation - - Inhaled Oxygen Concentration - - Weight 78 kg (172 lb) 12/30/2023 3:44 PM EDT Height 177.8 cm (5' 10 ) 12/30/2023 3:44 PM EDT Body Mass Index 24.68 12/30/2023 3:44 PM EDT Plan of Treatment Health Maintenance Due Date Last Done Comments CT Colonography 1957 Colonoscopy 1957 Colorectal Cancer Screening 1957 FIT-DNA 1957 FIT 1957 FOBT 1957 Sigmoidoscopy 1957 Pneumococcal Vaccine: 65+ Ye ars (1 of 1 - PCV) 11/11/2007 Influenza Vaccine (#1) 2024 4, 12/28/2022, 03/24/2022, Additional history exists Insurance MEDICARE [place] Care Teams Care Transition Coordinator Relationship Specialty Start Date End Date Maxwell Ontiveros MD PCP - General Family Medicine 12/31/22
[2024-12-23 10:01] LABS: Cholesterol 134 mg/dL (<=200); HDL Cholesterol 47 mg/dL (40-60); Triglycerides 64 mg/dL (<=150); VLDL CHOLESTEROL 12.8 mg/dL
== END 2024-12-23 09:14 | disposition home or self-care (01) ==
LOC: LAB 09:13
PROVIDERS: PCP Family Medicine; Visit Provider Family Medicine
DX: E78.00 Pure hypercholesterolemia, unspecified (principal); E11.9 Type 2 diabetes mellitus without complications
CPT/HCPCS: 36415; 80061; 83036